=== PATIENT | male | born 1945 | race Caucasian/White ===

== ENCOUNTER → 2016-08-26 | Outpatient (REF) | payer MEDICARE ==
[~2016-08-26] MED LIST: /QUIN20TA OR; ACCU5TAB7; ACTO45TA; ACTO45TA OR; COLC0.6T OR; GABA600T3; GABA600T3 OR; GLUC1000 OR; GLYBURIDE/METFORMIN; LASI40TA; LASI40TA OR; PAME50CA; PAME50CA OR; PROBENECID/COLCHICIN; SENN8.6T5; SENN8.6T5 OR; ZOCO20TA; ZOCO20TA OR
[2016-08-26 13:44] LABS: ALBUMIN 4.3 GM/DL (3.2-5.2); ALBUMIN/GLOBULIN RATIO 1.34 (1.00-1.93); BILIRUBIN,TOTAL 0.5 MG/DL (0.2-1.0); CALCIUM LEVEL 9.5 MG/DL (8.8-10.2); CREATININE FOR GFR 1.76 MG/DL (0.70-1.30); GLOMERULAR FILTRATION RATE 41.1 (>49); TOTAL PROTEIN 7.5 GM/DL (6.4-8.2)
[2016-08-26 13:46] LABS: POTASSIUM SERUM 5.4 MEQ/L (3.5-5.1)
== END ==
LOC: M SFHCPLAZ 07:51
PROVIDERS: ATTEND Internal Medicine
DX: E11.9 Type 2 diabetes mellitus without complications (principal)

== ENCOUNTER → 2016-09-08 | Outpatient (REF) | payer MEDICARE ==
[2016-09-08 17:50] LABS: INR 0.92
[2016-09-08 18:06] LABS: CREATININE FOR GFR 1.81 MG/DL (0.70-1.30); GLOMERULAR FILTRATION RATE 39.8 (>49); POTASSIUM SERUM 5.1 MEQ/L (3.5-5.1)
[2016-09-08 18:33] LABS: MEAN CORPUSCULAR HEMOGLOBIN 30.6 pg (27.0-33.0); RED CELL DISTRIBUTION WIDTH 11.9 % (11.5-14.5); WHITE BLOOD COUNT 7.3 K/mm3 (4.0-10.0)
== END ==
LOC: M SFHCPLAZ 15:32
PROVIDERS: ATTEND Internal Medicine
DX: I73.9 Peripheral vascular disease, unspecified (principal); I12.9 Hypertensive chronic kidney disease with stage 1 through stage 4 chronic kidney disease, or unspecified chronic kidney disease; N18.3 Chronic kidney disease, stage 3 (moderate); E11.9 Type 2 diabetes mellitus without complications; Z79.4 Long term (current) use of insulin
CPT/HCPCS: 36415; 80048; 85027; 85610; 85730; G0463

== ENCOUNTER → 2016-10-15 | Outpatient (REF) | payer MEDICARE ==
[2016-10-15 14:06] LABS: ALBUMIN 3.6 GM/DL (3.2-5.2); ALBUMIN/GLOBULIN RATIO 0.95 (1.00-1.93); BILIRUBIN,TOTAL 0.4 MG/DL (0.2-1.0); CALCIUM LEVEL 8.9 MG/DL (8.8-10.2); CREATININE FOR GFR 1.94 MG/DL (0.70-1.30); GLOMERULAR FILTRATION RATE 36.7 (>49); POTASSIUM SERUM 4.4 MEQ/L (3.5-5.1); TOTAL PROTEIN 7.4 GM/DL (6.4-8.2)
== END ==
LOC: M SFHCPLAZ 11:26
PROVIDERS: ATTEND Nurse Practitioner Adult Health
DX: N18.3 Chronic kidney disease, stage 3 (moderate) (principal)
CPT/HCPCS: 36415; 80053; G0463

== ENCOUNTER 2016-12-13 18:03 | Emergency (ER) | payer MEDICARE ==
[~2016-12-13] VITALS: Ht 170.2 cm; Wt 92.1 kg
[2016-12-13 18:29] VITALS: BP 201/95
[2016-12-13] MEDS ORDERED: NORCO 5/325MG TABLET (BULK FOR ED) PO ONE (18:30)
[2016-12-13] MEDS ORDERED: HYDR-3713 PO (18:30)
== END 2016-12-13 18:37 | disposition home or self-care (01) ==
LOC: M ED 18:33
DX: S91.301A Unspecified open wound, right foot, initial encounter (principal); X58.XXXA Exposure to other specified factors, initial encounter; Y92.89 Other specified places as the place of occurrence of the external cause; Y93.89 Activity, other specified; Y99.8 Other external cause status; T87.89 Other complications of amputation stump; I10 Essential (primary) hypertension; F17.200 Nicotine dependence, unspecified, uncomplicated; E11.9 Type 2 diabetes mellitus without complications; Z88.5 Allergy status to narcotic agent; Z89.421 Acquired absence of other right toe(s)

== ENCOUNTER → 2016-12-18 | Outpatient (REF) | payer MEDICARE ==
[~2016-12-18] MED LIST changes: +HYDR-3713 PO
== END ==
LOC: M LAB REF 16:16
PROVIDERS: ATTEND Surgery
DX: L97.414 Non-pressure chronic ulcer of right heel and midfoot with necrosis of bone (principal); M86.9 Osteomyelitis, unspecified
CPT/HCPCS: 11044; 87070; 87077; 87186; 88304; 88311; 97597; G0463

== ENCOUNTER → 2017-03-11 | Outpatient (REF) | payer MEDICARE ==
[2017-03-11 12:59] LABS: MEAN CORPUSCULAR HEMOGLOBIN 31.1 pg (27.0-33.0); MEAN CORPUSCULAR HGB CONC 34.9 g/dl (32.0-36.5); RED CELL DISTRIBUTION WIDTH 14.5 % (11.5-14.5); WHITE BLOOD COUNT 7.3 K/mm3 (4.0-10.0)
[2017-03-11 13:05] LABS: ALBUMIN 3.5 GM/DL (3.2-5.2); ALBUMIN/GLOBULIN RATIO 0.88 (1.00-1.93); BILIRUBIN,TOTAL 0.4 MG/DL (0.2-1.0); CALCIUM LEVEL 9.5 MG/DL (8.8-10.2); CREATININE FOR GFR 1.48 MG/DL (0.70-1.30); GLOMERULAR FILTRATION RATE 50.2 (>49); MAGNESIUM LEVEL 2.1 MG/DL (1.8-2.4); POTASSIUM SERUM 4.6 MEQ/L (3.5-5.1); TOTAL PROTEIN 7.5 GM/DL (6.4-8.2)
== END ==
LOC: M SFHCADAM 08:45
PROVIDERS: ATTEND Internal Medicine
DX: I73.9 Peripheral vascular disease, unspecified (principal); N18.3 Chronic kidney disease, stage 3 (moderate); E11.22 Type 2 diabetes mellitus with diabetic chronic kidney disease; E78.00 Pure hypercholesterolemia, unspecified; I12.9 Hypertensive chronic kidney disease with stage 1 through stage 4 chronic kidney disease, or unspecified chronic kidney disease

== ENCOUNTER → 2017-07-10 | Outpatient (REF) | payer MEDICARE ==
[2017-07-10 14:01] LABS: MEAN CORPUSCULAR HEMOGLOBIN 29.8 pg (27.0-33.0); MEAN CORPUSCULAR HGB CONC 32.9 g/dl (32.0-36.5); MEAN CORPUSCULAR VOLUME 90.5 fl (80.0-96.0); PLATELET COUNT, AUTOMATED 200 10^3/uL (150-450); RED CELL DISTRIBUTION WIDTH 13.8 % (11.5-14.5); WHITE BLOOD COUNT 6.1 10^3/uL (4.0-10.0)
[2017-07-10 14:10] LABS: ALBUMIN 4.1 GM/DL (3.2-5.2); ALBUMIN/GLOBULIN RATIO 1.14 (1.00-1.93); BILIRUBIN,TOTAL 0.4 MG/DL (0.2-1.0); CALCIUM LEVEL 9.5 MG/DL (8.8-10.2); CREATININE FOR GFR 1.67 MG/DL (0.70-1.30); GLOMERULAR FILTRATION RATE 43.5 (>42); TOTAL PROTEIN 7.7 GM/DL (6.4-8.2)
[2017-07-10 14:21] LABS: POTASSIUM SERUM 5.3 MEQ/L (3.5-5.1)
== END ==
LOC: M SFHCPLAZ 08:16
PROVIDERS: ATTEND Internal Medicine
DX: N18.3 Chronic kidney disease, stage 3 (moderate) (principal); E11.22 Type 2 diabetes mellitus with diabetic chronic kidney disease

== ENCOUNTER → 2017-11-04 | Outpatient (REF) | payer MEDICARE ==
[2017-11-04 12:19] LABS: HEMOGLOBIN 13.4 g/dl (14.0-18.0); MEAN CORPUSCULAR HEMOGLOBIN 30.7 pg (27.0-33.0); MEAN CORPUSCULAR HGB CONC 33.5 g/dl (32.0-36.5); MEAN CORPUSCULAR VOLUME 91.5 fl (80.0-96.0); PLATELET COUNT, AUTOMATED 199 10^3/uL (150-450); RED BLOOD COUNT 4.37 10^6/uL (4.30-6.10); RED CELL DISTRIBUTION WIDTH 12.8 % (11.5-14.5)
[2017-11-04 12:49] LABS: PTH INTACT 54.7 PG/ML (18.5-88.0)
[2017-11-04 13:11] LABS: ALBUMIN/GLOBULIN RATIO 1.11 (1.00-1.93); ALKALINE PHOSPHATASE 87 U/L (45-117); ALT/SGPT 48 U/L (12-78); ANION GAP 7 MEQ/L (8-16); AST/SGOT 18 U/L (7-37); BILIRUBIN,TOTAL 0.4 MG/DL (0.2-1.0); BLOOD UREA NITROGEN 34 MG/DL (7-18); CALCIUM LEVEL 8.8 MG/DL (8.8-10.2); CARBON DIOXIDE LEVEL 23 MEQ/L (21-32); CHLORIDE LEVEL 112 MEQ/L (98-107); CHOLESTEROL LEVEL 127 MG/DL (<200); CHOLESTEROL RISK RATIO 4.379 (<5); CREATININE FOR GFR 1.82 MG/DL (0.70-1.30); GLOMERULAR FILTRATION RATE 39.4 (>42); GLUCOSE, FASTING 161 MG/DL (70-100); HDL CHOLESTEROL 29 MG/DL (>40); LDL CHOLESTEROL 60.4 MG/DL (<100); MAGNESIUM LEVEL 2.5 MG/DL (1.8-2.4); NON-HDL-C 98 MG/DL; SODIUM LEVEL 142 MEQ/L (136-145); TOTAL PROTEIN 7.6 GM/DL (6.4-8.2); TRIGLYCERIDES LEVEL 188 MG/DL (<150)
[2017-11-04 13:15] LABS: POTASSIUM SERUM 5.6 MEQ/L (3.5-5.1)
[2017-11-04 13:26] LABS: ESTIMATED AVERAGE GLUCOSE 203 MG/DL (60-110); HEMOGLOBIN A1c 8.7 %
== END ==
LOC: M SFHCADAM 08:39
DX: Z51.81 Encounter for therapeutic drug level monitoring (principal); Z79.4 Long term (current) use of insulin; E11.22 Type 2 diabetes mellitus with diabetic chronic kidney disease; E78.00 Pure hypercholesterolemia, unspecified; I12.9 Hypertensive chronic kidney disease with stage 1 through stage 4 chronic kidney disease, or unspecified chronic kidney disease; N18.3 Chronic kidney disease, stage 3 (moderate)
CPT/HCPCS: 83735

== ENCOUNTER 2018-01-07 19:19 | Emergency (ER) | payer MEDICARE | END 2018-01-08 00:24 | disposition home or self-care (01) | LOC: M ED 01-08 00:24 | DX: S90.412A Abrasion, left great toe, initial encounter (principal); X58.XXXA Exposure to other specified factors, initial encounter; Y92.9 Unspecified place or not applicable; Y93.9 Activity, unspecified; Y99.9 Unspecified external cause status; E11.9 Type 2 diabetes mellitus without complications; I10 Essential (primary) hypertension; M10.9 Gout, unspecified; N40.0 Benign prostatic hyperplasia without lower urinary tract symptoms; Z87.442 Personal history of urinary calculi; Z79.4 Long term (current) use of insulin; Z79.899 Other long term (current) drug therapy; Z88.5 Allergy status to narcotic agent | CPT/HCPCS: 99283 ==

== ENCOUNTER → 2018-02-22 | Outpatient (REF) | payer MEDICARE ==
[2018-02-22 13:16] LABS: ALBUMIN 3.2 GM/DL (3.2-5.2); ALBUMIN/GLOBULIN RATIO 0.76 (1.00-1.93); ALKALINE PHOSPHATASE 121 U/L (45-117); ALT/SGPT 29 U/L (12-78); ANION GAP 8 MEQ/L (8-16); AST/SGOT 14 U/L (7-37); BILIRUBIN,TOTAL 0.3 MG/DL (0.2-1.0); BLOOD UREA NITROGEN 29 MG/DL (7-18); CALCIUM LEVEL 8.3 MG/DL (8.8-10.2); CARBON DIOXIDE LEVEL 22 MEQ/L (21-32); CHLORIDE LEVEL 112 MEQ/L (98-107); CREATININE FOR GFR 1.58 MG/DL (0.70-1.30); GLOMERULAR FILTRATION RATE 46.4 (>42); GLUCOSE, FASTING 94 MG/DL (70-100); POTASSIUM SERUM 4.5 MEQ/L (3.5-5.1); SODIUM LEVEL 142 MEQ/L (136-145); TOTAL PROTEIN 7.4 GM/DL (6.4-8.2); URIC ACID 5.3 MG/DL (3.5-7.2)
[2018-02-22 13:17] LABS: PTH INTACT 57.6 PG/ML (18.5-88.0)
[2018-02-22 13:36] LABS: ESTIMATED AVERAGE GLUCOSE 186 MG/DL (60-110); HEMOGLOBIN A1c 8.1 %
== END ==
LOC: M SFHCADAM 08:04
DX: E11.22 Type 2 diabetes mellitus with diabetic chronic kidney disease (principal); N18.3 Chronic kidney disease, stage 3 (moderate); M10.9 Gout, unspecified
CPT/HCPCS: 83735

== ENCOUNTER 2018-06-10 12:47 | Inpatient (IN) | payer MEDICARE ==
[2018-06-10 14:47] LABS: BASO % 0.6 % (0.0-1.0); EOS # 0.1 10^3/uL (0.0-0.50); EOS % 2.1 % (0.0-3.0); HEMATOCRIT 33.9 % (42.0-52.0); HEMOGLOBIN 11.1 g/dl (13.5-17.5); IMMATURE GRANULOCYTE % 0.3 % (0-3.0); LYMPH # 0.8 10^3/uL (1.5-4.5); LYMPH % 22.6 % (24.0-44.0); MEAN CORPUSCULAR HEMOGLOBIN 30.3 pg (27.0-33.0); MEAN CORPUSCULAR HGB CONC 32.7 g/dl (32.0-36.5); MEAN CORPUSCULAR VOLUME 92.6 fl (80.0-96.0); MONO # 0.4 10^3/uL (0.0-0.8); MONO % 11.4 % (0.0-5.0); NEUTROPHILS # 2.2 10^3/uL (1.8-7.7); PLATELET COUNT, AUTOMATED 161 10^3/uL (150-450); RED BLOOD COUNT 3.66 10^6/uL (4.30-6.10); RED CELL DISTRIBUTION WIDTH 14.1 % (11.5-14.5); WHITE BLOOD COUNT 3.4 10^3/uL (4.0-10.0)
[2018-06-10 14:54] LABS: ANION GAP 9 MEQ/L (8-16); BLOOD UREA NITROGEN 54 MG/DL (7-18); CALCIUM LEVEL 8.1 MG/DL (8.8-10.2); CARBON DIOXIDE LEVEL 21 MEQ/L (21-32); CHLORIDE LEVEL 113 MEQ/L (98-107); CREATININE FOR GFR 2.26 MG/DL (0.70-1.30); GLOMERULAR FILTRATION RATE 30.6 (>42); GLUCOSE, FASTING 153 MG/DL (70-100); POTASSIUM SERUM 5.1 MEQ/L (3.5-5.1); SODIUM LEVEL 143 MEQ/L (136-145)
[2018-06-10] MEDS: ALBUTEROL SULFATE 2.5 MG/0.5 ML INH NEB SOLN INH ×3 (15:11→15:40)
[2018-06-10 15:15] LABS: CPK CREATINE PHOSPHOKINASE 386 U/L (39-308); MB/CK RELATIVE INDEX 1.14 (< OR =4); NT-PRO BNP 486 PG/ML (<125); TROPONIN I < 0.02 NG/ML (< 0.10)
[2018-06-10 15:48] LABS: LACTIC ACID SEPSIS PROTOCOL 1.2 MMOL/L (0.4-2.0)
[2018-06-10] MEDS: PIPERACILLIN/TAZOBACTAM SOD 3.375 GM in D5W MINI-BAG PLUS 50 ML IV (16:00)
[2018-06-10] MEDS ORDERED: GLUCOSE 4 GM CHEW TABLET PO (16:45)
[2018-06-10] MEDS ORDERED: DEXTROSE 50% 50 ML SYRINGE IV (16:45)
[2018-06-10] MEDS ORDERED: GLUCAGON FOR INJ 1 MG VIAL (J1610) SC (16:45)
[2018-06-10] MEDS: methylPREDNISolone INJ 125 MG/2 ML VIAL (J2930) IV (17:17)
[2018-06-10] MEDS: VANCOMYCIN HCL 500 MG in D5W MINI-BAG PLUS 100 ML IV (17:17)
[2018-06-10] MEDS: FUROSEMIDE 40 MG/4 ML VIAL (J1940) IV (20:02)
[2018-06-10] MEDS: LevoFLOXacin IV 500 MG in APPROPRIATE DILUENT 1 EA IV (20:07)
[2018-06-10 21:19] LABS: CPK CREATINE PHOSPHOKINASE 382 U/L (39-308); MB/CK RELATIVE INDEX 1.23 (< OR =4); TROPONIN I 0.04 NG/ML (< 0.10)
[2018-06-10 21:48] LABS: APPEARANCE, URINE HAZY (CLEAR); BACTERIA, URINE AUTO 1+ (NEGATIVE); BILIRUBIN, URINE AUTO NEGATIVE (NEGATIVE); BLOOD, URINE BLOOD 1+ (NEGATIVE); COLOR, URINE YELLOW (YELLOW); GLUCOSE, URINE (UA) AUTO 1+ mg/dL (NEGATIVE); KETONE, URINE AUTO NEGATIVE (NEGATIVE); LEUKOCYTE ESTERASE, URINE AUTO NEGATIVE (NEGATIVE); MUCUS, URINE SMALL (NEGATIVE); NITRITE, URINE AUTO NEGATIVE (NEGATIVE); PROTEIN, URINE AUTO 2+ mg/dL (NEGATIVE); RBC, URINE AUTO 3 /HPF (0-3); SPECIFIC GRAVITY URINE AUTO 1.013 (1.002-1.035); SQUAMOUS EPITHELIAL CELL UR AU 1 /HPF (0-6); UROBILINOGEN, URINE AUTO 0.2 mg/dL (0.0-2.0); WBC, URINE AUTO 2 /HPF (0-3)
[2018-06-10] MEDS: METOPROLOL TART 50 MG TAB PO (21:53)
[2018-06-10] MEDS: SIMVASTATIN 40 MG TAB PO (21:53)
[2018-06-10] MEDS: GABAPENTIN 300 MG CAP PO (21:53)
[2018-06-10] MEDS: HEPARIN SOD (PORCINE) 5000 UNITS/ML VIAL SC (21:54)
[2018-06-10] MEDS: NYSTATIN 100,000 UNITS/GM TOPICAL PWD 15 GM TOP (21:54)
[2018-06-10] MEDS: PROBENECID 500 MG TAB PO (21:54)
[2018-06-10] MEDS: VANCOMYCIN HCL 1,000 MG, VIAL MATE ADAPTER 1 EACH in D5W 250 ML IV (21:56)
[2018-06-10 22:16] LABS: BEDSIDE GLUCOSE 368 MG/DL (83-110)
[2018-06-10] MEDS: HumaLOG INSULIN (NovoLOG) PER UNIT SC (22:20)
[2018-06-10] MEDS: IPRATROPIUM 0.5MG/ALBUTEROL 2.5MG INH SOL UD 3ML (DUONEB)(J7620) NEB (22:32)
[2018-06-11] MEDS: methylPREDNISolone INJ 40 MG/1 ML VIAL (J2920) IV ×3 (00:40→16:57)
[2018-06-11] MEDS: IPRATROPIUM 0.5MG/ALBUTEROL 2.5MG INH SOL UD 3ML (DUONEB)(J7620) NEB ×4 (01:49→19:37)
[2018-06-11] MEDS: HEPARIN SOD (PORCINE) 5000 UNITS/ML VIAL SC ×3 (05:38→20:54)
[2018-06-11 06:58] LABS: HEMATOCRIT 33.7 % (42.0-52.0); HEMOGLOBIN 10.9 g/dl (13.5-17.5); LYMPH # 0.3 10^3/uL (1.5-4.5); LYMPH % 12.5 % (24.0-44.0); MEAN CORPUSCULAR HEMOGLOBIN 29.9 pg (27.0-33.0); MEAN CORPUSCULAR HGB CONC 32.3 g/dl (32.0-36.5); MEAN CORPUSCULAR VOLUME 92.3 fl (80.0-96.0); MONO # 0.1 10^3/uL (0.0-0.8); MONO % 4.2 % (0.0-5.0); NEUTROPHILS # 1.8 10^3/uL (1.8-7.7); NEUTROPHILS % 83.3 % (36.0-66.0); PLATELET COUNT, AUTOMATED 145 10^3/uL (150-450); RED BLOOD COUNT 3.65 10^6/uL (4.30-6.10); RED CELL DISTRIBUTION WIDTH 13.8 % (11.5-14.5); WHITE BLOOD COUNT 2.2 10^3/uL (4.0-10.0)
[2018-06-11 07:19] LABS: POSITIVE DIFF POS FLAG
[2018-06-11 07:45] LABS: ALBUMIN 2.8 GM/DL (3.2-5.2); ALBUMIN/GLOBULIN RATIO 0.61 (1.00-1.93); ALKALINE PHOSPHATASE 93 U/L (45-117); ALT/SGPT 42 U/L (12-78); ANION GAP 10 MEQ/L (8-16); AST/SGOT 29 U/L (7-37); BILIRUBIN,TOTAL 0.2 MG/DL (0.2-1.0); BLOOD UREA NITROGEN 53 MG/DL (7-18); CALCIUM LEVEL 8.1 MG/DL (8.8-10.2); CARBON DIOXIDE LEVEL 19 MEQ/L (21-32); CHLORIDE LEVEL 111 MEQ/L (98-107); CPK CREATINE PHOSPHOKINASE 366 U/L (39-308); CREATININE FOR GFR 2.45 MG/DL (0.70-1.30); GLOMERULAR FILTRATION RATE 27.9 (>42); GLUCOSE, FASTING 296 MG/DL (70-100); MAGNESIUM LEVEL 2.6 MG/DL (1.8-2.4); MB/CK RELATIVE INDEX 1.48 (< OR =4); POTASSIUM SERUM 4.8 MEQ/L (3.5-5.1); SODIUM LEVEL 140 MEQ/L (136-145); TOTAL PROTEIN 7.4 GM/DL (6.4-8.2); TROPONIN I 0.21 NG/ML (< 0.10)
[2018-06-11] MEDS: QUINAPRIL 20 MG TAB PO (08:36)
[2018-06-11] MEDS: PROBENECID 500 MG TAB PO ×2 (08:36→20:54)
[2018-06-11] MEDS: ASPIRIN 81 MG ENTERIC TAB PO (08:36)
[2018-06-11] MEDS: ACETAMINOPHEN TAB 650MG DOSE (2X325MG) PO (08:37)
[2018-06-11] MEDS: GABAPENTIN 300 MG CAP PO ×2 (08:37→20:54)
[2018-06-11] MEDS: METOPROLOL TART 50 MG TAB PO ×2 (08:37→20:54)
[2018-06-11] MEDS: HumaLOG INSULIN (NovoLOG) PER UNIT SC ×4 (08:38→20:53)
[2018-06-11] MEDS: NYSTATIN 100,000 UNITS/GM TOPICAL PWD 15 GM TOP ×2 (08:38→20:53)
[2018-06-11] MEDS: VANCOMYCIN HCL 1,000 MG, VIAL MATE ADAPTER 1 EACH in D5W 250 ML IV (10:22)
[2018-06-11 11:15] LABS: BEDSIDE GLUCOSE 318 MG/DL (83-110)
[2018-06-11] MEDS: SLF 3 ML SYR IV ×2 (13:40→20:55)
[2018-06-11 15:00] LABS: TROPONIN I 0.17 NG/ML (< 0.10)
[2018-06-11 16:37] LABS: BEDSIDE GLUCOSE 268 MG/DL (83-110)
[2018-06-11 20:03] LABS: TROPONIN I 0.11 NG/ML (< 0.10)
[2018-06-11 20:06] LABS: BEDSIDE GLUCOSE 380 MG/DL (83-110)
[2018-06-11] MEDS: SIMVASTATIN 40 MG TAB PO (20:54)
[2018-06-12] MEDS: SLF 3 ML SYR IV ×4 (00:18→22:00)
[2018-06-12] MEDS: methylPREDNISolone INJ 40 MG/1 ML VIAL (J2920) IV ×3 (00:18→17:32)
[2018-06-12] MEDS: IPRATROPIUM 0.5MG/ALBUTEROL 2.5MG INH SOL UD 3ML (DUONEB)(J7620) NEB ×5 (01:10→19:27)
[2018-06-12 02:16] LABS: TROPONIN I 0.12 NG/ML (< 0.10)
[2018-06-12 06:01] LABS: HEMATOCRIT 31.9 % (42.0-52.0); HEMOGLOBIN 10.5 g/dl (13.5-17.5); IMMATURE GRANULOCYTE % 0.4 % (0-3.0); LYMPH # 0.4 10^3/uL (1.5-4.5); LYMPH % 7.2 % (24.0-44.0); MEAN CORPUSCULAR HEMOGLOBIN 30.5 pg (27.0-33.0); MEAN CORPUSCULAR HGB CONC 32.9 g/dl (32.0-36.5); MEAN CORPUSCULAR VOLUME 92.7 fl (80.0-96.0); MONO # 0.2 10^3/uL (0.0-0.8); MONO % 3.5 % (0.0-5.0); NEUTROPHILS # 4.6 10^3/uL (1.8-7.7); NEUTROPHILS % 88.9 % (36.0-66.0); PLATELET COUNT, AUTOMATED 147 10^3/uL (150-450); RED BLOOD COUNT 3.44 10^6/uL (4.30-6.10); RED CELL DISTRIBUTION WIDTH 13.8 % (11.5-14.5); WHITE BLOOD COUNT 5.2 10^3/uL (4.0-10.0)
[2018-06-12 06:31] LABS: ALBUMIN 2.9 GM/DL (3.2-5.2); ALBUMIN/GLOBULIN RATIO 0.63 (1.00-1.93); ALKALINE PHOSPHATASE 94 U/L (45-117); ALT/SGPT 42 U/L (12-78); ANION GAP 11 MEQ/L (8-16); AST/SGOT 25 U/L (7-37); BILIRUBIN,TOTAL 0.2 MG/DL (0.2-1.0); BLOOD UREA NITROGEN 62 MG/DL (7-18); CALCIUM LEVEL 8.1 MG/DL (8.8-10.2); CARBON DIOXIDE LEVEL 18 MEQ/L (21-32); CHLORIDE LEVEL 111 MEQ/L (98-107); CREATININE FOR GFR 2.46 MG/DL (0.70-1.30); GLOMERULAR FILTRATION RATE 27.8 (>42); GLUCOSE, FASTING 354 MG/DL (70-100); MAGNESIUM LEVEL 2.9 MG/DL (1.8-2.4); POTASSIUM SERUM 4.7 MEQ/L (3.5-5.1); SODIUM LEVEL 140 MEQ/L (136-145); TOTAL PROTEIN 7.5 GM/DL (6.4-8.2)
[2018-06-12] MEDS: HEPARIN SOD (PORCINE) 5000 UNITS/ML VIAL SC ×3 (06:37→20:44)
[2018-06-12] MEDS: PROBENECID 500 MG TAB PO (08:59)
[2018-06-12] MEDS: HumaLOG INSULIN (NovoLOG) PER UNIT SC ×3 (08:59→17:33)
[2018-06-12] MEDS: METOPROLOL TART 50 MG TAB PO ×2 (08:59→20:45)
[2018-06-12] MEDS: GABAPENTIN 300 MG CAP PO ×2 (08:59→20:45)
[2018-06-12] MEDS: ASPIRIN 81 MG ENTERIC TAB PO (08:59)
[2018-06-12] MEDS: QUINAPRIL 20 MG TAB PO (09:00)
[2018-06-12] MEDS: NYSTATIN 100,000 UNITS/GM TOPICAL PWD 15 GM TOP ×2 (09:00→20:45)
[2018-06-12] MEDS: FLUBLOK(EGG FREE)(QUAD)INFLUENZA VACC 0.5ML SYRINGE (90682)18YRS&OLDER IM (09:06)
[2018-06-12] MEDS: PREVNAR 13 VACCINE SYRINGE (CPT CODE:90670) IM (09:07)
[2018-06-12 09:29] LABS: VANCOMYCIN LEVEL TROUGH 11.4 UG/ML (10.0-20.0)
[2018-06-12 11:12] LABS: BEDSIDE GLUCOSE 419 MG/DL (83-110)
[2018-06-12] MEDS: VANCOMYCIN HCL 1,000 MG, VIAL MATE ADAPTER 1 EACH in D5W 250 ML IV (11:23)
[2018-06-12 16:31] LABS: BEDSIDE GLUCOSE 375 MG/DL (83-110)
[2018-06-12] MEDS: LevoFLOXacin IV 500 MG in APPROPRIATE DILUENT 1 EA IV (17:33)
[2018-06-12] MEDS: LEVEMIR (INSULIN DETEMIR) 1 UNITS/0.01ML SC (20:43)
[2018-06-12] MEDS: SIMVASTATIN 40 MG TAB PO (20:44)
[2018-06-12 23:08] LABS: CREATININE,RANDOM URINE 46.6 MG/DL
[2018-06-12 23:08] LABS: TOTAL PROTEIN,RANDOM URINE 92.4 MG/DL (0.0-12.0)
[2018-06-13] MEDS: methylPREDNISolone INJ 40 MG/1 ML VIAL (J2920) IV ×2 (00:56→09:17)
[2018-06-13] MEDS: ACETAMINOPHEN TAB 650MG DOSE (2X325MG) PO (00:59)
[2018-06-13] MEDS: IPRATROPIUM 0.5MG/ALBUTEROL 2.5MG INH SOL UD 3ML (DUONEB)(J7620) NEB ×4 (01:52→19:21)
[2018-06-13 05:42] LABS: HEMATOCRIT 32.8 % (42.0-52.0); HEMOGLOBIN 10.6 g/dl (13.5-17.5); IMMATURE GRANULOCYTE % 1.4 % (0-3.0); LYMPH # 0.3 10^3/uL (1.5-4.5); LYMPH % 5.1 % (24.0-44.0); MEAN CORPUSCULAR HEMOGLOBIN 29.8 pg (27.0-33.0); MEAN CORPUSCULAR HGB CONC 32.3 g/dl (32.0-36.5); MEAN CORPUSCULAR VOLUME 92.1 fl (80.0-96.0); MONO # 0.2 10^3/uL (0.0-0.8); MONO % 3.4 % (0.0-5.0); NEUTROPHILS # 5.9 10^3/uL (1.8-7.7); NEUTROPHILS % 90.1 % (36.0-66.0); PLATELET COUNT, AUTOMATED 165 10^3/uL (150-450); RED BLOOD COUNT 3.56 10^6/uL (4.30-6.10); RED CELL DISTRIBUTION WIDTH 13.5 % (11.5-14.5); WHITE BLOOD COUNT 6.5 10^3/uL (4.0-10.0)
[2018-06-13] MEDS: SLF 3 ML SYR IV ×3 (06:00→21:36)
[2018-06-13] MEDS: HEPARIN SOD (PORCINE) 5000 UNITS/ML VIAL SC ×3 (06:06→21:36)
[2018-06-13 06:07] LABS: ALBUMIN 2.9 GM/DL (3.2-5.2); ALBUMIN/GLOBULIN RATIO 0.64 (1.00-1.93); ALKALINE PHOSPHATASE 96 U/L (45-117); ALT/SGPT 50 U/L (12-78); ANION GAP 11 MEQ/L (8-16); AST/SGOT 27 U/L (7-37); BILIRUBIN,TOTAL 0.3 MG/DL (0.2-1.0); BLOOD UREA NITROGEN 65 MG/DL (7-18); CALCIUM LEVEL 8.1 MG/DL (8.8-10.2); CARBON DIOXIDE LEVEL 17 MEQ/L (21-32); CHLORIDE LEVEL 112 MEQ/L (98-107); CREATININE FOR GFR 2.23 MG/DL (0.70-1.30); GLOMERULAR FILTRATION RATE 31.1 (>42); GLUCOSE, FASTING 382 MG/DL (70-100); MAGNESIUM LEVEL 2.8 MG/DL (1.8-2.4); POTASSIUM SERUM 4.6 MEQ/L (3.5-5.1); SODIUM LEVEL 140 MEQ/L (136-145); TOTAL PROTEIN 7.4 GM/DL (6.4-8.2)
[2018-06-13] MEDS: HumaLOG INSULIN (NovoLOG) PER UNIT SC ×4 (09:15→21:36)
[2018-06-13] MEDS: LEVEMIR (INSULIN DETEMIR) 1 UNITS/0.01ML SC (09:17)
[2018-06-13] MEDS: GABAPENTIN 300 MG CAP PO ×2 (09:18→21:11)
[2018-06-13] MEDS: ASPIRIN 81 MG ENTERIC TAB PO (09:18)
[2018-06-13] MEDS: METOPROLOL TART 50 MG TAB PO ×2 (09:18→21:09)
[2018-06-13] MEDS: NYSTATIN 100,000 UNITS/GM TOPICAL PWD 15 GM TOP (09:19)
[2018-06-13] MEDS: VANCOMYCIN HCL 1,000 MG, VIAL MATE ADAPTER 1 EACH in D5W 250 ML IV (11:02)
[2018-06-13 11:31] LABS: BEDSIDE GLUCOSE 520 MG/DL (83-110)
[2018-06-13 11:32] LABS: BEDSIDE GLUCOSE 506 MG/DL (83-110)
[2018-06-13 12:12] LABS: BEDSIDE GLUCOSE CONFIRMATION 532 MG/DL (LESS THAN 200)
[2018-06-13] MEDS: amLODIPine 5 MG TAB PO (13:53)
[2018-06-13 16:55] LABS: BEDSIDE GLUCOSE 374 MG/DL (83-110)
[2018-06-13 20:40] LABS: BEDSIDE GLUCOSE 283 MG/DL (83-110)
[2018-06-13] MEDS ORDERED: ONDANSETRON 4MG/2ML VIAL (J2405) IV (20:45)
[2018-06-13] MEDS: SODIUM BICARBONATE 325 MG TAB PO (21:12)
[2018-06-13] MEDS: ONDANSETRON 4MG/2ML VIAL (J2405) IV (21:35)
[2018-06-14] MEDS: NYSTATIN 100,000 UNITS/GM TOPICAL PWD 15 GM TOP ×3 (00:59→21:18)
[2018-06-14] MEDS: IPRATROPIUM 0.5MG/ALBUTEROL 2.5MG INH SOL UD 3ML (DUONEB)(J7620) NEB ×5 (02:00→20:00)
[2018-06-14] MEDS: HEPARIN SOD (PORCINE) 5000 UNITS/ML VIAL SC ×3 (06:03→21:19)
[2018-06-14] MEDS: SLF 3 ML SYR IV ×3 (06:03→22:00)
[2018-06-14 07:02] LABS: BASO % 0.2 % (0.0-1.0); HEMATOCRIT 33.5 % (42.0-52.0); HEMOGLOBIN 11.2 g/dl (13.5-17.5); IMMATURE GRANULOCYTE % 1.1 % (0-3.0); LYMPH # 1.4 10^3/uL (1.5-4.5); LYMPH % 15.5 % (24.0-44.0); MEAN CORPUSCULAR HEMOGLOBIN 30.3 pg (27.0-33.0); MEAN CORPUSCULAR HGB CONC 33.4 g/dl (32.0-36.5); MEAN CORPUSCULAR VOLUME 90.5 fl (80.0-96.0); MONO # 0.7 10^3/uL (0.0-0.8); MONO % 7.2 % (0.0-5.0); NEUTROPHILS # 6.9 10^3/uL (1.8-7.7); PLATELET COUNT, AUTOMATED 179 10^3/uL (150-450); RED CELL DISTRIBUTION WIDTH 13.6 % (11.5-14.5)
[2018-06-14 07:26] LABS: ALBUMIN 2.9 GM/DL (3.2-5.2); ALBUMIN/GLOBULIN RATIO 0.69 (1.00-1.93); ALKALINE PHOSPHATASE 80 U/L (45-117); ALT/SGPT 77 U/L (12-78); ANION GAP 9 MEQ/L (8-16); AST/SGOT 55 U/L (7-37); BILIRUBIN,TOTAL 0.3 MG/DL (0.2-1.0); BLOOD UREA NITROGEN 57 MG/DL (7-18); CALCIUM LEVEL 8.1 MG/DL (8.8-10.2); CARBON DIOXIDE LEVEL 20 MEQ/L (21-32); CHLORIDE LEVEL 116 MEQ/L (98-107); CREATININE FOR GFR 1.92 MG/DL (0.70-1.30); GLOMERULAR FILTRATION RATE 36.9 (>42); GLUCOSE, FASTING 158 MG/DL (70-100); MAGNESIUM LEVEL 2.8 MG/DL (1.8-2.4); POTASSIUM SERUM 4.2 MEQ/L (3.5-5.1); SODIUM LEVEL 145 MEQ/L (136-145); TOTAL PROTEIN 7.1 GM/DL (6.4-8.2)
[2018-06-14] MEDS: SODIUM BICARBONATE 325 MG TAB PO (08:40)
[2018-06-14] MEDS: LEVEMIR (INSULIN DETEMIR) 1 UNITS/0.01ML SC (08:41)
[2018-06-14] MEDS: predniSONE 10 MG TAB PO (08:41)
[2018-06-14] MEDS: METOPROLOL TART 50 MG TAB PO ×2 (08:42→21:16)
[2018-06-14] MEDS: GABAPENTIN 300 MG CAP PO ×2 (08:42→21:15)
[2018-06-14] MEDS: ATORVASTATIN 20 MG TAB PO (08:42)
[2018-06-14] MEDS: ASPIRIN 81 MG ENTERIC TAB PO (08:42)
[2018-06-14] MEDS: amLODIPine 5 MG TAB PO (08:42)
[2018-06-14] MEDS: HumaLOG INSULIN (NovoLOG) PER UNIT SC ×4 (08:43→21:00)
[2018-06-14 12:03] LABS: BEDSIDE GLUCOSE 185 MG/DL (83-110)
[2018-06-14 16:32] LABS: BEDSIDE GLUCOSE 227 MG/DL (83-110)
[2018-06-14] MEDS: LevoFLOXacin 500 MG TABLET PO (17:28)
[2018-06-14 20:47] LABS: BEDSIDE GLUCOSE 190 MG/DL (83-110)
[2018-06-14] MEDS: ACETAMINOPHEN TAB 650MG DOSE (2X325MG) PO (21:15)
[2018-06-15] MEDS: IPRATROPIUM 0.5MG/ALBUTEROL 2.5MG INH SOL UD 3ML (DUONEB)(J7620) NEB ×5 (02:00→23:21)
[2018-06-15] MEDS: SLF 3 ML SYR IV ×3 (06:00→22:00)
[2018-06-15] MEDS: HEPARIN SOD (PORCINE) 5000 UNITS/ML VIAL SC ×3 (06:41→21:40)
[2018-06-15 07:10] LABS: BASO % 0.1 % (0.0-1.0); EOS % 0.1 % (0.0-3.0); HEMATOCRIT 32.6 % (42.0-52.0); LYMPH # 1.5 10^3/uL (1.5-4.5); LYMPH % 19.2 % (24.0-44.0); MEAN CORPUSCULAR HGB CONC 33.7 g/dl (32.0-36.5); MEAN CORPUSCULAR VOLUME 88.8 fl (80.0-96.0); MONO # 0.5 10^3/uL (0.0-0.8); MONO % 6.1 % (0.0-5.0); NEUTROPHILS # 5.7 10^3/uL (1.8-7.7); NEUTROPHILS % 72.5 % (36.0-66.0); PLATELET COUNT, AUTOMATED 183 10^3/uL (150-450); RED BLOOD COUNT 3.67 10^6/uL (4.30-6.10); RED CELL DISTRIBUTION WIDTH 13.4 % (11.5-14.5); WHITE BLOOD COUNT 7.8 10^3/uL (4.0-10.0)
[2018-06-15 07:33] LABS: ALBUMIN 2.6 GM/DL (3.2-5.2); ALBUMIN/GLOBULIN RATIO 0.65 (1.00-1.93); ALKALINE PHOSPHATASE 76 U/L (45-117); ALT/SGPT 77 U/L (12-78); ANION GAP 8 MEQ/L (8-16); AST/SGOT 34 U/L (7-37); BILIRUBIN,TOTAL 0.3 MG/DL (0.2-1.0); BLOOD UREA NITROGEN 53 MG/DL (7-18); CALCIUM LEVEL 8.2 MG/DL (8.8-10.2); CARBON DIOXIDE LEVEL 22 MEQ/L (21-32); CHLORIDE LEVEL 115 MEQ/L (98-107); CREATININE FOR GFR 1.61 MG/DL (0.70-1.30); GLOMERULAR FILTRATION RATE 45.3 (>42); GLUCOSE, FASTING 116 MG/DL (70-100); MAGNESIUM LEVEL 2.6 MG/DL (1.8-2.4); POTASSIUM SERUM 4.6 MEQ/L (3.5-5.1); SODIUM LEVEL 145 MEQ/L (136-145); TOTAL PROTEIN 6.6 GM/DL (6.4-8.2)
[2018-06-15] MEDS: ATORVASTATIN 20 MG TAB PO (08:45)
[2018-06-15] MEDS: GABAPENTIN 300 MG CAP PO ×2 (08:45→21:40)
[2018-06-15] MEDS: LEVEMIR (INSULIN DETEMIR) 1 UNITS/0.01ML SC (08:45)
[2018-06-15] MEDS: HumaLOG INSULIN (NovoLOG) PER UNIT SC ×4 (08:45→21:00)
[2018-06-15] MEDS: ASPIRIN 81 MG ENTERIC TAB PO (08:45)
[2018-06-15] MEDS: predniSONE 10 MG TAB PO (08:46)
[2018-06-15] MEDS: amLODIPine 5 MG TAB PO (08:48)
[2018-06-15] MEDS: NYSTATIN 100,000 UNITS/GM TOPICAL PWD 15 GM TOP ×2 (08:48→21:41)
[2018-06-15] MEDS: METOPROLOL TART 50 MG TAB PO ×2 (08:48→21:40)
[2018-06-15 11:56] LABS: BEDSIDE GLUCOSE 199 MG/DL (83-110)
[2018-06-15 12:33] LABS: C REACTIVE PROTEIN QUANTITATIV 0.61 MG/DL (0.00-0.30)
[2018-06-15 14:15] LABS: ERYTHROCYTE SEDIMENTATION RATE 63 mm/hr (0-20)
[2018-06-15] MEDS: ACETAMINOPHEN TAB 650MG DOSE (2X325MG) PO ×2 (15:14→21:41)
[2018-06-15 17:13] LABS: BEDSIDE GLUCOSE 233 MG/DL (83-110)
[2018-06-15 20:05] LABS: BEDSIDE GLUCOSE 244 MG/DL (83-110)
[2018-06-16] MEDS: SLF 3 ML SYR IV ×3 (06:00→22:37)
[2018-06-16] MEDS: HEPARIN SOD (PORCINE) 5000 UNITS/ML VIAL SC ×3 (06:47→22:37)
[2018-06-16] MEDS: HumaLOG INSULIN (NovoLOG) PER UNIT SC ×4 (07:30→22:39)
[2018-06-16] MEDS: IPRATROPIUM 0.5MG/ALBUTEROL 2.5MG INH SOL UD 3ML (DUONEB)(J7620) NEB ×3 (08:13→20:06)
[2018-06-16 08:27] LABS: BASO % 0.4 % (0.0-1.0); EOS % 0.3 % (0.0-3.0); HEMATOCRIT 36.3 % (42.0-52.0); IMMATURE GRANULOCYTE % 2.8 % (0-3.0); LYMPH # 1.6 10^3/uL (1.5-4.5); LYMPH % 18.2 % (24.0-44.0); MEAN CORPUSCULAR HEMOGLOBIN 30.2 pg (27.0-33.0); MEAN CORPUSCULAR HGB CONC 33.1 g/dl (32.0-36.5); MEAN CORPUSCULAR VOLUME 91.4 fl (80.0-96.0); MONO # 0.5 10^3/uL (0.0-0.8); MONO % 5.7 % (0.0-5.0); NEUTROPHILS # 6.5 10^3/uL (1.8-7.7); NEUTROPHILS % 72.6 % (36.0-66.0); PLATELET COUNT, AUTOMATED 229 10^3/uL (150-450); RED BLOOD COUNT 3.97 10^6/uL (4.30-6.10); RED CELL DISTRIBUTION WIDTH 13.4 % (11.5-14.5); WHITE BLOOD COUNT 8.9 10^3/uL (4.0-10.0)
[2018-06-16 08:53] LABS: ALBUMIN 2.9 GM/DL (3.2-5.2); ALBUMIN/GLOBULIN RATIO 0.66 (1.00-1.93); ALKALINE PHOSPHATASE 79 U/L (45-117); ALT/SGPT 91 U/L (12-78); ANION GAP 6 MEQ/L (8-16); AST/SGOT 37 U/L (7-37); BILIRUBIN,TOTAL 0.3 MG/DL (0.2-1.0); BLOOD UREA NITROGEN 45 MG/DL (7-18); CALCIUM LEVEL 8.9 MG/DL (8.8-10.2); CARBON DIOXIDE LEVEL 23 MEQ/L (21-32); CHLORIDE LEVEL 113 MEQ/L (98-107); CREATININE FOR GFR 1.65 MG/DL (0.70-1.30); GLUCOSE, FASTING 101 MG/DL (70-100); POTASSIUM SERUM 4.7 MEQ/L (3.5-5.1); SODIUM LEVEL 142 MEQ/L (136-145); TOTAL PROTEIN 7.3 GM/DL (6.4-8.2)
[2018-06-16 08:54] LABS: MAGNESIUM LEVEL 2.8 MG/DL (1.8-2.4)
[2018-06-16] MEDS: predniSONE 10 MG TAB PO (09:16)
[2018-06-16] MEDS: amLODIPine 5 MG TAB PO (09:17)
[2018-06-16] MEDS: LEVEMIR (INSULIN DETEMIR) 1 UNITS/0.01ML SC (09:17)
[2018-06-16] MEDS: METOPROLOL TART 50 MG TAB PO ×2 (09:17→20:19)
[2018-06-16] MEDS: ATORVASTATIN 20 MG TAB PO (09:17)
[2018-06-16] MEDS: GABAPENTIN 300 MG CAP PO ×2 (09:17→20:17)
[2018-06-16] MEDS: ASPIRIN 81 MG ENTERIC TAB PO (09:17)
[2018-06-16] MEDS: NYSTATIN 100,000 UNITS/GM TOPICAL PWD 15 GM TOP ×2 (09:17→22:38)
[2018-06-16] MEDS ORDERED: SCOPOLAMINE 1MG TRANSDERMAL PATCH As Ordered (12:49)
[2018-06-16] MEDS ORDERED: PROPOFOL 200 MG/20 ML VIAL As Ordered ×2 (13:07→13:38)
[2018-06-16] MEDS ORDERED: MIDAZOLAM INJ 2 MG/2 ML VIAL (J2250) As Ordered (13:07)
[2018-06-16] MEDS ORDERED: fentaNYL 100 MCG/2 ML INJECTION (J3010) As Ordered (13:07)
[2018-06-16] MEDS: ROPIvacaine 0.5% 30 ML INJECTION (J2795 PER 1MG) As Ordered (13:16)
[2018-06-16] MEDS: TOBRAMYCIN SULF 1.2 GM VIAL As Ordered (13:16)
[2018-06-16] MEDS ORDERED: ePHEDrine SULFATE 25 MG/5 ML(5MG/ML) SYRINGE As Ordered (13:20)
[2018-06-16] MEDS: BUPIVACAINE HCL 0.5% 10 ML VIAL As Ordered (13:48)
[2018-06-16] MEDS: LIDOCAINE 2% MDV 20 ML VIAL As Ordered (13:48)
[2018-06-16] MEDS: VANCOMYCIN HCL 500 MG/10 ML VIAL (J3370) As Ordered (13:49)
[2018-06-16] MEDS: BACITRACIN PWD 50,000 UNITS VIAL As Ordered (13:51)
[2018-06-16] MEDS: NEOSPORIN GU IRRIG 20 ML VIAL As Ordered (13:51)
[2018-06-16] MEDS ORDERED: ONDANSETRON 4MG/2ML VIAL (J2405) IV (15:00)
[2018-06-16] MEDS: LR 1,000 ML IV (15:00)
[2018-06-16] MEDS ORDERED: NORCO, ANEXSIA 5/325MG TABLET (HYDROcodone/ACETAMINOPHEN) PO (15:00)
[2018-06-16 17:04] LABS: BEDSIDE GLUCOSE 163 MG/DL (83-110)
[2018-06-16] MEDS: LevoFLOXacin 500 MG TABLET PO (17:43)
[2018-06-16] MEDS: ACETAMINOPHEN TAB 650MG DOSE (2X325MG) PO (20:17)
[2018-06-16 20:33] LABS: BEDSIDE GLUCOSE 319 MG/DL (83-110)
[2018-06-17] MEDS: IPRATROPIUM 0.5MG/ALBUTEROL 2.5MG INH SOL UD 3ML (DUONEB)(J7620) NEB ×4 (01:49→19:46)
[2018-06-17] MEDS: HEPARIN SOD (PORCINE) 5000 UNITS/ML VIAL SC ×3 (05:36→21:08)
[2018-06-17 06:55] LABS: BASO % 0.1 % (0.0-1.0); EOS % 0.2 % (0.0-3.0); HEMATOCRIT 33.6 % (42.0-52.0); HEMOGLOBIN 11.2 g/dl (13.5-17.5); IMMATURE GRANULOCYTE % 1.9 % (0-3.0); LYMPH # 1.2 10^3/uL (1.5-4.5); LYMPH % 11.3 % (24.0-44.0); MEAN CORPUSCULAR HEMOGLOBIN 30.3 pg (27.0-33.0); MEAN CORPUSCULAR HGB CONC 33.3 g/dl (32.0-36.5); MEAN CORPUSCULAR VOLUME 90.8 fl (80.0-96.0); MONO # 0.6 10^3/uL (0.0-0.8); MONO % 5.5 % (0.0-5.0); NEUTROPHILS # 8.6 10^3/uL (1.8-7.7); PLATELET COUNT, AUTOMATED 226 10^3/uL (150-450); RED CELL DISTRIBUTION WIDTH 13.4 % (11.5-14.5); WHITE BLOOD COUNT 10.7 10^3/uL (4.0-10.0)
[2018-06-17 07:23] LABS: ALBUMIN 2.8 GM/DL (3.2-5.2); ALBUMIN/GLOBULIN RATIO 0.72 (1.00-1.93); ALKALINE PHOSPHATASE 71 U/L (45-117); ALT/SGPT 72 U/L (12-78); ANION GAP 6 MEQ/L (8-16); AST/SGOT 21 U/L (7-37); BILIRUBIN,TOTAL 0.3 MG/DL (0.2-1.0); BLOOD UREA NITROGEN 47 MG/DL (7-18); CALCIUM LEVEL 8.5 MG/DL (8.8-10.2); CARBON DIOXIDE LEVEL 23 MEQ/L (21-32); CHLORIDE LEVEL 112 MEQ/L (98-107); CREATININE FOR GFR 1.67 MG/DL (0.70-1.30); GLOMERULAR FILTRATION RATE 43.4 (>42); GLUCOSE, FASTING 160 MG/DL (70-100); MAGNESIUM LEVEL 2.6 MG/DL (1.8-2.4); POTASSIUM SERUM 4.7 MEQ/L (3.5-5.1); SODIUM LEVEL 141 MEQ/L (136-145); TOTAL PROTEIN 6.7 GM/DL (6.4-8.2)
[2018-06-17] MEDS: SLF 3 ML SYR IV ×3 (08:17→21:13)
[2018-06-17] MEDS: LEVEMIR (INSULIN DETEMIR) 1 UNITS/0.01ML SC (08:18)
[2018-06-17] MEDS: HumaLOG INSULIN (NovoLOG) PER UNIT SC ×4 (08:18→21:13)
[2018-06-17] MEDS: predniSONE 10 MG TAB PO (08:18)
[2018-06-17] MEDS: GABAPENTIN 300 MG CAP PO ×2 (08:19→21:12)
[2018-06-17] MEDS: METOPROLOL TART 50 MG TAB PO ×2 (08:19→21:12)
[2018-06-17] MEDS: ATORVASTATIN 20 MG TAB PO (08:19)
[2018-06-17] MEDS: ASPIRIN 81 MG ENTERIC TAB PO (08:20)
[2018-06-17] MEDS: amLODIPine 5 MG TAB PO (08:20)
[2018-06-17] MEDS: NYSTATIN 100,000 UNITS/GM TOPICAL PWD 15 GM TOP ×2 (08:21→21:13)
[2018-06-17] MEDS: SENOKOT S TAB PO (10:03)
[2018-06-17] MEDS: ACETAMINOPHEN TAB 650MG DOSE (2X325MG) PO ×3 (10:04→21:09)
[2018-06-17 11:56] LABS: BEDSIDE GLUCOSE 240 MG/DL (83-110)
[2018-06-17] MEDS: HYDROcodone/APAP LIQUID 7.5-325MG 15ML UDC (LORTAB ELIXIR) PO (13:23)
[2018-06-17 16:37] LABS: BEDSIDE GLUCOSE 376 MG/DL (83-110)
[2018-06-17 20:15] LABS: BEDSIDE GLUCOSE 379 MG/DL (83-110)
[2018-06-18] MEDS: IPRATROPIUM 0.5MG/ALBUTEROL 2.5MG INH SOL UD 3ML (DUONEB)(J7620) NEB ×4 (02:00→20:36)
[2018-06-18] MEDS: HEPARIN SOD (PORCINE) 5000 UNITS/ML VIAL SC ×3 (05:10→21:29)
[2018-06-18] MEDS: SLF 3 ML SYR IV ×3 (05:11→21:30)
[2018-06-18 05:37] LABS: BEDSIDE GLUCOSE 149 MG/DL (83-110)
[2018-06-18] MEDS: ACETAMINOPHEN TAB 650MG DOSE (2X325MG) PO ×3 (06:50→18:55)
[2018-06-18 07:35] LABS: HEMATOCRIT 35.7 % (42.0-52.0); HEMOGLOBIN 11.5 g/dl (13.5-17.5); MEAN CORPUSCULAR HEMOGLOBIN 29.6 pg (27.0-33.0); MEAN CORPUSCULAR HGB CONC 32.2 g/dl (32.0-36.5); MEAN CORPUSCULAR VOLUME 91.8 fl (80.0-96.0); PLATELET COUNT, AUTOMATED 258 10^3/uL (150-450); RED BLOOD COUNT 3.89 10^6/uL (4.30-6.10); RED CELL DISTRIBUTION WIDTH 13.7 % (11.5-14.5); WHITE BLOOD COUNT 10.8 10^3/uL (4.0-10.0)
[2018-06-18 07:47] LABS: ANION GAP 9 MEQ/L (8-16); BLOOD UREA NITROGEN 51 MG/DL (7-18); C REACTIVE PROTEIN QUANTITATIV 0.73 MG/DL (0.00-0.30); CALCIUM LEVEL 8.7 MG/DL (8.8-10.2); CARBON DIOXIDE LEVEL 21 MEQ/L (21-32); CHLORIDE LEVEL 112 MEQ/L (98-107); CREATININE FOR GFR 2.03 MG/DL (0.70-1.30); GLOMERULAR FILTRATION RATE 34.6 (>42); GLUCOSE, FASTING 147 MG/DL (70-100); POTASSIUM SERUM 4.8 MEQ/L (3.5-5.1); SODIUM LEVEL 142 MEQ/L (136-145)
[2018-06-18] MEDS: LEVEMIR (INSULIN DETEMIR) 1 UNITS/0.01ML SC (08:16)
[2018-06-18] MEDS: HumaLOG INSULIN (NovoLOG) PER UNIT SC ×4 (08:17→21:29)
[2018-06-18] MEDS: predniSONE 10 MG TAB PO (08:17)
[2018-06-18] MEDS: METOPROLOL TART 50 MG TAB PO ×2 (08:18→21:30)
[2018-06-18] MEDS: ASPIRIN 81 MG ENTERIC TAB PO (08:18)
[2018-06-18] MEDS: amLODIPine 5 MG TAB PO (08:19)
[2018-06-18] MEDS: GABAPENTIN 300 MG CAP PO ×2 (08:19→21:30)
[2018-06-18] MEDS: ATORVASTATIN 20 MG TAB PO (08:19)
[2018-06-18] MEDS: NYSTATIN 100,000 UNITS/GM TOPICAL PWD 15 GM TOP ×2 (08:20→21:30)
[2018-06-18 12:12] LABS: BEDSIDE GLUCOSE 210 MG/DL (83-110)
[2018-06-18 16:25] LABS: BEDSIDE GLUCOSE 321 MG/DL (83-110)
[2018-06-18] MEDS: LevoFLOXacin 500 MG TABLET PO (17:06)
[2018-06-18 20:39] LABS: BEDSIDE GLUCOSE 285 MG/DL (83-110)
[2018-06-18] MEDS: HYDROcodone/APAP LIQUID 7.5-325MG 15ML UDC (LORTAB ELIXIR) PO (22:36)
[2018-06-19] MEDS: IPRATROPIUM 0.5MG/ALBUTEROL 2.5MG INH SOL UD 3ML (DUONEB)(J7620) NEB ×4 (01:15→20:00)
[2018-06-19] MEDS: SLF 3 ML SYR IV ×3 (05:18→21:42)
[2018-06-19] MEDS: HEPARIN SOD (PORCINE) 5000 UNITS/ML VIAL SC ×3 (05:18→21:41)
[2018-06-19] MEDS: HYDROcodone/APAP LIQUID 7.5-325MG 15ML UDC (LORTAB ELIXIR) PO ×3 (05:20→21:43)
[2018-06-19 06:23] LABS: HEMATOCRIT 32.9 % (42.0-52.0); HEMOGLOBIN 10.7 g/dl (13.5-17.5); MEAN CORPUSCULAR HGB CONC 32.5 g/dl (32.0-36.5); MEAN CORPUSCULAR VOLUME 92.2 fl (80.0-96.0); PLATELET COUNT, AUTOMATED 222 10^3/uL (150-450); RED BLOOD COUNT 3.57 10^6/uL (4.30-6.10); RED CELL DISTRIBUTION WIDTH 13.6 % (11.5-14.5); WHITE BLOOD COUNT 9.1 10^3/uL (4.0-10.0)
[2018-06-19 06:49] LABS: ANION GAP 7 MEQ/L (8-16); BLOOD UREA NITROGEN 56 MG/DL (7-18); C REACTIVE PROTEIN QUANTITATIV 0.56 MG/DL (0.00-0.30); CALCIUM LEVEL 8.7 MG/DL (8.8-10.2); CARBON DIOXIDE LEVEL 22 MEQ/L (21-32); CHLORIDE LEVEL 111 MEQ/L (98-107); CREATININE FOR GFR 1.99 MG/DL (0.70-1.30); GLOMERULAR FILTRATION RATE 35.4 (>42); GLUCOSE, FASTING 196 MG/DL (70-100); POTASSIUM SERUM 4.9 MEQ/L (3.5-5.1); SODIUM LEVEL 140 MEQ/L (136-145)
[2018-06-19] MEDS: ATORVASTATIN 20 MG TAB PO (08:47)
[2018-06-19] MEDS: ASPIRIN 81 MG ENTERIC TAB PO (08:47)
[2018-06-19] MEDS: GABAPENTIN 300 MG CAP PO ×2 (08:47→21:41)
[2018-06-19] MEDS: predniSONE 10 MG TAB PO (08:47)
[2018-06-19] MEDS: METOPROLOL TART 50 MG TAB PO ×2 (08:47→21:41)
[2018-06-19] MEDS: HumaLOG INSULIN (NovoLOG) PER UNIT SC ×4 (08:48→21:43)
[2018-06-19] MEDS: amLODIPine 5 MG TAB PO (08:48)
[2018-06-19] MEDS: NYSTATIN 100,000 UNITS/GM TOPICAL PWD 15 GM TOP ×2 (08:49→21:42)
[2018-06-19] MEDS: LEVEMIR (INSULIN DETEMIR) 1 UNITS/0.01ML SC (08:49)
[2018-06-19 11:44] LABS: BEDSIDE GLUCOSE 221 MG/DL (83-110)
[2018-06-19] MEDS: ACETAMINOPHEN TAB 650MG DOSE (2X325MG) PO (14:58)
[2018-06-19] MEDS: DOXYCYCLINE HYCLATE 100 MG TAB PO (14:58)
[2018-06-19 16:26] LABS: BEDSIDE GLUCOSE 291 MG/DL (83-110)
[2018-06-19 20:40] LABS: BEDSIDE GLUCOSE 405 MG/DL (83-110)
[2018-06-20] MEDS: IPRATROPIUM 0.5MG/ALBUTEROL 2.5MG INH SOL UD 3ML (DUONEB)(J7620) NEB ×4 (01:12→20:36)
[2018-06-20] MEDS: HEPARIN SOD (PORCINE) 5000 UNITS/ML VIAL SC ×3 (05:12→21:57)
[2018-06-20] MEDS: SLF 3 ML SYR IV ×3 (05:12→21:58)
[2018-06-20] MEDS: HYDROcodone/APAP LIQUID 7.5-325MG 15ML UDC (LORTAB ELIXIR) PO ×2 (05:12→12:58)
[2018-06-20 06:10] LABS: HEMATOCRIT 32.8 % (42.0-52.0); HEMOGLOBIN 10.7 g/dl (13.5-17.5); MEAN CORPUSCULAR HGB CONC 32.6 g/dl (32.0-36.5); MEAN CORPUSCULAR VOLUME 91.9 fl (80.0-96.0); PLATELET COUNT, AUTOMATED 217 10^3/uL (150-450); RED BLOOD COUNT 3.57 10^6/uL (4.30-6.10); RED CELL DISTRIBUTION WIDTH 13.5 % (11.5-14.5); WHITE BLOOD COUNT 10.3 10^3/uL (4.0-10.0)
[2018-06-20 06:33] LABS: ANION GAP 9 MEQ/L (8-16); BLOOD UREA NITROGEN 52 MG/DL (7-18); C REACTIVE PROTEIN QUANTITATIV 0.35 MG/DL (0.00-0.30); CALCIUM LEVEL 8.8 MG/DL (8.8-10.2); CARBON DIOXIDE LEVEL 20 MEQ/L (21-32); CHLORIDE LEVEL 111 MEQ/L (98-107); CREATININE FOR GFR 1.92 MG/DL (0.70-1.30); GLOMERULAR FILTRATION RATE 36.9 (>42); GLUCOSE, FASTING 218 MG/DL (70-100); POTASSIUM SERUM 4.9 MEQ/L (3.5-5.1); SODIUM LEVEL 140 MEQ/L (136-145)
[2018-06-20] MEDS: LEVEMIR (INSULIN DETEMIR) 1 UNITS/0.01ML SC (08:34)
[2018-06-20] MEDS: HumaLOG INSULIN (NovoLOG) PER UNIT SC ×4 (08:34→21:57)
[2018-06-20] MEDS: ASPIRIN 81 MG ENTERIC TAB PO (08:34)
[2018-06-20] MEDS: predniSONE 10 MG TAB PO (08:35)
[2018-06-20] MEDS: ATORVASTATIN 20 MG TAB PO (08:35)
[2018-06-20] MEDS: DOXYCYCLINE HYCLATE 100 MG TAB PO (08:35)
[2018-06-20] MEDS: GABAPENTIN 300 MG CAP PO ×2 (08:35→21:56)
[2018-06-20] MEDS: NYSTATIN 100,000 UNITS/GM TOPICAL PWD 15 GM TOP ×2 (08:36→21:57)
[2018-06-20] MEDS: METOPROLOL TART 50 MG TAB PO ×2 (08:36→21:56)
[2018-06-20] MEDS: amLODIPine 5 MG TAB PO (08:36)
[2018-06-20] MEDS: ACETAMINOPHEN TAB 650MG DOSE (2X325MG) PO ×2 (08:40→14:56)
[2018-06-20 11:29] LABS: BEDSIDE GLUCOSE 268 MG/DL (83-110)
[2018-06-20 16:41] LABS: BEDSIDE GLUCOSE 367 MG/DL (83-110)
[2018-06-20] MEDS: SENOKOT S TAB PO (17:30)
[2018-06-20 21:21] LABS: BEDSIDE GLUCOSE 336 MG/DL (83-110)
[2018-06-21] MEDS: IPRATROPIUM 0.5MG/ALBUTEROL 2.5MG INH SOL UD 3ML (DUONEB)(J7620) NEB ×4 (02:00→20:00)
[2018-06-21] MEDS: HEPARIN SOD (PORCINE) 5000 UNITS/ML VIAL SC ×3 (05:20→22:28)
[2018-06-21] MEDS: SLF 3 ML SYR IV ×3 (05:20→22:29)
[2018-06-21 06:13] LABS: HEMATOCRIT 33.7 % (42.0-52.0); MEAN CORPUSCULAR HEMOGLOBIN 30.2 pg (27.0-33.0); MEAN CORPUSCULAR HGB CONC 32.6 g/dl (32.0-36.5); MEAN CORPUSCULAR VOLUME 92.6 fl (80.0-96.0); PLATELET COUNT, AUTOMATED 223 10^3/uL (150-450); RED BLOOD COUNT 3.64 10^6/uL (4.30-6.10); RED CELL DISTRIBUTION WIDTH 13.3 % (11.5-14.5); WHITE BLOOD COUNT 10.1 10^3/uL (4.0-10.0)
[2018-06-21 07:27] LABS: ANION GAP 6 MEQ/L (8-16); BLOOD UREA NITROGEN 51 MG/DL (7-18); C REACTIVE PROTEIN QUANTITATIV < 0.30 MG/DL (0.00-0.30); CALCIUM LEVEL 8.9 MG/DL (8.8-10.2); CARBON DIOXIDE LEVEL 23 MEQ/L (21-32); CHLORIDE LEVEL 109 MEQ/L (98-107); GLOMERULAR FILTRATION RATE 37.4 (>42); GLUCOSE, FASTING 234 MG/DL (70-100); POTASSIUM SERUM 5.1 MEQ/L (3.5-5.1); SODIUM LEVEL 138 MEQ/L (136-145)
[2018-06-21] MEDS: GABAPENTIN 300 MG CAP PO ×2 (09:08→22:27)
[2018-06-21] MEDS: ASPIRIN 81 MG ENTERIC TAB PO (09:08)
[2018-06-21] MEDS: METOPROLOL TART 50 MG TAB PO ×2 (09:09→22:28)
[2018-06-21] MEDS: amLODIPine 5 MG TAB PO (09:09)
[2018-06-21] MEDS: ATORVASTATIN 20 MG TAB PO (09:09)
[2018-06-21] MEDS: predniSONE 10 MG TAB PO (09:10)
[2018-06-21] MEDS: HumaLOG INSULIN (NovoLOG) PER UNIT SC ×4 (09:11→22:34)
[2018-06-21] MEDS: LEVEMIR (INSULIN DETEMIR) 1 UNITS/0.01ML SC (09:11)
[2018-06-21] MEDS: NYSTATIN 100,000 UNITS/GM TOPICAL PWD 15 GM TOP ×2 (09:12→22:29)
[2018-06-21] MEDS: CEPHALEXIN 500 MG CAP PO ×3 (09:13→22:28)
[2018-06-21] MEDS: HYDROcodone/APAP LIQUID 7.5-325MG 15ML UDC (LORTAB ELIXIR) PO (10:22)
[2018-06-21] MEDS: dexameTHASONE 4 MG/ML 1ML VIAL (J1100) As Ordered (14:48)
[2018-06-21] MEDS: NEOSPORIN GU IRRIG 20 ML VIAL As Ordered (14:48)
[2018-06-21] MEDS: BACITRACIN PWD 50,000 UNITS VIAL As Ordered (14:48)
[2018-06-21] MEDS ORDERED: ONDANSETRON 4MG/2ML VIAL (J2405) As Ordered (15:21)
[2018-06-21] MEDS ORDERED: LIDOCAINE 2% INJ 100 MG/5 ML SDV (FOR ANES.) As Ordered (15:21)
[2018-06-21] MEDS ORDERED: dexameTHASONE 4 MG/ML 1ML VIAL (J1100) As Ordered (15:21)
[2018-06-21] MEDS ORDERED: fentaNYL 100 MCG/2 ML INJECTION (J3010) As Ordered (15:22)
[2018-06-21] MEDS ORDERED: MIDAZOLAM INJ 2 MG/2 ML VIAL (J2250) As Ordered (15:22)
[2018-06-21 16:42] LABS: BEDSIDE GLUCOSE 211 MG/DL (83-110)
[2018-06-21] MEDS: LIDOCAINE 2% MDV 20 ML VIAL As Ordered (17:58)
[2018-06-21] MEDS: BUPIVACAINE HCL 0.5% 30 ML VIAL As Ordered (17:58)
[2018-06-21] MEDS: VANCOMYCIN 1000 MG/20 ML VIAL (J3370) As Ordered (18:15)
[2018-06-21] MEDS: VANCOMYCIN HCL 500 MG/10 ML VIAL (J3370) As Ordered (18:19)
[2018-06-21] MEDS ORDERED: ONDANSETRON 4MG/2ML VIAL (J2405) IV (18:45)
[2018-06-21] MEDS: LR 1,000 ML IV (18:45)
[2018-06-21] MEDS ORDERED: NORCO, ANEXSIA 5/325MG TABLET (HYDROcodone/ACETAMINOPHEN) PO (18:45)
[2018-06-21 18:46] LABS: BEDSIDE GLUCOSE 204 MG/DL (83-110)
[2018-06-21 21:03] LABS: BEDSIDE GLUCOSE 295 MG/DL (83-110)
[2018-06-21] MEDS: ACETAMINOPHEN TAB 650MG DOSE (2X325MG) PO (22:27)
[2018-06-22] MEDS: HYDROcodone/APAP LIQUID 7.5-325MG 15ML UDC (LORTAB ELIXIR) PO ×2 (01:26→15:29)
[2018-06-22] MEDS: IPRATROPIUM 0.5MG/ALBUTEROL 2.5MG INH SOL UD 3ML (DUONEB)(J7620) NEB ×2 (01:33→07:24)
[2018-06-22 03:46] LABS: BEDSIDE GLUCOSE 288 MG/DL (83-110)
[2018-06-22] MEDS: HEPARIN SOD (PORCINE) 5000 UNITS/ML VIAL SC ×2 (06:44→13:03)
[2018-06-22] MEDS: SLF 3 ML SYR IV ×2 (06:45→13:03)
[2018-06-22] MEDS: CEPHALEXIN 500 MG CAP PO ×2 (06:45→13:02)
[2018-06-22 06:46] LABS: HEMATOCRIT 34.6 % (42.0-52.0); HEMOGLOBIN 11.3 g/dl (13.5-17.5); MEAN CORPUSCULAR HEMOGLOBIN 30.1 pg (27.0-33.0); MEAN CORPUSCULAR HGB CONC 32.7 g/dl (32.0-36.5); PLATELET COUNT, AUTOMATED 254 10^3/uL (150-450); RED BLOOD COUNT 3.76 10^6/uL (4.30-6.10); RED CELL DISTRIBUTION WIDTH 13.5 % (11.5-14.5); WHITE BLOOD COUNT 11.2 10^3/uL (4.0-10.0)
[2018-06-22] MEDS: ACETAMINOPHEN TAB 650MG DOSE (2X325MG) PO (06:47)
[2018-06-22 07:16] LABS: ANION GAP 8 MEQ/L (8-16); BLOOD UREA NITROGEN 50 MG/DL (7-18); CALCIUM LEVEL 8.9 MG/DL (8.8-10.2); CARBON DIOXIDE LEVEL 21 MEQ/L (21-32); CHLORIDE LEVEL 110 MEQ/L (98-107); CREATININE FOR GFR 1.84 MG/DL (0.70-1.30); GLOMERULAR FILTRATION RATE 38.8 (>42); GLUCOSE, FASTING 264 MG/DL (70-100); POTASSIUM SERUM 4.9 MEQ/L (3.5-5.1); SODIUM LEVEL 139 MEQ/L (136-145)
[2018-06-22] MEDS: GABAPENTIN 300 MG CAP PO (08:14)
[2018-06-22] MEDS: METOPROLOL TART 50 MG TAB PO (08:14)
[2018-06-22] MEDS: ATORVASTATIN 20 MG TAB PO (08:14)
[2018-06-22] MEDS: predniSONE 10 MG TAB PO (08:15)
[2018-06-22] MEDS: SENOKOT S TAB PO (08:15)
[2018-06-22] MEDS: amLODIPine 5 MG TAB PO (08:15)
[2018-06-22] MEDS: ASPIRIN 81 MG ENTERIC TAB PO (08:15)
[2018-06-22] MEDS: NYSTATIN 100,000 UNITS/GM TOPICAL PWD 15 GM TOP (08:16)
[2018-06-22] MEDS: LEVEMIR (INSULIN DETEMIR) 1 UNITS/0.01ML SC (08:17)
[2018-06-22] MEDS: HumaLOG INSULIN (NovoLOG) PER UNIT SC ×2 (08:17→13:02)
[2018-06-22 11:44] LABS: BEDSIDE GLUCOSE 171 MG/DL (83-110)
== END 2018-06-22 16:15 | disposition home health service (06) | DRG 853 ==
LOC: M MS4PR 06-13 11:07 → M MS5PR 06-14 14:56 → M ED 12:47 → M ED INP 16:36 → M PCU 20:44
PROVIDERS: Internal Medicine
PROC: 0QBM0ZZ Excision of Left Tarsal, Open Approach (ICD-10-PCS; 2018-06-16 07:33)
PROC: 3E0U029 Introduction of Other Anti-infective into Joints, Open Approach (ICD-10-PCS; 2018-06-16 07:33)
PROC: 0KDW0ZZ Extraction of Left Foot Muscle, Open Approach (ICD-10-PCS; principal; 2018-06-16 12:54)
PROC: 3E0U029 Introduction of Other Anti-infective into Joints, Open Approach (ICD-10-PCS; 2018-06-16 12:54)
DX: A41.9 Sepsis, unspecified organism (principal); J18.9 Pneumonia, unspecified organism; E87.2 Acidosis; N17.9 Acute kidney failure, unspecified; J44.1 Chronic obstructive pulmonary disease with (acute) exacerbation; J44.0 Chronic obstructive pulmonary disease with (acute) lower respiratory infection; L97.429 Non-pressure chronic ulcer of left heel and midfoot with unspecified severity; M86.472 Chronic osteomyelitis with draining sinus, left ankle and foot; E11.69 Type 2 diabetes mellitus with other specified complication; E66.01 Morbid (severe) obesity due to excess calories; B95.61 Methicillin susceptible Staphylococcus aureus infection as the cause of diseases classified elsewhere; R19.7 Diarrhea, unspecified; E87.5 Hyperkalemia; I12.9 Hypertensive chronic kidney disease with stage 1 through stage 4 chronic kidney disease, or unspecified chronic kidney disease; E11.621 Type 2 diabetes mellitus with foot ulcer; R79.89 Other specified abnormal findings of blood chemistry; D64.9 Anemia, unspecified; N18.3 Chronic kidney disease, stage 3 (moderate); E78.5 Hyperlipidemia, unspecified; E11.22 Type 2 diabetes mellitus with diabetic chronic kidney disease; Z89.511 Acquired absence of right leg below knee; Z88.5 Allergy status to narcotic agent; Z87.891 Personal history of nicotine dependence; Z79.4 Long term (current) use of insulin; Z79.82 Long term (current) use of aspirin; Z68.31 Body mass index [BMI] 31.0-31.9, adult

== ENCOUNTER → 2018-11-15 | Outpatient (CLI) | payer MEDICARE ==
[~2018-11-15] MED LIST changes: +AMLO5TAB6 PO; +ASPI1TAB PO; +ATOR1TAB21 PO; +CEFD1CAP8; +CEFD1CAP8 PO; +CEPH500C PO; +GABA-843 PO; +GLIP10TA18; +GLIP10TA18 PO; +HYDR-4514 PO; +LANTINJ4 SC; +METF750T PO; +METO50TA7; +METO50TA7 PO; +ONGL1TAB9; +ONGL1TAB9 PO; +PRED10PA PO; +PROB500T29; +PROB500T8 PO; +QUIN1TAB3 PO; +SIMV40TA2; +ZOCO40TA PO
--- NOTE | 2018-11-15 11:37 | REP ---
CT CHEST WITHOUT CONTRAST: HISTORY: Lung nodule. Comparison CT study June 10, 2018. Comparison is also made with selected images from CT studies of the abdomen dated 2012, 2011, and 2008. FINDINGS: The patient took a relatively small breath-hold volume for today's examination. There is discoid atelectasis in the left base. Vascular calcification is noted. No pleural or pericardial effusion is seen. No adrenal lesion is observed on either side. There are granulomatous calcifications in the liver. The previously noted patchy infiltrates are resolved. There is a 6 mm stable noncalcified pulmonary nodule in the right lung upper lobe on page 41 of 90 in series 3 of one of today's study. This is unchanged from the comparison study. It is beyond the field of view of the prior abdominal CT. There is also a madeline-fissural nodule on the right 5 mm in diameter. This is also unchanged from the prior study of June 10, 2018. In the left lower lobe posteriorly amidst some plate-like atelectasis, there is a stable subcentimeter pulmonary nodule visible on today's study page 52 of 90. This is visible in retrospect on the prior CT images from July 2012 and is felt to be benign. Similarly there is a tiny stable 4-5 mm nodule in the lateral pleural angle lower down in the left lower lobe on page 65. No other significant pulmonary nodule is appreciated. The previously noted 2 cm cyst in the pancreatic tail is again seen unchanged. IMPRESSION: Stable 6 mm right upper lobe pulmonary nodule unchanged from June 10, 2018. Follow-up CT study in 1 year is suggested. There are several other stable noncalcified nodules which are unchanged from remote prior CT abdomen studies. Stable 2 cm cystic area in the pancreatic tail. Electronically Signed by Thompson Henry MD 11/15/2018 11:42 A
== END ==
LOC: M RAD 10:14
PROVIDERS: ATTEND Internal Medicine
DX: R91.8 Other nonspecific abnormal finding of lung field (principal); N18.3 Chronic kidney disease, stage 3 (moderate); E11.22 Type 2 diabetes mellitus with diabetic chronic kidney disease; E78.00 Pure hypercholesterolemia, unspecified; M10.9 Gout, unspecified

== ENCOUNTER → 2018-11-15 | Outpatient (REF) | payer MEDICARE ==
[2018-11-15 13:34] LABS: HEMATOCRIT 38.3 % (42.0-52.0); HEMOGLOBIN 12.2 g/dl (13.5-17.5); MEAN CORPUSCULAR HEMOGLOBIN 29.5 pg (27.0-33.0); MEAN CORPUSCULAR HGB CONC 31.9 g/dl (32.0-36.5); MEAN CORPUSCULAR VOLUME 92.5 fl (80.0-96.0); PLATELET COUNT, AUTOMATED 205 10^3/uL (150-450); RED BLOOD COUNT 4.14 10^6/uL (4.30-6.10)
[2018-11-15 13:59] LABS: ALBUMIN 4.2 GM/DL (3.2-5.2); BILIRUBIN,TOTAL 0.4 MG/DL (0.2-1.0); CALCIUM LEVEL 8.6 MG/DL (8.8-10.2); CHOLESTEROL RISK RATIO 7.5 (<5); CREATININE FOR GFR 2.62 MG/DL (0.70-1.30); GLOMERULAR FILTRATION RATE 25.8 (>42); POTASSIUM SERUM 5.8 MEQ/L (3.5-5.1); PTH INTACT 67.1 PG/ML (18.5-88.0); TOTAL PROTEIN 7.9 GM/DL (6.4-8.2); URIC ACID 9.3 MG/DL (3.5-7.2)
== END ==
LOC: M SFHCADAM 08:28
PROVIDERS: ATTEND Internal Medicine
DX: R91.8 Other nonspecific abnormal finding of lung field (principal); N18.3 Chronic kidney disease, stage 3 (moderate); E11.22 Type 2 diabetes mellitus with diabetic chronic kidney disease; E78.00 Pure hypercholesterolemia, unspecified; M10.9 Gout, unspecified

== ENCOUNTER → 2018-11-23 | Outpatient (REF) | payer MEDICARE ==
[~2018-11-23] MED LIST changes: -/QUIN20TA OR; +ACCU1TAB2 OR; -ASPI1TAB PO; +ASPI81TA26 PO
[2018-11-23 13:20] LABS: CALCIUM LEVEL 8.7 MG/DL (8.8-10.2); CREATININE FOR GFR 2.39 MG/DL (0.70-1.30); GLOMERULAR FILTRATION RATE 28.7 (>42); MAGNESIUM LEVEL 2.7 MG/DL (1.8-2.4)
== END ==
LOC: M SFHCADAM 08:04
PROVIDERS: ATTEND Internal Medicine
DX: I12.9 Hypertensive chronic kidney disease with stage 1 through stage 4 chronic kidney disease, or unspecified chronic kidney disease (principal); N18.3 Chronic kidney disease, stage 3 (moderate)

== ENCOUNTER → 2018-12-03 | Outpatient (REF) | payer MEDICARE ==
[2018-12-03 14:00] LABS: CALCIUM LEVEL 8.8 MG/DL (8.8-10.2); CREATININE FOR GFR 2.5 MG/DL (0.70-1.30); GLOMERULAR FILTRATION RATE 27.2 (>42); MAGNESIUM LEVEL 2.6 MG/DL (1.8-2.4); POTASSIUM SERUM 5.7 MEQ/L (3.5-5.1)
== END ==
LOC: M SFHCADAM 08:00
PROVIDERS: ATTEND Internal Medicine
DX: I12.9 Hypertensive chronic kidney disease with stage 1 through stage 4 chronic kidney disease, or unspecified chronic kidney disease (principal); N18.3 Chronic kidney disease, stage 3 (moderate)

== ENCOUNTER 2019-01-16 14:13 | Inpatient (IN) | payer MEDICARE ==
[~2019-01-16] VITALS: Ht 170.2 cm; Wt 98.1 kg
[2019-01-16] MEDS ORDERED: FURO40TA2 PO ×2 (14:24→17:37)
[2019-01-16] MEDS ORDERED: NS 1,000 ML IV ONE (15:30)
[2019-01-16 16:04] LABS: BASO % 0.3 % (0.0-1.0); EOS # 0.2 10^3/uL (0.0-0.50); EOS % 1.9 % (0.0-3.0); HEMATOCRIT 33.5 % (42.0-52.0); HEMOGLOBIN 11.1 g/dl (13.5-17.5); LYMPH # 0.9 10^3/uL (1.5-4.5); LYMPH % 9.4 % (24.0-44.0); MEAN CORPUSCULAR HEMOGLOBIN 30.7 pg (27.0-33.0); MEAN CORPUSCULAR HGB CONC 33.1 g/dl (32.0-36.5); MEAN CORPUSCULAR VOLUME 92.8 fl (80.0-96.0); MONO # 0.8 10^3/uL (0.0-0.8); MONO % 7.9 % (0.0-5.0); NEUTROPHILS # 7.7 10^3/uL (1.8-7.7); NEUTROPHILS % 80.3 % (36.0-66.0); PLATELET COUNT, AUTOMATED 246 10^3/uL (150-450); RED BLOOD COUNT 3.61 10^6/uL (4.30-6.10); WHITE BLOOD COUNT 9.6 10^3/uL (4.0-10.0)
[2019-01-16 16:20] LABS: ERYTHROCYTE SEDIMENTATION RATE 126 mm/hr (0-20)
[2019-01-16 16:33] LABS: ALBUMIN 3.7 GM/DL (3.2-5.2); ALT/SGPT 28 U/L (12-78); BILIRUBIN,DIRECT 0.1 MG/DL (0.0-0.2); BILIRUBIN,TOTAL 0.3 MG/DL (0.2-1.0); BLOOD UREA NITROGEN 50 MG/DL (7-18); C REACTIVE PROTEIN QUANTITATIV 7.83 MG/DL (0.00-0.30); CARBON DIOXIDE LEVEL 21 MEQ/L (21-32); CHLORIDE LEVEL 110 MEQ/L (98-107); CPK CREATINE PHOSPHOKINASE 185 U/L (39-308); GLOMERULAR FILTRATION RATE 28.6 (>42); GLUCOSE, FASTING 156 MG/DL (70-100); LIPASE 251 U/L (73-393); MB/CK RELATIVE INDEX 1.46 (< OR =4); POTASSIUM SERUM 6.1 MEQ/L (3.5-5.1); SODIUM LEVEL 139 MEQ/L (136-145); TOTAL PROTEIN 8.1 GM/DL (6.4-8.2); TROPONIN I < 0.02 NG/ML (< 0.10)
[2019-01-16] MEDS ORDERED: DEXTROSE 50% 50 ML SYRINGE IV STA (16:44)
[2019-01-16] MEDS ORDERED: HumuLIN R (REGULAR) INSULIN (NovoLIN R) **100U/ML** PER UNIT IV STA (16:44)
[2019-01-16] MEDS ORDERED: PATIROMER SORBITEX CALCIUM 8.4 GM POWDER PACKET (VELTASSA) PO ONE (17:00)
[2019-01-16] MEDS ORDERED: CALCIUM GLUCONATE 1,000 MG in D5W MINI-BAG PLUS 100 ML IV ONE (17:00)
--- NOTE | 2019-01-16 17:09 | REP ---
Clinical: Swelling. Technique: AP, lateral, bilateral oblique views of the left foot. Findings: Diffuse swelling is appreciated along with extensive atherosclerotic small vessel disease. The osseous structures appear intact and without acute fracture or dislocation and no obvious significant periosteal reaction. No subcutaneous emphysema or obvious ulceration. Impression: Diffuse swelling and extensive atherosclerotic small vessel disease. Electronically Signed by Troy Fajardo MD 01/16/2019 05:01 P
[2019-01-16] MEDS ORDERED: ATOR1TAB21 PO (17:37)
[2019-01-16] MEDS ORDERED: DEXTROSE 50% 50 ML SYRINGE IV PRN (19:30)
[2019-01-16] MEDS ORDERED: GLUCOSE 4 GM CHEW TABLET PO PRN (19:30)
[2019-01-16] MEDS ORDERED: GLUCAGON FOR INJ 1 MG VIAL (J1610) SC PRN (19:30)
[2019-01-16] MEDS ORDERED: VANCOMYCIN HCL 1,000 MG, VIAL MATE ADAPTER 1 EACH in D5W 250 ML IV ONE (19:30)
--- NOTE | 2019-01-16 19:48 | ECGEPIP ---
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
--- NOTE | 2019-01-16 19:49 | HPEPDOC ---
General Date of Admission Date of Service: Jan 16, 2019 Attending Physician: YONAS GEORGE MD Chief Complaint The patient is a 73-year-old male admitted with a reason for visit of Toe Is Black. Source: Patient History of Present Illness Patient is a morbidly obese 73-year-old male, presenting to the emergency room on account of left total swelling, onset for 5 days ago. Patient has a past medical history significant for peripheral arterial disease, hypertension, chronic kidney disease stage IV, type 2 diabetes mellitus, obesity. He denies any trauma to the foot and thinks the wound may have been caused by his shoe rubbing against his left toe. He did not try to treat when he first noticed the ulcer 4/ 5 days ago. He only decided to come to the hospital today because his daughter insisted. He reports he has had some chills. Otherwise, denies nausea, vomiting, diarrhea, chest pain, shortness of breath. On initial evaluation in the emergency room, potassium was 6.1, glomerular filtration rate was 28 Home Medications Scheduled Aspirin (Aspirin EC) 81 Mg Tab, 81 MG PO DAILY, (Reported) Atorvastatin Calcium (Atorvastatin Calcium) 20 Mg Tablet, 20 MG PO DAILY, (Reported) Furosemide (Furosemide) 40 Mg Tablet, 80 MG PO 3XW, (Reported) MON, THU, FRI Furosemide (Furosemide) 40 Mg Tablet, 40 MG PO 4XWK, (Reported) SUN, , , SAT Gabapentin (Gabapentin) 300 Mg Cap, 300 MG PO BID, (Reported) Glipizide (Glipizide ER) 10 Mg Tab, 10 MG PO DAILY, (Reported) Insulin Glargine,Hum.rec.anlog (Lantus Solostar) 100 Unit/Ml Inj, 75 UNITS SC DAILY, (Reported) Metformin HCl (Metformin HCl ER) 750 Mg Tab, 750 MG PO QPM, (Reported) Metoprolol Tartrate (Metoprolol Tartrate) 50 Mg Tab, 50 MG PO BID, (Reported) Probenecid (Probenecid) 500 Mg Tab, 500 MG PO BID, (Reported) Quinapril Hcl (Quinapril HCl) 20 Mg Tab, 20 MG PO DAILY, (Reported) Saxagliptin HCl (Onglyza) 5 Mg Tab, 5 MG PO DAILY, (Reported) Scheduled PRN Hydrocodone/Acetaminophen (Hydrocodone-Acetamin 7.5-325) 1 Tab Tab, 1 TAB PO Q6H PRN for PAIN, (Reported) Allergies Coded Allergies: codeine (Verified Adverse Reaction, Mild, GI upset, 01/16/19) Past Medical History Medical History Hypertension Peripheral arterial disease status post right BKA Chronic kidney disease stage IV Type 2 diabetes mellitus Obesity Surgical History Right BKA Appendectomy Hernia repair Family History Significant Family History: No pertinent family hx Social History Quit tobacco 2 years ago, and denies alcohol polysubstance abuse A-FIB/CHADSVASC A-FIB History Current/History of A-Fib/PAF?: No Current PO Anticoag Therapy: No Review of Systems Other systems A pertinent 10 point review of systems was completed, negative except as stated in history of presenting illness Physical Examination General Exam: Positive: Alert, Cooperative, Mild Distress (pain to left big toe) Eye Exam: Positive: PERRLA, EOMI, Sclera icteric ENT Exam: Positive: Atraumatic, Mucous membr. moist/pink Neck Exam: Positive: Supple; Negative: JVD, thyromegaly Chest Exam: Positive: Clear to auscultation, Normal air movement; Negative: Rales, Rhonchi Heart Exam: Positive: Tachycardic, Murmurs (systolic) Telemetry: Positive: Tachycardia Abdomen Exam: Positive: Normal bowel sounds, Soft; Negative: Tenderness Extremity Exam: Positive: Other (right BKA, left big toe swelling with gangrenous ulcer, without drainage, cold extremities) Skin Exam: Positive: Lesion; Negative: Nl turgor and temperature Neuro Exam: Positive: Normal Speech, Cranial Nerves 3-12 NL Psych Exam: Positive: Anxiety, Oriented x 3 Vital Signs Vital Signs Date Time Temp Pulse Resp B/P (MAP) Pulse Ox O2 Delivery O2 Flow Rate FiO2 01/16/19 18:46 75 18 131/63 (85) 96 Room Air 01/16/19 14:14 97.4 Laboratory Data Labs 24H Laboratory Tests 2 01/16/19 15:54: Immature Granulocyte % (Auto) 0.2, White Blood Count 9.6, Red Blood Count 3.61L, Hemoglobin 11.1L, Hematocrit 33.5L, Mean Corpuscular Volume 92.8, Mean Corpuscular Hemoglobin 30.7, Mean Corpuscular Hemoglobin Concent 33.1, Red Cell Distribution Width 13.0, Platelet Count 246, Neutrophils (%) (Auto) 80.3H, Lymphocytes (%) (Auto) 9.4L, Monocytes (%) (Auto) 7.9H, Eosinophils (%) (Auto) 1.9, Basophils (%) (Auto) 0.3, Neutrophils # (Auto) 7.7, Lymphocytes # (Auto) 0.9L, Monocytes # (Auto) 0.8, Eosinophils # (Auto) 0.2, Basophils # (Auto) 0.0, Nucleated Red Blood Cells % (auto) 0.0, Erythrocyte Sedimentation Rate 126H, Anion Gap 8, Glomerular Filtration Rate 28.6L, Lactic Acid Level 0.8, Calcium Level 9.0, Aspartate Amino Transf (AST/SGOT) 23, Alanine Aminotransferase (ALT/SGPT) 28, Alkaline Phosphatase 127H, Total Bilirubin 0.3, Direct Bilirubin 0.1, Total Creatine Kinase 185, Creatine Kinase MB 3.0, Creatine Kinase MB Relative Index 1.46, Troponin I < 0.02, C-Reactive Protein, Quantitative 7.83H, Total Protein 8.1, Albumin 3.7, Albumin/Globulin Ratio 0.84L, Lipase 251 CBC/BMP Laboratory Tests 01/16/19 15:54 Red Blood Count 3.61 L, Mean Corpuscular Volume 92.8, Mean Corpuscular Hemoglobin 30.7, Mean Corpuscular Hemoglobin Concent 33.1, Red Cell Distribution Width 13.0, Neutrophils (%) (Auto) 80.3 H, Lymphocytes (%) (Auto) 9.4 L, Monocytes (%) (Auto) 7.9 H, Eosinophils (%) (Auto) 1.9, Basophils (%) (Auto) 0.3, Neutrophils # (Auto) 7.7, Lymphocytes # (Auto) 0.9 L, Monocytes # (Auto) 0.8, Eosinophils # (Auto) 0.2, Basophils # (Auto) 0.0 Microbiology Microbiology 01/16/19 Blood Culture, Received Pending 01/16/19 Blood Culture, Received Pending Assessment/Plan Left big toe gangrenous ulcer -Likely due to peripheral vascular disease -Vascular surgery has been consulted and will see patient in consultation -Arterial duplex has been ordered for evaluation of vascular competence -Start patient on vancomycin and Zosyn empiric coverage -Follow recommendations by vascular surgery Type 2 diabetes mellitus -Continue patient's home insulin dosage -Finger stick checks prior to meals and at bedtime -Coverage with insulin per sliding scale protocol -Diabetic diet Hyperkalemia -Treated with Valtressa the emergency room -Repeat metabolic panel for effects of therapy -Keep less than 4 -Hold ARMEN inhibitor Hypertension -Continue home medications with the exception of ARMEN inhibitor -Blood pressure monitoring per unit protocol Chronic kidney disease stage IV -Avoid nephrotoxic medications -Gentle hydration -Monitoring of renal indices with management -Consider nephrology input if worsening renal function DVT prophylaxis -Heparin subcutaneous every 8 hours Plan / VTE VTE Prophylaxis Ordered?: Yes [facility] Jan 16, 2019 19:49
[2019-01-16 19:52] LABS: INR 1.11; PROTHROMBIN TIME 14.4 SECONDS (12.1-14.4)
[2019-01-16 19:53] LABS: PARTIAL THROMBOPLASTIN TIME 29.7 SECONDS (25.4-37.6)
[2019-01-16 20:09] LABS: ALBUMIN 3.6 GM/DL (3.2-5.2); BILIRUBIN,TOTAL 0.4 MG/DL (0.2-1.0); CALCIUM LEVEL 9.8 MG/DL (8.8-10.2); CREATININE FOR GFR 2.43 MG/DL (0.70-1.30); GLOMERULAR FILTRATION RATE 28.1 (>42); POTASSIUM SERUM 5.7 MEQ/L (3.5-5.1); TOTAL PROTEIN 7.7 GM/DL (6.4-8.2)
[2019-01-16] MEDS: HumaLOG INSULIN (NovoLOG) PER UNIT SC SCH (21:00)
[2019-01-16] MEDS ORDERED: PIPERACILLIN/TAZOBACTAM SOD 3.375 GM in D5W MINI-BAG PLUS 50 ML IV SCH (21:00)
[2019-01-16 22:00] VITALS: BP 129/63
[2019-01-16] MEDS: HEPARIN SOD (PORCINE) 5000 UNITS/ML VIAL SC SCH (22:54)
[2019-01-16] MEDS: GABAPENTIN 300 MG CAP PO SCH (22:55)
[2019-01-16] MEDS: DOCUSATE SODIUM 100 MG CAP PO SCH (22:55)
[2019-01-16] MEDS: METOPROLOL TART 50 MG TAB PO SCH (22:55)
[2019-01-17] MEDS: PIPERACILLIN/TAZOBACTAM SOD 2.25 GM in D5W MINI-BAG PLUS 50 ML IV SCH ×4 (00:48→23:32)
[2019-01-17 02:00] VITALS: BP 144/65
--- NOTE | 2019-01-17 03:45 | PHACANCOPD ---
PHARMACY VANCOMYCIN DOSING Pt Demographics Demographics Patient Age:73 , Weight:98.100 , Gender: male Adjusted Body Weight Date: 01/17/19, Adjusted Body Weight: [80.6] Kg Vancomycin Vancomycin indication: L.FOT GANGRENOUS ULCER Vancomycin Target Ranges: 15-20 mcg/ml Vancomycin Load Y/N: No Load Dose Date Time Vancomycin Load Dose: Date: Time: Vancomycin Dose Date: 01/17/19. Current Vancomycin Dose: [1 GM Q24] Intermittent Dosing?: No Labs Labs Laboratory Tests 01/16/19 15:54 Red Blood Count 3.61 L, Mean Corpuscular Volume 92.8, Mean Corpuscular Hemoglobin 30.7, Mean Corpuscular Hemoglobin Concent 33.1, Red Cell Distribution Width 13.0, Neutrophils (%) (Auto) 80.3 H, Lymphocytes (%) (Auto) 9.4 L, Monocytes (%) (Auto) 7.9 H, Eosinophils (%) (Auto) 1.9, Basophils (%) (Auto) 0.3, Neutrophils # (Auto) 7.7, Lymphocytes # (Auto) 0.9 L, Monocytes # (Auto) 0.8, Eosinophils # (Auto) 0.2, Basophils # (Auto) 0.0 01/16/19 19:35 Calcium Level 9.8, Aspartate Amino Transf (AST/SGOT) 20, Alanine Aminotransferase (ALT/SGPT) 27, Alkaline Phosphatase 121 H, Total Bilirubin 0.4, Total Protein 7.7, Albumin 3.6 Micro Microbiology 01/16/19 Blood Culture, Received Pending 01/16/19 Blood Culture, Received Pending Creatinine Clearance Date:01/17/19. Creatinine Clearance: [32.2].CALCULATED Assessment and Plan Maintaining Current Dose?: Yes Reason for dose change: No Dose Change Pharmacist Note Pharmacist Note Date: 01/17/19. Pharmacist note:73 YOM admitted w/left foot gangrenous ulcer. Patient= 5'7", RS=121.3 kg(abw=80.6kg.).Calculated CRCL=32.2)Patient has Rt.BKA.Ordered Pip/Tazo 2.25 [id number] and Vancomycin per pharmacy dosing.Vancomycin 1 gram ordered 01/16@1930 in ED which was begun on med.floor @2345. 1 gram [id number] regimen will begin 01/17@1400. First Vancomycin trough is scheduled for 01/18@1300-will continue to follow. LIZA MARIEE PHARMACY Jan 17, 2019 03:45
[2019-01-17] MEDS: HEPARIN SOD (PORCINE) 5000 UNITS/ML VIAL SC SCH ×3 (04:56→21:14)
[2019-01-17 06:00] VITALS: BP 135/63
[2019-01-17 06:29] LABS: HEMATOCRIT 32.7 % (42.0-52.0); HEMOGLOBIN 10.5 g/dl (13.5-17.5); MEAN CORPUSCULAR HEMOGLOBIN 30.3 pg (27.0-33.0); MEAN CORPUSCULAR HGB CONC 32.1 g/dl (32.0-36.5); MEAN CORPUSCULAR VOLUME 94.2 fl (80.0-96.0); PLATELET COUNT, AUTOMATED 263 10^3/uL (150-450); RED BLOOD COUNT 3.47 10^6/uL (4.30-6.10)
[2019-01-17 06:47] LABS: ALBUMIN 3.2 GM/DL (3.2-5.2); BILIRUBIN,TOTAL 0.4 MG/DL (0.2-1.0); CALCIUM LEVEL 9.5 MG/DL (8.8-10.2); CREATININE FOR GFR 2.62 MG/DL (0.70-1.30); GLOMERULAR FILTRATION RATE 25.8 (>42); MAGNESIUM LEVEL 2.7 MG/DL (1.8-2.4); POTASSIUM SERUM 6.1 MEQ/L (3.5-5.1)
[2019-01-17] MEDS ORDERED: DEXTROSE 50% 50 ML SYRINGE IV STA (06:50)
[2019-01-17] MEDS ORDERED: HumaLOG INSULIN (NovoLOG) PER UNIT SC STA (06:50)
[2019-01-17] MEDS ORDERED: PATIROMER SORBITEX CALCIUM 8.4 GM POWDER PACKET (VELTASSA) PO ONE (07:00)
[2019-01-17] MEDS ORDERED: ALBUTEROL SULFATE 2.5 MG/0.5 ML INH NEB SOLN NEB ONE (07:00)
[2019-01-17] MEDS: HumaLOG INSULIN (NovoLOG) PER UNIT SC SCH ×4 (07:30→21:15)
[2019-01-17] MEDS: LEVEMIR (INSULIN DETEMIR) 1 UNITS/0.01ML SC SCH (09:00)
[2019-01-17] MEDS: DOCUSATE SODIUM 100 MG CAP PO SCH ×2 (09:00→21:00)
[2019-01-17 10:00] VITALS: BP 137/69
[2019-01-17] MEDS: ASPIRIN 81 MG ENTERIC TAB PO SCH (10:09)
[2019-01-17] MEDS: METOPROLOL TART 50 MG TAB PO SCH ×2 (10:10→21:14)
[2019-01-17] MEDS: ATORVASTATIN 20 MG TAB PO SCH (10:10)
[2019-01-17] MEDS: GABAPENTIN 300 MG CAP PO SCH ×2 (10:10→21:14)
[2019-01-17 10:45] LABS: CALCIUM LEVEL 9.6 MG/DL (8.8-10.2); CREATININE FOR GFR 2.67 MG/DL (0.70-1.30); GLOMERULAR FILTRATION RATE 25.2 (>42); POTASSIUM SERUM 6.1 MEQ/L (3.5-5.1)
[2019-01-17] MEDS: SODIUM BICARBONATE 150 MEQ in STERILE WATER LITER BAG 1,000 ML IV SCH ×2 (11:07→23:31)
--- NOTE | 2019-01-17 11:16 | IPNPDOC ---
Text Note Date of Service The patient was seen on 01/17/19. NOTE Subjective: Patient seen and examined at bedside. Objective: General Exam: Positive: Alert, Cooperative, Mild Distress (pain to left big toe) Eye Exam: Positive: PERRLA, EOMI, Sclera icteric ENT Exam: Positive: Atraumatic, Mucous membr. moist/pink Neck Exam: Positive: Supple; Negative: JVD, thyromegaly Chest Exam: Positive: Clear to auscultation, Normal air movement; Negative: Rales, Rhonchi Heart Exam: Positive: Tachycardic, Murmurs (systolic) Telemetry: Positive: Tachycardia Abdomen Exam: Positive: Normal bowel sounds, Soft; Negative: Tenderness Extremity Exam: Positive: Other (right BKA, left big toe swelling with gangrenous ulcer, without drainage, cold extremities) Skin Exam: Positive: Lesion; Negative: Nl turgor and temperature Neuro Exam: Positive: Normal Speech, Cranial Nerves 3-12 NL Psych Exam: Positive: Anxiety, Oriented x 3 A/P: Patient is a morbidly obese 73-year-old male, presenting to the emergency room for 5 day history worsening left foot swelling, with PMHx PAD s/p right BKA, HTN, CKD IV, DM and morbid obesity. #Left hallux gangrenous ulcer - Hx of PVD - vascular c/s pending - arterial studies pending - continue vancomycin and Zosyn empiric coverage #Type 2 diabetes mellitus -Continue patient's home insulin dosage -FS qac/qhs -carb consistent diet #Hyperkalemia - persistent - treated again with insulin/D50 - holding ACEI - nephrology c/s pending -Treated with Valtressa the emergency room #HTN -Continue home medications with the exception of ARMEN inhibitor -Blood pressure monitoring per unit protocol #CKDIV -Avoid nephrotoxic medications -Gentle hydration -nephrology c/s pending #DVT prophylaxis -Heparin sc VS,Fishbone, I+O VS, Fishbone, I+O Laboratory Tests 01/16/19 15:54 Red Blood Count 3.61 L, Mean Corpuscular Volume 92.8, Mean Corpuscular Hemoglobin 30.7, Mean Corpuscular Hemoglobin Concent 33.1, Red Cell Distribution Width 13.0, Neutrophils (%) (Auto) 80.3 H, Lymphocytes (%) (Auto) 9.4 L, Monocytes (%) (Auto) 7.9 H, Eosinophils (%) (Auto) 1.9, Basophils (%) (Auto) 0.3, Neutrophils # (Auto) 7.7, Lymphocytes # (Auto) 0.9 L, Monocytes # (Auto) 0.8, Eosinophils # (Auto) 0.2, Basophils # (Auto) 0.0 01/16/19 19:35 Calcium Level 9.8, Aspartate Amino Transf (AST/SGOT) 20, Alanine Aminotransferase (ALT/SGPT) 27, Alkaline Phosphatase 121 H, Total Bilirubin 0.4, Total Protein 7.7, Albumin 3.6 01/17/19 05:51 Red Blood Count 3.47 L, Mean Corpuscular Volume 94.2, Mean Corpuscular Hemoglobin 30.3, Mean Corpuscular Hemoglobin Concent 32.1, Red Cell Distribution Width 13.2, Calcium Level 9.5, Aspartate Amino Transf (AST/SGOT) 27, Alanine Aminotransferase (ALT/SGPT) 30, Alkaline Phosphatase 108, Total Bilirubin 0.4, Total Protein 8.0, Albumin 3.2 01/17/19 09:57 Calcium Level 9.6 Vital Signs Date Time Temp Pulse Resp B/P (MAP) Pulse Ox O2 Delivery O2 Flow Rate FiO2 01/17/19 10:10 73 135/63 01/17/19 10:00 97.1 20 98 01/16/19 21:31 Room Air I&O- Last 24 Hours up to 6 AM 01/17/19 06:00 Intake Total 1820 ml Output Total 175 ml Balance 1645 ml NORMA RATLIFF MD Jan 17, 2019 11:13
[2019-01-17] MEDS: VANCOMYCIN HCL 1,000 MG, VIAL MATE ADAPTER 1 EACH in D5W 250 ML IV SCH (13:33)
[2019-01-17] MEDS: ANEXSIA, NORCO 7.5MG/325MG TABLET(HYDROCODONE/APAP) PO PRN ×2 (14:46→16:22)
--- NOTE | 2019-01-17 15:01 | CR.PDOC ---
General Date of Consultation: Jan 17, [address] Evangelista REASON FOR CONSULTATION: foot ulcer HPI: Patient is a 73-year-old male, presenting to the ED related to left foot swelling for 5 days. He denies any trauma to the foot and thinks the wound may have been caused by his shoe rubbing against his left toe. He did not try to treat when he first noticed the ulcer 4-5 days ago. He decided to come to the hospital because his daughter insisted. He reports he has had some chills. On initial evaluation in the emergency room, potassium was 6.1, glomerular filtration rate was 28. Denies any fevers, weakness, fatigue, Headache, Chest Pain, Shortness of breath, cough, palpitations, abdominal pain, N/V/D or changes in bowel or bladder habits PMH peripheral arterial disease, hypertension, chronic kidney disease stage IV, type 2 diabetes mellitus, obesity. BMI 33.9 Surgical History Right BKA Appendectomy Hernia repair Significant Family History: No pertinent family hx Social History Quit tobacco 2 years ago, and denies alcohol use ROS: As noted in HPI, otherwise 11pt ROS of systems reviewed and unremarkable. PE: GEN: 73yoM, No acute distress. Rt BKA. lt foot with erythema and discoloration of great toe. Limited exam as pt is having imaging completed. A&P: 1. Left foot ulcer. Afebrile. WBC 8.0. BC x 2 pending. Vancomycin and Zosyn empiric coverage as per primary team. BLE arterial US pending. MRI foot pending. Unable to proceed with Angiogram LLE at this time related to renal function. Await testing results. 2. CKD SCr 2.67. Baseline appears to be 1.8-2.0. Nephrology Clt pending. DVT prophylaxis. SQ Heparin. Thank you for your consultation. We will continue to follow along with you. Vital Signs/I&O Vital Signs Date Time Temp Pulse Resp B/P (MAP) Pulse Ox O2 Delivery O2 Flow Rate FiO2 01/17/19 10:10 73 135/63 01/17/19 10:00 97.1 20 98 01/16/19 21:31 Room Air I&O- Last 24 Hours up to 6 AM 01/17/19 06:00 Intake Total 1820 ml Output Total 175 ml Balance 1645 ml Laboratory Data Labs 24H Laboratory Tests 2 01/16/19 15:54: Immature Granulocyte % (Auto) 0.2, White Blood Count 9.6, Red Blood Count 3.61L, Hemoglobin 11.1L, Hematocrit 33.5L, Mean Corpuscular Volume 92.8, Mean Corpus cular Hemoglobin 30.7, Mean Corpuscular Hemoglobin Concent 33.1, Red Cell Distribution Width 13.0, Platelet Count 246, Neutrophils (%) (Auto) 80.3H, Lymphocytes (%) (Auto) 9.4L, Monocytes (%) (Auto) 7.9H, Eosinophils (%) (Auto) 1.9, Basophils (%) (Auto) 0.3, Neutrophils # (Auto) 7.7, Lymphocytes # (Auto) 0.9L, Monocytes # (Auto) 0.8, Eosinophils # (Auto) 0.2, Basophils # (Auto) 0.0, Nucleated Red Blood Cells % (auto) 0.0, Erythrocyte Sedimentation Rate 126H, Anion Gap 8, Glomerular Filtration Rate 28.6L, Lactic Acid Level 0.8, Calcium Level 9.0, Aspartate Amino Transf (AST/SGOT) 23, Alanine Aminotransferase (ALT/SGPT) 28, Alkaline Phosphatase 127H, Total Bilirubin 0.3, Direct Bilirubin 0.1, Total Creatine Kinase 185, Creatine Kinase MB 3.0, Creatine Kinase MB Relative Index 1.46, Troponin I < 0.02, C-Reactive Protein, Quantitative 7.83H, Total Protein 8.1, Albumin 3.7, Albumin/Globulin Ratio 0.84L, Lipase 251 01/16/19 19:35: Anion Gap 9, Glomerular Filtration Rate 28.1L, Calcium Level 9.8, Aspartate Amino Transf (AST/SGOT) 20, Alanine Aminotransferase (ALT/SGPT) 27, Alkaline Phosphatase 121H, Total Bilirubin 0.4, Total Protein 7.7, Albumin 3.6, Albumin/Globulin Ratio 0.88L, Prothrombin Time 14.4, Prothromb Time International Ratio 1.11, Activated Partial Thromboplast Time 29.7, Blood Urea Nitrogen 49H, Creatinine 2.43H, Sodium Level 141, Potassium Level 5.7H, Chloride Level 112H, Carbon Dioxide Level 20L 01/16/19 22:12: Bedside Glucose (Misc Panel) 58L 01/16/19 22:37: Bedside Glucose (Misc Panel) 68L 01/16/19 23:01: Bedside Glucose (Misc Panel) 111H 01/17/19 05:51: Nucleated Red Blood Cells % (auto) 0.0, Anion Gap 7L, Glomerular Filtration Rate 25.8L, Blood Urea Nitrogen 51H, Creatinine 2.62H, Sodium Level 140, Potassium Level 6.1*H, Chloride Level 115H, Carbon Dioxide Level 18L, Calcium Level 9.5, Aspartate Amino Transf (AST/SGOT) 27, Alanine Aminotransferase (ALT/SGPT) 30, Alkaline Phosphatase 108, Total Bilirubin 0.4, Total Protein 8.0, Albumin 3.2, Magnesium Level 2.7H, Albumin/Globulin Ratio 0.67L 01/17/19 07:42: Bedside Glucose (Misc Panel) 175H 01/17/19 09:57: Anion Gap 9, Glomerular Filtration Rate 25.2L, Blood Urea Nitrogen 52H, Creatinine 2.67H, Sodium Level 140, Potassium Level 6.1*H, Chloride Level 113H, Carbon Dioxide Level 18L, Calcium Level 9.6, RC-Vib-J-Type Natriuretic Peptide 1180H 01/17/19 11:32: Bedside Glucose (Misc Panel) 206H 01/17/19 12:59: Urine Color YELLOW, Urine Appearance CLEAR, Urine pH 5.0, Urine Specific [place] 1.013, Urine Protein 2+H, Urine Glucose (UA) 1+H, Urine Ketones NEGATIVE, Urine Blood 1+H, Urine Nitrite NEGATIVE, Urine Bilirubin NEGATIVE, Urine Urobilinogen 0.2, Urine Leukocyte Esterase NEGATIVE, Urine WBC (Auto) 2, Urine RBC (Auto) 4H, Urine Hyaline Casts (Auto) 0, Urine Bacteria (Auto) NEGATIVE, Urine Squamous Epithelial Cells 0, Urine Mucus (Auto) SMALL, Urine Sperm (Auto) CBC/BMP Laboratory Tests 01/16/19 15:54 Red Blood Count 3.61 L, Mean Corpuscular Volume 92.8, Mean Corpuscular Hemoglobin 30.7, Mean Corpuscular Hemoglobin Concent 33.1, Red Cell Distribution Width 13.0, Neutrophils (%) (Auto) 80.3 H, Lymphocytes (%) (Auto) 9.4 L, Monocytes (%) (Auto) 7.9 H, Eosinophils (%) (Auto) 1.9, Basophils (%) (Auto) 0.3, Neutrophils # (Auto) 7.7, Lymphocytes # (Auto) 0.9 L, Monocytes # (Auto) 0.8, Eosinophils # (Auto) 0.2, Basophils # (Auto) 0.0 01/16/19 19:35 Calcium Level 9.8, Aspartate Amino Transf (AST/SGOT) 20, Alanine Aminotransferase (ALT/SGPT) 27, Alkaline Phosphatase 121 H, Total Bilirubin 0.4, Total Protein 7.7, Albumin 3.6 01/17/19 05:51 Red Blood Count 3.47 L, Mean Corpuscular Volume 94.2, Mean Corpuscular Hemoglobin 30.3, Mean Corpuscular Hemoglobin Concent 32.1, Red Cell Distribution Width 13.2, Calcium Level 9.5, Aspartate Amino Transf (AST/SGOT) 27, Alanine Aminotransferase (ALT/SGPT) 30, Alkaline Phosphatase 108, Total Bilirubin 0.4, Total Protein 8.0, Albumin 3.2 01/17/19 09:57 Calcium Level 9.6 Microbiology Microbiology 01/16/19 Blood Culture, Received Pending 01/16/19 Blood Culture, Received Pending Allergies Coded Allergies: codeine (Verified Adverse Reaction, Mild, GI upset, 01/16/19) Home Medications Scheduled Aspirin (Aspirin EC) 81 Mg Tab, 81 MG PO DAILY, (Reported) Atorvastatin Calcium (Atorvastatin Calcium) 20 Mg Tablet, 20 MG PO DAILY, (Reported) Furosemide (Furosemide) 40 Mg Tablet, 80 MG PO 3XW, (Reported) MON, WED, FRI Furosemide (Furosemide) 40 Mg Tablet, 40 MG PO 4XWK, (Reported) SUN, , , SAT Gabapentin (Gabapentin) 300 Mg Cap, 300 MG PO BID, (Reported) Glipizide (Glipizide ER) 10 Mg Tab, 10 MG PO DAILY, (Reported) Insulin Glargine,Hum.rec.anlog (Lantus Solostar) 100 Unit/Ml Inj, 75 UNITS SC DAILY, (Reported) Metformin HCl (Metformin HCl ER) 750 Mg Tab, 750 MG PO QPM, (Reported) Metoprolol Tartrate (Metoprolol Tartrate) 50 Mg Tab, 50 MG PO BID, (Reported) Probenecid (Probenecid) 500 Mg Tab, 500 MG PO BID, (Reported) Quinapril Hcl (Quinapril HCl) 20 Mg Tab, 20 MG PO DAILY, (Reported) Saxagliptin HCl (Onglyza) 5 Mg Tab, 5 MG PO DAILY, (Reported) Scheduled PRN Hydrocodone/Acetaminophen (Hydrocodone-Acetamin 7.5-325) 1 Tab Tab, 1 TAB PO Q6H PRN for PAIN, (Reported) Milly Goss Jan 17, 2019 14:49
--- NOTE | 2019-01-17 15:49 | REP ---
BILATERAL LOWER EXTREMITY DUPLEX DOPPLER ARTERIAL ULTRASOUND: Real-time ultrasound evaluation and duplex Doppler interrogation of bilateral lower extremity arterial systems performed. Patient has had below the knee amputation. Biphasic waveforms are seen diffusely bilaterally with monophasic waveforms in the left profunda and distal anterior and posterior tibial arteries. Significant scattered atherosclerotic plaquing is seen bilaterally. No occlusion is seen. PEAK SYSTOLIC VELOCITY RIGHT LEFT Common femoral artery 82.4 cm/s 144.4 cm/s Profunda 109.9 59.8 Proximal SFA 90.9 73.3 Superficial femoral artery mid 104.9 107.3 Superficial femoral artery distal 73.5 98.9 Popliteal 69.7 122.2 Proximal anterior tibial artery 117.6 119.3 Tibial peroneal trunk 53.3 94.5 Proximal posterior tibial artery 60.1 Distal posterior tibial artery 27.7 Distal anterior tibial artery 45.0 IMPRESSION: Significant scattered atherosclerotic plaquing bilateral without evidence of occlusion. Electronically Signed by Clay Hunt MD 01/18/2019 12:04 P
--- NOTE | 2019-01-17 17:42 | REP ---
MRI LEFT FOOT: TECHNIQUE: Multiple sequences were obtained the axial, coronal and sagittal planes. No IV contrast was administered. The study is therefore limited in the evaluation for osteomyelitis. There is mild diffuse increased signal in the first distal phalanx on STIR images. I can not exclude osteomyelitis of that structure. No other significant abnormal bone marrow signal is seen. There is diffuse ill-defined soft-tissue edema throughout the soft-tissues of the left foot. I can not exclude cellulitis. I do not see a significant fluid collection or abscess in the soft-tissues. IMPRESSION: Diffuse soft tissue edema of the foot. Can not exclude superimposed cellulitis. Mild marrow edema involving the first distal phalanx. I can not exclude underlying osteomyelitis. Electronically Signed by Clay Hunt MD 01/18/2019 12:08 P
[2019-01-17 18:00] VITALS: BP 144/88
[2019-01-17 20:36] LABS: CALCIUM LEVEL 9.4 MG/DL (8.8-10.2); CREATININE FOR GFR 2.49 MG/DL (0.70-1.30); GLOMERULAR FILTRATION RATE 27.4 (>42); POTASSIUM SERUM 5.5 MEQ/L (3.5-5.1)
[2019-01-17 22:00] VITALS: BP 137/69
[2019-01-18 04:00] VITALS: BP 125/58
[2019-01-18] MEDS: HEPARIN SOD (PORCINE) 5000 UNITS/ML VIAL SC SCH ×3 (05:03→21:04)
[2019-01-18 06:00] VITALS: BP 132/64
--- NOTE | 2019-01-18 07:30 | CR ---
DATE OF CONSULTATION: 01/17/2019 REQUESTING PHYSICIAN: Dr. Grupo Castellanos REASON FOR CONSULTATION: Hyperkalemia and acute kidney injury. HISTORY OF PRESENT ILLNESS Gonzalo Randall is a 73-year-old male with a past medical history of longstanding insulin dependent diabetes mellitus, diastolic congestive heart failure, hypertension, CKD stage IV, peripheral arterial disease and other comorbid conditions mentioned below. The patient presented to the ER on January 16, 2019 with complaint of several day history of worsening left foot tenderness, pain, erythema and swelling and difficulty with ambulation because of the same. In the emergency room, initial labs demonstrated hyperkalemia with potassium of 6.1 and the patient was admitted for diabetic foot ulcer and started on broad-spectrum antibiotics and pending vascular workup for his hyperkalemia. He will receive the usual cocktail of insulin and fluids. His ARMEN inhibitor was held. His he also received gentle IV fluids. His hyperkalemia was recurrent and nephrology evaluation was requested because of the same. PAST MEDICAL HISTORY: 1. CKD stage IV baseline creatinine around 1.8-2.0, diastolic congestive heart failure, longstanding insulin dependent diabetes mellitus, dyslipidemia, diabetic neuropathy, peripheral arterial disease, hypertension. PAST SURGICAL HISTORY: Right [id number]-[id number] amputation, appendectomy and hernia repair. FAMILY HISTORY: Denies a family history of renal failure or end-stage renal disease requiring dialysis. ALLERGIES: To codeine. SOCIAL HISTORY: He is an ex-smoker. He denies alcohol or drug use. 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 He lives with his daughter at baseline he reports he is able to walk with a prosthetic leg and a walker. REVIEW OF SYSTEMS: Constitutional he reports generalized weakness and fatigue and chills. He denies fevers. Eyes: He denies visual changes appearing. ENT: He denies rhinorrhea or tinnitus. Cardiac: He has a history of diastolic congestive heart failure and is chronically on diuretics. He denies shortness of breath or generalized edema. Respiratory: He denies shortness of breath or cough. Gastrointestinal: He denies nausea, vomiting, diarrhea. Genitourinary: He denies dysuria or hematuria. He denies any issues emptying out his bladder. Endocrine he reports a history of insulin dependent diabetes and obesity. Musculoskeletal: He reports right lknvd-ssc-[id number] amputation and he reports the left foot wound. Hematologic he denies easy bleeding or bruising. Neurologic: He denies seizure or syncope. Skin he reports open wound on the left foot. He denies for pruritus. Psychiatric he denies anxiety or depression. HOME MEDICATIONS: Reviewed and include aspirin, atorvastatin Lasix, gabapentin, glipizide, Percocet, insulin, metformin, metoprolol, probenecid, quinapril and saxagliptin. PHYSICAL EXAMINATION: Vital signs: Temperature 97.1, pulse 83, respiratory rate 20, blood pressure 137/69, saturating 98% on room air. Intake yesterday was 1.8 meters urine output thus far today is 1.7 liters. Weight in the bed scale today is not recorded. General: The patient is seen lying in bed elderly male, appears stated age in mild distress secondary to pain in his left lower extremity oriented times three, cooperative and interactive. Extraocular muscles are intact. Sclera are anicteric. Tongue is moist. Neck is supple. Jugular veins were not distended. Cardiac: S1-S2 regular rate and rhythm. There is no edema in the periphery. Respiratory breath sounds are diminished at the base otherwise clear to air entry bilaterally. No crackle rale or rhonchus. Abdomen is soft and distended. There is no tenderness to palpation. There is no suprapubic bladder fullness lower extremities show right mrrqk-apr-[id number] amputation. There is no edema of the right lower extremity the left lower extremity shows a foot wound which is only briefly examined. There are dressings in place. Neurologic: He is oriented times three and no focal deficit. Psychiatric appropriate mood and effect. LABORATORY DATA: White count 8.0, hemoglobin 10.5, sodium 145, potassium 6.1, bicarbonate 18, BUN 52, creatinine 2.6. Microbiology blood cultures with no growth for 24 hours times 2 sets. IMPATIENT MEDICATIONS: Reviewed by myself: The patient is receiving Zosyn 2.25 grams IV every 8 hourly. I have started him on sodium bicarbonate drip to run at 100 a mild per hour. He is receiving vancomycin 1 gram IV daily, albuterol neb times 1, aspirin 81 mg by mouth daily, atorvastatin 20 mg by mouth, gabapentin 300 mg by mouth twice a day, heparin 5000 units subcu every 8 hours, Insulin metoprolol 50 mg by mouth twice a day and he received Veltassa times two doses. PROBLEMS: 1. AKA I on CKD stage IV baseline creatinine is around 1.8-2.0. The patient reports a recent use of NSAIDs at home relating to pain in his left foot wound. His acute kidney injury is felt to be secondary to foot wound, NSAID, and concomitant diuretic use. His Lasix is presently held as is his quinapril and furosemide. His renal imaging is pending. His urine output seems to be improved today with gentle IV hydration. He does have a history of diastolic congestive heart failure and so we will monitor his volume and respiratory status very closely with fluid administration. 2. Hyperkalemia. It is secondary to the renal failure and concomitant ARMEN inhibitor and NSAID use. He received a two doses of Botox and the usual cocktail of insulin and albuterol and calcium. His hyperkalemia has been recurrent and persistent I have added a 2 grams potassium restriction to the diet and in view of his accompanying non anion gap metabolic acidosis. We are starting him on bicarbonate containing fluids to address both acidemia and the hyperkalemia. Repeat BMP this evening. 3. Non anion gap metabolic acidosis. Serum bicarbonate is down to 18. There is accompanying hyperkalemia acidosis is likely related to the acute on chronic renal failure. He is receiving sodium bicarbonate 150 mEq and sterile water to run at 100 mL per hour. 4. History of diastolic congestive heart failure, presently volume status is acceptable. The patient is comfortable on room air. There are no signs of hypervolemia his diuretic is presently on hold. Will continue gentle bicarbonate containing IV fluids and we will monitor his volume and respiratory status closely with the IV fluids and diuretics will be resumed when necessary. 5. Hypertension. Blood pressures are acceptable and he continues on metoprolol his quinapril was appropriately held.
[2019-01-18] MEDS: METOPROLOL TART 50 MG TAB PO SCH ×2 (07:54→21:04)
[2019-01-18] MEDS: HumaLOG INSULIN (NovoLOG) PER UNIT SC SCH ×4 (07:54→21:00)
[2019-01-18] MEDS: GABAPENTIN 300 MG CAP PO SCH ×2 (07:54→21:04)
[2019-01-18] MEDS: PIPERACILLIN/TAZOBACTAM SOD 2.25 GM in D5W MINI-BAG PLUS 50 ML IV SCH ×2 (07:54→15:26)
[2019-01-18] MEDS: LEVEMIR (INSULIN DETEMIR) 1 UNITS/0.01ML SC SCH (07:55)
[2019-01-18] MEDS: ASPIRIN 81 MG ENTERIC TAB PO SCH (07:55)
[2019-01-18] MEDS: ATORVASTATIN 20 MG TAB PO SCH (07:55)
[2019-01-18] MEDS: DOCUSATE SODIUM 100 MG CAP PO SCH ×2 (07:55→21:03)
[2019-01-18 10:00] VITALS: BP 148/64
[2019-01-18 10:24] LABS: CALCIUM LEVEL 8.7 MG/DL (8.8-10.2); CREATININE FOR GFR 2.45 MG/DL (0.70-1.30); GLOMERULAR FILTRATION RATE 27.9 (>42); POTASSIUM SERUM 5.6 MEQ/L (3.5-5.1)
--- NOTE | 2019-01-18 11:46 | IPNPDOC ---
Date Seen The patient was seen on 01/18/19. Progress Note Vascular Surgery Dr Evangelista REASON FOR CONSULTATION: foot ulcer HPI: Patient is a 73-year-old male, presenting to the ED related to left foot swelling for 5 days. He denies any trauma to the foot and thinks the wound may have been caused by his shoe rubbing against his left toe. He did not try to treat when he first noticed the ulcer 4-5 days ago. He decided to come to the hospital because his daughter insisted. He reports he has had some chills. On initial evaluation in the emergency room, potassium was 6.1, glomerular filtration rate was 28. Denies any fevers, weakness, fatigue, Headache, Chest Pain, Shortness of breath, cough, palpitations, abdominal pain, N/V/D or changes in bowel or bladder habits PMH peripheral arterial disease, hypertension, chronic kidney disease stage IV, type 2 diabetes mellitus, obesity. BMI 33.9 Surgical History Right BKA Appendectomy Hernia repair Significant Family History: No pertinent family hx Social History Quit tobacco 2 years ago, and denies alcohol use ROS: As noted in HPI, otherwise 11pt ROS of systems reviewed and unremarkable. PE: GEN: 73yoM, No acute distress. No acute distress. Alert and oriented x 3. Pleasant, interactive. HEENT: Normocephalic, atraumatic. Sclera are nonicteric. Conjunctiva without injection. Moist mucous membranes. CHEST: Regular rate and rhythm, +S1, +S2 LUNGS: Clear to auscultation bilaterally. No wheezes, rales, or rhonchi. Breathing appears symmetric and easy. ABD: Round, soft, non-tender, non-distended. +Bowel sounds throughout. EXT: Rt BKA, no skin lesions. LLE with erythema to the mid foot area, left great toe appears swollen with gangrenous ulceration noted. SKIN: [place], dry, warm. No rashes. NEURO: Alert and oriented x 3. Cranial nerves III-XII are intact. No focal deficits appreciated. Art US LE Real-time ultrasound evaluation and duplex Doppler interrogation of bilateral lower extremity arterial systems performed. Patient has had below the knee amputation. Biphasic waveforms are seen diffusely bilaterally with monophasic waveforms in the left profunda and distal anterior and posterior tibial arteries. Significant scattered atherosclerotic plaquing is seen bilaterally. No occlusion is seen. PEAK SYSTOLIC VELOCITY RIGHT LEFT Common femoral artery 82.4 cm/s 144.4 cm/s Profunda 109.9 59.8 Proximal SFA 90.9 73.3 Superficial femoral artery mid 104.9 107.3 Superficial femoral artery distal 73.5 98.9 Popliteal 69.7 122.2 Proximal anterior tibial artery 117.6 119.3 Tibial peroneal trunk 53.3 94.5 Proximal posterior tibial artery 60.1 Distal posterior tibial artery 27.7 Distal anterior tibial artery 45.0 IMPRESSION: Significant scattered atherosclerotic plaquing bilateral without evidence of occlusion. DD: Clay Hunt MD, MD 01/17/19 1502 MRI Left foot. Diffuse soft tissue edema of the foot. Can not exclude superimposed cellulitis. Mild marrow edema involving the first distal phalanx. I can not exclude underlying osteomyelitis. DD: Clay Hunt MD, MD 01/17/19 1639 A&P: 1. Left foot ulcer/PAD. Cannot exclude OM per MRI report. Afebrile. WBC 8.0. BC x 2 neg. Vancomycin and Zosyn empiric coverage as per primary team. BLE arterial US reviewed. Unable to proceed with Angiogram LLE at this time related to renal function. SCr 2.45. Monitor. 2. CKD SCr 2.45. Baseline appears to be 1.8-2.0. Nephrology following. Pt had recently used NSAID for pain. Diuretic on hold. Monitor. DVT prophylaxis. SQ Heparin. VS, I&O, 24H, Fishbone Vital Signs/I&O Vital Signs Date Time Temp Pulse Resp B/P (MAP) Pulse Ox O2 Delivery O2 Flow Rate FiO2 01/18/19 10:00 97.3 66 18 148/64 (92) 99 01/16/19 21:31 Room Air I&O- Last 24 Hours up to 6 AM 01/18/19 06:00 Intake Total 4565 ml Output Total 2400 ml Balance 2165 ml Laboratory Data 24H LABS Laboratory Tests 2 01/17/19 12:59: Urine Color YELLOW, Urine Appearance CLEAR, Urine pH 5.0, Urine Specific Issue 1.013, Urine Protein 2+H, Urine Glucose (UA) 1+H, Urine Ketones NEGATIVE, Urine Blood 1+H, Urine Nitrite NEGATIVE, Urine Bilirubin NEGATIVE, Urine Urobilinogen 0.2, Urine Leukocyte Esterase NEGATIVE, Urine WBC (Auto) 2, Urine RBC (Auto) 4H, Urine Hyaline Casts (Auto) 0, Urine Bacteria (Auto) NEGATIVE, Urine Squamous E pithelial Cells 0, Urine Mucus (Auto) SMALL, Urine Sperm (Auto) 01/17/19 16:46: Bedside Glucose (Misc Panel) 219H 01/17/19 19:51: Bedside Glucose (Misc Panel) 263H 01/17/19 19:54: Anion Gap 5L, Glomerular Filtration Rate 27.4L, Blood Urea Nitrogen 50H, Creatinine 2.49H, Sodium Level 137, Potassium Level 5.5H, Chloride Level 110H, Carbon Dioxide Level 22, Calcium Level 9.4 01/17/19 23:54: Bedside Glucose (Misc Panel) 260H 01/18/19 04:57: Bedside Glucose (Misc Panel) 211H 01/18/19 08:34: Anion Gap 9, Glomerular Filtration Rate 27.9L, Blood Urea Nitrogen 47H, Creatinine 2.45H, Sodium Level 135L, Potassium Level 5.6H, Chloride Level 107, Carbon Dioxide Level 19L, Calcium Level 8.7L 01/18/19 11:34: Bedside Glucose (Misc Panel) 228H CBC/BMP Laboratory Tests 01/17/19 19:54 Calcium Level 9.4 01/18/19 08:34 Calcium Level 8.7 L Microbiology Microbiology 01/16/19 Blood Culture - Preliminary, Resulted No growth after 24 hours . All specim... 01/16/19 Blood Culture - Preliminary, Resulted No growth after 24 hours . All specim... Milly Goss Jan 18, 2019 11:46
[2019-01-18] MEDS: VANCOMYCIN HCL 1,000 MG, VIAL MATE ADAPTER 1 EACH in D5W 250 ML IV SCH (13:09)
[2019-01-18 14:00] VITALS: BP 114/77
[2019-01-18] MEDS: ANEXSIA, NORCO 7.5MG/325MG TABLET(HYDROCODONE/APAP) PO PRN (14:31)
[2019-01-18] MEDS: PATIROMER SORBITEX CALCIUM 8.4 GM POWDER PACKET (VELTASSA) PO SCH (17:06)
[2019-01-18] MEDS: SODIUM BICARBONATE 150 MEQ in STERILE WATER LITER BAG 1,000 ML IV SCH (17:06)
--- NOTE | 2019-01-18 17:38 | REP ---
RENAL ULTRASOUND: HISTORY: Chronic kidney disease. COMPARISON: 06/12/2018 The kidneys are normal in echogenicity. The right kidney measures 4.9 cm in transverse x 5.4 cm in AP x 12.2 cm in cephalocaudal dimensions. The left kidney measures 3.9 cm in transverse x 4.9 cm in AP x 9.9 cm in cephalocaudal dimensions. A 2.1 cm cyst is present in the mid left kidney. There is no hydronephrosis or mass. There is possible trabeculation of the urinary bladder wall. IMPRESSION: 2.1 cm left renal cyst. Electronically Signed by Grupo Walden MD 01/18/2019 05:50 P
[2019-01-18 18:00] VITALS: BP 130/66
[2019-01-18] MEDS ORDERED: FUROSEMIDE 20 MG/2 ML VIAL (J1940) IV ONE (21:15)
--- NOTE | 2019-01-18 21:58 | IPN ---
DATE: 01/18/2019 SUBJECTIVE The patient is seen and examined sitting out of bed to the chair. Denies any overnight events or issues. He remains persistently hyperkalemic and he continues on bicarbonate containing fluids. Vital signs: Temperature 96.8, pulse 76, respiratory rate 18, blood pressure 130/66, saturating 99% on room air. Intake yesterday was 4 liters. Urine output yesterday was 2.3 liters. Weight in the bed scale today is not recorded. General: The patient is seen sitting out of bed to the chair, elderly male, appears stated age. No distress. Extraocular muscles are intact. Sclerae are anicteric. Tongue is moist. Neck is supple. Jugular veins are not elevated while he is sitting upright. Cardiac: S1, S2, regular rate and rhythm. There is no edema in the lower extremities. Respiratory sounds show some faint crackles at the bases, otherwise clear air entry. Abdomen is soft and distended. There is no tenderness to palpation. There is no edema in the peripheries. He has a right wyrrz-rvf-[id number] amputation. He is wearing his prosthesis. The left foot wound is not examined today. Neurologic: He is oriented times three. No focal deficits. LABORATORY DATA White count 8.0, hemoglobin 10.5, sodium 135, potassium 5.6, bicarbonate 19, BUN 47, creatinine 2.4, glucose 326. Blood cultures: No growth for 48 hours times two sets. IMAGING STUDIES Renal ultrasound January 18 showed normal size kidneys bilaterally with no hydronephrosis or mass and a 2 cm left renal cyst. INPATIENT MEDICATIONS: He continues on sodium bicarbonate at 70 mL per hour. I started him on Veltassa 16.8 grams by mouth (p.o.) daily. Remainder of medications are unchanged from prior. PROBLEMS: 1. Acute kidney injury (CAROL) on chronic kidney disease (CKD), stage IV. Baseline creatinine of around 1.8 to 2.0. Patient is nonoliguric. His acute kidney injury is felt to be secondary to foot wound, syndrome of nonsteroidal anti-inflammatory drug (NSAID) use at home and concomitant use of diuretic and ARMEN inhibitor as well in that time frame. His renal imaging was negative for any obstruction. His renal function has plateaued with gentle IV hydration. He does have a history of diastolic congestive heart failure and there were very faint crackles audible on exam today at the lung bases. 2. Hyperkalemia. It is secondary to renal failure with concomitant use of ARMEN inhibitor and NSAID. He continues on a potassium restricted diet and I am starting him on daily Veltassa. He is also persistently acidotic and is receiving bicarbonate containing fluids to address both the acidemia and the hyperkalemia. We will use IV fluids plus a small dose of loop diuretics to promote further potassium losses. 3. Non anion gap metabolic acidosis. Serum bicarbonate has been less than 20 despite bicarbonate drip. His bicarbonate containing fluids will be continued. If he develops signs of significant fluid overload we will switch the bicarbonate supplements to oral formulation instead of IV fluids. 4. History of diastolic congestive heart failure. Volume status is presently acceptable, although he does have very faint crackles at the lung bases. In view of his history of CHF and in view of his persistent hyperkalemia we will use IV fluid plus loop diuretics for promotion of potassium losses. 5. Hypertension. Blood pressures are acceptable and no changes are being made to his regimen at present. 6. Insulin dependent diabetes. Glucose today is greater than 300 and insulin is adjusted as per the primary team.
[2019-01-18 22:00] VITALS: BP 146/76
[2019-01-19] MEDS: PIPERACILLIN/TAZOBACTAM SOD 2.25 GM in D5W MINI-BAG PLUS 50 ML IV SCH ×2 (00:45→08:05)
[2019-01-19 02:00] VITALS: BP 146/68
[2019-01-19] MEDS ORDERED: METAL LOCK LOOP XX ONE (02:28)
[2019-01-19] MEDS: HEPARIN SOD (PORCINE) 5000 UNITS/ML VIAL SC SCH ×3 (05:36→21:09)
[2019-01-19 06:00] VITALS: BP 142/72
--- NOTE | 2019-01-19 07:50 | IPNPDOC ---
Subjective Date Seen The patient was seen on 01/18/19. Subjective Chief Complaint/HPI 73 yo male admitted with PAD, left foot ulcer and Left hallux gangrene, Diabetes, CKD stage IV and recurrent hyperkalemia Patient states worried that he may need amputation and states he was told in past that he had bad vascular disease. He states mild constipation with last stool 2 days ago. no CP, no SOB, no abdomen pain, no fever. Objective Physical Examination General Exam: Positive: Alert, Cooperative, No Acute Distress Eye Exam: Positive: PERRLA, EOMI ENT Exam: Positive: Atraumatic, Mucous membr. moist/pink Neck Exam: Negative: JVD, thyromegaly Chest Exam: Positive: Clear to auscultation, Normal air movement; Negative: Rales, Rhonchi Heart Exam: Positive: Rate Normal, Murmurs (systolic) Telemetry: Positive: No significant arrhythmia Abdomen Exam: Positive: Normal bowel sounds, Soft (mildly distended); Negative: Tenderness Extremity Exam: Positive: Other (right BKA, left big toe swelling with gangreno us ulcer, without drainage, cold extremities) Skin Exam: Positive: Other skin issue (right BKA; left foot bandaged - see vascular note for description); Negative: Nl turgor and temperature Neuro Exam: Positive: Normal Speech, Cranial Nerves 3-12 NL Psych Exam: Positive: Mental status NL, Anxiety, Oriented x 3 Assessment /Plan Assessment 1) Left hallux gangrenous ulcer with history of severe PVD - - continue vancomycin and Zosyn empiric coverage; vasc consulted - high decision making with monitoring of vanc levels to avoid ATN; consider changing zosyn to cefepime. 2) Diabetes on mcfp insulin with hyperglycemia; -Continue patient's home insulin dosage; goal blood sugars under 180 to promote healing; DM diet 3)Hyperkalemia - persistent - renal consulted. treated with D50/insulin and Veltassa in ED; - holding ACEI - will continue with kayexalate or veltassa (which ever is available) 4) HTN monitor. hold ACEI 5) CKDIV -Avoid nephrotoxic medications -Gentle hydration -nephrology consult pending Plan/VTE VTE Prophylaxis Ordered?: Yes VS, I&O, 24H, Fishbone Vital Signs/I&O Vital Signs Date Time Temp Pulse Resp B/P (MAP) Pulse Ox O2 Delivery O2 Flow Rate FiO2 01/18/19 14:00 98.3 79 18 114/77 (89) 99 01/16/19 21:31 Room Air I&O- Last 24 Hours up to 6 AM 01/18/19 06:00 Intake Total 4565 ml Output Total 2400 ml Balance 2165 ml Laboratory Data 24H LABS Laboratory Tests 2 01/17/19 16:46: Bedside Glucose (Misc Panel) 219H 01/17/19 19:51: Bedside Glucose (Misc Panel) 263H 01/17/19 19:54: Anion Gap 5L, Glomerular Filtration Rate 27.4L, Blood Urea Nitrogen 50H, Creatinine 2.49H, Sodium Level 137, Potassium Level 5.5H, Chloride Level 110H, Carbon Dioxide Level 22, Calcium Level 9.4 01/17/19 23:54: Bedside Glucose (Misc Panel) 260H 01/18/19 04:57: Bedside Glucose (Misc Panel) 211H 01/18/19 08:34: Anion Gap 9, Glomerular Filtration Rate 27.9L, Blood Urea Nitrogen 47H, Creatin ine 2.45H, Sodium Level 135L, Potassium Level 5.6H, Chloride Level 107, Carbon Dioxide Level 19L, Calcium Level 8.7L 01/18/19 11:34: Bedside Glucose (Misc Panel) 228H 01/18/19 12:45: Vancomycin Level Trough 15.5 CBC/BMP Laboratory Tests 01/17/19 19:54 Calcium Level 9.4 01/18/19 08:34 Calcium Level 8.7 L Microbiology Microbiology 01/16/19 Blood Culture - Preliminary, Resulted No growth after 24 hours . All specim... 01/16/19 Blood Culture - Preliminary, Resulted No growth after 24 hours . All specim... XIAO GREEN DO Jan 18, 2019 14:18
[2019-01-19] MEDS: METOPROLOL TART 50 MG TAB PO SCH ×2 (08:05→21:09)
[2019-01-19] MEDS: DOCUSATE SODIUM 100 MG CAP PO SCH ×2 (08:05→21:00)
[2019-01-19] MEDS: GABAPENTIN 300 MG CAP PO SCH ×2 (08:05→21:09)
[2019-01-19] MEDS: ATORVASTATIN 20 MG TAB PO SCH (08:05)
[2019-01-19] MEDS: ASPIRIN 81 MG ENTERIC TAB PO SCH (08:05)
[2019-01-19] MEDS: LEVEMIR (INSULIN DETEMIR) 1 UNITS/0.01ML SC SCH (08:06)
[2019-01-19] MEDS: HumaLOG INSULIN (NovoLOG) PER UNIT SC SCH ×6 (08:06→21:00)
[2019-01-19 08:57] LABS: CALCIUM LEVEL 9.2 MG/DL (8.8-10.2); CREATININE FOR GFR 2.35 MG/DL (0.70-1.30); GLOMERULAR FILTRATION RATE 29.3 (>42); POTASSIUM SERUM 4.6 MEQ/L (3.5-5.1)
[2019-01-19] MEDS: SODIUM BICARBONATE 150 MEQ in STERILE WATER LITER BAG 1,000 ML IV SCH (08:57)
[2019-01-19 10:00] VITALS: BP 127/62
--- NOTE | 2019-01-19 10:05 | IPNPDOC ---
Date Seen The patient was seen on 01/19/19. Progress Note Vascular Surgery: Dr Evangelista HPI: Patient is a 73-year-old male, presenting to the ED related to left foot swelling for 5 days. He denies any trauma to the foot and thinks the wound may have been caused by his shoe rubbing against his left toe. He did not try to treat when he first noticed the ulcer 4-5 days ago. He decided to come to the hospital because his daughter insisted. He reports he has had some chills. On initial evaluation in the emergency room, potassium was 6.1, glomerular ernie tration rate was 28. Denies any fevers, weakness, fatigue, Headache, Chest Pain, Shortness of breath, cough, palpitations, abdominal pain, N/V/D or changes in bowel or bladder habits PMH peripheral arterial disease, hypertension, chronic kidney disease stage IV, type 2 diabetes mellitus, obesity. BMI 33.9 Surgical History Right BKA Appendectomy Hernia repair PE: GEN: 73yoM, No acute distress. No acute distress. Alert and oriented x 3. Pleasant, interactive. HEENT: Normocephalic, atraumatic. Sclera are nonicteric. Conjunctiva without injection. Moist mucous membranes. CHEST: Regular rate and rhythm, +S1, +S2 LUNGS: Clear to auscultation bilaterally. No wheezes, rales, or rhonchi. Breathing appears symmetric and easy. ABD: Round, soft, non-tender, non-distended. +Bowel sounds throughout. EXT: Rt BKA, no skin lesions. LLE with erythema to the mid foot area appears decreased, left great toe appears swollen with gangrenous ulceration noted. SKIN: [place], dry, warm. No rashes. NEURO: Alert and oriented x 3. Cranial nerves III-XII are intact. No focal de ficits appreciated. Art US LE Real-time ultrasound evaluation and duplex Doppler interrogation of bilateral lower extremity arterial systems performed. Patient has had below the knee amputation. Biphasic waveforms are seen diffusely bilaterally with monophasic waveforms in the left profunda and distal anterior and posterior tibial arteries. Significant scattered atherosclerotic plaquing is seen bilaterally. No occlusion is seen. PEAK SYSTOLIC VELOCITY RIGHT LEFT Common femoral artery 82.4 cm/s 144.4 cm/s Profunda 109.9 59.8 Proximal SFA 90.9 73.3 Superficial femoral artery mid 104.9 107.3 Superficial femoral artery distal 73.5 98.9 Popliteal 69.7 122.2 Proximal anterior tibial artery 117.6 119.3 Tibial peroneal trunk 53.3 94.5 Proximal posterior tibial artery 60.1 Distal posterior tibial artery 27.7 Distal anterior tibial artery 45.0 IMPRESSION: Significant scattered atherosclerotic plaquing bilateral without evidence of occlusion. DD: Clay Hunt MD, MD 01/17/19 1502 MRI Left foot. Diffuse soft tissue edema of the foot. Can not exclude superimposed cellulitis. Mild marrow edema involving the first distal phalanx. I can not exclude underlying osteomyelitis. DD: Clay Hunt MD, MD 01/17/19 1639 A&P: 1. Left foot ulcer/PAD. The pt is reviewed and examined as per Dr Evangelista. Cannot exclude OM per MRI report. Afebrile. WBC 8.0 01/17/19. BC x 2 neg. Vancomycin and Zosyn empiric coverage as per primary team. BLE arterial US reviewed. Unable to proceed with Angiogram LLE at this time related to renal function. SCr 2.35. Monitor. 2. CKD SCr 2.35. Baseline appears to be 1.8-2.0. Nephrology following. Pt had recently used NSAID for pain. Diuretic/ACEI on hold. Monitor. DVT prophylaxis. SQ Heparin. VS, I&O, 24H, [facility] Vital Signs/I&O Vital Signs Date Time Temp Pulse Resp B/P (MAP) Pulse Ox O2 Delivery O2 Flow Rate FiO2 01/19/19 08:05 89 138/77 01/19/19 06:00 96.9 17 99 01/16/19 21:31 Room Air I&O- Last 24 Hours up to 6 AM 01/19/19 05:59 Intake Total 1975 ml Output Total 1525 ml Balance 450 ml Laboratory Data 24H LABS Laboratory Tests 2 01/18/19 11:34: Bedside Glucose (Misc Panel) 228H 01/18/19 12:45: Vancomycin Level Trough 15.5 01/18/19 16:47: Bedside Glucose (Misc Panel) 254H 01/18/19 20:07: Bedside Glucose (Misc Panel) 224H 01/19/19 05:47: Bedside Glucose (Misc Panel) 160H 01/19/19 08:11: Anion Gap 6L, Glomerular Filtration Rate 29.3L, Blood Urea Nitrogen 38H, Creatinine 2.35H, Sodium Level 139, Potassium Level 4.6, Chloride Level 106, Carbon Dioxide Level 27, Calcium Level 9.2 CBC/BMP Laboratory Tests 01/19/19 08:11 Calcium Level 9.2 Microbiology Microbiology 01/16/19 Blood Culture - Preliminary, Resulted No Growth after 48 hours. All Specime... 01/16/19 Blood Culture - Preliminary, Resulted No Growth after 48 hours. All Specime... Milly Goss Jan 19, 2019 10:05
[2019-01-19] MEDS: PATIROMER SORBITEX CALCIUM 8.4 GM POWDER PACKET (VELTASSA) PO SCH ×2 (12:25→12:33)
--- NOTE | 2019-01-19 12:27 | IPN ---
DATE OF SERVICE: 01/19/2019 SUBJECTIVE: The patient is seen and examined this morning sitting out of bed to the chair. He reports some occasional dyspnea on exertion otherwise denies any complaints. Laboratory studies show resolution of hyperkalemia and acidosis and his renal function is improving towards baseline. His IV fluids are being discontinued today. Vital signs: Temperature 97.2, pulse 80, respiratory rate 17, blood pressure 127/62, saturating 97-99% on room air. Intake yesterday was 2.1 liters. Urine output yesterday was 1.4 liters positive 600 mL. Weight in the bed scale today is not recorded. General: The patient is seen sitting out of bed to the chair, elderly male, appears stated age. No acute distress. Extraocular muscles are intact. Sclera are anicteric. Tongue is moist. Neck is supple. Jugular veins were not elevated while he is sitting upright. Cardiac: S1, S2 regular rate and rhythm. There is trace edema in the left lower extremity. Respiratory sounds show some very faint crackle at the bases, otherwise clear air entry. Abdomen is soft and distended. There is no tenderness to palpation. There is a right [id number] amputation and he is wearing his the prosthesis. His left foot wound is dressed and not examined. Neurologic: He is oriented times three. No focal deficits. LABORATORY DATA: White count 8.0, hemoglobin 10.5, sodium 139, potassium 4.6, bicarbonate 27, BUN 38, creatinine 2.3. INPATIENT MEDICATIONS: Reviewed by myself. I have discontinued his bicarbonate drip. PROBLEMS: 1. Acute kidney injury (CAROL) on chronic kidney disease (CKD) stage 4. Renal function is recovering. His baseline creatinine is around 1.8-2.0. Today's creatinine is 2.3 which is an improvement over the past few days. He is nonoliguric his CAROL is secondary to foot wound, non-steroidal anti-inflammatory drug (NSAID) use with concomitant diuretics and ARMEN inhibitor at home as well. We are discontinuing IV fluids and I am resuming him on low dose oral diuretic at this time. 2. Hyperkalemia. It was secondary to renal failure with concomitant use of ARMEN inhibitor and NSAID. His potassium is now within normal range. He continues on potassium restricted diet and we will let him get another dose of Veltassa today and stop it tomorrow if his potassium stays within normal limits. His acidosis has improved and his bicarbonate containing fluids are discontinued and he is being resumed on low dose oral Lasix. 3. Non-anion gap metabolic acidosis. It was secondary to acute on chronic renal failure, it has improved. Bicarbonate containing fluids are being discontinued. 4. History of diastolic congestive heart failure. I am stopping his IV fluids today as his renal function, potassium and acidosis, all three are improved and in view of his history of congestive heart failure I am resuming his diuretic now. 5. Hypertension. Blood pressures are acceptable and no changes are being made.
[2019-01-19] MEDS: FUROSEMIDE 40 MG TAB PO SCH (12:28)
--- NOTE | 2019-01-19 12:29 | IPNPDOC ---
Subjective Date Seen The patient was seen on 01/19/19. Subjective Chief Complaint/HPI S: 73 yo diabetic male admitted with PAD, left foot ulcer and Left hallux gangrene, CKD stage IV and recurrent hyperkalemia. patient states feels better today. constipaton resolved. states has been ambulating few steps on foot. minimal pain to foot but has neuropathy to foot also. no CP, no SOB, no N, no V, no fever. Current Medications Acetaminophen/ Hydrocodone Bitart (Anexsia, [place] 7.5mg/325mg) 1 tab Q4HP PRN P O PAIN Last administered on 01/18/19 14:31; Start 01/16/19 at 19:30 Aspirin (Ecotrin) 81 mg DAILY PO Last administered on 01/19/19 08:05; Start 01/17/19 at 09:00 Atorvastatin Calcium (Lipitor) 20 mg DAILY PO Last administered on 01/19/19 08:05; Start 01/17/19 at 09:00 Docusate Sodium (Colace) 100 mg BID PO Last administered on 01/19/19 08:05; Start 01/16/19 at 21:00 Gabapentin (Neurontin) 300 mg BID PO Last administered on 01/19/19 08:05; Start 01/16/19 at 21:00 Heparin Sodium (Porcine) (Heparin) 5,000 units Q8H SC Last administered on 01/19/19at 05:36; Start 01/16/19 at 21:00 Insulin Detemir (Levemir Insulin) 75 units DAILY SC Last administered on 01/19/19at 08:06; Start 01/17/19 at 09:00 Insulin Human Lispro (HumaLOG INSULIN) 10 units STAT STAT SC Last administered on 01/17/19at 08:23; Start 01/17/19 at 06:50; Stop 01/17/19 at 06:55; Status DC Insulin Human Lispro (HumaLOG INSULIN) SEE PROTOCOL TABLE AC SC Last administered on 01/19/19at 08:06; Start 01/17/19 at 07:30 Insulin Human Lispro (HumaLOG INSULIN) SEE PROTOCOL TABLE QHS SC Last administered on 01/17/19at 21:15; Start 01/16/19 at 21:00 Insulin Human Regular (HumuLIN R INSULIN) 8 units STAT STAT IV Last administered on 01/16/19at 16:44; Start 01/16/19 at 16:44; Stop 01/16/19 at 16:47; Status DC Metoprolol Tartrate (Lopressor) 50 mg BID PO Last administered on 01/19/19at 08:05; Start 01/16/19 at 21:00 Patiromer (Veltassa) 16.8 gm DAILY@1200 PO Last administered on 01/18/19at 17:06; Start 01/18/19 at 15:45 Piperacillin Sod/ Tazobactam Sod 2.25 gm/Dextrose 50 ml @ 100 mls/hr Q8H IV Last administered on 01/19/19at 08:05; Start 01/17/19 at 00:00 Piperacillin Sod/ Tazobactam Sod 3.375 gm/Dextrose 50 ml @ 50 mls/hr QID IV ; Start 01/16/19 at 21:00; Stop 01/16/19 at 22:37; Status DC Sodium Bicarbonate 150 meq/Sterile Water 1,150 ml @ 70 mls/hr [id number] IV Last administered on 01/19/19at 08:57; Start 01/17/19 at 10:00; Stop 01/19/19 at 09:23; Status DC Vancomycin HCl 750 mg/IV Miscellaneous Supplies 1 each/ Dextrose 275 ml @ 275 mls/hr Q24H IV ; Start 01/19/19 at 14:00 Vancomycin HCl 1000 mg/IV Miscellaneous Supplies 1 each/ Dextrose 270 ml @ 270 mls/hr Q24H IV Last administered on 01/18/19at 13:09; Start 01/17/19 at 14:00; Stop 01/18/19 at 13:57; Status DC Objective Physical Examination General Exam: Positive: Alert, Cooperative, No Acute Distress Eye Exam: Positive: PERRLA, EOMI ENT Exam: Positive: Atraumatic, Mucous membr. moist/pink Neck Exam: Negative: JVD, thyromegaly Chest Exam: Positive: Clear to auscultation, Normal air movement; Negative: Rales, Rhonchi Heart Exam: Positive: Rate Normal, Murmurs (systolic) Telemetry: Positive: No significant arrhythmia Abdomen Exam: Positive: Normal bowel sounds, Soft (NT ND, obese); Negative: Tenderness Extremity Exam: Positive: Other (right BKA, left big toe black w gangrenous ulcer, no drainage; cool extremities; left heel with hard diabetic callous and rounded arch appearance.) Skin Exam: Negative: Nl turgor and temperature Neuro Exam: Positive: Normal Speech, Cranial Nerves 3-12 NL Psych Exam: Positive: Mental status NL, Mood NL, Oriented x 3 Other physical findings Item Value Date Time Bedside Glucose (Misc Panel) 245 MG/DL H 01/19/19 1128 Bedside Glucose (Misc Panel) 160 MG/DL H 01/19/19 0547 Bedside Glucose (Misc Panel) 224 MG/DL H 01/18/192006 Fasting Glucose 211 MG/DL H 01/19/19 0811 Fasting Glucose 326 MG/DL H 01/18/19 0834 Fasting Glucose 46 MG/DL L 01/17/19 0551 Fasting Glucose 149 MG/DL H 01/17/19 0957 Fasting Glucose 260 MG/DL H 01/17/191953 Assessment /Plan Assessment 1) Left hallux gangrenous ulcer with history of severe PVD - - continue vancomycin and Zosyn empiric coverage; vasc consulted - high decision making with monitoring of vanc levels to avoid ATN; will change zosyn to renal dose cefepime to avoid ATN 2) Diabetes on mcc insulin with hyperglycemia; POOR CONTROL; goal blood sugars under 180 to promote healing; DM diet - increase detemir to 80 units daily, add 5units lispro ac plus the sliding scale to get tighter control of blood sugars. 3)Hyperkalemia - due to CKD, ACEI and NSAID - improved - renal consulted. treated with D50/insulin and Veltassa in ED; - holding ACEI - will continue with veltassa (which ever is available) 4) HTN monitor. hold ACEI 5) CKDIV -Avoid nephrotoxic medications -Gentle hydration -nephrology consult greatly appreciated Plan/VTE VTE Prophylaxis Ordered?: Yes VS, I&O, 24H, Fishbone Vital Signs/I&O Vital Signs Date Time Temp Pulse Resp B/P (MAP) Pulse Ox O2 Delivery O2 Flow Rate FiO2 01/19/19 10:00 97.2 80 17 127/62 (83) 97 01/16/19 21:31 Room Air I&O- Last 24 Hours up to 6 AM 01/19/19 06:00 Intake Total 2125 ml Output Total 1825 ml Balance 300 ml Laboratory Data 24H LABS Laboratory Tests 2 01/18/19 12:45: Vancomycin Level Trough 15.5 01/18/19 16:47: Bedside Glucose (Misc Panel) 254H 01/18/19 20:07: Bedside Glucose (Misc Panel) 224H 01/19/19 05:47: Bedside Glucose (Misc Panel) 160H 01/19/19 08:11: Anion Gap 6L, Glomerular Filtration Rate 29.3L, Blood Urea Nitrogen 38H, Creatinine 2.35H, Sodium Level 139, Potassium Level 4.6, Chloride Level 106, Carbon Dioxide Level 27, Calcium Level 9.2 01/19/19 11:28: Bedside Glucose (Misc Panel) 245H CBC/BMP Laboratory Tests 01/19/19 08:11 Calcium Level 9.2 Microbiology Microbiology 01/16/19 Blood Culture - Preliminary, Resulted No Growth after 48 hours. All Specime... 01/16/19 Blood Culture - Preliminary, Resulted No Growth after 48 hours. All Specime... XIAO GREEN DO Jan 19, 2019 11:54
[2019-01-19] MEDS ORDERED: CEFEPIME HCL 1 GM in D5W MINI-BAG PLUS 50 ML IV SCH (12:30)
[2019-01-19] MEDS: VANCOMYCIN HCL 750 MG, VIAL MATE ADAPTER 1 EACH in D5W 250 ML IV SCH (13:37)
[2019-01-19 14:00] VITALS: BP 139/62
[2019-01-19] MEDS: CEFEPIME HCL 2 GM in D5W MINI-BAG PLUS 50 ML IV SCH (15:25)
[2019-01-19 22:00] VITALS: BP 146/67
[2019-01-20 02:00] VITALS: BP 147/76
[2019-01-20] MEDS: HEPARIN SOD (PORCINE) 5000 UNITS/ML VIAL SC SCH ×3 (05:24→20:58)
[2019-01-20 06:00] VITALS: BP 140/73
[2019-01-20] MEDS: ASPIRIN 81 MG ENTERIC TAB PO SCH (07:45)
[2019-01-20] MEDS: METOPROLOL TART 50 MG TAB PO SCH ×2 (07:45→20:59)
[2019-01-20] MEDS: FUROSEMIDE 40 MG TAB PO SCH (07:45)
[2019-01-20] MEDS: GABAPENTIN 300 MG CAP PO SCH ×2 (07:45→20:58)
[2019-01-20] MEDS: ATORVASTATIN 20 MG TAB PO SCH (07:46)
[2019-01-20] MEDS: LEVEMIR (INSULIN DETEMIR) 1 UNITS/0.01ML SC SCH (07:46)
[2019-01-20] MEDS: HumaLOG INSULIN (NovoLOG) PER UNIT SC SCH ×7 (07:46→20:59)
[2019-01-20] MEDS: DOCUSATE SODIUM 100 MG CAP PO SCH ×2 (07:47→20:58)
--- NOTE | 2019-01-20 09:31 | IPNPDOC ---
Date Seen The patient was seen on 01/20/19. Progress Note Vascular Surgery: Dr Evangelista HPI: Patient is a 73-year-old male, presenting to the ED related to left foot swelling for 5 days. He denies any trauma to the foot and thinks the wound may have been caused by his shoe rubbing against his left toe. He did not try to treat when he first noticed the ulcer 4-5 days ago. He decided to come to the hospital because his daughter insisted. He reports he has had some chills. On initial evaluation in the emergency room, potassium was 6.1, glomerular filtration rate was 28. Denies any fevers, weakness, fatigue, Headache, Chest Pain, Shortness of breath, cough, palpitations, abdominal pain, N/V/D or changes in bowel or bladder habits PMH peripheral arterial disease, hypertension, chronic kidney disease stage IV, type 2 diabetes mellitus, obesity. BMI 33.9 Surgical History Right BKA Appendectomy Hernia repair PE: GEN: 73yoM, No acute distress. No acute distress. Alert and oriented x 3. Pleasant, interactive. HEENT: Normocephalic, atraumatic. Sclera are nonicteric. Conjunctiva without injection. Moist mucous membranes. CHEST: Regular rate and rhythm, +S1, +S2 LUNGS: Clear to auscultation bilaterally. No wheezes, rales, or rhonchi. Breathing appears symmetric and easy. ABD: Round, soft, non-tender, non-distended. +Bowel sounds throughout. EXT: Rt BKA, no skin lesions. LLE with erythema to the mid foot area appears decreased, left great toe appears less swollen with gangrenous ulceration noted. SKIN: [place], dry, warm. No rashes. NEURO: Alert and oriented x 3. Cranial nerves III-XII are intact. No focal deficits appreciated. Art US LE Real-time ultrasound evaluation and duplex Doppler interrogation of bilateral lower extremity arterial systems performed. Patient has had below the knee amputation. Biphasic waveforms are seen diffusely bilaterally with monophasic waveforms in the left profunda and distal anterior and posterior tibial arter ies. Significant scattered atherosclerotic plaquing is seen bilaterally. No occlusion is seen. PEAK SYSTOLIC VELOCITY RIGHT LEFT Common femoral artery 82.4 cm/s 144.4 cm/s Profunda 109.9 59.8 Proximal SFA 90.9 73.3 Superficial femoral artery mid 104.9 107.3 Superficial femoral artery distal 73.5 98.9 Popliteal 69.7 122.2 Proximal anterior tibial artery 117.6 119.3 Tibial peroneal trunk 53.3 94.5 Proximal posterior tibial artery 60.1 Distal posterior tibial artery 27.7 Distal anterior tibial artery 45.0 IMPRESSION: Significant scattered atherosclerotic plaquing bilateral without evidence of occlusion. DD: Clay Hunt MD, MD 01/17/19 1502 MRI Left foot. Diffuse soft tissue edema of the foot. Can not exclude superimposed cellulitis. Mild marrow edema involving the first distal phalanx. I can not exclude underlying osteomyelitis. DD: Clay Hunt MD, MD 01/17/19 1639 A&P: 1. Left foot ulcer/PAD. Cannot exclude OM per MRI report. Afebrile. WBC 8.0 01/17/19. BC x 2 neg. Vancomycin and Cefipime as per primary team. BLE arterial US reviewed by Dr Evangelista. Unable to proceed with Angiogram LLE at this time related to renal function. SCr 2.35 01/19, labs this AM pending. Monitor. 2. CKD Baseline appears to be 1.8-2.0. Nephrology following. Pt had recently used NSAID for pain. Diuretic/ACEI on hold. AM labs pending. Monitor. DVT prophylaxis. SQ Heparin. VS, I&O, 24H, Fishbone Vital Signs/I&O Vital Signs Date Time Temp Pulse Resp B/P (MAP) Pulse Ox O2 Delivery O2 Flow Rate FiO2 01/20/19 07:45 87 146/78 01/20/19 06:00 97.1 18 97 01/16/19 21:31 Room Air I&O- Last 24 Hours up to 6 AM 01/20/19 06:00 Intake Total 1905 ml Output Total 2700 ml Balance -795 ml Laboratory Data 24H LABS Laboratory Tests 2 01/19/19 11:28: Bedside Glucose (Misc Panel) 245H 01/19/19 16:36: Bedside Glucose (Misc Panel) 191H 01/19/19 20:21: Bedside Glucose (Misc Panel) 205H 01/20/19 05:50: Bedside Glucose (Misc Panel) 118H 01/20/19 08:37: CBC/BMP Microbiology Microbiology 01/16/19 Blood Culture - Preliminary, Resulted No Growth after 72 hours. All specime... 01/16/19 Blood Culture - Preliminary, Resulted No Growth after 72 hours. All specime... Milly Goss Jan 20, 2019 09:31
[2019-01-20 09:34] LABS: CALCIUM LEVEL 9.4 MG/DL (8.8-10.2); CREATININE FOR GFR 2.11 MG/DL (0.70-1.30); GLOMERULAR FILTRATION RATE 33.1 (>42); POTASSIUM SERUM 4.5 MEQ/L (3.5-5.1)
[2019-01-20 10:00] VITALS: BP 162/70
[2019-01-20] MEDS: PATIROMER SORBITEX CALCIUM 8.4 GM POWDER PACKET (VELTASSA) PO SCH (12:16)
--- NOTE | 2019-01-20 13:00 | IPNPDOC ---
Text Note Date of Service The patient was seen on 01/20/19. NOTE S: patient being seen for DM with PVD and gangrene of left great toe. He states no pain. Possible vascular intervention tomorrow. persistant dry cough this AM, no fever, no chills. O: Vitals as below General pleasant NAD AAOx3 HRRR with murmur LCTA no W/R/R A/P: 1) Left hallux gangrenous ulcer with history of severe PVD - - continue vancomycin and Cefepime empiric coverage; vasc consulted - high decision making with monitoring of vanc levels to avoid ATN; Vanc level, CBC, CMP tomorrow; PT/OT consulted. 2) Diabetes on group home insulin with hyperglycemia; Improving control. goal blood sugars under 180 to promote healing; DM diet - increase detemir to 80 units daily, add 5units lispro ac plus the sliding scale to get tighter control of blood sugars. 3)Hyperkalemia - due to CKD, ACEI and NSAID - improved - renal consulted. treated with D50/insulin and Veltassa in ED; - holding ACEI - will continue with veltassa (which ever is available) 4) HTN monitor. hold ACEI 5) CKDIV -Avoid nephrotoxic medications -Gentle hydration -nephrology consult greatly appreciated Possible angiogram tomorrow vs debridement and then gentle IVF for 1 liter. VS,Fishbone, I+O VS, Fishbone, I+O Laboratory Tests 01/20/19 08:37 Calcium Level 9.4 Vital Signs Date Time Temp Pulse Resp B/P (MAP) Pulse Ox O2 Delivery O2 Flow Rate FiO2 01/20/19 10:00 98.0 63 19 162/70 (100) 96 01/16/19 21:31 Room Air I&O- Last 24 Hours up to 6 AM 01/20/19 06:00 Intake Total 1905 ml Output Total 2700 ml Balance -795 ml XIAO GREEN DO Jan 20, 2019 12:59
[2019-01-20] MEDS ORDERED: guaiFENesin DM LIQ 10ML UD PO PRN (13:15)
[2019-01-20] MEDS: VANCOMYCIN HCL 750 MG, VIAL MATE ADAPTER 1 EACH in D5W 250 ML IV SCH (13:35)
[2019-01-20 14:00] VITALS: BP 148/63
--- NOTE | 2019-01-20 14:58 | PHACANCOPD ---
PHARMACY VANCOMYCIN DOSING Pt Demographics Demographics Patient Age:73 , Weight:98.100 , Gender: male Adjusted Body Weight Date: 01/17/19, Adjusted Body Weight: [80.6] Kg Vancomycin Vancomycin indication: L.FOT GANGRENOUS ULCER Vancomycin Target Ranges: 15-20 mcg/ml Vancomycin Load Y/N: No Load Dose Date Time Vancomycin Load Dose: Date: Time: Vancomycin Dose Date: 01/20/19. Current Vancomycin Dose: [750 mg Q24] Intermittent Dosing?: No Labs Micro Microbiology 01/16/19 Blood Culture - Preliminary, Resulted No Growth after 72 hours. All specime... 01/16/19 Blood Culture - Preliminary, Resulted No Growth after 72 hours. All specime... Creatinine Clearance Date:01/17/19. Creatinine Clearance: [32.2].CALCULATED Assessment and Plan Maintaining Current Dose?: No Reason for dose change: Trough too high Pharmacist Note Pharmacist Note Date: 01/17/19. Pharmacist note:73 YOM admitted w/left foot gangrenous ulcer. Patient= 5'7", IR=059.3 kg(abw=80.6kg.).Calculated CRCL=32.2)Patient has Rt.BKA.Ordered Pip/Tazo 2.25 [id number] and Vancomycin per pharmacy dosing.Vancomycin 1 gram ordered 01/16@1930 in ED which was begun on med.floor @2345. 1 gram [id number] regimen will begin 01/17@1400. First Vancomycin trough is scheduled for 01/18@1300-will continue to follow. Date: 01/20/19. Pharmacist note: Dose was decreased to 750 mg q24h on 01/19/19, resulting trough after one dose of 750 mg is 19.0. patient did receive an additional 750 mg today before trough could be addressed. We'll therefore place Vancomycin on hold and reassess tomorrow after another level is drawn J[facility]AN [facility] Jan 20, 2019 14:58
[2019-01-20] MEDS: CEFEPIME HCL 2 GM in D5W MINI-BAG PLUS 50 ML IV SCH (16:02)
[2019-01-20 18:00] VITALS: BP 140/80
[2019-01-20 22:00] VITALS: BP 142/76
[2019-01-20] MEDS: ANEXSIA, NORCO 7.5MG/325MG TABLET(HYDROCODONE/APAP) PO PRN (22:31)
--- NOTE | 2019-01-20 23:32 | IPN ---
DATE: 01/20/2019 SUBJECTIVE: Patient seen and examined this morning sitting out of bed to the chair. He denies any overnight events or complaints. His chronic diuretic was resumed yesterday, and he had excellent urine output. His renal function has recovered to his the usual baseline. Vital signs: Temperature 98.0, pulse 83, respiratory rate 17, blood pressure 140/80, saturating 95% on room air. Intake yesterday was 2490, urine output yesterday was 2700, net negative 210. Weight on the bed scale today is not recorded. General: The patient is seen sitting out of bed to the chair, elderly male, appears stated age. No acute distress. Extraocular muscles are intact. Sclerae are anicteric. Tongue is moist. Neck is supple. Jugular veins are not elevated. Cardiac: S1, S2, regular rate and rhythm. There is trace edema in the left lower extremity. Respiratory sounds show clear to auscultation bilaterally. No crackle, rale or wheeze. Abdomen is soft and distended and obese. There is no tenderness to palpation. There is a right [id number] amputation. The left foot wound is covered and not examined. Neurologic: He is oriented times three. No focal deficits. LABORATORY DATA: Sodium 141, potassium 4.5, bicarbonate 28, BUN 36, creatinine 2.1, hemoglobin 10.5, vancomycin trough 19. INPATIENT MEDICATIONS: His vancomycin is noted to be held. His insulin was adjusted per the primary team. Remainder of medications are unchanged from prior. PROBLEMS: 1. Acute kidney injury (CAROL) on chronic kidney disease (CKD) stage IV. Renal function has recovered to baseline. His baseline creatinine is 1.8 to 2.0. Today, creatinine is 2.1. He is off of IV fluids. We resumed his usual Lasix yesterday. He has had excellent urine output. His volume status is acceptable. 2. Hyperkalemia. It was secondary to acute on chronic renal failure with concomitant use of angiotensin-converting enzyme (ARMEN) inhibitor and nonsteroidal anti-inflammatory drug (NSAID). His potassium has now normalized. I am going to let him continue with Veltassa for now as he is going to be receiving contrast procedures, and there is, of course, the risk of another CAROL and possible recurrent hyperkalemia. 3. Non-anion gap metabolic acidosis. It was secondary to acute on chronic renal failure. It has resolved. He has been off of IV fluids. His bicarbonate is up to 28, which is optimal. 4. History of diastolic congestive heart failure. Volume status is acceptable. I resumed his usual Lasix dose yesterday. He has diuresed nicely, and no changes are being made on the current diuretic regimen. 5. Hypertension. Blood pressures are acceptable, systolic is 140s. Keep him off of ARMEN and ARB. Continue present medications.
[2019-01-21 02:00] VITALS: BP 153/78
[2019-01-21] MEDS: HEPARIN SOD (PORCINE) 5000 UNITS/ML VIAL SC SCH ×3 (05:01→21:08)
[2019-01-21 06:00] VITALS: BP 146/62
[2019-01-21 06:29] LABS: BASO % 0.7 % (0.0-1.0); EOS # 0.2 10^3/uL (0.0-0.50); EOS % 4.5 % (0.0-3.0); HEMATOCRIT 28.7 % (42.0-52.0); HEMOGLOBIN 9.5 g/dl (13.5-17.5); LYMPH % 18.7 % (24.0-44.0); MEAN CORPUSCULAR HEMOGLOBIN 30.2 pg (27.0-33.0); MEAN CORPUSCULAR HGB CONC 33.1 g/dl (32.0-36.5); MEAN CORPUSCULAR VOLUME 91.1 fl (80.0-96.0); MONO # 0.5 10^3/uL (0.0-0.8); MONO % 9.5 % (0.0-5.0); NEUTROPHILS # 3.5 10^3/uL (1.8-7.7); NEUTROPHILS % 66.2 % (36.0-66.0); PLATELET COUNT, AUTOMATED 195 10^3/uL (150-450); RED BLOOD COUNT 3.15 10^6/uL (4.30-6.10); WHITE BLOOD COUNT 5.4 10^3/uL (4.0-10.0)
[2019-01-21 06:55] LABS: ALBUMIN 2.6 GM/DL (3.2-5.2); BILIRUBIN,TOTAL 0.2 MG/DL (0.2-1.0); CALCIUM LEVEL 8.7 MG/DL (8.8-10.2); CREATININE FOR GFR 2.03 MG/DL (0.70-1.30); GLOMERULAR FILTRATION RATE 34.6 (>42); POTASSIUM SERUM 4.2 MEQ/L (3.5-5.1); TOTAL PROTEIN 7.4 GM/DL (6.4-8.2)
[2019-01-21] MEDS: LEVEMIR (INSULIN DETEMIR) 1 UNITS/0.01ML SC SCH (08:33)
[2019-01-21] MEDS: HumaLOG INSULIN (NovoLOG) PER UNIT SC SCH ×7 (08:33→21:00)
[2019-01-21] MEDS: FUROSEMIDE 40 MG TAB PO SCH (08:35)
[2019-01-21] MEDS: GABAPENTIN 300 MG CAP PO SCH ×2 (08:35→21:08)
[2019-01-21] MEDS: ATORVASTATIN 20 MG TAB PO SCH (08:35)
[2019-01-21] MEDS: ASPIRIN 81 MG ENTERIC TAB PO SCH (08:35)
[2019-01-21] MEDS: DOCUSATE SODIUM 100 MG CAP PO SCH ×2 (08:35→21:00)
[2019-01-21] MEDS: METOPROLOL TART 50 MG TAB PO SCH ×2 (08:36→21:08)
--- NOTE | 2019-01-21 08:44 | IPNPDOC ---
Date Seen The patient was seen on 01/21/19. Progress Note Vascular Surgery: Dr Evangelista HPI: Patient is a 73-year-old male, presenting to the ED related to left foot swelling for 5 days. He denies any trauma to the foot and thinks the wound may have been caused by his shoe rubbing against his left toe. He did not try to treat when he first noticed the ulcer 4-5 days ago. He decided to come to the hospital because his daughter insisted. He reports he has had some chills. On initial evaluation in the emergency room, potassium was 6.1, glomerular ernie tration rate was 28. Pt is OOB to chair, no verbalized concerns. Denies any fevers, weakness, fatigue, Headache, Chest Pain, Shortness of breath, cough, palpitations, abdominal pain, N/V/D or changes in bowel or bladder habits PMH peripheral arterial disease, hypertension, chronic kidney disease stage IV, type 2 diabetes mellitus, obesity. BMI 33.9 Surgical History Right BKA Appendectomy Hernia repair PE: GEN: 73yoM, No acute distress. No acute distress. Alert and oriented x 3. Pleasant, interactive. HEENT: Normocephalic, atraumatic. Sclera are nonicteric. Conjunctiva without injection. Moist mucous membranes. CHEST: Regular rate and rhythm, +S1, +S2 LUNGS: Clear to auscultation bilaterally. No wheezes, rales, or rhonchi. Breathing appears symmetric and easy. ABD: Round, soft, non-tender, non-distended. +Bowel sounds throughout. EXT: Rt BKA, no skin lesions. LLE with erythema to the mid foot area appears decreased, left great toe appears less swollen with gangrenous ulceration noted. SKIN: [place], dry, warm. No rashes. NEURO: Alert and oriented x 3. Cranial nerves III-XII are intact. No focal deficits appreciated. Art US LE Real-time ultrasound evaluation and duplex Doppler interrogation of bilateral lower extremity arterial systems performed. Patient has had below the knee amputation. Biphasic waveforms are seen diffusely bilaterally with monophasic waveforms in the left profunda and distal anterior and posterior tibial arteries. Significant scattered atherosclerotic plaquing is seen bilaterally. No occlusion is seen. PEAK SYSTOLIC VELOCITY RIGHT LEFT Common femoral artery 82.4 cm/s 144.4 cm/s Profunda 109.9 59.8 Proximal SFA 90.9 73.3 Superficial femoral artery mid 104.9 107.3 Superficial femoral artery distal 73.5 98.9 Popliteal 69.7 122.2 Proximal anterior tibial artery 117.6 119.3 Tibial peroneal trunk 53.3 94.5 Proximal posterior tibial artery 60.1 Distal posterior tibial artery 27.7 Distal anterior tibial artery 45.0 IMPRESSION: Significant scattered atherosclerotic plaquing bilateral without evidence of occlusion. DD: Clay Hunt MD, MD 01/17/19 1502 MRI Left foot. Diffuse soft tissue edema of the foot. Can not exclude superimposed cellulitis. Mild marrow edema involving the first distal phalanx. I can not exclude underlying osteomyelitis. DD: Clay Hunt MD, MD 01/17/19 1639 A&P: 1. Left foot ulcer/PAD. Cannot exclude OM per MRI report. Afebrile. WBC 5.4 BC x 2 neg. Vancomycin d/cd 01/20/19 Cefipime as per primary team. BLE arterial US reviewed by Dr Evangelista. Tentative plan for Angiogram LLE Thursday01/24/19 if pt is still [facility] inpt, if not can arrange for Pt to come back for Angiogram as outpt. SCr 2.03. 2. CKD Baseline appears to be 1.8-2.0. Nephrology following. Lasix restarted Monitor. DVT prophylaxis. SQ Heparin. VS, I&O, 24H, Fishbone Vital Signs/I&O Vital Signs Date Time Temp Pulse Resp B/P (MAP) Pulse Ox O2 Delivery O2 Flow Rate FiO2 01/21/19 08:36 86 157/89 01/21/19 06:00 98.1 18 99 01/16/19 21:31 Room Air I&O- Last 24 Hours up to 6 AM 01/21/19 06:00 Intake Total 2096 ml Output Total 3455 ml Balance -1359 ml Laboratory Data 24H LABS Laboratory Tests 2 01/20/19 11:26: Bedside Glucose (Misc Panel) 192H 01/20/19 13:01: Vancomycin Level Trough 19.0 01/20/19 16:37: Bedside Glucose (Misc Panel) 224H 01/20/19 19:52: Bedside Glucose (Misc Panel) 255H 01/21/19 04:58: Bedside Glucose (Misc Panel) 156H 01/21/19 06:09: Immature Granulocyte % (Auto) 0.4, White Blood Count 5.4, Red Blood Count 3.15L, Hemoglobin 9.5L, Hematocrit 28.7L, Mean Corpuscular Volume 91.1, Mean Corpuscular Hemoglobin 30.2, Mean Corpuscular Hemoglobin Concent 33.1, Red Cell Distribution Width 12.1, Platelet Count 195, Neutrophils (%) (Auto) 66.2H, Lymphocytes (%) (Auto) 18.7L, Monocytes (%) (Auto) 9.5H, Eosinophils (%) (Auto) 4.5H, Basophils (%) (Auto) 0.7, Neutrophils # (Auto) 3.5, Lymphocytes # (Auto) 1.0L, Monocytes # (Auto) 0.5, Eosinophils # (Auto) 0.2, Basophils # (Auto) 0.0, Nucleated Red Blood Cells % (auto) 0.0, Anion Gap 7L, Glomerular Filtration Rate 34.6L, Blood Urea Nitrogen 37H, Creatinine 2.03H, Sodium Level 142, Potassium Level 4.2, Chloride Level 108H, Carbon Dioxide Level 27, Calcium Level 8.7L, Aspartate Amino Transf (AST/SGOT) 27, Alanine Aminotransferase (ALT/SGPT) 42, Alkaline Phosphatase 103, Total Bilirubin 0.2, Total Protein 7.4, Albumin 2.6L, Albumin/Globulin Ratio 0.54L CBC/BMP Laboratory Tests 01/21/19 06:09 Red Blood Count 3.15 L, Mean Corpuscular Volume 91.1, Mean Corpuscular Hemoglobin 30.2, Mean Corpuscular Hemoglobin Concent 33.1, Red Cell Distribution Width 12.1, Neutrophils (%) (Auto) 66.2 H, Lymphocytes (%) (Auto) 18.7 L, Monocytes (%) (Auto) 9.5 H, Eosinophils (%) (Auto) 4.5 H, Basophils (%) (Auto) 0.7, Neutrophils # (Auto) 3.5, Lymphocytes # (Auto) 1.0 L, Monocytes # (Auto) 0.5, Eosinophils # (Auto) 0.2, Basophils # (Auto) 0.0, Calcium Level 8.7 L, Aspartate Amino Transf (AST/SGOT) 27, Alanine Aminotransferase (ALT/SGPT) 42, Alkaline Phosphatase 103, Total Bilirubin 0.2, Total Protein 7.4, Albumin 2.6 L Microbiology Microbiology 01/16/19 Blood Culture - Preliminary, Resulted No Growth after 72 hours. All specime... 01/16/19 Blood Culture - Preliminary, Resulted No Growth after 72 hours. All specime... Milly Goss Jan 21, 2019 08:44
[2019-01-21 10:00] VITALS: BP 167/76
--- NOTE | 2019-01-21 13:25 | IPNPDOC ---
Text Note Date of Service The patient was seen on 01/21/19. NOTE S: patient being seen for DM with PVD and gangrene of left great toe. He states no pain . He states is frustrated because no vascular interventions performed and is worried about possibel amputation. Cough from yesterday has resolved. He states no SOB, no CP, no N, noV , no fever, no chills. O: Vitals as below General pleasant NAD AAOx3 HRRR with murmur LCTA no W/R/R Ext: left foot gangrene toe A/P: 1) Left hallux gangrenous ulcer with history of severe PVD - - continue vancomycin and Cefepime empiric coverage; vasc consulted - high decision making with monitoring of vanc levels to avoid ATN; Vanc held this AM due to level PT/OT consulted. 2) Diabetes on group home insulin with hyperglycemia; Improving control. goal blood sugars under 180 to promote healing; DM diet - continue detemir to 80 units daily, add 5units lispro ac plus the sliding scale to get tighter control of blood sugars. 3)Hyperkalemia - due to CKD, ACEI and NSAID - improved - renal consulted. treated with D50/insulin and Veltassa in ED; - holding ACEI - will continue with veltassa (which ever is available) 4) HTN monitor. hold ACEI 5) CKDIV -Avoid nephrotoxic medications -Gentle hydration -nephrology consult greatly appreciated When patient has angiogram tomorrow vs debridement will need post op gentle IVF for 1 liter 6) anemia due to CKD - lower H/H this AM most likely due to hemodilution as creatinine improved after fluids yesterday. VS,Fishbone, I+O VS, Fishbone, I+O Laboratory Tests 01/21/19 06:09 Red Blood Count 3.15 L, Mean Corpuscular Volume 91.1, Mean Corpuscular Hemoglobin 30.2, Mean Corpuscular Hemoglobin Concent 33.1, Red Cell Distribution Width 12.1, Neutrophils (%) (Auto) 66.2 H, Lymphocytes (%) (Auto) 18.7 L, Monocytes (%) (Auto) 9.5 H, Eosinophils (%) (Auto) 4.5 H, Basophils (%) (Auto) 0.7, Neutrophils # (Auto) 3.5, Lymphocytes # (Auto) 1.0 L, Monocytes # (Auto) 0.5, Eosinophils # (Auto) 0.2, Basophils # (Auto) 0.0, Calcium Level 8.7 L, Aspartate Amino Transf (AST/SGOT) 27, Alanine Aminotransferase (ALT/SGPT) 42, Alkaline Phosphatase 103, Total Bilirubin 0.2, Total Protein 7.4, Albumin 2.6 L Vital Signs Date Time Temp Pulse Resp B/P (MAP) Pulse Ox O2 Delivery O2 Flow Rate FiO2 01/21/19 10:00 97.6 61 20 167/76 (106) 100 01/16/19 21:31 Room Air I&O- Last 24 Hours up to 6 AM 01/21/19 06:00 Intake Total 2096 ml Output Total 3455 ml Balance -1359 ml XIAO GREEN DO Jan 21, 2019 13:25
[2019-01-21 14:00] VITALS: BP 164/72
[2019-01-21] MEDS: VANCOMYCIN HCL 750 MG, VIAL MATE ADAPTER 1 EACH in D5W 250 ML IV SCH (14:44)
[2019-01-21] MEDS: CEFEPIME HCL 2 GM in D5W MINI-BAG PLUS 50 ML IV SCH (14:44)
[2019-01-21 18:00] VITALS: BP 156/96
[2019-01-21 22:00] VITALS: BP 151/75
[2019-01-22 02:00] VITALS: BP 157/76
[2019-01-22] MEDS: HEPARIN SOD (PORCINE) 5000 UNITS/ML VIAL SC SCH ×3 (05:38→21:10)
[2019-01-22 06:00] VITALS: BP 149/78
[2019-01-22] MEDS: HumaLOG INSULIN (NovoLOG) PER UNIT SC SCH ×7 (07:56→21:10)
[2019-01-22] MEDS: GABAPENTIN 300 MG CAP PO SCH ×2 (07:58→21:09)
[2019-01-22] MEDS: ATORVASTATIN 20 MG TAB PO SCH (07:58)
[2019-01-22] MEDS: FUROSEMIDE 40 MG TAB PO SCH (07:58)
[2019-01-22] MEDS: ASPIRIN 81 MG ENTERIC TAB PO SCH (07:58)
[2019-01-22] MEDS: METOPROLOL TART 50 MG TAB PO SCH ×2 (07:59→21:09)
[2019-01-22] MEDS: LEVEMIR (INSULIN DETEMIR) 1 UNITS/0.01ML SC SCH (07:59)
[2019-01-22] MEDS: DOCUSATE SODIUM 100 MG CAP PO SCH ×2 (08:00→21:00)
[2019-01-22 08:56] LABS: CALCIUM LEVEL 9.4 MG/DL (8.8-10.2); CREATININE FOR GFR 1.88 MG/DL (0.70-1.30); GLOMERULAR FILTRATION RATE 37.8 (>42); PHOSPHORUS LEVEL 3.2 MG/DL (2.5-4.9); POTASSIUM SERUM 4.2 MEQ/L (3.5-5.1)
[2019-01-22 10:00] VITALS: BP 162/76
--- NOTE | 2019-01-22 11:05 | IPN ---
DATE OF SERVICE: 01/21/2019 SUBJECTIVE: The patient is seen and examined this morning at the bedside. Denies any acute overnight events or issues. Vascular intervention is likely going to be on Thursday. Renal function has recovered to baseline. He is tolerating his chronic diuretic well. Vital signs: Temperature 97.8, pulse 73, respiratory rate 18, blood pressure 154/96, saturating 96% on room air. Intake yesterday was 1970, urine output yesterday was 3.9 liters, net negative 1900. Weight in the bed scale today is not recorded. General: The patient is seen sitting out of bed to the chair. Elderly male. Appears stated age. No acute distress. Extraocular muscles are intact. Sclerae are anicteric. Tongue is moist. Neck is supple. Jugular veins are not elevated while he is sitting upright. Cardiac S1, S2, regular rate and rhythm. There is trace to 1+ edema in the left lower extremity. Lungs show some faint crackles at the very bases of the lungs. Otherwise clear. Abdomen is soft and distended and obese. There are bowel sounds. There is no tenderness to palpation. There is a right [id number] amputation. He is wearing his prosthesis. The left foot wound is covered and not examined. Neurologic: Oriented times three. No focal deficits. LABORATORIES: White count 5.4, hemoglobin 9.5. Sodium 142, potassium 4.2, BUN 37, creatinine 2.0. Vancomycin trough 15. INPATIENT MEDICATIONS: Reviewed by me. I discontinued his Veltassa. His insulin was adjusted by the primary team. Remainder of medications are unchanged from prior. 1. Chronic kidney disease (CKD) stage IV. He recently had an acute kidney injury superimposed, but this has resolved. Renal function has recovered to his baseline (baseline creatinine 1.8-2.0). He remains off of intravenous (IV) fluids. He continues on chronic diuretic. He has had very satisfactory urine output. His electrolytes and volume status are acceptable. He is optimized for a further contrast procedure when vascular surgery is ready to schedule him. 2. Hyperkalemia. It is resolved. It was secondary to acute on chronic renal failure with concomitant use of angiotensin-converting enzyme (ARMEN) inhibitor and nonsteroidal antiinflammatory drug (NSAID). Potassium has normalized, and Veltassa is being discontinued. 3. Nonanion-gap metabolic acidosis. It was also secondary to chronic renal failure, and it has resolved. 4. Diastolic congestive heart failure. Volume status is acceptable. Continue Lasix 40 mg by mouth daily. He is diuresing nicely. 5. Hypertension. Blood pressures are slightly uncontrolled but should improve with ongoing diuresis. Please keep him off of ARMEN or angiotensin receptor shobha (ARB).
[2019-01-22 14:00] VITALS: BP 168/80
[2019-01-22] MEDS: VANCOMYCIN HCL 750 MG, VIAL MATE ADAPTER 1 EACH in D5W 250 ML IV SCH (14:00)
--- NOTE | 2019-01-22 15:10 | IPNPDOC ---
Text Note Date of Service The patient was seen on 01/22/19. NOTE S: patient and family upset and feel "nothing is being done". He wants to leave AMA. They are requesting to speak with Dr Evangelista to determine when he can have angiogram or debridement done. Discussed with patient and family (35 minutes [phone]) that during the hospitalization, his BS had to be under better control, his renal function had to be in therapeutic range for angiogram, he was being diuresed for fluid overload state and monitoring antibiotic for toxicity, monitoring wound for healing. Told family Dr Evangelista not available but spoke with partner Dr Dominique and sign out suggested possible thursday procedure (not on OR schedule). Discussed with patient options of 1) staying until thursday for possible angiogram or talking with dr Evangelista, 2) leaving AMA, 3) transferring to a facility with wound healing and interventional doctors. At this time, patient has chosen to stay. Offered patient advocate number. Currently patient states no pain no SOB, no CP. Last BM this AM. Ambulating with hard walking shoe to bathroom O: Vitals as below General pleasant NAD AAOx3 HRRR with murmur LCTA no W/R/R Ext: left foot gangrene toe A/P: 1) Left hallux gangrenous ulcer with history of severe PVD - - continue vancomycin and Cefepime empiric coverage; vasc consulted - high decision making with monitoring of vanc levels to avoid ATN; Vanc th erapeutic range yesterday. 2) Diabetes on custodial insulin with hyperglycemia; Improving control. goal blood sugars under 180 to promote healing; DM diet - continue detemir to 80 units daily, add 5units lispro ac plus the sliding scale to get tighter control of blood sugars. 3)Hyperkalemia - due to CKD, ACEI and NSAID - improved - renal consulted. treated with D50/insulin and Veltassa in ED; - holding ACEI - will continue with veltassa (which ever is available) 4) HTN monitor. hold ACEI. add hydralaine to metoprolol 5) CKDIV -Avoid nephrotoxic medications -Gentle hydration -nephrology consult greatly appreciated When patient has angiogram tomorrow vs debridement will need post op gentle IVF for 1 liter 6) anemia due to CKD - lower H/H this AM most likely due to hemodilution as creatinine improved after fluids yesterday. VS,Fishbone, I+O VS, Fishbone, I+O Laboratory Tests 01/22/19 08:14 Anion Gap 7 L Vital Signs Date Time Temp Pulse Resp B/P (MAP) Pulse Ox O2 Delivery O2 Flow Rate FiO2 01/22/19 14:00 96.5 80 18 168/80 (109) 100 01/16/19 21:31 Room Air I&O- Last 24 Hours up to 6 AM 01/22/19 06:00 Intake Total 1545 ml Output Total 2825 ml Balance -1280 ml XIAO GREEN DO Jan 22, 2019 15:10
--- NOTE | 2019-01-22 16:36 | IPN ---
DATE: 01/22/2019 Mr. Randall is seen this morning on his bedside. He was admitted with infected ulcer on his left foot and had acute renal failure. With IV fluid hydration, his kidney function has improved. He does have history of diastolic congestive heart failure and is back on his diuretic. There is a consideration for a possible angiogram for his peripheral arterial disease on Thursday. The patient denies any new problems. He denies any dyspnea, chest pain, nausea or vomiting. PHYSICAL EXAMINATION: Temperature is 96.6 degrees Fahrenheit, heart rate 70 per minute and respiratory rate 18 per minute. Blood pressure 162/76 mmHg and oxygen saturation 100% on room air. Head is atraumatic. There is no oral thrush or ulcers. Ears, nose and throat are unremarkable. Neck is supple and jugular venous distention (JVD) is about 8 cm above sternal angle. Heart sounds are regular. Lungs with slightly diminished breath sounds at the bases. Abdomen is protuberant and nontender. Bowel sounds are present. Extremities have no cyanosis or clubbing. He has a right leg amputation and left foot is wrapped in dressing. Neurologically, he is awake, alert and oriented times three. LABORATORY DATA: Sodium is 141, potassium 4.2, CO2 27, BUN 35 and creatinine 1.88. Glucose 120 and calcium 9.4. PROBLEMS: 1. Acute renal failure superimposed on chronic kidney disease. Kidney function has improved to prior baseline and is currently stable. He is not receiving any IV fluids. 2. Congestive heart failure. He does have history of chronic diastolic congestive heart failure. He seems slightly decompensated with elevated neck veins. He has been diuresing nicely and I will continue with current diuretic. 3. Left foot diabetic ulcer and possible peripheral arterial disease. The patient is likely to have angiogram done on Thursday. At this point, we will continue to monitor his kidney function closely and make sure he is optimized for the dye study. He is just recovering from acute renal failure.
[2019-01-22] MEDS: CEFEPIME HCL 2 GM in D5W MINI-BAG PLUS 50 ML IV SCH (16:47)
[2019-01-22] MEDS: **hydrALAZINE** 10 MG TAB PO SCH (21:09)
[2019-01-22 22:00] VITALS: BP 152/76
[2019-01-23] MEDS: HEPARIN SOD (PORCINE) 5000 UNITS/ML VIAL SC SCH ×3 (05:39→20:56)
[2019-01-23 06:00] VITALS: BP 144/81
[2019-01-23] MEDS: **hydrALAZINE** 10 MG TAB PO SCH ×2 (08:24→20:56)
[2019-01-23] MEDS: METOPROLOL TART 50 MG TAB PO SCH ×2 (08:25→20:56)
[2019-01-23] MEDS: ATORVASTATIN 20 MG TAB PO SCH (08:25)
[2019-01-23] MEDS: DOCUSATE SODIUM 100 MG CAP PO SCH ×2 (08:25→20:56)
[2019-01-23] MEDS: FUROSEMIDE 40 MG TAB PO SCH (08:26)
[2019-01-23] MEDS: HumaLOG INSULIN (NovoLOG) PER UNIT SC SCH ×7 (08:26→20:57)
[2019-01-23] MEDS: GABAPENTIN 300 MG CAP PO SCH ×2 (08:26→20:56)
[2019-01-23] MEDS: ASPIRIN 81 MG ENTERIC TAB PO SCH (08:26)
[2019-01-23] MEDS: LEVEMIR (INSULIN DETEMIR) 1 UNITS/0.01ML SC SCH (08:27)
[2019-01-23 13:38] LABS: HEMOGLOBIN 10.8 g/dl (13.5-17.5); MEAN CORPUSCULAR HEMOGLOBIN 29.3 pg (27.0-33.0); MEAN CORPUSCULAR HGB CONC 32.7 g/dl (32.0-36.5); MEAN CORPUSCULAR VOLUME 89.4 fl (80.0-96.0); PLATELET COUNT, AUTOMATED 287 10^3/uL (150-450); RED BLOOD COUNT 3.69 10^6/uL (4.30-6.10); WHITE BLOOD COUNT 8.4 10^3/uL (4.0-10.0)
[2019-01-23 13:49] LABS: INR 0.95; PROTHROMBIN TIME 12.8 SECONDS (12.1-14.4)
[2019-01-23] MEDS: CEFEPIME HCL 2 GM in D5W MINI-BAG PLUS 50 ML IV SCH (13:57)
[2019-01-23 14:00] VITALS: BP 150/69
[2019-01-23 14:07] LABS: BILIRUBIN,TOTAL 0.2 MG/DL (0.2-1.0); CALCIUM LEVEL 8.7 MG/DL (8.8-10.2); CREATININE FOR GFR 2.18 MG/DL (0.70-1.30); GLOMERULAR FILTRATION RATE 31.9 (>42); POTASSIUM SERUM 4.5 MEQ/L (3.5-5.1); TOTAL PROTEIN 8.2 GM/DL (6.4-8.2); VANCOMYCIN LEVEL TROUGH 18.3 UG/ML (10.0-20.0)
--- NOTE | 2019-01-23 14:21 | PHACANCOPD ---
PHARMACY VANCOMYCIN DOSING Pt Demographics Demographics Patient Age:73 , Weight:98.100 , Gender: male Adjusted Body Weight Date: 01/17/19, Adjusted Body Weight: [80.6] Kg Events Past 24 Hours Events Past 24 Hours: YES: Change in CrCl; NO: Dialysis, Diuretic Therapy, Fever, Elevation in WBC, Pending Diagnostics, Pending Procedures, Other Vancomycin Vancomycin indication: L.FOT GANGRENOUS ULCER Vancomycin Target Ranges: 15-20 mcg/ml Vancomycin Load Y/N: No Load Dose Date Time Vancomycin Load Dose: Date: Time: Vancomycin Dose Date: 01/20/19. Current Vancomycin Dose: [750 mg Q24] Intermittent Dosing?: No Labs Labs Item Value Date Time White Blood Count 5.4 10^3/uL 01/21/19 0609 White Blood Count 8.4 10^3/uL 01/23/19 1329 C-Reactive Protein, Quantitative 7.83 MG/DL H 01/16/19 1554 Procalcitonin 0.41 NG/ML 01/16/19 1935 Erythrocyte Sedimentation Rate 126 mm/hr H 01/16/19 1554 Vital Signs Label Value Date Time Patient Temperature 97.1 degrees F 01/23/19 0600 Temperature Source Temporal 01/23/19 0600 Micro Microbiology 01/16/19 Blood Culture - Final, Complete NO GROWTH AFTER 5 DAYS 01/16/19 Blood Culture - Final, Complete NO GROWTH AFTER 5 DAYS Creatinine Clearance Date:01/17/19. Creatinine Clearance: [32.2].CALCULATED Assessment and Plan Maintaining Current Dose?: Yes Reason for dose change: No Dose Change Pharmacist Note Pharmacist Note 01/23: Patient's trough came back at 18.3 today. His WBC is within normal limits and he is afebrile. He is due to possibly get an angiogram done tomorrow by Dr. Evangelista. His SCR increased from 1.88 to 2.18 today. We will continue him on Vancomycin 750mg IV q24h for now and continue to monitor him closely due to his renal function. Date: 01/17/19. Pharmacist note:73 YOM admitted w/left foot gangrenous ulcer. Patient= 5'7", PC=273.3 kg(abw=80.6kg.).Calculated CRCL=32.2)Patient has Rt.BKA.Ordered Pip/Tazo 2.25 [id number] and Vancomycin per pharmacy dosing.Vancomycin 1 gram ordered 01/16@1930 in ED which was begun on med.floor @2345. 1 gram [id number] regimen will begin 01/17@1400. First Vancomycin trough is sc heduled for 01/18@1300-will continue to follow. Date: 01/20/19. Pharmacist note: Dose was decreased to 750 mg q24h on 01/19/19, resu lting trough after one dose of 750 mg is 19.0. patient did receive an additional 750 mg today before trough could be addressed. We'll therefore place Vancomycin on hold and reassess tomorrow after another level is drawn SRIDHAR LEWIS [facility]ARMAC[facility] Jan 23, 2019 14:21
[2019-01-23] MEDS: VANCOMYCIN HCL 750 MG, VIAL MATE ADAPTER 1 EACH in D5W 250 ML IV SCH (14:46)
--- NOTE | 2019-01-23 17:02 | IPNPDOC ---
Text Note Date of Service The patient was seen on 01/23/19. NOTE S: patient seen in [place], wheeling with wheelchair for fresh air. He is happy th at angiogram will be tomorrow and is tired of being in hospital. no CP, no SOB, no N, no V. O: Vitals as below General pleasant NAD AAOx3 HRRR with murmur LCTA no W/R/R Ext: left foot gangrene toe currently bandaged and dressed - not examined. Item Value Date Time Bedside Glucose (Misc Panel) 329 MG/DL H 01/23/19 1638 Bedside Glucose (Misc Panel) 212 MG/DL H 01/23/19 1144 Bedside Glucose (Misc Panel) 156 MG/DL H 01/23/19 0634 A/P: 1) Left hallux gangrenous ulcer with history of severe PVD - - continue vancomycin and Cefepime empiric coverage; vasc consulted - high decision making with monitoring of vanc levels to avoid ATN; Vanc therapeutic range yesterday. 2) Diabetes on prison insulin with hyperglycemia; labile. ranging between 150-330. encouraged adherance to DM Diet goal blood sugars under 180 to promote healing; - continue detemir to 80 units daily, add 5units lispro ac plus the sliding scale to get tighter control of blood sugars. 3)Hyperkalemia - due to CKD, ACEI and NSAID - improved - renal consulted. treated with D50/insulin and Veltassa in ED; - holding ACEI - will continue with veltassa (which ever is available) 4) HTN monitor. hold ACEI. continue hydralazine and metoprolol 5) CKDIV -Avoid nephrotoxic medications -Gentle hydration with NS 500cc today; decrease lasix to 20mg daily until after angiogram. -nephrology consult greatly appreciated When patient has angiogram tomorrow vs debridement will need post op gentle IVF for 1 liter for renal protection post dye VS,Fishbone, I+O VS, Fishbone, I+O Laboratory Tests 01/23/19 13:29 Red Blood Count 3.69 L, Mean Corpuscular Volume 89.4, Mean Corpuscular Hemoglobin 29.3, Mean Corpuscular Hemoglobin Concent 32.7, Red Cell Distribution Width 12.1, Calcium Level 8.7 L, Aspartate Amino Transf (AST/SGOT) 31, Alanine Aminotransferase (ALT/SGPT) 53, Alkaline Phosphatase 119 H, Total Bilirubin 0.2, Total Protein 8.2, Albumin 3.0 L Vital Signs Date Time Temp Pulse Resp B/P (MAP) Pulse Ox O2 Delivery O2 Flow Rate FiO2 01/23/19 08:25 72 01/23/19 08:24 153/63 01/23/19 06:00 97.1 17 95 I&O- Last 24 Hours up to 6 AM 01/23/19 06:00 Intake Total 1570 ml Output Total 745 ml Balance 825 ml XIAO GREEN DO Jan 23, 2019 17:02
[2019-01-23] MEDS ORDERED: NS 500 ML IV ONE (17:15)
[2019-01-23 22:00] VITALS: BP 171/72
[2019-01-24] VITALS (8 sets, daily range): BP systolic 103–165; BP diastolic 54–85
[2019-01-24 06:18] LABS: CALCIUM LEVEL 8.5 MG/DL (8.8-10.2); CREATININE FOR GFR 2.05 MG/DL (0.70-1.30); GLOMERULAR FILTRATION RATE 34.2 (>42); POTASSIUM SERUM 4.3 MEQ/L (3.5-5.1)
[2019-01-24] MEDS: HumaLOG INSULIN (NovoLOG) PER UNIT SC SCH ×7 (07:30→20:31)
[2019-01-24] MEDS: HEPARIN SOD (PORCINE) 5000 UNITS/ML VIAL SC SCH ×3 (07:43→20:37)
[2019-01-24] MEDS: DOCUSATE SODIUM 100 MG CAP PO SCH ×3 (08:08→20:36)
[2019-01-24] MEDS: ATORVASTATIN 20 MG TAB PO SCH (08:19)
[2019-01-24] MEDS: **hydrALAZINE** 10 MG TAB PO SCH ×2 (08:20→20:36)
[2019-01-24] MEDS: GABAPENTIN 300 MG CAP PO SCH ×2 (08:20→20:36)
[2019-01-24] MEDS: METOPROLOL TART 50 MG TAB PO SCH ×2 (08:20→20:36)
[2019-01-24] MEDS: ASPIRIN 81 MG ENTERIC TAB PO SCH (08:20)
[2019-01-24] MEDS: FUROSEMIDE 20 MG TAB PO SCH (08:20)
[2019-01-24] MEDS: LEVEMIR (INSULIN DETEMIR) 1 UNITS/0.01ML SC SCH (08:21)
--- NOTE | 2019-01-24 09:43 | IPN ---
DATE OF VISIT: 01/23/2019 Mr. Randall is seen this morning on this bedside. He is sitting in his wheelchair at the time of my visit. He is feeling better and denies any nausea, vomiting, dyspnea or chest pain. PHYSICAL EXAMINATION: Temperature 97.1 degrees Fahrenheit, heart rate is 72 per minute and respiratory rate 18 per minute. Blood pressure 153/62 mmHg and oxygen saturation 95% on room air. His head is traumatic. Neck is supple and without jugular venous distention (JVD) sitting upright. His heart sounds are regular and lung sounds clear to auscultation. Abdomen is protuberant and nontender. Bowel sounds are present. Extremities have no cyanosis or clubbing. He has left foot dressing. He has a right leg amputation previously. Neurologically he is awake, alert, and oriented times three. LABS: Today's labs show a WBC count 8.4, hemoglobin 10.8, and hematocrit 33.0. Platelets 287, sodium 141, potassium 5.4, CO2 26, BUN 40 and creatinine 2.18. PROBLEMS: 1. Acute kidney injury superimposed on chronic kidney disease. No significant change in kidney function. He did have slight increase in BUN and creatinine compared to yesterday. His intake and output records show positive fluid balance. It is possible that his output was not recorded accurately. He has already received his Lasix dose this morning. I will check his renal profile tomorrow and consider to hold his Lasix if needed. 2. Infected wound and cellulitis. Patient remains on antibiotics including vancomycin and his vancomycin level is therapeutic at 18.3. 3. Hypertension. Blood pressure is reasonably well controlled on current antihypertensive medication.
--- NOTE | 2019-01-24 11:04 | IPN ---
DATE: 01/24/2019 Mr. Randall is seen this morning on his bedside. He is sitting in his wheelchair waiting to go down for his left lower extremity angiogram. He has been n.p.o. this morning. The patient denies any dyspnea, chest pain, fever or chills. PHYSICAL EXAMINATION: Temperature 97.5 degrees Fahrenheit, heart rate 82 per minute and respiratory rate 16 per minute. Blood pressure 141/85 mmHg and oxygen saturation 98% on room air. His head is atraumatic. Neck is supple and JVD is not visible sitting upright. He has no oral thrush or ulcers. Lungs sound clear to auscultation with moderate air entry. Abdomen is protuberant and nontender. Heart sounds are regular. Extremities have no cyanosis or clubbing. He has a right uuevi-cji-xjrh amputation and left foot is wrapped in dressing. Neurologically he is awake, alert and at his baseline mentation. Today's lab show sodium 141, potassium 4.3, CO2 25, BUN 41 and creatinine 2.05. Glucose 198 and calcium 8.5. PROBLEMS: 1. Acute renal failure superimposed on chronic kidney disease. Kidney function is stable at baseline. His electrolytes are all within normal range and volume status is well-compensated. He is scheduled for left lower extremity angiogram and we will need to monitor kidney function following the procedure. I would suggest to use the minimal dye possible. 2. Left foot diabetic ulcer. The patient remains afebrile on antibiotic. Angiogram is pending today to rule out any possibility of vascular disease. 3. Anemia. His anemia is stable at this point and no intervention is indicated. 4. History of diastolic congestive heart failure. Volume status is clinically well-compensated and he remains on low-dose diuretic with furosemide 20 mg daily. No changes are being made today.
[2019-01-24] MEDS ORDERED: PROTAMINE SULF INJ 50 MG/5 ML VIAL (J2720) As Ordered ONE (11:22)
[2019-01-24] MEDS ORDERED: diphenhydrAMINE INJ 50MG/ML VIAL (J1200) As Ordered ONE (11:22)
[2019-01-24] MEDS ORDERED: HEPARIN 1,000 UNITS/ML 10ML VIAL (FOR RADIOLOGY& DIALYSIS ONLY) As Ordered ONE (11:23)
[2019-01-24] MEDS ORDERED: MIDAZOLAM INJ 2 MG/2 ML VIAL (J2250) As Ordered ONE (11:23)
[2019-01-24] MEDS ORDERED: BUPIVACAINE HCL 0.5% 10 ML VIAL As Ordered ONE (11:23)
[2019-01-24] MEDS ORDERED: fentaNYL 100 MCG/2 ML INJECTION (J3010) As Ordered ONE (11:23)
[2019-01-24] MEDS ORDERED: LIDOCAINE 2% MDV 20 ML VIAL As Ordered ONE (11:23)
[2019-01-24] MEDS ORDERED: ISOVUE-300 61% 50ML VIAL (Q9967) As Ordered ONE (11:24)
--- NOTE | 2019-01-24 12:39 | IPNPDOC ---
Text Note Date of Service The patient was seen on 01/24/19. NOTE S: patient received IVF yesterday and lasix was to be on hold this AM in antici pation of angiogram and/or possible debridement of left gangrene toe. Patient received lasix this AM. He states no foot pain, no fever, no nausea, no vomiting. Has wheelchair at home for mobility and PT assisting with partial weight bearing. O: Vitals as below General pleasant NAD AAOx3 HRRR with murmur LCTA no W/R/R Ext: left foot gangrene toe , no erythema to forefoot or leg; venous stasis change to left pretib; left heel with hard diabetic callous and rounded arch appearance; cool foot on left; right BKA. US leg on admission: IMPRESSION: Significant scattered atherosclerotic plaquing bilateral without evidence of occlusion. MRI Left foot on admission: Diffuse soft tissue edema of the foot. Can not exclude superimposed cellulitis. Mild marrow edema involving the first distal phalanx. I can not exclude underlying osteomyelitis. A/P: 73yo male with severe PAD/PVD, right BKA , diabetes and CKD stage IV hospitalized for CAROL with CKD, left gangrene hallux , possible osteomyelitis, and severe PVD. 1) Left hallux gangrenous ulcer with history of severe PVD - - continue vancomycin and Cefepime empiric coverage; vasc consulted - high decision making with monitoring of vanc levels to avoid ATN; Vanc therapeutic range yesterday. 2) Diabetes on intermediate insulin with hyperglycemia; labile. encouraged adherance to DM Diet goal blood sugars under 180 to promote healing; - continue detemir to 80 units daily, add 5units lispro ac plus the sliding scale to get tighter control of blood sugars. 3)Hyperkalemia - due to CKD, ACEI and NSAID - improved - renal consulted. treated with D50/insulin and Veltassa in ED; - holding ACEI - will continue with veltassa (which ever is available) 4) HTN monitor. hold ACEI. continue hydralazine and metoprolol 5) CKDIV -Avoid nephrotoxic medications -hold lasix in AM for possible angiogram and restart 01/26. -nephrology consult greatly appreciated angiogram vs debridement will need post op gentle IVF for 1 liter for renal protection post dye VS,Fishbone, I+O VS, Fishbone, I+O Laboratory Tests 01/23/19 13:29 Red Blood Count 3.69 L, Mean Corpuscular Volume 89.4, Mean Corpuscular Hemoglobin 29.3, Mean Corpuscular Hemoglobin Concent 32.7, Red Cell Distribution Width 12.1, Calcium Level 8.7 L, Aspartate Amino Transf (AST/SGOT) 31, Alanine Aminotransferase (ALT/SGPT) 53, Alkaline Phosphatase 119 H, Total Bilirubin 0.2, Total Protein 8.2, Albumin 3.0 L 01/24/19 05:26 Calcium Level 8.5 L Vital Signs Date Time Temp Pulse Resp B/P (MAP) Pulse Ox O2 Delivery O2 Flow Rate FiO2 01/24/19 10:00 97.5 59 17 103/54 (70) 98 I&O- Last 24 Hours up to 6 AM 01/24/19 05:59 Intake Total 2430 ml Output Total 1225 ml Balance 1205 ml XIAO GREEN DO Jan 24, 2019 12:32
[2019-01-24] MEDS: CEFEPIME HCL 2 GM in D5W MINI-BAG PLUS 50 ML IV SCH (13:29)
[2019-01-24] MEDS: VANCOMYCIN HCL 750 MG, VIAL MATE ADAPTER 1 EACH in D5W 250 ML IV SCH (14:25)
[2019-01-24] MEDS: ANEXSIA, NORCO 7.5MG/325MG TABLET(HYDROCODONE/APAP) PO PRN (20:44)
[2019-01-25 02:00] VITALS: BP 138/67
[2019-01-25] MEDS: HEPARIN SOD (PORCINE) 5000 UNITS/ML VIAL SC SCH ×3 (04:53→21:24)
[2019-01-25 06:00] VITALS: BP 145/72
[2019-01-25 07:12] LABS: CALCIUM LEVEL 8.2 MG/DL (8.8-10.2); CREATININE FOR GFR 1.88 MG/DL (0.70-1.30); GLOMERULAR FILTRATION RATE 37.8 (>42); POTASSIUM SERUM 4.4 MEQ/L (3.5-5.1)
[2019-01-25] MEDS: METOPROLOL TART 50 MG TAB PO SCH ×2 (07:28→21:00)
[2019-01-25] MEDS: HumaLOG INSULIN (NovoLOG) PER UNIT SC SCH ×7 (07:28→20:26)
[2019-01-25] MEDS: DOCUSATE SODIUM 100 MG CAP PO SCH ×2 (07:28→21:23)
[2019-01-25] MEDS: ASPIRIN 81 MG ENTERIC TAB PO SCH (07:28)
[2019-01-25] MEDS: GABAPENTIN 300 MG CAP PO SCH ×2 (07:28→21:23)
[2019-01-25] MEDS: LEVEMIR (INSULIN DETEMIR) 1 UNITS/0.01ML SC SCH (07:29)
[2019-01-25] MEDS: ATORVASTATIN 20 MG TAB PO SCH (07:29)
[2019-01-25] MEDS: **hydrALAZINE** 10 MG TAB PO SCH ×2 (07:29→21:24)
--- NOTE | 2019-01-25 09:00 | IPNPDOC ---
Date Seen The patient was seen on 01/25/19. Progress Note Vascular Surgery: Dr Evangelista HPI: Patient is a 73-year-old male with h/o PVD and left foot wound. Denies any fevers, weakness, fatigue, Headache, Chest Pain, Shortness of breath, cough, palpitations, abdominal pain, N/V/D or changes in bowel or bladder habits PMH peripheral arterial disease, hypertension, chronic kidney disease stage IV, type 2 diabetes mellitus, obesity. BMI 33.9 Surgical History Right BKA Appendectomy Hernia repair PE: GEN: 73yoM, No acute distress. Alert and oriented x 3. Pleasant, interactive. HEENT: Normocephalic, atraumatic. . Moist mucous membranes. CHEST: Regular rate and rhythm, +S1, +S2 LUNGS: Clear to auscultation bilaterally. No wheezes, rales, or rhonchi. EXT: Rt BKA, no skin lesions. left great toe appears with gangrenous ulceration noted. SKIN: [place], dry, warm. No rashes. NEURO: Alert and oriented x 3. Cranial nerves III-XII are intact. No focal deficits appreciated. Art US LE Real-time ultrasound evaluation and duplex Doppler interrogation of bilateral lower extremity arterial systems performed. Patient has had below the knee amputation. Biphasic waveforms are seen diffusely bilaterally with monophasic waveforms in the left profunda and distal anterior and posterior tibial arteries. Significant scattered atherosclerotic plaquing is seen bilaterally. No occlusion is seen. PEAK SYSTOLIC VELOCITY RIGHT LEFT Common femoral artery 82.4 cm/s 144.4 cm/s Profunda 109.9 59.8 Proximal SFA 90.9 73.3 Superficial femoral artery mid 104.9 107.3 Superficial femoral artery distal 73.5 98.9 Popliteal 69.7 122.2 Proximal anterior tibial artery 117.6 119.3 Tibial peroneal trunk 53.3 94.5 Proximal posterior tibial artery 60.1 Distal posterior tibial artery 27.7 Distal anterior tibial artery 45.0 IMPRESSION: Significant scattered atherosclerotic plaquing bilateral without evidence of occlusion. DD: Clay Hunt MD, MD 01/17/19 1502 MRI Left foot. Diffuse soft tissue edema of the foot. Can not exclude superimposed cellulitis. Mild marrow edema involving the first distal phalanx. I can not exclude underlying osteomyelitis. DD: Clay Hunt MD, MD 01/17/19 1639 A&P: 1. Left foot ulcer/PAD. Cannot exclude OM per MRI report. Antibiotics as per primary team. S/P angiogram as per Dr Evangelista 01/24/19. No intervention, distal small vessel disease Lt foot. Recommendation as per Dr Evangelista, add Pletal 100mg BID. Outpt FU with Dr Evangelista's office. Arrange wound care with Dr Hernandez. 2. CKD Baseline appears to be 1.8-2.0. SCr 1.88 this AM. Nephrology following. Lasix po Monitor. DVT prophylaxis. SQ Heparin. VS, I&O, 24H, Fishbone Vital Signs/I&O Vital Signs Date Time Temp Pulse Resp B/P (MAP) Pulse Ox O2 Delivery O2 Flow Rate FiO2 01/25/19 07:29 145/72 01/25/19 07:28 74 01/25/19 06:00 98.0 18 96 I&O- Last 24 Hours up to 6 AM 01/25/19 06:00 Intake Total 1315 ml Output Total 1800 ml Balance -485 ml Laboratory Data 24H LABS Laboratory Tests 2 01/24/19 13:26: Bedside Glucose (Misc Panel) 89 01/24/19 16:47: Bedside Glucose (Misc Panel) 170H 01/24/19 20:06: Bedside Glucose (Misc Panel) 231H 01/25/19 06:20: Anion Gap 7L, Glomerular Filtration Rate 37.8L, Blood Urea Nitrogen 39H, Creatinine 1.88H, Sodium Level 143, Potassium Level 4.4, Chloride Level 112H, Carbon Dioxide Level 24, Calcium Level 8.2L CBC/BMP Laboratory Tests 01/25/19 06:20 Calcium Level 8.2 L Microbiology Microbiology 01/16/19 Blood Culture - Final, Complete NO GROWTH AFTER 5 DAYS 01/16/19 Blood Culture - Final, Complete NO GROWTH AFTER 5 DAYS Milly Goss Jan 25, 2019 09:00
[2019-01-25 09:15] LABS: HEMATOCRIT 30.8 % (42.0-52.0); HEMOGLOBIN 9.8 g/dl (13.5-17.5); MEAN CORPUSCULAR HEMOGLOBIN 29.9 pg (27.0-33.0); MEAN CORPUSCULAR HGB CONC 31.8 g/dl (32.0-36.5); MEAN CORPUSCULAR VOLUME 93.9 fl (80.0-96.0); PLATELET COUNT, AUTOMATED 232 10^3/uL (150-450); RED BLOOD COUNT 3.28 10^6/uL (4.30-6.10); WHITE BLOOD COUNT 5.9 10^3/uL (4.0-10.0)
[2019-01-25 10:00] VITALS: BP 136/63
[2019-01-25] MEDS: CILOSTAZOL 100 MG TAB (PLETAL) PO SCH ×2 (11:35→16:53)
--- NOTE | 2019-01-25 12:10 | IPN ---
DATE: 01/25/2019 Mr. Randall is seen this morning on his bedside. He is sitting in his chair this morning. He underwent angiogram yesterday without any problem. The patient reports that no significant blockage was found and he did not require any angioplasty. I do not have any official report on his angiogram available. According to the vascular surgery note, there was only small vessel distal disease and he did not require any angioplasty. In the meantime, the patient denies any dyspnea, chest pain, nausea or vomiting. He remains afebrile and continues with antibiotic for his left foot infection. He is still on vancomycin and cefepime. On physical examination, temperature 97.6 degrees Fahrenheit, heart rate 70 per minute and respiratory rate 18 per minute. Blood pressure 136/63 mmHg and oxygen saturation 97% on room air. Intake and output records from yesterday show a negative fluid balance of 685 mL. His head is atraumatic. Neck is supple and without any obvious jugular venous distention (JVD) sitting upright. There is no oral thrush or ulcers. Heart sounds are regular and lungs clear to auscultation. Abdomen protuberant, soft and nontender. Bowel sounds are present. Extremities without any cyanosis or clubbing. Left foot is wrapped in a dressing. He has a right wiiox-cij-youc amputation and is currently wearing his prosthesis. Today's labs show WBC count 5.9, hemoglobin 9.8 and hematocrit 30.8. Sodium 143, potassium 4.4, CO2 24, BUN 39 and creatinine 1.88, glucose 163 and calcium 8.2. PROBLEMS: 1. Acute kidney injury superimposed on chronic kidney disease. Kidney function has improved and remains stable. He had an angiogram done yesterday which did not have any impact on his kidney function. Electrolytes are within normal range. 2. Congestive heart failure. Volume status is very well compensated and the patient should continue with current diuretic. 3. Left foot infected wound. The patient remains on vancomycin and cefepime. His vancomycin level was 18.3 on January 23, which is appropriate. 4. Disposition. From a renal standpoint, the patient can be discharged to home tomorrow if his kidney function remains stable.
--- NOTE | 2019-01-25 13:02 | IPNPDOC ---
Subjective Date Seen The patient was seen on 01/25/19. Subjective Chief Complaint/HPI As per patient, he had an angiogram done yesterday, but no debridement. Patient wishes to go home General: Denies: ROS Unobtainable, Chills, Night Sweats, Fatigue, Malaise, Normal Appetite, Other Symptoms Constitutional: Denies: Chills, Fever, Malaise, Night Sweats, Weakness, Fatigue, Weight Loss, Lethargy, Other Eyes: Denies: Pain, Vision change, Conjunctivae inflammation, Eyelid inflammation, Redness, Other ENT: Denies: Head Aches, Ear Pain, Dysphagia, Sinus Congestion, Post Nasal Drip, Sore Throat, Epistaxis, Other Symptoms Skin: Denies: Rash, Lesions, Jaundice, Bruising, Itching, Dry, Breakdown, Nail Changes, Other Pulmonary: Denies: Dyspnea, Cough, Pleuritic Chest Pain, Other Symptoms Cardiovascular: Denies: Chest Pain, Palpitations, Orthopnea, Paroxysmal Noc. Dyspnea, Edema, Lt Headedness, Other Symptoms Gastrointestinal: Denies: Nausea, Vomiting, Abdominal Pain, Diarrhea, Constipation, Melena, Hematochezia, Other Symptoms Neurological: Denies: Weakness, Numbness, Incoordination, Change in speech, Confusion, Seizures, Other Symptoms Objective Physical Examination General Exam: Positive: Alert, Cooperative, No Acute Distress Eye Exam: Positive: PERRLA, EOMI ENT Exam: Positive: Atraumatic, Mucous membr. moist/pink Neck Exam: Negative: JVD, thyromegaly Chest Exam: Positive: Clear to auscultation, Normal air movement; Negative: Rales, Rhonchi Heart Exam: Positive: Rate Normal, Murmurs (systolic) Telemetry: Positive: No significant arrhythmia Abdomen Exam: Positive: Normal bowel sounds, Soft (NT ND, obese); Negative: Tenderness Extremity Exam: Positive: Other (right BKA, left big toe black w gangrenous ulcer, no drainage; cool extremities; left heel with hard diabetic callous and rounded arch appearance.) Skin Exam: Negative: Nl turgor and temperature Neuro Exam: Positive: Normal Speech, Cranial Nerves 3-12 NL Psych Exam: Positive: Mental status NL, Mood NL, Oriented x 3 Assessment /Plan Problems (1) Type 2 diabetes mellitus with foot ulcer and gangrene Plan/VTE VTE Prophylaxis Ordered?: Yes Plan 73yo male with severe PAD/PVD, right BKA , diabetes and CKD stage IV hospitalized for CAROL with CKD, left gangrene hallux , possible osteomyelitis, and severe PVD. 1) Left hallux gangrenous ulcer with history of severe PVD - - continue vancomycin and Cefepime empiric coverage; vasc consulted - high decision making with monitoring of vanc levels to avoid ATN; Vanc therapeutic range - Infectious disease consult called for further recommendation regarding use of antibiotics -Risk of surgery has recommended outpatient follow-up once cleared by ID, she can be discharged home 2) Diabetes on fpc insulin with hyperglycemia; labile. encouraged adherance to DM Diet goal blood sugars under 180 to promote healing; - continue detemir to 80 units daily, add 5units lispro ac plus the sliding s rich to get tighter control of blood sugars. 3)Hyperkalemia - due to CKD, ACEI and NSAID - improved - renal consulted. treated with D50/insulin and Veltassa in ED; - holding ACEI - will continue with veltassa (which ever is available) 4) HTN monitor. hold ACEI. continue hydralazine and metoprolol 5) CKDIV -Avoid nephrotoxic medications -nephrology consult greatly appreciated VS, I&O, 24H, Fishbone Vital Signs/I&O Vital Signs Date Time Temp Pulse Resp B/P (MAP) Pulse Ox O2 Delivery O2 Flow Rate FiO2 01/25/19 10:00 97.6 69 17 136/63 (87) 97 I&O- Last 24 Hours up to 6 AM 01/25/19 06:00 Intake Total 1315 ml Output Total 1800 ml Balance -485 ml Laboratory Data 24H LABS Laboratory Tests 2 01/24/19 13:26: Bedside Glucose (Misc Panel) 89 01/24/19 16:47: Bedside Glucose (Misc Panel) 170H 01/24/19 20:06: Bedside Glucose (Misc Panel) 231H 01/25/19 06:20: Nucleated Red Blood Cells % (auto) 0.0, Anion Gap 7L, Glomerular Filtration Rate 37.8L, Blood Urea Nitrogen 39H, Creatinine 1.88H, Sodium Level 143, Potassium Level 4.4, Chloride Level 112H, Carbon Dioxide Level 24, Calcium Level 8.2L 01/25/19 11:27: Bedside Glucose (Misc Panel) 175H 01/25/19 12:49: CBC/BMP Laboratory Tests 01/25/19 06:20 Red Blood Count 3.28 L, Mean Corpuscular Volume 93.9, Mean Corpuscular Hemoglobin 29.9, Mean Corpuscular Hemoglobin Concent 31.8 L, Red Cell Distribution Width 12.3, Calcium Level 8.2 L Microbiology Microbiology 01/16/19 Blood Culture - Final, Complete NO GROWTH AFTER 5 DAYS 01/16/19 Blood Culture - Final, Complete NO GROWTH AFTER 5 DAYS KACY LUND MD Jan 25, 2019 13:02
[2019-01-25] MEDS: CEFEPIME HCL 2 GM in D5W MINI-BAG PLUS 50 ML IV SCH (13:29)
[2019-01-25 14:00] VITALS: BP 120/72
--- NOTE | 2019-01-25 14:26 | PHACANCOPD ---
PHARMACY VANCOMYCIN DOSING Pt Demographics Demographics Patient Age:73 , Weight:98.100 , Gender: male Adjusted Body Weight Date: 01/17/19, Adjusted Body Weight: [80.6] Kg Events Past 24 Hours Events Past 24 Hours: YES: Change in CrCl Vancomycin Vancomycin indication: L.FOT GANGRENOUS ULCER Vancomycin Target Ranges: 15-20 mcg/ml Vancomycin Load Y/N: No Load Dose Date Time Vancomycin Load Dose: Date: Time: Vancomycin Dose Date: 01/25/19- HOLDING 1400 DOSE AND RESTARTING 750MG Q24H @ 2100 Intermittent Dosing?: No Labs Labs Laboratory Tests 01/25/19 06:20 Red Blood Count 3.28 L, Mean Corpuscular Volume 93.9, Mean Corpuscular Hemoglobin 29.9, Mean Corpuscular Hemoglobin Concent 31.8 L, Red Cell Dist ribution Width 12.3, Calcium Level 8.2 L Micro Microbiology 01/16/19 Blood Culture - Final, Complete NO GROWTH AFTER 5 DAYS 01/16/19 Blood Culture - Final, Complete NO GROWTH AFTER 5 DAYS Creatinine Clearance Date:01/25/19 33.6 Assessment and Plan Maintaining Current Dose?: Yes Reason for dose change: Other Pharmacist Note Pharmacist Note 01/23: Patient's trough came back at 18.3 today. His WBC is within normal limits and he is afebrile. He is due to possibly get an angiogram done tomorrow by Dr. Evangelista. His SCR increased from 1.88 to 2.18 today. We will continue him on Vancomycin 750mg IV q24h for now and continue to monitor him closely due to his renal function. Date: 01/17/19. Pharmacist note:73 YOM admitted w/left foot gangrenous ulcer. Patient= 5'7", BI=034.3 kg(abw=80.6kg.).Calculated CRCL=32.2)Patient has Rt.B KA.Ordered Pip/Tazo 2.25 O2Tfapw and Vancomycin per pharmacy dosing.Vancomycin 1 gram ordered 01/16@1930 in ED which was begun on med.floor @6625. 1 gram [id number] regimen will begin 01/17@1400. First Vancomycin trough is scheduled for 01/18@1300- will continue to follow. Date: 01/20/19. Pharmacist note: Dose was decreased to 750 mg q24h on 01/19/19, resulting trough after one dose of 750 mg is 19.0. patient did receive an additional 750 mg today before trough could be addressed. We'll therefore place Vancomycin on hold and reassess tomorrow after another level is drawn Date: 01/25/19. Pharmacist note: Trough came back at 1249 at 20.7. Pt seems to be accumulating over the last few days. However, renal function improved today since yesterday. I am concerned that dropping pt to 500mg q24h will not be sufficient, therefore, I am holding the 1400 dose and restarting the 750mg IV vancomycin q24h @ 2100 to give about 8 hours for patient to clear some of the drug. I scheduled a trough for tomorrow at 2000. Will continue to monitor patient and adjust dosage as needed. ALINA ENG PHARMACY Jan 25, 2019 14:26
[2019-01-25 16:02] LABS: C REACTIVE PROTEIN QUANTITATIV 1.9 MG/DL (0.00-0.30)
[2019-01-25 18:00] VITALS: BP 139/70
[2019-01-25] MEDS ORDERED: VANCOMYCIN HCL 750 MG, VIAL MATE ADAPTER 1 EACH in D5W 250 ML IV SCH (21:00)
[2019-01-25] MEDS: AUGMENTIN 875 MG TAB PO SCH (21:23)
[2019-01-25 22:00] VITALS: BP 150/84
--- NOTE | 2019-01-26 00:23 | CR ---
DATE OF CONSULTATION: 01/25/2019 INFECTIOUS DISEASE CONSULTATION Asked to consult by hospitalist for evaluation of antibiotic in a patient with gangrene of the first big toe, left foot. HISTORY OF PRESENT ILLNESS: Mr. Randall is a 73-year-old gentleman who was admitted on 01/16/2019 with complaint of swelling and redness of the left foot, especially involving the big toe with gangrene of the big toe. The patient thought that it was caused by rubbing of his foot in his shoe. He did not have any fever, chills, nausea, vomiting, diarrhea, abdominal pain, chest pain or shortness of breath. The patient is anticipating being discharged in the next 24 hours. He was treated with intravenous (IV) vancomycin and Zosyn 01/16/2019 to 01/19/2019 and then Zosyn was discontinued, he was switched to cefepime. He never had a fever during this whole hospitalization or a white count. He was seen in consultation by Dr. Evangelista who did an angiogram, and there is no circulation to the foot on the left side and therefore, Dr. Evangelista did not recommend amputation for nonhealing ulcer he has dry gangrene and due to poor circulation wound will not heal. PAST MEDICAL HISTORY: Significant for peripheral vascular disease, hypertension, chronic kidney disease stage IV, type 2 diabetes, obesity with a body mass index (BMI) of 33. He quit smoking about 3 years ago. PAST SURGICAL HISTORY: Right below-knee amputation, appendectomy, hernia repair. FAMILY HISTORY: Nonrevealing. SOCIAL HISTORY: He lives with his son. His daughter just moved down [place]. He quit smoking and denies alcohol use. REVIEW OF SYSTEMS: He has no fever or chills. No nausea, vomiting or diarrhea. No abdominal pain or chest pain. He has mild shortness of breath with exertion. He has no pain in his left foot. He has a right below-knee amputation. PHYSICAL EXAMINATION: Heart: Normal S1, S2. No murmurs, rubs or gallops. Lungs: Diminished breath sounds but clear. Abdomen: Obese, soft, nontender. Extremities: Right below-knee amputation, has a prosthesis in place. Left lower extremity +1 ankle edema. There is gangrene of the big toe involving the toe to the MTP joint. There is no tenderness. No drainage. Gangrene is dry. There is some cellulitis extending into the foot but that has drastically improved compared to admission. IMAGING: Renal ultrasound: 2.1 left renal cyst. No hydronephrosis, masses. Possible trabeculation of the urinary bladder. Bilateral lower extremity duplex arterial ultrasound: Significant scattered atherosclerotic plaquing bilaterally. Angiogram results are pending, but per Dr. Evangelista, there is no circulation to the foot on the left side. IMPRESSION: 73-year-old gentleman who is admitted with gangrene of the left foot involving the big toe. MRI finding of the left foot shows soft tissue edema, cellulitis but osteomyelitis cannot be excluded involving the distal phalanx. The patient has been on broad-spectrum antibiotics with IV vancomycin, cefepime and Zosyn. He is doing well. His white count is normal. He has not had a fever. The patient is not a surgical candidate. There has not been any cultures from the toe and blood cultures were negative. PLAN: Switch to oral Augmentin 875 mg by mouth twice a day, which should also cover for anaerobes in the gangrenous toe for 1 week. From an infectious disease standpoint, he could be discharged home tomorrow. Discontinue IV vancomycin and cefepime. LABORATORY: White count 5.9, hemoglobin 9.8, hematocrit 30.8, platelets 232. Sodium 143, potassium 4.4, chloride 112, bicarbonate 24, BUN 39, creatinine 1.88, glucose 163, calcium 8.2, CRP 1.9 down from 7.83. MTDD
[2019-01-26] MEDS: HEPARIN SOD (PORCINE) 5000 UNITS/ML VIAL SC SCH (05:35)
[2019-01-26 06:00] VITALS: BP 140/65
[2019-01-26 06:00] LABS: BASO # 0.1 10^3/uL (0.0-0.2); EOS # 0.2 10^3/uL (0.0-0.50); EOS % 3.2 % (0.0-3.0); HEMATOCRIT 29.1 % (42.0-52.0); HEMOGLOBIN 9.5 g/dl (13.5-17.5); LYMPH # 1.2 10^3/uL (1.5-4.5); MEAN CORPUSCULAR HEMOGLOBIN 29.4 pg (27.0-33.0); MEAN CORPUSCULAR HGB CONC 32.6 g/dl (32.0-36.5); MEAN CORPUSCULAR VOLUME 90.1 fl (80.0-96.0); MONO # 0.6 10^3/uL (0.0-0.8); MONO % 8.2 % (0.0-5.0); NEUTROPHILS # 4.7 10^3/uL (1.8-7.7); NEUTROPHILS % 69.2 % (36.0-66.0); PLATELET COUNT, AUTOMATED 218 10^3/uL (150-450); RED BLOOD COUNT 3.23 10^6/uL (4.30-6.10); WHITE BLOOD COUNT 6.8 10^3/uL (4.0-10.0)
[2019-01-26 06:27] LABS: ALBUMIN 2.7 GM/DL (3.2-5.2); BILIRUBIN,TOTAL 0.2 MG/DL (0.2-1.0); CALCIUM LEVEL 8.2 MG/DL (8.8-10.2); CREATININE FOR GFR 1.9 MG/DL (0.70-1.30); GLOMERULAR FILTRATION RATE 37.4 (>42); POTASSIUM SERUM 4.5 MEQ/L (3.5-5.1); TOTAL PROTEIN 7.1 GM/DL (6.4-8.2)
[2019-01-26] MEDS: CILOSTAZOL 100 MG TAB (PLETAL) PO SCH (08:50)
[2019-01-26] MEDS: GABAPENTIN 300 MG CAP PO SCH (08:50)
[2019-01-26] MEDS: DOCUSATE SODIUM 100 MG CAP PO SCH (08:50)
[2019-01-26] MEDS: ATORVASTATIN 20 MG TAB PO SCH (08:50)
[2019-01-26] MEDS: HumaLOG INSULIN (NovoLOG) PER UNIT SC SCH ×2 (08:51→08:52)
[2019-01-26] MEDS: AUGMENTIN 875 MG TAB PO SCH (08:51)
[2019-01-26] MEDS: ASPIRIN 81 MG ENTERIC TAB PO SCH (08:51)
[2019-01-26] MEDS: FUROSEMIDE 20 MG TAB PO SCH (08:51)
[2019-01-26] MEDS: LEVEMIR (INSULIN DETEMIR) 1 UNITS/0.01ML SC SCH (08:52)
[2019-01-26 08:54] VITALS: BP 150/72
[2019-01-26] MEDS: METOPROLOL TART 50 MG TAB PO SCH (08:54)
[2019-01-26] MEDS: **hydrALAZINE** 10 MG TAB PO SCH (08:54)
[2019-01-26 10:00] VITALS: BP 127/60
[2019-01-26] MEDS ORDERED: AMOX875T2 PO (10:09)
[2019-01-26] MEDS ORDERED: CILO100T PO (11:33)
--- NOTE | 2019-01-26 12:29 | IPN ---
DATE OF VISIT: 01/26/2019 Mr. Randall is seen this morning on his bedside. He is sitting in his wheelchair and anticipating going home today. He denies any nausea, vomiting, dyspnea or chest pain. He reports that he was seen by Dr. Barker and it was felt that his foot is healing. He remains on antibiotics. His angiogram showed some small vessel distal disease for which she did not require angioplasty. Kidney function has remained stable after angioplasty. PHYSICAL EXAMINATION: Temperature 97.5 degrees Fahrenheit, heart rate 83 per minute and respiratory rate 18 per minute. Blood pressure 127/60 mmHg and oxygen saturation 97% on room air. His head is atraumatic. Neck is supple and jugular venous distention (JVD) is not abnormally elevated sitting upright in the chair. His lungs sound clear to auscultation and heart sounds are irregular in rhythm. Abdomen is protuberant, soft and nontender and bowel sounds are normal. Extremities have no cyanosis or clubbing. Neurologically he is at his baseline mentation without focal deficit. Today's labs show a WBC count 6.8, hemoglobin 9.5 and hematocrit 29.1. Sodium 140, potassium 4.5, CO2 25, BUN 35 and creatinine 1.90. PROBLEMS: 1. Acute renal failure superimposed on chronic kidney disease. His acute renal failure has resolved and kidney function has been stable at about prior baseline. At this point no intervention is indicated. 2. Congestive heart failure. Volume status is very well compensated on current dose of diuretic. No changes are being made today. 3. Left foot diabetic ulcer and peripheral vascular disease. The patient did have an angiogram and was felt to have distal small vessel disease for which no intervention was indicated. He has been placed on Pletal. He remains on antibiotics. Vancomycin level has been therapeutic. If he goes home then he should continue with only Augmentin and vancomycin will need to be stopped. DISPOSITION: The patient is cleared for discharge from a renal standpoint. He will followup in our office in a couple of weeks.
--- NOTE | 2019-01-26 13:38 | DS.PDOC ---
Discharge Summary General Date of Admission Jan 16, 2019 at 19:16 Date of Discharge 01/26/2019 Attending Physician: KACY LUND MD Discharge Summary PROCEDURES PERFORMED DURING STAY: [None]. ADMITTING DIAGNOSES: 1. [Diabetes mellitus with foot ulcer and gangrene]. DISCHARGE DIAGNOSES: 1. [Pedis mellitus with foot ulcer and gangrene]. COMPLICATIONS/CHIEF COMPLAINT: Type 2 Diabetes Mellitus W/Foot Ulcer And Gangrene. HISTORY OF PRESENT ILLNESS: [Patient is a morbidly obese 73-year-old male, presenting to the emergency room on account of left total swelling, onset for 5 days ago. Patient has a past medical history significant for peripheral arterial disease, hypertension, chronic kidney disease stage IV, type 2 diabetes mellitus, obesity. He denies any trauma to the foot and thinks the wound may have been caused by his shoe rubbing against his left toe. He did not try to treat when he first noticed the ulcer 4/ 5 days ago. He only decided to come to the hospital today because his daughter insisted. He reports he has had some chills. Otherwise, denies nausea, vomiting, diarrhea, chest pain, shortness of breath. On initial evaluation in the emergency room, potassium was 6.1, glomerular filtration rate was 28]. HOSPITAL COURSE: 73yo male with severe PAD/PVD, right BKA , diabetes and CKD stage IV hospitalized for CAROL with CKD, left gangrene hallux , possible osteomyelitis, and severe PVD. 1) Left hallux gangrenous ulcer with history of severe PVD - - continue vancomycin and Cefepime empiric coverage; vasc consulted - high decision making with monitoring of vanc levels to avoid ATN; Vanc therapeutic range - Infectious disease consult called for further recommendation regarding use of antibiotics -Risk of surgery has recommended outpatient follow-up -Cleared by infectious disease to be discharged home on by mouth Augmentin -Also a vascular surgery recommended, pletal 100 mg by mouth twice a day to be added 2) Diabetes on [facility] insulin with hyperglycemia; labile. encouraged adherance to DM Diet goal blood sugars under 180 to promote healing; - continue detemir to 80 units daily, add 5units lispro ac plus the sliding scale to get tighter control of blood sugars. 3)Hyperkalemia - due to CKD, ACEI and NSAID - improved - renal consulted. treated with D50/insulin and Veltassa in ED; - holding ACEI - will continue with veltassa (which ever is available) 4) HTN monitor. hold ACEI. continue hydralazine and metoprolol 5) CKDIV -Avoid nephrotoxic medications -nephrology consult greatly appreciated]. DISCHARGE MEDICATIONS: Please see below. ALLERGIES: Please see below. PHYSICAL EXAMINATION ON DISCHARGE: VITAL SIGNS: Please see below. GENERAL: HEENT: NECK: CARDIOVASCULAR EXAMINATION: RESPIRATORY EXAMINATION: ABDOMINAL EXAMINATION: EXTREMITIES: SKIN: NEUROLOGICAL EXAMINATION: PSYCHIATRIC EXAMINATION: LABORATORY DATA: Please see below. IMAGING: PROGNOSIS: ACTIVITY: [As tolerated]. DIET: DISCHARGE PLAN: DISPOSITION: Home, Self-Care. DISCHARGE INSTRUCTIONS: 1. . ITEMS TO FOLLOWUP ON ON OUTPATIENT: 1. . DISCHARGE CONDITION: [Stable]. TIME SPENT ON DISCHARGE: Greater than minutes. Vital Signs/I&Os Vital Signs Date Time Temp Pulse Resp B/P (MAP) Pulse Ox O2 Delivery O2 Flow Rate FiO2 01/26/19 10:00 97.5 83 18 127/60 (82) 97 I&O- Last 24 Hours up to 6 AM 01/26/19 06:00 Intake Total 2026 ml Output Total 1575 ml Balance 451 ml Laboratory Data Labs 24H Laboratory Tests 2 01/25/19 16:32: Bedside Glucose (Misc Panel) 221H 01/25/19 20:20: Bedside Glucose (Misc Panel) 176H 01/26/19 05:46: Immature Granulocyte % (Auto) 0.4, White Blood Count 6.8, Red Blood Count 3.23L, Hemoglobin 9.5L, Hematocrit 29.1L, Mean Corpuscular Volume 90.1, Mean Corpuscular Hemoglobin 29.4, Mean Corpuscular Hemoglobin Concent 32.6, Red Cell Distribution Width 12.2, Platelet Count 218, Neutrophils (%) (Auto) 69.2H, Lymphocytes (%) (Auto) 18.0L, Monocytes (%) (Auto) 8.2H, Eosinophils (%) (Auto) 3.2H, Basophils (%) (Auto) 1.0, Neutrophils # (Auto) 4.7, Lymphocytes # (Auto) 1.2L, Monocytes # (Auto) 0.6, Eosinophils # (Auto) 0.2, Basophils # (Auto) 0.1, Nucleated Red Blood Cells % (auto) 0.0, Anion Gap 5L, Glomerular Filtration Rate 37.4L, Blood Urea Nitrogen 35H, Creatinine 1.90H, Sodium Level 140, Potassium Level 4.5, Chloride Level 110H, Carbon Dioxide Level 25, Calcium Level 8.2L, Aspartate Amino Transf (AST/SGOT) 21, Alanine Aminotransferase (ALT/SGPT) 46, Alkaline Phosphatase 107, Total Bilirubin 0.2, Total Protein 7.1, Albumin 2.7L, Albumin/Globulin Ratio 0.61L CBC/BMP Laboratory Tests 01/26/19 05:46 Red Blood Count 3.23 L, Mean Corpuscular Volume 90.1, Mean Corpuscular Hemoglobin 29.4, Mean Corpuscular Hemoglobin Concent 32.6, Red Cell Distribution Width 12.2, Neutrophils (%) (Auto) 69.2 H, Lymphocytes (%) (Auto) 18.0 L, Monocytes (%) (Auto) 8.2 H, Eosinophils (%) (Auto) 3.2 H, Basophils (%) (Auto) 1.0, Neutrophils # (Auto) 4.7, Lymphocytes # (Auto) 1.2 L, Monocytes # (Auto) 0.6, Eosinophils # (Auto) 0.2, Basophils # (Auto) 0.1, Calcium Level 8.2 L, Aspartate Amino Transf (AST/SGOT) 21, Alanine Aminotransferase (ALT/SGPT) 46, Alkaline Phosphatase 107, Total Bilirubin 0.2, Total Protein 7.1, Albumin 2.7 L FSBS Laboratory Tests Test 01/25/19 16:32 01/25/19 20:20 Range/Units Bedside Glucose (Misc Panel) 221 176 83-110 MG/DL Microbiology Microbiology 01/16/19 Blood Culture - Final, Complete NO GROWTH AFTER 5 DAYS 01/16/19 Blood Culture - Final, Complete NO GROWTH AFTER 5 DAYS Discharge Medications Scheduled Amoxicillin/Potassium Clav (Amox-Clav 875-125 mg Tablet) 1 Each Tablet, 875 MG PO BID Aspirin (Aspirin EC) 81 Mg Tab, 81 MG PO DAILY, (Reported) Atorvastatin Calcium (Atorvastatin Calcium) 20 Mg Tablet, 20 MG PO DAILY, (Reported) Cilostazol (Cilostazol) 100 Mg Tablet, 1 TAB PO BID Furosemide (Furosemide) 40 Mg Tablet, 80 MG PO 3XW, (Reported) MON, WED, FRI Furosemide (Furosemide) 40 Mg Tablet, 40 MG PO 4XWK, (Reported) SUN, [place], THJOSIAS, SAT Gabapentin (Gabapentin) 300 Mg Cap, 300 MG PO BID, (Reported) Glipizide (Glipizide ER) 10 Mg Tab, 10 MG PO DAILY, (Reported) Insulin Glargine,Hum.rec.anlog (Lantus Solostar) 100 Unit/Ml Inj, 75 UNITS SC DAILY, (Reported) Metformin HCl (Metformin HCl ER) 750 Mg Tab, 750 MG PO QPM, (Reported) Metoprolol Tartrate (Metoprolol Tartrate) 50 Mg Tab, 50 MG PO BID, (Reported) Probenecid (Probenecid) 500 Mg Tab, 500 MG PO BID, (Reported) Quinapril Hcl (Quinapril HCl) 20 Mg Tab, 20 MG PO DAILY, (Reported) Saxagliptin HCl (Onglyza) 5 Mg Tab, 5 MG PO DAILY, (Reported) Scheduled PRN Hydrocodone/Acetaminophen (Hydrocodone-Acetamin 7.5-325) 1 Tab Tab, 1 TAB PO Q6H PRN for PAIN, (Reported) Allergies Coded Allergies: codeine (Verified Adverse Reaction, Mild, GI upset, 01/16/19) KACY LUND MD Jan 26, 2019 13:37
--- NOTE | 2019-02-23 14:25 | REPIR ---
DATE OF PROCEDURE: 01/24/2019 ATTENDING SURGEON: Dr. Landen Evangelista ORGANIC PREPARATION TECHNICIAN: Aixa Baeza and Yuli Martin PREOPERATIVE DIAGNOSES: Left non healing first toe ulcer, left lower extremity cellulitis, chronic renal insufficiency. POSTOPERATIVE DIAGNOSES: Left non healing first toe ulcer, left lower extremity cellulitis, chronic renal insufficiency. PROCEDURE: Right common femoral arterial cannulation, selective left common femoral artery catheter placement, left lower extremity angiogram, Mynx closure of the right common femoral arteriotomy. INDICATION: The patient is a 73-year-old male with nonhealing left first toe ulcer and cellulitis of the left foot with nonpalpable pulses. The patient will undergo an angiogram with possible angioplasty, stent and/or atherectomy. Risks, benefits and alternative options were discussed with the patient. ANESTHESIA: Local with 10 mL of 2% lidocaine mixed with 0.5% Marcaine. FLUORO TIME: 2.4 minutes. CONTRAST: 4 mL. HEPARIN: None. COMPLICATIONS: None. DRAINS: None. SPECIMENS: None. IMPLANTS: None. PROCEDURE: The patient was taken to the angiography suite, placed supine on the angiography room table and prepped and draped in a standard surgical fashion. The right common femoral artery was cannulated with a micropuncture needle. A catheter was placed in the left lower extremity and an angiogram was performed. This showed severe distal tibial peroneal arterial atherosclerotic occlusive disease with no intervention possible. Catheters and wires were removed. A Mynx closure was used to close the arteriotomy in the right common femoral artery with an additional 10 minutes of adjunctive pressure applied for hemostasis. Dressings were then applied. The patient tolerated procedure well. All instrument, sponge and needle counts were correct at the end of the case. There were no complications. Dr. Evangelista was present for and directed the entire case. The patient was transferred to the holding and subsequently to the floor in stable condition.
== END 2019-01-26 12:00 | disposition home or self-care (01) | DRG 299 ==
LOC: M ED 14:13 → M ED INP 19:16 → M MSPAV 21:50
PROVIDERS: ADMIT Internal Medicine; ATTEND Internal Medicine
PROC: B44LZZ3 Ultrasonography of Femoral Artery, Intravascular (ICD-10-PCS; principal; 2019-01-24)
DX: E11.52 Type 2 diabetes mellitus with diabetic peripheral angiopathy with gangrene (principal); I50.33 Acute on chronic diastolic (congestive) heart failure; N18.4 Chronic kidney disease, stage 4 (severe); N17.9 Acute kidney failure, unspecified; I13.0 Hypertensive heart and chronic kidney disease with heart failure and stage 1 through stage 4 chronic kidney disease, or unspecified chronic kidney disease; E87.2 Acidosis; L97.528 Non-pressure chronic ulcer of other part of left foot with other specified severity; L03.116 Cellulitis of left lower limb; E66.9 Obesity, unspecified; E11.621 Type 2 diabetes mellitus with foot ulcer; E87.5 Hyperkalemia; E11.65 Type 2 diabetes mellitus with hyperglycemia; K59.00 Constipation, unspecified; E11.22 Type 2 diabetes mellitus with diabetic chronic kidney disease; E11.42 Type 2 diabetes mellitus with diabetic polyneuropathy; Z79.82 Long term (current) use of aspirin; Z79.4 Long term (current) use of insulin; Z79.899 Other long term (current) drug therapy; Z88.5 Allergy status to narcotic agent; Z89.511 Acquired absence of right leg below knee; Z90.49 Acquired absence of other specified parts of digestive tract; Z68.33 Body mass index [BMI] 33.0-33.9, adult; Z87.891 Personal history of nicotine dependence

== ENCOUNTER → 2019-02-08 | Outpatient (REF) | payer MEDICARE ==
[~2019-02-08] MED LIST changes: +AMOX875T2 PO; +CILO100T PO; +FURO40TA2 PO
[2019-02-08 16:15] LABS: ALBUMIN 3.6 GM/DL (3.2-5.2); BILIRUBIN,TOTAL 0.2 MG/DL (0.2-1.0); CALCIUM LEVEL 8.9 MG/DL (8.8-10.2); CHOLESTEROL RISK RATIO 5.642 (<5); CREATININE FOR GFR 2.47 MG/DL (0.70-1.30); GLOMERULAR FILTRATION RATE 27.6 (>42); POTASSIUM SERUM 5.1 MEQ/L (3.5-5.1); TOTAL PROTEIN 7.8 GM/DL (6.4-8.2); URIC ACID 6.9 MG/DL (3.5-7.2)
[2019-02-08 16:31] LABS: PTH INTACT 100.5 PG/ML (18.5-88.0)
[2019-02-08 19:17] LABS: HEMOGLOBIN A1c 9.2 %
== END ==
LOC: M SFHCPLAZ 13:52
PROVIDERS: ATTEND Internal Medicine
DX: I12.9 Hypertensive chronic kidney disease with stage 1 through stage 4 chronic kidney disease, or unspecified chronic kidney disease (principal); E11.22 Type 2 diabetes mellitus with diabetic chronic kidney disease; E78.00 Pure hypercholesterolemia, unspecified; N18.3 Chronic kidney disease, stage 3 (moderate); M10.9 Gout, unspecified; H61.23 Impacted cerumen, bilateral
CPT/HCPCS: 36415; 69209; 80053; 80061; 83036; 83970; 84550; 99495; G0463

== ENCOUNTER 2019-03-11 11:03 | Emergency (ER) | payer MEDICARE ==
[~2019-03-11] VITALS: Ht 170.2 cm; Wt 102.3 kg
[2019-03-11 12:20] LABS: BASO % 0.4 % (0.0-1.0); EOS # 0.2 10^3/uL (0.0-0.50); EOS % 1.7 % (0.0-3.0); HEMATOCRIT 32.2 % (42.0-52.0); HEMOGLOBIN 10.5 g/dl (13.5-17.5); LYMPH # 0.7 10^3/uL (1.5-4.5); LYMPH % 7.6 % (24.0-44.0); MEAN CORPUSCULAR HGB CONC 32.6 g/dl (32.0-36.5); MONO # 0.6 10^3/uL (0.0-0.8); MONO % 6.2 % (0.0-5.0); NEUTROPHILS # 8.2 10^3/uL (1.8-7.7); NEUTROPHILS % 83.8 % (36.0-66.0); PLATELET COUNT, AUTOMATED 195 10^3/uL (150-450); WHITE BLOOD COUNT 9.8 10^3/uL (4.0-10.0)
--- NOTE | 2019-03-11 12:36 | REP ---
Left foot four views: Comparison is 01/16/2019. There is circumferential soft tissue edema, similar to the prior study. There is no fracture or dislocation. Mineralization and joint spaces are unremarkable. There are no lytic, blastic or destructive changes, particularly of the great toe. There is mild great toe MTP osteoarthritis. This is unchanged. Impression: Circumferential soft tissue edema. Great toe MTP osteoarthritis. No lytic, blastic or destructive skeletal changes. Electronically Signed by Clay Kay MD 03/11/2019 12:27 P
[2019-03-11 12:39] LABS: CREATININE FOR GFR 2.56 MG/DL (0.70-1.30); GLOMERULAR FILTRATION RATE 26.5 (>42); POTASSIUM SERUM 4.8 MEQ/L (3.5-5.1)
--- NOTE | 2019-03-11 12:57 | REP ---
Left lower extremity Duplex Doppler venous ultrasound: Real time compression and duplex Doppler interrogation of the left lower extremity deep venous system is performed. The left common femoral, superficial femoral and popliteal veins are fully compressible with transducer pressure and demonstrate normal spontaneous and phasic flow, without evidence of deep venous thrombosis. Impression: No evidence of deep venous thrombosis of the left lower extremity femoral popliteal venous system. Electronically Signed by Clay Hunt MD 03/11/2019 12:48 P
[2019-03-11] MEDS ORDERED: PERCOCET 5MG/325MG TAB PO ONE (14:15)
[2019-03-11] MEDS ORDERED: PERC5TAB12 PO (14:33)
[2019-03-11 14:40] VITALS: BP 171/79
== END 2019-03-11 14:43 | disposition home or self-care (01) ==
LOC: M ED 11:03
DX: I73.9 Peripheral vascular disease, unspecified (principal); E11.9 Type 2 diabetes mellitus without complications; I10 Essential (primary) hypertension; M19.072 Primary osteoarthritis, left ankle and foot; Z79.82 Long term (current) use of aspirin; Z79.4 Long term (current) use of insulin; Z79.899 Other long term (current) drug therapy; Z88.5 Allergy status to narcotic agent

== ENCOUNTER 2019-03-14 22:40 | Inpatient (IN) | payer MEDICARE ==
[~2019-03-14] VITALS: Ht 170.2 cm; Wt 92.7 kg
[~2019-03-14 22:40] MED LIST changes: +PERC5TAB12 PO
[2019-03-14 23:35] LABS: BASO % 0.2 % (0.0-1.0); EOS % 0.2 % (0.0-3.0); HEMATOCRIT 25.5 % (42.0-52.0); HEMOGLOBIN 8.3 g/dl (13.5-17.5); LYMPH # 0.9 10^3/uL (1.5-4.5); LYMPH % 8.4 % (24.0-44.0); MEAN CORPUSCULAR HEMOGLOBIN 30.4 pg (27.0-33.0); MEAN CORPUSCULAR HGB CONC 32.5 g/dl (32.0-36.5); MEAN CORPUSCULAR VOLUME 93.4 fl (80.0-96.0); MONO # 0.9 10^3/uL (0.0-0.8); MONO % 8.4 % (0.0-5.0); NEUTROPHILS # 8.7 10^3/uL (1.8-7.7); NEUTROPHILS % 82.2 % (36.0-66.0); PLATELET COUNT, AUTOMATED 220 10^3/uL (150-450); RED BLOOD COUNT 2.73 10^6/uL (4.30-6.10); WHITE BLOOD COUNT 10.5 10^3/uL (4.0-10.0)
[2019-03-14 23:54] LABS: CALCIUM LEVEL 8.2 MG/DL (8.8-10.2); CK-MB VALUE MASS 4.1 NG/ML (<3.6); CREATININE FOR GFR 4.65 MG/DL (0.70-1.30); GLOMERULAR FILTRATION RATE 13.3 (>42); MB/CK RELATIVE INDEX 0.59 (< OR =4); POTASSIUM SERUM 4.3 MEQ/L (3.5-5.1); THYROID STIMULATING HORMONE 0.688 uIU/ML (0.358-3.740); TROPONIN I 0.78 NG/ML (< 0.10)
--- NOTE | 2019-03-15 00:46 | REPVR ---
EXAM: CT Head Without Contrast EXAM DATE/TIME: 03/14/2019 11:26 PM CLINICAL HISTORY: 73 years old, male; Dizziness; Additional info: Syncope TECHNIQUE: Imaging protocol: Computed tomography images of the head without contrast. Radiation optimization: All CT scans at this facility use at least one of these dose optimization techniques: automated exposure control; mA and/or kV adjustment per patient size (includes targeted exams where dose is matched to clinical indication); or iterative reconstruction. COMPARISON: No relevant prior studies available. FINDINGS: There is no acute intracranial hemorrhage, extra axial hematoma, or midline shift. There is global parenchymal volume loss. The ventricles are not dilated. There is intracranial atherosclerosis. No CT findings are seen at the current time to suggest changes of acute territorial vascular infarction. Note is made however, that CT changes, may lag clinical findings in acute CVA. If clinically indicated, consideration could be given to MRI with diffusion weighted imaging, due to its greater sensitivity, for detection of acute ischemic change. Intracranial calcifications are incidentally noted. No pericranial scalp hematoma is seen. Ocular postoperative changes are noted. No acute cranial vault fracture is seen. No fluid is seen within the visualized paranasal sinuses or mastoid air cells. IMPRESSION: No evidence of acute territorial major vessel infarct, mass effect, or hemorrhage. Global parenchymal volume loss. Other findings discussed above. Electronically signed by: Matt Painter On 03/15/2019 00:46:24 AM
[2019-03-15] MEDS ORDERED: CILO100T PO (03:17)
[2019-03-15] MEDS ORDERED: PERC5TAB12 PO (03:19)
[2019-03-15] MEDS ORDERED: ACETAMINOPHEN TAB 650MG DOSE (2X325MG) PO PRN (04:15)
[2019-03-15] MEDS ORDERED: MOM 30ML SUSPENSION UDC PO PRN (04:15)
[2019-03-15] MEDS ORDERED: MAALOX 30 ML SUSP *UDC PO PRN (04:15)
[2019-03-15] MEDS ORDERED: PERCOCET 5MG/325MG TAB PO PRN (04:15)
[2019-03-15] MEDS ORDERED: DEXTROSE 50% 50 ML SYRINGE IV PRN (04:30)
[2019-03-15] MEDS ORDERED: GLUCAGON FOR INJ 1 MG VIAL (J1610) SC PRN (04:30)
[2019-03-15] MEDS ORDERED: GLUCOSE 4 GM CHEW TABLET PO PRN (04:30)
--- NOTE | 2019-03-15 04:35 | HPEPDOC ---
General Date of Admission 03/15/19 Date of Service: Mar 15, 2019 Attending Physician: KACY LUND MD Chief Complaint The patient is a 73-year-old male admitted with a reason for visit of Syncope. Source: Patient Exam Limitations: No limitations Timing/Duration: Day(s) Severity: Other Associated Symptoms: Other (May. No associated symptoms) History of Present Illness This is a 73 years old, obese, white male with past medical history of hypertension, peripheral vascular disease and status post right BKA, left big toe gangrene. Chronic kidney disease is stage IV, type 2 diabetes mellitus, obesity, appendectomy, hernia repair, was in her usual state of health at home when his neighbor found him on the ground of the wheelchair. Patient does not recall preceding events. As per patient, he was just sitting in wheelchair next the ED, he was on the ground. No aura, no seizures, he is not sure about loss of consciousness. Does. Patient does not offer any complaints of chest pain, shortness of breath, nausea, vomiting, diarrhea, etc. Home Medications Scheduled Aspirin (Aspirin EC) 81 Mg Tab, 81 MG PO DAILY, (Reported) Cilostazol (Cilostazol) 100 Mg Tablet, 100 MG PO BID, (Reported) Furosemide (Furosemide) 40 Mg Tablet, 80 MG PO 3XW, (Reported) MON, THU, FRI Furosemide (Furosemide) 40 Mg Tablet, 40 MG PO 4XWK, (Reported) SUN, TU, TH, SAT Gabapentin (Gabapentin) 300 Mg Cap, 300 MG PO BID, (Reported) Glipizide (Glipizide ER) 10 Mg Tab, 10 MG PO DAILY, (Reported) Insulin Glargine,Hum.rec.anlog (Lantus Solostar) 100 Unit/Ml Inj, 75 UNITS SC DAILY, (Reported) Metformin HCl (Metformin HCl ER) 750 Mg Tab, 750 MG PO DAILY, (Reported) Metoprolol Tartrate (Metoprolol Tartrate) 50 Mg Tab, 50 MG PO BID, (Reported) Probenecid (Probenecid) 500 Mg Tab, 500 MG PO BID, (Reported) Quinapril Hcl (Quinapril HCl) 20 Mg Tab, 20 MG PO DAILY, (Reported) Scheduled PRN Hydrocodone/Acetaminophen (Hydrocodone-Acetamin 7.5-325) 1 Tab Tab, 1 TAB PO Q6H PRN for PAIN, (Reported) Oxycodone HCl/Acetaminophen (Percocet 5-325 mg Tablet) 1 Each Tablet, 1 TAB PO Q6H PRN for PAIN, (Reported) Allergies Coded Allergies: codeine (Verified Adverse Reaction, Mild, GI upset, 01/16/19) Past Medical History Medical History Hypertension, hyperlipidemia, diabetes mellitus type 2, right BKA, left foot ulcers, chronic kidney disease stage IV, obesity disease Surgical History Right BKA, appendectomy, hernia repair, tonsillectomy Family History Significant Family History: Other (. No significant family history) Social History * Smoker: former Smoker, quit greater than 1 year Alcohol: Denies Drugs: denies A-FIB/CHADSVASC A-FIB History Current/History of A-Fib/PAF?: No Review of Systems Constitutional: Denies: Chills, Fever, Malaise, Night Sweats, Weakness, Fatigue, Weight Loss, Lethargy, Other Eyes: Denies: Pain, Vision change, Conjunctivae inflammation, Eyelid inflammation, Redness, Other ENT: Denies: Head Aches, Ear Pain, Dysphagia, Sinus Congestion, Post Nasal Drip, Sore Throat, Epistaxis, Other Symptoms Skin: Denies: Rash, Lesions, Jaundice, Bruising, Itching, Dry, Breakdown, Nail Changes, Other Pulmonary: Denies: Dyspnea, Cough, Pleuritic Chest Pain, Other Symptoms Cardiovascular: Denies: Chest Pain, Palpitations, Orthopnea, Paroxysmal Noc. Dyspnea, Edema, Lt Headedness, Other Symptoms Gastrointestinal: Denies: Nausea, Vomiting, Abdominal Pain, Diarrhea, Constipation, Melena, Hematochezia, Other Symptoms Genitourinary: Denies: Dysuria, Frequency, Incontinence, Hematuria, Retention, Other Symptoms Hematologic: Denies: Bruising, Bleeding Excessively, Petecchia, Purpura, Enlarged Lymph Nodes, Other Hematologic Endocrine: Denies: Polydipsia, Polyphagia, Polyuria, Heat Intolerance, Cold Intolerance, Other Endocrine Sx Musculoskeletal: Denies: Neck Pain, Back Pain, Shoulder Pain, Arm Pain, Hand Pain, Leg Pain, Foot Pain, Joint Pain, Muscle Pain, Spasms, Other Symptoms Neurological: Reports: Other Symptoms (. Syncope with) Psych: Denies: Mood Normal, Anxiety, Depression, Memory Issues, Thoughts of Self Harm, Anger, Thoughts of Harming Other, Other Psych Physical Examination General Exam: Positive: Alert, Cooperative Eye Exam: Positive: PERRLA, Conjunctiva & lids normal ENT Exam: Positive: Atraumatic Neck Exam: Positive: Supple Chest Exam: Positive: Clear to auscultation, Normal air movement Heart Exam: Positive: Rate Normal, Normal S1, Normal S2 ( fell off the wheelchair on the ground) Abdomen Exam: Positive: Normal bowel sounds, Soft, Tenderness Extremity Exam: Positive: Other (, right BKA, left big toe gangrene noted) Skin Exam: Positive: Other skin issue (as above) Neuro Exam: Positive: Sensation Intact (. Moves all extremities, focal motor deficit), Cranial Nerves 3-12 NL, Other Psych Exam: Positive: Mental status NL, Mood NL, Oriented x 3 Vital Signs Vital Signs Date Time Temp Pulse Resp B/P (MAP) Pulse Ox O2 Delivery O2 Flow Rate FiO2 03/15/19 02:02 101 18 157/65 (95) 99 Nasal Cannula 2.0 03/14/19 23:13 99.7 Laboratory Data Labs 24H Laboratory Tests 2 03/14/19 23:00: Immature Granulocyte % (Auto) 0.6, White Blood Count 10.5H, Red Blood Count 2.73L, Hemoglobin 8.3L, Hematocrit 25.5L, Mean Corpuscular Volume 93.4, Mean Corpuscular Hemoglobin 30.4, Mean Corpuscular Hemoglobin Concent 32.5, Red Cell Distribution Width 13.6, Platelet Count 220, Neutrophils (%) (Auto) 82.2H, Lymphocytes (%) (Auto) 8.4L, Monocytes (%) (Auto) 8.4H, Eosinophils (%) (Auto) 0.2, Basophils (%) (Auto) 0.2, Neutrophils # (Auto) 8.7H, Lymphocytes # (Auto) 0.9L, Monocytes # (Auto) 0.9H, Eosinophils # (Auto) 0.0, Basophils # (Auto) 0.0, Nucleated Red Blood Cells % (auto) 0.0, Anion Gap 9, Glomerular Filtration Rate 13.3L, Lactic Acid Level 0.9, Blood Urea Nitrogen 64H, Creatinine 4.65H, Sodium Level 141, Potassium Level 4.3, Chloride Level 112H, Carbon Dioxide Level 20L, Calcium Level 8.2L, Total Creatine Kinase 696H, Creatine Kinase MB 4.1H, Creatine Kinase MB Relative Index 0.59, Troponin I 0.78H, Thyroid Stimulating Hormone (TSH) 0.688 03/14/19 23:33: Bedside Glucose ([facility] Panel) 110 CBC/BMP Laboratory Tests 03/14/19 23:00 Red Blood Count 2.73 L, Mean Corpuscular Volume 93.4, Mean Corpuscular Hemoglobin 30.4, Mean Corpuscular Hemoglobin Concent 32.5, Red Cell Distribution Width 13.6, Neutrophils (%) (Auto) 82.2 H, Lymphocytes (%) (Auto) 8.4 L, Monocytes (%) (Auto) 8.4 H, Eosinophils (%) (Auto) 0.2, Basophils (%) (Auto) 0.2, Neutrophils # (Auto) 8.7 H, Lymphocytes # (Auto) 0.9 L, Monocytes # (Auto) 0.9 H, Eosinophils # (Auto) 0.0, Basophils # (Auto) 0.0, Calcium Level 8.2 L, Total Creatine Kinase 696 H Problems (1) Syncope Status: Acute Problem Text: 73 years old white male with multiple medical problems including severe vascular vascular disease with a right BKA and left gangrene of big toe. Diabetes mellitus type 2. Normocytic anemia. CK D, stage IV, hypertension, hyperlipidemia, came in with chief complaints of syncope of unknown etiology. When patient fell off his wheelchair was found in the ground for a ground by his neighbor. A member of the event before the fall. He is not sure about loss of consciousness. Syncope, etiology is unknown, most likely vasovagal in nature, but will admit him as per ED his recommendation and is started syncope workup Admit to PCU for further care Cardiac monitoring Echocardiogram Bilateral carotid Dopplers MRI of the brain PT evaluation Fingerstick blood sugar every before meals and at bedtime with coverage Continue all all home meds DVT prophylaxis with Lovenox Moderate consistent diet (2) Type 2 diabetes mellitus with foot ulcer and gangrene Status: Chronic Problem Text: Continue all home meds Fingerstick blood sugar every before meals and at bedtime with coverage Carbohydrate consistent diet (3) CKD (chronic kidney disease), stage IV Status: Chronic Problem Text: Patient does have a history of CK D, stage IV, but his BUN, creatinine, which is now 64 and 4.65 which is a double than his last BUN/creatinine on his previous admission. Patient follows up with Dr. Linda and will recommend to call Dr. Linda for. Nephrology consultation in a.m. for. Any further recommendations (4) Anemia Status: Chronic Problem Text: History of chronic normocytic anemia. H&H is at baseline Monitor H&H regularly (5) Hyperlipidemia Status: Chronic Problem Text: Continue home medication including statins (6) HTN (hypertension) Status: Chronic Problem Text: Continue home medication under well control (7) Gangrene Status: Chronic Problem Text: While reviewing the patient's old records, patient was seen by vascular surgery and was advised to follow-up as an outpatient for his gangrene of his left big toe. No surgical intervention was recommended at that time. Pat ient is asymptomatic, but if he develops symptomatic symptoms, then the vascular surgery can be reconsult Plan / VTE VTE Prophylaxis Ordered?: Yes KACY LUND MD Mar 15, 2019 04:35
[2019-03-15] MEDS: HumaLOG INSULIN (NovoLOG) PER UNIT SC SCH ×4 (07:30→20:45)
--- NOTE | 2019-03-15 08:12 | REPVR ---
EXAM: US Duplex Bilateral Extracranial Arteries EXAM DATE/TIME: 03/15/2019 5:49 AM CLINICAL HISTORY: 73 years old, male; Syncope and collapse TECHNIQUE: Imaging protocol: Real-time Duplex ultrasound scan of the Bilateral carotid and vertebral arteries combining lopez scale, color Doppler and spectral waveform analysis. COMPARISON: CT Head without contrast 03/14/2019 11:39 PM FINDINGS: Limitations: Technologist notes exam was limited due to a short neck and high bifurcations. Right common carotid artery: The peak systolic velocity within the right common carotid artery is 128 cm/s. End-diastolic velocity 24 cm/s. Right internal carotid artery: The peak systolic velocity within the proximal right internal carotid artery measures 74 cm/s. End-diastolic velocity 19 cm/s. The mid and distal right internal carotid artery sought but not demonstrated due to the short neck and high bifurcation. Right ICA/CCA ratio: 0.6 Right external carotid artery: Antegrade flow within the right common carotid artery, right internal carotid artery and right external carotid artery. Mild atherosclerotic plaque at the right carotid bulb. Atherosclerotic plaque within the proximal right external carotid artery. Right vertebral artery: Vertebral arteries: Antegrade flow right vertebral artery. Peak systolic velocity within the right vertebral artery is 36 cm/s. Left common carotid artery: The peak systolic velocity within the left common carotid artery is 87 cm/s. The end diastolic velocity is 26 cm/s. Left internal carotid artery: The peak systolic velocity within the proximal left internal carotid artery is 138 cm/s. The end diastolic velocity is 29 cm/s. The mid and distal left internal carotid artery sought but not demonstrated due to the short neck and high bifurcation. Left ICA/CCA ratio: 1.6 Left external carotid artery: The external carotid artery peak systolic velocity is 283 cm/s. Antegrade flow within the left common carotid artery, left internal carotid artery and left external carotid artery. Moderate plaque in the distal left common carotid artery and proximal left internal carotid artery. Plaque also present in the proximal right external carotid artery. The external carotid artery peak systolic velocity is 296 cm/s. Left vertebral artery: Antegrade flow left vertebral artery. Peak systolic velocity within the left vertebral artery is 53 cm/s. All stenosis measurement based on velocity criteria. IMPRESSION: 1. Correlation with CTA or MRA may be helpful as the current exam is limited. The mid and distal internal carotid arteries were sought but could not be imaged due to the relatively short neck and high bifurcations.. 2. Moderate stenosis, 50-69%, in the proximal left internal carotid artery. 3. No hemodynamically significant narrowing within the proximal right internal carotid artery. 4. Antegrade flow within both vertebral arteries. COMMENT: Carotid Stenosis Reference using SRU criteria: Mild: less than 50% stenosis. ICA PSV is less than 125 cm/second and plaque or intimal thickening is visible. Moderate: 50-69% stenosis. ICA PSV is 125 to 230 cm/second and plaque is visible. Severe: 70-94% stenosis. ICA PSV is more than 230 cm/second and visible plaque and lumen narrowing are seen. Near occlusion: 95-99% stenosis. ICA PSV is variable and significant plaque and luminal narrowing are seen. Occluded: 100% stenosis. No flow identified. Electronically signed by: Troy Carvajal On 03/15/2019 08:11:54 AM
[2019-03-15] MEDS: LEVEMIR (INSULIN DETEMIR) 1 UNITS/0.01ML SC SCH (08:15)
[2019-03-15] MEDS ORDERED: metFORMIN XR 750 MG TAB PO SCH (09:00)
[2019-03-15] MEDS ORDERED: FUROSEMIDE 40 MG TAB PO SCH (09:00)
[2019-03-15] MEDS ORDERED: QUINAPRIL 20 MG TAB PO SCH (09:00)
[2019-03-15] MEDS ORDERED: ENOXAPARIN 30 MG/0.3 ML SYR (J1650) SC SCH (09:00)
[2019-03-15] MEDS ORDERED: glipiZIDE XL 5 MG TABCR PO SCH (09:00)
[2019-03-15] MEDS: DOCUSATE SODIUM 100 MG CAP PO SCH ×2 (09:53→20:37)
[2019-03-15] MEDS: PROBENECID 500 MG TAB PO SCH ×2 (09:53→20:39)
[2019-03-15] MEDS: ASPIRIN 81 MG ENTERIC TAB PO SCH (09:53)
[2019-03-15] MEDS: METOPROLOL TART 50 MG TAB PO SCH ×2 (09:54→20:38)
[2019-03-15] MEDS: CILOSTAZOL 100 MG TAB (PLETAL) PO SCH ×2 (09:54→20:38)
[2019-03-15] MEDS: GABAPENTIN 300 MG CAP PO SCH ×2 (09:54→20:37)
--- NOTE | 2019-03-15 11:48 | IPNPDOC ---
Date Seen The patient was seen on 03/15/19. Progress Note SUBJECTIVE: Patient is a 73-year-old white male with past medical history of hypertension, hyperlipidemia, peripheral vascular disease, chronic kidney disease stage 4, s/p below knee amputation, Left big toe gangrene, Type 2 Diabetes Mellitus, history of [place] palsy, and obesity presented to the ER due to syncope. Mr. Randall states that he was home last night sitting in his wheelchair where he must have lost consciousness because he was woken up by his son who found him on the floor. Mr. Randall cannot give a specific time when this occurred. She states that after he regained consciousness he was shaking and noticed that his left great toe was bleeding. He decided to present to the emergency room. Mr. Randall states that he has night sweats and chills on a regular basis. He denies having similar episodes of syncope in the past. He did not have chest pain, palpitations, shortness of breath, nausea, vomiting, numbness, tingling, or chest pain. Patient was examined in the emergency room. He was laying on a gurney and was moderately alert. He answered questions comfortably in full sentences. Mr. Randall states that he has a dull headache (1/10 pain) that is centered around his forehead. His gangrenous left big toe was causing him pain last night but is now well controlled. He denies chest pain, palpitations, fever, Shortness of breath, or abdominal pain. OBJECTIVE PHYSICAL EXAMINATION: VITAL SIGNS: Please see below. GENERAL: obese white male lying in bed, he was alert and oriented to his surroundings. HEENT: Decreased visual acuity, patient had difficulty focusing on finger while gauging EOMI. Poor dentition noted. Pupils were constricted. Not able to assess for JVD. CARDIOVASCULAR: 2/6 systolic murmur that radiates to carotids best heard in right 2nd ICS, tachycardic, normal S1S2 RESPIRATORY: clear to auscultation bilaterally ABDOMINAL: morbid obesity, nontender to palpation, hyperactive bowel sounds EXTREMITIES: Below knee amputation of right leg, gangrenous left big toe noted, left foot is warm to the touch and red. NEUROLOGICAL: CNII-XII intact, CNII and III sluggish, patient had difficulty focusing on finger while gauging EOMI. PSYCHOLOGICAL: normal affect LABORATORY DATA, IMAGING STUDIES, MICROBIOLOGY: Please see below. 1. Head CT 03/14/19: No evidence of acute territorial major vessel infarct, mass effect, or hemorrhage. Global parenchymal volume loss. 2. Vascular ultrasound 03/15/19: 1. Correlation with CTA or MRA may be helpful as the current exam is limited. The mid and distal internal carotid arteries were sought but could not be imaged due to the relatively short neck and high bifurcations.. 2. Moderate stenosis, 50-69%, in the proximal left internal carotid artery. 3. No hemodynamically significant narrowing within the proximal right internal carotid artery. 4. Antegrade flow within both vertebral arteries. DVT prophylaxis ordered?: Yes, lovenox ASSESSMENT AND PLAN: Patient is a 73-year-old white male with past medical history of hypertension, hyperlipidemia, peripheral vascular disease, chronic kidney disease stage 4, s/p below knee amputation, Left big toe gangrene, Type 2 Diabetes Mellitus, History of Herrera's palsy, and obesity PROBLEMS: 1. Syncope likely 2/2 to cardiac etiology or vasovagal -Monitoring on 48 hour telemetry -Head CT and carotid doppler scheduled for 03/14 and 03/15 -Echocardiogram ordered -Trending troponin, was 0.78 on 03/14/19 2. Chronic type 2 diabetes mellitus -Patient has foot ulcer and gangrene of left big toe -Carbohydrate consistent diet -c/w home medications -finger stick blood sugar check before every meal and at bedtime with coverage. 3. Left toe gangrene 2/2 to chronic T2DM -Consult Dr. Evangelista -Patient was seen previously by vascular surgery, surgical intervention was not recommended at that time. He will be re-evaluated b Dr. Evangelista. -c/w oxycodone and Tylenol as needed for pain 4. Anemia -Patient has history of normocytic anemia -monitor H&H -Hgb 8.3 -Will give 2 units PRBC transfusion -Complete anemia work-up ordered 5. Hypertension -Patient's blood pressure is elevated -c/w home medications 6. Chronic kidney disease stage 4 -Bun 64, Creatinine 4.56, GFR 13.3 -Holding diuretics 7. Hyperlipidemia DISPOSITION: Patient is stable and comfortable. Completing full syncope workup. We appreciate Nephrology and Dr. Evangelista for their input. VS, I&O, 24H, Fishbone Vital Signs/I&O Vital Signs Date Time Temp Pulse Resp B/P (MAP) Pulse Ox O2 Delivery O2 Flow Rate FiO2 03/15/19 10:15 156/81 (106) 03/15/19 10:11 105 99 03/15/19 08:41 20 03/15/19 06:55 Nasal Cannula 2.0 03/14/19 23:13 99.7 Laboratory Data 24H LABS Laboratory Tests 2 03/14/19 23:00: Immature Granulocyte % (Auto) 0.6, White Blood Count 10.5H, Red Blood Count 2.73L, Hemoglobin 8.3L, Hematocrit 25.5L, Mean Corpuscular Volume 93.4, Mean Corpuscular Hemoglobin 30.4, Mean Corpuscular Hemoglobin Concent 32.5, Red Cell Distribution Width 13.6, Platelet Count 220, Neutrophils (%) (Auto) 82.2H, Lymphocytes (%) (Auto) 8.4L, Monocytes (%) (Auto) 8.4H, Eosinophils (%) (Auto) 0.2, Basophils (%) (Auto) 0.2, Neutrophils # (Auto) 8.7H, Lymphocytes # (Auto) 0.9L, Monocytes # (Auto) 0.9H, Eosinophils # (Auto) 0.0, Basophils # (Auto) 0.0, Nucleated Red Blood Cells % (auto) 0.0, Anion Gap 9, Glomerular Filtration Rate 13.3L, Lactic Acid Level 0.9, Blood Urea Nitrogen 64H, Creatinine 4.65H, Sodium Level 141, Potassium Level 4.3, Chloride Level 112H, Carbon Dioxide Level 20L, Calcium Level 8.2L, Total Creatine Kinase 696H, Creatine Kinase MB 4.1H, Creatine Kinase MB Relative Index 0.59, Troponin I 0.78H, Thyroid Stimulating Hormone (TSH) 0.688 03/14/19 23:33: Bedside Glucose (Misc Panel) 110 03/15/19 08:09: Bedside Glucose (Misc Panel) 48L 03/15/19 08:31: Bedside Glucose (Misc Panel) 70L 03/15/19 10:05: Bedside Glucose (Misc Panel) 134H CBC/BMP Laboratory Tests 03/14/19 23:00 Red Blood Count 2.73 L, Mean Corpuscular Volume 93.4, Mean Corpuscular Hemoglobin 30.4, Mean Corpuscular Hemoglobin Concent 32.5, Red Cell Distribution Width 13.6, Neutrophils (%) (Auto) 82.2 H, Lymphocytes (%) (Auto) 8.4 L, Monocytes (%) (Auto) 8.4 H, Eosinophils (%) (Auto) 0.2, Basophils (%) (Auto) 0.2, Neutrophils # (Auto) 8.7 H, Lymphocytes # (Auto) 0.9 L, Monocytes # (Auto) 0.9 H, Eosinophils # (Auto) 0.0, Basophils # (Auto) 0.0, Calcium Level 8.2 L, Total Creatine Kinase 696 H GME ATTESTATION GME ATTESTATION My faculty preceptor for this patient encounter was physically present during the encounter and was fully available. All aspects of the patient interview, examination, medical decision making process, and medical care plan development were reviewed and approved by the faculty preceptor. The faculty preceptor is aware and concurs with the plan as stated in the body of this note and will a ttest to such by his/her cosignature. ATTENDING NOTE I, Javier Hart, have independently examined this patient and performed my own physical exam, as well as reviewed the documentation and edited where necessary. I have discussed in detail with the resident / student the findings and plan of treatment as documented by the resident / student and edited their note. I agree with their findings and treatment plan and have edited their documentation. I will continue to follow the patient during this hospital stay. ANNIE HUFFMAN OMS-3 Mar 15, 2019 11:48 JAVIER HART MD Mar 15, 2019 16:49
[2019-03-15 14:53] LABS: CK-MB VALUE MASS 8.7 NG/ML (<3.6); MB/CK RELATIVE INDEX 0.51 (< OR =4); TROPONIN I 0.61 NG/ML (< 0.10)
[2019-03-15 15:10] VITALS: BP 147/65
--- NOTE | 2019-03-15 16:58 | CR.PDOC ---
General Date of Consultation: Mar 15, 2019 Consultation Consultation Vascular Surgery Dr vEangelista REASON FOR CONSULTATION: Gangrenous wound left foot HPI: Patient is a 73-year-old male, presenting to the ED related to syncopal episode. The patient was seen 02/02 for consultation for left foot ulcer. The patient has been noted to have dry gangrene of the left great toe, the great toe was felt to be auto amputating and was being monitored. He was due to follow back up in vascular surgery office 03/23/19. The patient had also been referred to Dr. Hernandez however apparently he did not keep the appointment. He was also evaluated by Dr. Reece, infectious disease. The patient states that he began to notice increasing fatigue over the weekend. He apparently did not notice his left foot appearing worse. He doesn't know when that happened and states possibly over the weekend. With reviewing the records it is noted the patient was seen in the emergency department 03/11/19 reporting increasing left lower extremity pain. The patient was discharged and was advised to follow-up with Dr. Evangelista's office within 3 days. Vascular surgery was consulted regarding gangrenous left foot wound. Denies any fevers, weakness, fatigue, Headache, Chest Pain, Shortness of breath, cough, palpitations, abdominal pain, N/V/D or changes in bowel or bladder habits PMH peripheral arterial disease, hypertension, chronic kidney disease stage IV, type 2 diabetes mellitus, obesity. BMI 33.9 Surgical History Right BKA Appendectomy Hernia repair Significant Family History: No pertinent family hx Social History Quit tobacco 2 years ago, and denies alcohol use ROS: As noted in HPI, otherwise 11pt ROS of systems reviewed and unremarkable. PE: GEN: 73yoM, No acute distress. Alert and oriented 3. Pleasant. HEENT NC/AT. Moist mucous membranes. Chest. Clear to auscultation Heart S1-S2 regular rate and rhythm. Abdomen round, soft, nontender. Bowel sounds present. Rt BKA. lt foot with gangrenous left great toe and left second toe extending beyond the base of the first toe with erythema extending to the mid foot area. DP/PT Pulses are monophasic. Mild edema. A&P: 1. Gangrenous left foot wound. S/P angiogram as per Dr Evangelista 01/24/19. No intervention, distal small vessel disease Lt foot. Previously the patient was felt not to be a good surgical candidate and the toe appeared to be auto amputating therefore was continued to be monitored. On exam today, left foot is appearing worse with extension of the left great toe gangrene proximal to the base of the toe as well as to the left second toe, with erythema to the mid foot area. Recommendation for IV antibiotics reviewed with hospitalist. Imaging Lt foot pending. Tentative Plan as discussed with Dr. Evangelista for stabilization of infection and consider surgical intervention. 2. CKD SCr 4.65 Previous Baseline appears to be 1.8-2.0. Patient is felt to be mildly fluid overloaded at this time, by mouth Lasix is ordered as per primary team. 3. Anemia. Hemoglobin is noted to be 8.3 FOB pending. Further labs pending. Management as per primary team. 4. Syncopal episode. PCU/TM. MRI brain pending. Echocardiogram pending. Serial cardiac enzymes requested. Continue management as per primary team. DVT prophylaxis. SQ Heparin. Vital Signs/I&O Vital Signs Date Time Temp Pulse Resp B/P (MAP) Pulse Ox O2 Delivery O2 Flow Rate FiO2 03/15/19 15:10 98.7 98 20 147/65 (92) 99 2.0 03/15/19 06:55 Nasal Cannula Laboratory Data Labs 24H Laboratory Tests 2 03/14/19 23:00: Immature Granulocyte % (Auto) 0.6, White Blood Count 10.5H, Red Blood Count 2. 73L, Hemoglobin 8.3L, Hematocrit 25.5L, Mean Corpuscular Volume 93.4, Mean Corpuscular Hemoglobin 30.4, Mean Corpuscular Hemoglobin Concent 32.5, Red Cell Distribution Width 13.6, Platelet Count 220, Neutrophils (%) (Auto) 82.2H, Lymphocytes (%) (Auto) 8.4L, Monocytes (%) (Auto) 8.4H, Eosinophils (%) (Auto) 0.2, Basophils (%) (Auto) 0.2, Neutrophils # (Auto) 8.7H, Lymphocytes # (Auto) 0.9L, Monocytes # (Auto) 0.9H, Eosinophils # (Auto) 0.0, Basophils # (Auto) 0.0, Nucleated Red Blood Cells % (auto) 0.0, Anion Gap 9, Glomerular Filtration Rate 13.3L, Lactic Acid Level 0.9, Blood Urea Nitrogen 64H, Creatinine 4.65H, Sodium Level 141, Potassium Level 4.3, Chloride Level 112H, Carbon Dioxide Level 20L, Calcium Level 8.2L, Total Creatine Kinase 696H, Creatine Kinase MB 4.1H, Creatine Kinase MB Relative Index 0.59, Troponin I 0.78H, Thyroid Stimulating Hormone (TSH) 0.688 03/14/19 23:33: Bedside Glucose (Misc Panel) 110 03/15/19 08:09: Bedside Glucose (Misc Panel) 48L 03/15/19 08:31: Bedside Glucose (Misc Panel) 70L 03/15/19 10:05: Bedside Glucose (Misc Panel) 134H 03/15/19 13:28: Bedside Glucose (Misc Panel) 152H 03/15/19 13:47: Total Creatine Kinase 1708#H, Creatine Kinase MB 8.7H, Creatine Kinase MB Relative Index 0.51, Troponin I 0.61#H 03/15/19 15:23: Bedside Glucose (Misc Panel) 150H CBC/BMP Laboratory Tests 03/14/19 23:00 Red Blood Count 2.73 L, Mean Corpuscular Volume 93.4, Mean Corpuscular Hemoglobin 30.4, Mean Corpuscular Hemoglobin Concent 32.5, Red Cell Distribution Width 13.6, Neutrophils (%) (Auto) 82.2 H, Lymphocytes (%) (Auto) 8.4 L, Monocytes (%) (Auto) 8.4 H, Eosinophils (%) (Auto) 0.2, Basophils (%) (Auto) 0.2, Neutrophils # (Auto) 8.7 H, Lymphocytes # (Auto) 0.9 L, Monocytes # (Auto) 0.9 H, Eosinophils # (Auto) 0.0, Basophils # (Auto) 0.0, Calcium Level 8.2 L, Total Creatine Kinase 696 H Allergies Coded Allergies: codeine (Verified Adverse Reaction, Mild, GI upset, 01/16/19) Home Medications Scheduled Aspirin (Aspirin EC) 81 Mg Tab, 81 MG PO DAILY, (Reported) Cilostazol (Cilostazol) 100 Mg Tablet, 100 MG PO BID, (Reported) Furosemide (Furosemide) 40 Mg Tablet, 80 MG PO 3XW, (Reported) MON, WED, FRI Furosemide (Furosemide) 40 Mg Tablet, 40 MG PO 4XWK, (Reported) SUN, S[place], THJOSIAS, SAT Gabapentin (Gabapentin) 300 Mg Cap, 300 MG PO BID, (Reported) Glipizide (Glipizide ER) 10 Mg Tab, 10 MG PO DAILY, (Reported) Insulin Glargine,Hum.rec.anlog (Lantus Solostar) 100 Unit/Ml Inj, 75 UNITS SC DAILY, (Reported) Metformin HCl (Metformin HCl ER) 750 Mg Tab, 750 MG PO DAILY, (Reported) Metoprolol Tartrate (Metoprolol Tartrate) 50 Mg Tab, 50 MG PO BID, (Reported) Probenecid (Probenecid) 500 Mg Tab, 500 MG PO BID, (Reported) Quinapril Hcl (Quinapril HCl) 20 Mg Tab, 20 MG PO DAILY, (Reported) Scheduled PRN Hydrocodone/Acetaminophen (Hydrocodone-Acetamin 7.5-325) 1 Tab Tab, 1 TAB PO Q6H PRN for PAIN, (Reported) Oxycodone HCl/Acetaminophen (Percocet 5-325 mg Tablet) 1 Each Tablet, 1 TAB PO Q6H PRN for PAIN, (Reported) Milly Goss Mar 15, 2019 16:58
[2019-03-15] MEDS ORDERED: NS 1,000 ML IV SCH (17:15)
[2019-03-15] MEDS ORDERED: VANCOMYCIN HCL 750 MG, VIAL MATE ADAPTER 1 EACH in D5W 250 ML IV SCH (17:15)
[2019-03-15] MEDS: PIPERACILLIN/TAZOBACTAM SOD 2.25 GM in D5W MINI-BAG PLUS 50 ML IV SCH (17:58)
[2019-03-15 20:00] VITALS: BP 115/58
[2019-03-15] MEDS ORDERED: VANCOMYCIN HCL 1,000 MG, VIAL MATE ADAPTER 1 EACH in D5W 250 ML IV ONE (20:00)
[2019-03-15 20:59] LABS: HEMATOCRIT 27.8 % (42.0-52.0); HEMOGLOBIN 8.9 g/dl (13.5-17.5); MEAN CORPUSCULAR HEMOGLOBIN 29.8 pg (27.0-33.0); PLATELET COUNT, AUTOMATED 225 10^3/uL (150-450); RED BLOOD COUNT 2.99 10^6/uL (4.30-6.10); WHITE BLOOD COUNT 7.8 10^3/uL (4.0-10.0)
[2019-03-15 21:14] LABS: CALCIUM LEVEL 8.9 MG/DL (8.8-10.2); CREATININE FOR GFR 4.04 MG/DL (0.70-1.30); GLOMERULAR FILTRATION RATE 15.7 (>42); POTASSIUM SERUM 4.2 MEQ/L (3.5-5.1)
[2019-03-15 21:20] VITALS: BP 132/70
--- NOTE | 2019-03-15 22:20 | PHACANCOPD ---
PHARMACY VANCOMYCIN DOSING Pt Demographics Demographics Patient Age:73 , Weight:94.300 , Gender: male Adjusted Body Weight Events Past 24 Hours Events Past 24 Hours: YES: Dialysis, Diuretic Therapy, Change in CrCl, Fever, Elevation in WBC, Pending Diagnostics, Pending Procedures, Other Vancomycin Vancomycin indication: Diabetic foot Vancomycin Target Ranges: 10-20 mcg/ml Vancomycin Load Y/N: Yes Load Dose Date Time Vancomycin Load Dose: 1gm Date: 03/15/19 Time: 20:30 Vancomycin Dose Date: 03/16/19. Current Vancomycin Dose: [1gm iv q24h (08:00)] Intermittent Dosing?: No Labs Labs Laboratory Tests 03/14/19 23:00 Red Blood Count 2.73 L, Mean Corpuscular Volume 93.4, Mean Corpuscular Hemoglobin 30.4, Mean Corpuscular Hemoglobin Concent 32.5, Red Cell Distribution Width 13.6, Neutrophils (%) (Auto) 82.2 H, Lymphocytes (%) (Auto) 8.4 L, Monocytes (%) (Auto) 8.4 H, Eosinophils (%) (Auto) 0.2, Basophils (%) (Auto) 0.2, Neutrophils # (Auto) 8.7 H, Lymphocytes # (Auto) 0.9 L, Monocytes # (Auto) 0.9 H, Eosinophils # (Auto) 0.0, Basophils # (Auto) 0.0, Calcium Level 8.2 L, Total Creatine Kinase 696 H 03/15/19 20:45 Red Blood Count 2.99 L, Mean Corpuscular Volume 93.0, Mean Corpuscular Hemoglobin 29.8, Mean Corpuscular Hemoglobin Concent 32.0, Red Cell Distribution Width 13.7, Calcium Level 8.9 Micro Microbiology 03/15/19 Blood Culture, Received Pending 03/15/19 Blood Culture, Received Pending Creatinine Clearance Date:03/15/19. Creatinine Clearance: [>10ml/min]. Assessment and Plan Maintaining Current Dose?: Yes Reason for dose change: No Dose Change Pharmacist Note Pharmacist Note Date: 03/15/19. PharmD note:GAVE 1GM IV VANCO AT 20:30 THIS EVENING; WE WILL CONTINUE VANCO 1GM IV Q24H STARTING 03/16 @ 08:00. DEPENDING ON SERUM CREATINE TRENDS WE WILLL OBTAIN A VANCO TROUGH ON THURSDAY [facility] Mar 15, 2019 22:20
[2019-03-15] MEDS ORDERED: FUROSEMIDE 40 MG/4 ML VIAL (J1940) IV ONE (22:30)
--- NOTE | 2019-03-15 23:25 | REPVR ---
EXAM: XR Abdomen, 1 View EXAM DATE/TIME: 03/15/2019 10:54 PM CLINICAL HISTORY: 73 years old, male; Bloating; Additional info: Distention TECHNIQUE: Imaging protocol: Frontal supine view of the abdomen/pelvis. COMPARISON: RENAL US 01/18/2019 4:12 PM FINDINGS: Gastrointestinal tract: Multiple prominent slightly thickened gas-filled small and large bowel. Findings may represent inflammation versus infection/ ileus. No radiographic evidence of obstruction. Vascular calcifications. Intraperitoneal space: No free air. Bones/joints: Unremarkable for age. Other findings: Degenerative changes. IMPRESSION: Multiple prominent slightly thickened gas-filled small and large bowel. Findings may represent inflammation versus infection/ ileus. No radiographic evidence of obstruction Electronically signed by: Opal Amaro On 03/15/2019 23:25:33 PM
--- NOTE | 2019-03-15 23:27 | REPVR ---
EXAM: XR Chest, 1 View EXAM DATE/TIME: 03/15/2019 8:50 PM CLINICAL HISTORY: 73 years old, male; Other: Fine crackles/ fluid overload; Additional info: Fine crackles/fluid overload TECHNIQUE: Imaging protocol: XR of the chest, 1 view. COMPARISON: CR Chest, 2 view PA, Lat 06/10/2018 3:00 PM FINDINGS: Lungs: Low lung volumes. Left retrocardiac density may represent atelectasis versus infection. Mild right base atelectasis. Pleural space: Unremarkable. No pleural effusion. No pneumothorax. Heart/Mediastinum: Cardiomegaly. Bones/joints: Degenerative changes. IMPRESSION: Low lung volumes. Left retrocardiac density may represent atelectasis versus infection. Mild right base atelectasis. Electronically signed by: Opal Amaro On 03/15/2019 23:26:29 PM
[2019-03-15] MEDS ORDERED: SENNA 8.6 MG TAB (SENOKOT) PO ONE (23:45)
[2019-03-15] MEDS ORDERED: BISACODYL 10 MG SUPP PR ONE (23:45)
--- NOTE | 2019-03-15 23:48 | IPNPDOC ---
Text Note Date of Service The patient was seen on 03/15/19. NOTE Patient was ordered for PRBC by day team. However HH 8.9 tonight. Also patent seems to be volume overloaded. Cancelled PRBC transfusion. Stopped IVF, Lasix 80 mg iv once, lemus. His abdomen is also distended but soft and has bowel sounds. Abdominal xray showed distended gas filled loops no obstruction but looks like ileus. Will put on a bowel regimen. Renal function remains bad stopped quinapril and changed lovenox to heparin VS,Fishbone, I+O VS, Fishbone, I+O Laboratory Tests 03/15/19 20:45 Red Blood Count 2.99 L, Mean Corpuscular Volume 93.0, Mean Corpuscular Hemoglobin 29.8, Mean Corpuscular Hemoglobin Concent 32.0, Red Cell Distribution Width 13.7, Calcium Level 8.9 Vital Signs Date Time Temp Pulse Resp B/P (MAP) Pulse Ox O2 Delivery O2 Flow Rate FiO2 03/15/19 20:38 110 132/63 03/15/19 15:10 98.7 20 99 2.0 03/15/19 06:55 Nasal Cannula BHAVANA CHU MD Mar 15, 2019 23:48
[2019-03-15 23:59] VITALS: BP 142/72
[2019-03-16] VITALS (9 sets, daily range): BP systolic 102–130; BP diastolic 52–80
[2019-03-16] MEDS: PIPERACILLIN/TAZOBACTAM SOD 2.25 GM in D5W MINI-BAG PLUS 50 ML IV SCH ×4 (00:22→19:04)
[2019-03-16 05:49] LABS: HEMATOCRIT 25.8 % (42.0-52.0); HEMOGLOBIN 8.4 g/dl (13.5-17.5); MEAN CORPUSCULAR HEMOGLOBIN 29.5 pg (27.0-33.0); MEAN CORPUSCULAR HGB CONC 32.6 g/dl (32.0-36.5); MEAN CORPUSCULAR VOLUME 90.5 fl (80.0-96.0); PLATELET COUNT, AUTOMATED 242 10^3/uL (150-450); RED BLOOD COUNT 2.85 10^6/uL (4.30-6.10); WHITE BLOOD COUNT 8.8 10^3/uL (4.0-10.0)
[2019-03-16 06:12] LABS: ALBUMIN 2.6 GM/DL (3.2-5.2); BILIRUBIN,DIRECT 0.3 MG/DL (0.0-0.2); BILIRUBIN,TOTAL 0.4 MG/DL (0.2-1.0); CALCIUM LEVEL 8.4 MG/DL (8.8-10.2); CREATININE FOR GFR 3.9 MG/DL (0.70-1.30); GLOMERULAR FILTRATION RATE 16.3 (>42); MAGNESIUM LEVEL 3.1 MG/DL (1.8-2.4); PERCENT SATURATION 6.7 % (19.7-50.0); POTASSIUM SERUM 4.3 MEQ/L (3.5-5.1); TOTAL PROTEIN 6.7 GM/DL (6.4-8.2)
[2019-03-16] MEDS: VANCOMYCIN HCL 1,000 MG, VIAL MATE ADAPTER 1 EACH in D5W 250 ML IV SCH (08:14)
[2019-03-16] MEDS ORDERED: IPRATROPIUM 0.5MG/ALBUTEROL 2.5MG INH SOL UD 3ML (DUONEB)(J7620) NEB PRN (08:30)
[2019-03-16] MEDS: amLODIPine 10 MG TAB PO SCH (09:00)
[2019-03-16] MEDS ORDERED: FUROSEMIDE 40 MG TAB PO SCH (09:00)
[2019-03-16] MEDS: MOM 30ML SUSPENSION UDC PO SCH (09:00)
[2019-03-16] MEDS ORDERED: FUROSEMIDE 80 MG TAB PO SCH (09:00)
[2019-03-16] MEDS: BISACODYL 10 MG SUPP PR SCH ×2 (09:00→20:10)
[2019-03-16] MEDS: METOPROLOL TART 50 MG TAB PO SCH ×2 (09:03→20:09)
[2019-03-16] MEDS: HumaLOG INSULIN (NovoLOG) PER UNIT SC SCH ×4 (09:03→19:52)
[2019-03-16] MEDS: PROBENECID 500 MG TAB PO SCH ×2 (09:03→20:06)
[2019-03-16] MEDS: ASPIRIN 81 MG ENTERIC TAB PO SCH (09:04)
[2019-03-16] MEDS: GABAPENTIN 300 MG CAP PO SCH ×2 (09:04→20:06)
[2019-03-16] MEDS: SENOKOT S TAB PO SCH ×2 (09:04→20:07)
[2019-03-16] MEDS: LEVEMIR (INSULIN DETEMIR) 1 UNITS/0.01ML SC SCH (09:05)
[2019-03-16] MEDS: CILOSTAZOL 100 MG TAB (PLETAL) PO SCH ×2 (09:05→20:07)
[2019-03-16] MEDS: NS 1,000 ML IV SCH ×2 (09:06→20:10)
[2019-03-16] MEDS: HEPARIN SOD (PORCINE) 5000 UNITS/ML VIAL SQ SCH ×2 (11:05→20:07)
--- NOTE | 2019-03-16 11:36 | IPNPDOC ---
Date Seen The patient was seen on 03/16/19. Progress Note SUBJECTIVE: Patient is a 73-year-old white male with past medical history of hypertension, hyperlipidemia, peripheral vascular disease, chronic kidney disease stage 4, s/p below knee amputation, Left big toe gangrene, Type 2 Diabetes Mellitus, history of [place] palsy, and obesity presented to the ER due to syncope. Mr. Randall states that he was home last night sitting in his wheelchair where he must have lost consciousness because he was woken up by his son who found him on the floor. Mr. Randall cannot give a specific time when this occurred. She states that after he regained consciousness he was shaking and noticed that his left great toe was bleeding. He decided to present to the emergency room. Mr. Randall states that he has night sweats and chills on a regular basis. He denies having similar episodes of syncope in the past. He did not have chest pain, palpitations, shortness of breath, nausea, vomiting, numbness, tingling, or chest pain. Patient is examined at bedside. Mr. Randall appears flushed and is not as alert as he was yesterday. He states that he feels warm but not feverish and has not had chills. His left leg has 1+ pitting edema and is warm to the touch. Today he is tachycardic and tachypneic using abdominal muscles to breath. On visual inspection, maggots are noted on the interior and exterior of the gangrenous left great toe. The maggots were not noted yesterday and may have hatched overnight. The second left toe is dark purple in coloration. He denies nausea, vomiting, chest pain, shortness of breath, dizziness, or syncope. He continues to be afebrile. OBJECTIVE PHYSICAL EXAMINATION: VITAL SIGNS: Please see below. GENERAL: obese white male lying in bed, he was alert and oriented to his surroundings. HEENT: Decreased visual acuity, patient had difficulty focusing on finger while gauging EOMI. Poor dentition noted. Pupils were constricted. Not able to assess for JVD due to patient body habitus. CARDIOVASCULAR: 2/6 systolic murmur that radiates to carotids best heard in right 2nd ICS, tachycardic, normal S1S2 RESPIRATORY: clear to auscultation bilaterally, tachypneic, breathing using abdominal muscles ABDOMINAL: morbid obesity, nontender to palpation, hyperactive bowel sounds EXTREMITIES: Below knee amputation of right leg, gangrenous left big toe noted, left foot is warm to the touch and red. Pulses 2+ throughout with exception of left dorsalis pedis which was 1+. NEUROLOGICAL: CNII-XII intact, CNII and III sluggish, patient had difficulty focusing on finger while gauging EOMI. PSYCHOLOGICAL: normal affect LABORATORY DATA, IMAGING STUDIES, MICROBIOLOGY: Please see below. 1. Head CT 03/14/19: No evidence of acute territorial major vessel infarct, mass effect, or hemorrhage. Global parenchymal volume loss. 2. Vascular ultrasound 03/15/19: 1. Correlation with CTA or MRA may be helpful as the current exam is limited. The mid and distal internal carotid arteries were sought but could not be imaged due to the relatively short neck and high bifurcations.. 2. Moderate stenosis, 50-69%, in the proximal left internal carotid artery. 3. No hemodynamically significant narrowing within the proximal right inte rnal carotid artery. 4. Antegrade flow within both vertebral arteries. 3. Chest X-ray 03/15/19: Low lung volumes. Left retrocardiac density may represent atelectasis versus infection. Mild right base atelectasis 4. Abdominal X-ray 03/15/19: Multiple prominent slightly thickened gas-filled small and large bowel. Findings may represent inflammation versus infection/ ileus. No radiographic evidence of obstruction. Echocardiogram: ordered DVT prophylaxis ordered?: Yes, heparin ASSESSMENT AND PLAN: Patient is a 73-year-old white male with past medical history of hypertension, hyperlipidemia, peripheral vascular disease, chronic kidney disease stage 4, s/p below knee amputation, Left big toe gangrene, Type 2 Diabetes Mellitus, History of Herrera's palsy, and obesity PROBLEMS: 1. Left toe gangrene 2/2 to chronic T2DM -Maggots noted in Left great toe on inspection. Second toe also necrotic. -MRI of foot ordered; patient scheduled for metatarsal amputation this pm -Venous blood cultures are pending -Started on Vancomycin and Zosyn, monitoring for infection and sepsis -c/w oxycodone and Tylenol as needed for pain -Patient started on IV fluids 80ml/hr -Consulted Dr. Evangelista, stabilizing patient - Patient is scheduled for transmetatarsal amputation with vascular surgery today Syncope likely 2/2 to cardiac etiology or vasovagal -Monitoring on 48 hour telemetry -Head CT and carotid doppler imaging above -Echocardiogram ordered -Trending troponin, was 0.78 on 03/14/19 Chronic type 2 diabetes mellitus -Patient has foot ulcer and gangrene of left big toe and second toe -Carbohydrate consistent diet -c/w home medications -finger stick blood sugar check before every meal and at bedtime with coverage. Anemia -Patient has history of normocytic anemia -monitor H&H -Hgb 8.4 -Will transfuse 1 unit PRBC -Complete anemia work-up ordered Hypertension -Patient's blood pressure is controlled -c/w [facility] Chronic kidney disease stage 4 -Bun 71, Creatinine 3.90, GFR 16.3 -Patient given one dose lasix last night -Holding diuretics Hyperlipidemia DISPOSITION: - Patient is stable and prognosis is guarded. Monitoring patient for infection. Duoneb ordered to aid patient's breathing. - Dr. Evangelista has been consulted and a MRI has been ordered for left foot. Patient is scheduled for metatarsal amputation this pm. VS, I&O, 24H, Fishbone Vital Signs/I&O Vital Signs Date Time Temp Pulse Resp B/P (MAP) Pulse Ox O2 Delivery O2 Flow Rate FiO2 03/16/19 09:03 114 128/65 03/16/19 08:00 98.0 22 94 2.0 03/15/19 06:55 Nasal Cannula I&O- Last 24 Hours up to 6 AM 03/16/19 06:00 Intake Total 570 ml Output Total 1300 ml Balance -730 ml Laboratory Data 24H LABS Laboratory Tests 2 03/15/19 13:28: Bedside Glucose (Misc Panel) 152H 03/15/19 13:47: Total Creatine Kinase 1708#H, Creatine Kinase MB 8.7H, Creatine Kinase MB Relative Index 0.51, Troponin I 0.61#H 03/15/19 15:23: Bedside Glucose (Misc Panel) 150H 03/15/19 20:45: Bedside Glucose (Misc Panel) 198H, Nucleated Red Blood Cells % (auto) 0.0, Anion Gap 9, Glomerular Filtration Rate 15.7L, Blood Urea Nitrogen 70H, Creatinine 4.04H, Sodium Level 142, Potassium Level 4.2, Chloride Level 113H, Carbon Dioxide Level 20L, Calcium Level 8.9 7/31/19 05:16: Reticulocyte # (auto) 20.2, Nucleated Red Blood Cells % (auto) 0.0, Percent Reticulocyte Count 0.7, Reticulocyte Hemoglobin Equivalent 23.6L, Anion Gap 8, Glomerular Filtration Rate 16.3L, Blood Urea Nitrogen 71H, Creatinine 3.90H, Sodium Level 141, Potassium Level 4.3, Chloride Level 112H, Carbon Dioxide Level 21, Calcium Level 8.4L, Aspartate Amino Transf (AST/SGOT) 64H, Alanine Aminotransferase (ALT/SGPT) 41, Alkaline Phosphatase 97, Total Bilirubin 0.4, Direct Bilirubin 0.3H, Total Protein 6.7, Albumin 2.6L, Magnesium Level 3.1H, Iron Level 11L, Total Iron Binding Capacity 163L, Transferrin % Saturation 6.7L, Ferritin 283, Albumin/Globulin Ratio 0.63L 03/16/19 08:48: Bedside Glucose (Misc Panel) 220H 03/16/19 09:11: Lactic Acid Level 0.5 CBC/BMP Laboratory Tests 03/15/19 20:45 Red Blood Count 2.99 L, Mean Corpuscular Volume 93.0, Mean Corpuscular Hemoglobin 29.8, Mean Corpuscular Hemoglobin Concent 32.0, Red Cell Distribution Width 13.7, Calcium Level 8.9 03/16/19 05:16 Red Blood Count 2.85 L, Mean Corpuscular Volume 90.5, Mean Corpuscular Hemoglobin 29.5, Mean Corpuscular Hemoglobin Concent 32.6, Red Cell Distribution Width 13.5, Calcium Level 8.4 L, Aspartate Amino Transf (AST/SGOT) 64 H, Alanine Aminotransferase (ALT/SGPT) 41, Alkaline Phosphatase 97, Total Bilirubin 0.4, Direct Bilirubin 0.3 H, Total Protein 6.7, Albumin 2.6 L Microbiology Microbiology 03/15/19 Blood Culture, Received Pending 03/15/19 Blood Culture, Received Pending GME ATTESTATION GME ATTESTATION My faculty preceptor for this patient encounter was physically present during the encounter and was fully available. All aspects of the patient interview, examination, medical decision making process, and medical care plan development were reviewed and approved by the faculty preceptor. The faculty preceptor is aware and concurs with the plan as stated in the body of this note and will attest to such by his/her cosignature. ATTENDING NOTE I, Javier Hart, have independently examined this patient and performed my own physical exam, as well as reviewed the documentation and edited where necessary. I have discussed in detail with the resident / student the findings and plan of treatment as documented by the resident / student and edited their note. I agree with their findings and treatment plan and have edited their documentation. I will continue to follow the patient during this hospital stay. ANNIE HUFFMAN OMS-3 Mar 16, 2019 11:36 JAVIER HART MD Mar 16, 2019 15:10
--- NOTE | 2019-03-16 11:49 | IPNPDOC ---
Date Seen The patient was seen on 03/16/19. Progress Note Vascular Surgery Dr Evangelista REASON FOR CONSULTATION: Gangrenous wound left foot HPI: Patient is a 73-year-old male, presenting to the ED related to syncopal episode. The patient was seen 02/02 for consultation for left foot ulcer. The patient has been noted to have dry gangrene of the left great toe, the great toe was felt to be auto amputating and was being monitored. He was due to follow back up in vascular surgery office 03/23/19. The patient had also been referred to Dr. Hernandez however apparently he did not keep the appointment. He was also evaluated by Dr. Reece, infectious disease. The patient states that he began to notice increasing fatigue over the weekend. He apparently did not notice his left foot appearing worse. He doesn't know when that happened and states possibly over the weekend. With reviewing the records it is noted the patient was seen in the emergency department 03/11/19 reporting increasing left lower extremity pain. The patient was discharged and was advised to follow-up with Dr. Evangelista's office within 3 days. Vascular surgery was consulted regarding gangrenous left foot wound. PMH peripheral arterial disease, hypertension, chronic kidney disease stage IV, type 2 diabetes mellitus, obesity. BMI 33.9 Surgical History Right BKA Appendectomy Hernia repair PE: GEN: 73yoM, No acute distress. Alert and oriented 3. HEENT NC/AT. Moist mucous membranes. Chest. Clear to auscultation Heart S1-S2 regular rate and rhythm. Abdomen round, soft, nontender. Bowel sounds present. Rt BKA. lt foot with gangrenous left great toe and left second toe extending beyond the base of the first toe with erythema extending to the mid foot area. Also this AM there is noted to be maggots in wound between first and second toes. DP/PT Pulses are monophasic. Mild edema. A&P: 1. Gangrenous left foot wound. S/P angiogram as per Dr Evangelista 01/24/19. No intervention, distal small vessel disease Lt foot. Previously the patient was felt not to be a good surgical candidate and the toe appeared to be auto amputating therefore was continued to be monitored. The left foot is appearing worse with extension of the left great toe gangrene proximal to the base of the toe as well as to the left second toe, with erythema to the mid foot area. Pt is afebrile. No leukocytosis. LA o.5. BC x 1 03/11 neg. BC x 2 03/15 pending IV antibiotics/IVF as per primary team. Imaging Lt foot pending. The pt is reviewed and discussed with Dr. Evangelista, discussed worsening appearance of wound and maggots, plan for debridement of left foot wound this PM. 2. CKD SCr 3.94 Previous Baseline appears to be 1.8-2.0. Patient is felt to be mildly fluid overloaded at this time, by mouth Lasix is ordered as per primary team. 3. Anemia. Hemoglobin is noted to be 8.4 FOB pending. Management as per primary team. 4. Syncopal episode. PCU/TM. CTH no acute changes. Echocardiogram pending. Serial cardiac enzymes. Continue management as per primary team. DVT prophylaxis. SQ Heparin. VS, I&O, 24H, Fishbone Vital Signs/I&O Vital Signs Date Time Temp Pulse Resp B/P (MAP) Pulse Ox O2 Delivery O2 Flow Rate FiO2 03/16/19 09:03 114 128/65 03/16/19 08:00 98.0 22 94 2.0 03/15/19 06:55 Nasal Cannula I&O- Last 24 Hours up to 6 AM 03/16/19 06:00 Intake Total 570 ml Output Total 1300 ml Balance -730 ml Laboratory Data 24H LABS Laboratory Tests 2 03/15/19 13:28: Bedside Glucose (Misc Panel) 152H 03/15/19 13:47: Total Creatine Kinase 1708#H, Creatine Kinase MB 8.7H, Creatine Kinase MB Relative Index 0.51, Troponin I 0.61#H 03/15/19 15:23: Bedside Glucose (Misc Panel) 150H 03/15/19 20:45: Bedside Glucose (Misc Panel) 198H, Nucleated Red Blood Cells % (auto) 0.0, Anion Gap 9, Glomerular Filtration Rate 15.7L, Blood Urea Nitrogen 70H, Creatinine 4.04H, Sodium Level 142, Potassium Level 4.2, Chloride Level 113H, Carbon Dioxid e Level 20L, Calcium Level 8.9 03/16/19 05:16: Reticulocyte # (auto) 20.2, Nucleated Red Blood Cells % (auto) 0.0, Percent Reticulocyte Count 0.7, Reticulocyte Hemoglobin Equivalent 23.6L, Anion Gap 8, Glomerular Filtration Rate 16.3L, Blood Urea Nitrogen 71H, Creatinine 3.90H, Sodium Level 141, Potassium Level 4.3, Chloride Level 112H, Carbon Dioxide Level 21, Calcium Level 8.4L, Aspartate Amino Transf (AST/SGOT) 64H, Alanine Aminotransferase (ALT/SGPT) 41, Alkaline Phosphatase 97, Total Bilirubin 0.4, Direct Bilirubin 0.3H, Total Protein 6.7, Albumin 2.6L, Magnesium Level 3.1H, Iron Level 11L, Total Iron Binding Capacity 163L, Transferrin % Saturation 6.7L, Ferritin 283, Albumin/Globulin Ratio 0.63L 03/16/19 08:48: Bedside Glucose (Misc Panel) 220H 03/16/19 09:11: Lactic Acid Level 0.5 CBC/BMP Laboratory Tests 03/15/19 20:45 Red Blood Count 2.99 L, Mean Corpuscular Volume 93.0, Mean Corpuscular Hemoglo bin 29.8, Mean Corpuscular Hemoglobin Concent 32.0, Red Cell Distribution Width 13.7, Calcium Level 8.9 03/16/19 05:16 Red Blood Count 2.85 L, Mean Corpuscular Volume 90.5, Mean Corpuscular Hemoglobin 29.5, Mean Corpuscular Hemoglobin Concent 32.6, Red Cell Distribution Width 13.5, Calcium Level 8.4 L, Aspartate Amino Transf (AST/SGOT) 64 H, Alanine Aminotransferase (ALT/SGPT) 41, Alkaline Phosphatase 97, Total Bilirubin 0.4, Direct Bilirubin 0.3 H, Total Protein 6.7, Albumin 2.6 L Microbiology Microbiology 03/15/19 Blood Culture, Received Pending 03/15/19 Blood Culture, Received Pending Milly Goss Mar 16, 2019 11:49
--- NOTE | 2019-03-16 15:46 | REP ---
MRI left foot without contrast: History: Question osteomyelitis versus cellulitis of the left great toe. The patient reports "black" toes with necrotic tissue. Comparison left foot MR study is from January 17, 2019. This showed a marrow edema pattern in the distal phalanx of the great toe. Comparison radiographs are from March 11, 2019. Technique: Axial, coronal and sagittal imaging planes are utilized. T1 and T2-weighted scans were obtained with and without fat saturation. MRI findings: The patient is status post osteotomy and amputation of the posterior aspect of the calcaneus. There is some overlying edematous soft tissue adjacent to this posteriorly and extending medially to the overlying skin consistent with fibrosis. There is contour deformity of the overlying skin and it is difficult to exclude a soft tissue ulcer. There is no fluid collection here suggesting that this represents fibrosis. No abscess is seen. In the mid foot and forefoot there is diffuse dorsal and volar soft tissue edema similar to the appearance on the prior study. Cortical and medullary bone signal intensity is normal in the tarsal bones and in the metatarsal bones of all five digits. There is fairly extensive deficit of soft tissue overlying the distal phalanx of the great toe on today's MR study particularly dorsally. There is soft tissue deficiency volar aspect of the great toe as well. There is decreased T1 signal intensity in the distal tuft of the great toe which is a new finding. This is consistent with osteomyelitis or conceivably osteonecrosis of the distal tuft itself. There is a mild T2 edema pattern in the distal end of the proximal phalanx of the great toe which is also a new finding. There is deficiency of the overlying soft tissue swelling in the distal third of the proximal phalanx of the great toe as well. Soft tissue deficiency is seen along the medial aspect of the great toe. Cortical and medullary bone signal intensity are otherwise normal. There is no other evidence of osteomyelitis. Impression: There appears to be exposed bone with soft tissue deficiency adjacent to the distal end of the proximal phalanx and the dorsal aspect of the entire distal phalanx of the great toe. Low T1 signal intensity in the distal tuft of the great toe suggests osteomyelitis. No abscess seen. Electronically Signed by Thompson Henry MD 03/16/2019 06:14 P
--- NOTE | 2019-03-16 15:53 | ECHO ---
DATE OF PROCEDURE: 03/16/2019 DATE OF : 1945 AGE: 73 GENDER: Male HEIGHT: 67 inches WEIGHT: 207 pounds BODY SURFACE AREA: 2.05 m2 INPATIENT: PCU Room 3216 REFERRING PHYSICIAN: Jerald Hammer MD INDICATION: Syncope. MEASUREMENTS: 2-D Measurements: RV: 3.8 cm LV: 4.2 cm Septum: 1.2 cm Posterior wall: 1.2 cm Aortic root: 3.3 cm LA: 4.1 cm LVEF: 65% Doppler Measurements: AV and LVOT are both off angle and inaccurate. LVOT diameter: 2.1 cm MV: E 116, A 131, EA ratio 0.9 Early mitral deceleration time: 303 ms Mean MV diastolic gradient: 2.3 mmHg E prime: 4.8, A prime: 8, E/E prime ratio: 24.3 PCWP: 21.7 mmHg PV: 0.75 m/s Pulmonary artery acceleration time: 92 ms RVSP: 38 mmHg IVC: 1.9 cm COMMENTS: Normal sinus rhythm without intraventricular conduction disturbance. Technically challenging study in light of the patient's body habitus but diagnostically useful information was still obtained. M-mode and two-dimensional echocardiography was performed with pulsed, continuous wave, color flow and tissue Doppler studies. Mild concentric left ventricle hypertrophy with normal wall motion. Mildly dilated left atrium with impairment of LV diastolic function and elevated mean left atrial pressure. Normal right heart chamber sizes and motion with Doppler evidence of mild pulmonary hypertension. Normal IVC size and collapse against an elevated central venous pressure. Severe thickening with reduced aortic cusp separation could not rule out severe aortic stenosis. Very mild aortic insufficiency. Moderate degenerative changes of the mitral valvular apparatus without inflow tract obstruction and only trace insufficiency. Normal appearing tricuspid valve with mild insufficiency. No apparent intracardiac mass or pericardial effusion. Based on the above test findings and the patient's syncopal spell, we would recommend transfer for cardiac catheterization to further evaluate his aortic valve and possible need for valve replacement. JOHNY
[2019-03-16] MEDS ORDERED: LIDOCAINE 2% INJ 100 MG/5 ML SDV (FOR ANES.) As Ordered ONE (16:59)
[2019-03-16] MEDS ORDERED: PROPOFOL 200 MG/20 ML VIAL As Ordered ONE (16:59)
[2019-03-16] MEDS ORDERED: fentaNYL 100 MCG/2 ML INJECTION (J3010) As Ordered ONE (17:00)
[2019-03-16] MEDS ORDERED: MIDAZOLAM INJ 2 MG/2 ML VIAL (J2250) As Ordered ONE (17:00)
[2019-03-16] MEDS ORDERED: BUPIVACAINE HCL 0.5% 30 ML VIAL As Ordered ONE (17:47)
[2019-03-16] MEDS ORDERED: LIDOCAINE 1% SDV INJ 30 ML VIAL As Ordered ONE (17:47)
[2019-03-16] MEDS ORDERED: ONDANSETRON 4MG/2ML VIAL (J2405) As Ordered ONE (18:02)
[2019-03-16] MEDS ORDERED: METOCLOPRAMIDE INJ 10MG/2ML VIAL (J2765) IV PRN (18:30)
[2019-03-16] MEDS ORDERED: PERCOCET 5MG/325MG TAB PO PRN (18:30)
[2019-03-16] MEDS ORDERED: fentaNYL 100 MCG/2 ML INJECTION (J3010) IV PRN (18:30)
[2019-03-16] MEDS ORDERED: NS 1,000 ML IV SCH (18:30)
[2019-03-16] MEDS ORDERED: ONDANSETRON 4MG/2ML VIAL (J2405) IV PRN (18:30)
--- NOTE | 2019-03-16 19:26 | ECGEPIP ---
[facility] - ED Test Date: 2019-03-14 Pat Name: MELVI COUGHLIN Department: Room: [place] [address] Gender: Male Inspector Raw Quartz: : 1945 Requested By: EVE NEWBERRY Order Number: [id number] Reading MD: Angelica Aguilar Measurements Intervals [place] Rate: 111 P: 24 CA: 137 QRS: 3 QRSD: 84 T: 115 QT: 310 QTc: 422 Interpretive Statements [address]INUS T[address] DEVIATION AND MODERATE T-WAVE ABNORMALITY, CONSIDER ISCHEMIA INCREASED RATE 01/16/19 Electronically Signed on 03-16-2019 19:26:08 EDT by Angelica Aguilar
[2019-03-17] VITALS (7 sets, daily range): BP systolic 115–135; BP diastolic 50–73
[2019-03-17] MEDS: PIPERACILLIN/TAZOBACTAM SOD 2.25 GM in D5W MINI-BAG PLUS 50 ML IV SCH ×5 (00:45→23:31)
[2019-03-17] MEDS: D5W/0.9% SODIUM CHLORIDE 1,000 ML IV SCH ×2 (00:45→15:16)
[2019-03-17] MEDS: HumaLOG INSULIN (NovoLOG) PER UNIT SC SCH ×4 (07:30→23:35)
--- NOTE | 2019-03-17 07:46 | PHACANCOPD ---
PHARMACY VANCOMYCIN DOSING Pt Demographics Demographics Patient Age:73 , Weight:92.500 , Gender: male Adjusted Body Weight Events Past 24 Hours Events Past 24 Hours: NO: Dialysis, Diuretic Therapy, Change in CrCl, Fever, Elevation in WBC, Pending Diagnostics, Pending Procedures, Other Vancomycin Vancomycin indication: Diabetic foot Vancomycin Target Ranges: 10-20 mcg/ml Vancomycin Load Y/N: Yes Load Dose Date Time Vancomycin Load Dose: 1gm Date: 03/15/19 Time: 20:30 Vancomycin Dose Date: 03/16/19. Current Vancomycin Dose: [1gm iv q24h (08:00)] Intermittent Dosing?: No Labs Labs Vital Signs Label Value Date Time Patient Temperature 97.7 degrees F 03/17/19 0400 Temperature Source Temporal 03/17/19 0400 Patient Temperature 97.6 degrees F 03/17/19 0100 Temperature Source Temporal 03/17/19 0100 Patient Temperature 97.2 degrees F 03/17/19 0000 Temperature Source Temporal 03/17/19 0000 Item Value Date Time White Blood Count 8.8 10^3/uL 03/16/19 0516 White Blood Count 7.8 10^3/uL 03/15/192044 White Blood Count 10.5 10^3/uL H 03/14/19 2300 Creatinine 3.90 MG/DL H 03/16/19 0516 Creatinine 4.04 MG/DL H 03/15/19 2045 Vancomycin Level Trough 16.5 UG/ML 03/17/19 0713 Micro Microbiology 03/15/19 Blood Culture - Preliminary, Resulted No growth after 24 hours . All specim... 03/15/19 Blood Culture - Preliminary, Resulted No growth after 24 hours . All specim... Creatinine Clearance Date:03/15/19. Creatinine Clearance: [>10ml/min]. Assessment and Plan Maintaining Current Dose?: Yes Reason for dose change: No Dose Change Pharmacist Note Pharmacist Note 03/17/19: Trough today resulted at 16.5mcg/ml. This is within our target range so at this time we will continue Vanco 1G IV Q24H@0800. We will continue to monitor and adjust dose as needed. Date: 03/15/19. PharmD note:GAVE 1GM IV VANCO AT 20:30 THIS EVENING; WE WILL CONTINUE VANCO 1GM IV Q24H STARTING 03/16 @ 08:00. DEPENDING ON SERUM CREATINE TRENDS WE WILLL OBTAIN A VANCO TROUGH ON THURSDAY [facility] Mar 17, 2019 07:46
[2019-03-17 08:32] LABS: HEMATOCRIT 27.7 % (42.0-52.0); HEMOGLOBIN 8.8 g/dl (13.5-17.5); MEAN CORPUSCULAR HEMOGLOBIN 28.8 pg (27.0-33.0); MEAN CORPUSCULAR HGB CONC 31.8 g/dl (32.0-36.5); MEAN CORPUSCULAR VOLUME 90.5 fl (80.0-96.0); PLATELET COUNT, AUTOMATED 258 10^3/uL (150-450); RED BLOOD COUNT 3.06 10^6/uL (4.30-6.10); WHITE BLOOD COUNT 7.2 10^3/uL (4.0-10.0)
[2019-03-17 08:51] LABS: CALCIUM LEVEL 8.2 MG/DL (8.8-10.2); CREATININE FOR GFR 3.6 MG/DL (0.70-1.30); GLOMERULAR FILTRATION RATE 17.9 (>42); MAGNESIUM LEVEL 3.1 MG/DL (1.8-2.4); POTASSIUM SERUM 4.3 MEQ/L (3.5-5.1)
[2019-03-17] MEDS: VANCOMYCIN HCL 1,000 MG, VIAL MATE ADAPTER 1 EACH in D5W 250 ML IV SCH (08:51)
[2019-03-17] MEDS: MOM 30ML SUSPENSION UDC PO SCH (08:51)
[2019-03-17] MEDS: GABAPENTIN 300 MG CAP PO SCH ×2 (08:52→20:12)
[2019-03-17] MEDS: HEPARIN SOD (PORCINE) 5000 UNITS/ML VIAL SQ SCH ×2 (08:52→20:12)
[2019-03-17] MEDS: amLODIPine 10 MG TAB PO SCH (08:52)
[2019-03-17] MEDS: CILOSTAZOL 100 MG TAB (PLETAL) PO SCH ×2 (08:52→20:12)
[2019-03-17] MEDS: PROBENECID 500 MG TAB PO SCH ×2 (08:52→20:20)
[2019-03-17] MEDS: SENOKOT S TAB PO SCH ×2 (08:53→20:11)
[2019-03-17] MEDS: ASPIRIN 81 MG ENTERIC TAB PO SCH (08:53)
[2019-03-17] MEDS: METOPROLOL TART 50 MG TAB PO SCH ×2 (08:53→20:12)
[2019-03-17] MEDS: LEVEMIR (INSULIN DETEMIR) 1 UNITS/0.01ML SC SCH (08:53)
[2019-03-17] MEDS: BISACODYL 10 MG SUPP PR SCH ×2 (08:54→20:14)
--- NOTE | 2019-03-17 08:56 | IPNPDOC ---
Date Seen The patient was seen on 03/17/19. Progress Note Vascular Surgery Dr Evangelista REASON FOR CONSULTATION: Gangrenous wound left foot HPI: Patient is a 73-year-old male, presenting to the ED related to syncopal episode. The patient was seen 02/02 for consultation for left foot ulcer. The patient has been noted to have dry gangrene of the left great toe, the great toe was felt to be auto amputating and was being monitored. He was due to follow back up in vascular surgery office 03/23/19. The patient had also been referred to Dr. Hernandez however apparently he did not keep the appointment. He was also evaluated by Dr. Reece, infectious disease. The patient states that he began to notice increasing fatigue over the weekend. He apparently did not notice his left foot appearing worse. He doesn't know when that happened and states possibly over the weekend. With reviewing the records it is noted the patient was seen in the emergency department 03/11/19 reporting increasing left lower extremity pain. The patient was discharged and was advised to follow-up with Dr. Evangelista's office within 3 days. Vascular surgery was consulted regarding gangrenous left foot wound. S/P Left foot wound debridement and toe amputation as per Dr Evangelista 03/16/19. The pt denies pain this AM. PMH peripheral arterial disease, hypertension, chronic kidney disease stage IV, type 2 diabetes mellitus, obesity. BMI 33.9 Surgical History Right BKA Appendectomy Hernia repair PE: GEN: 73yoM, No acute distress. Alert and oriented 3. HEENT NC/AT. Moist mucous membranes. Chest. Clear to auscultation Heart S1-S2 regular rate and rhythm. Abdomen round, soft, nontender. Bowel sounds present. Rt BKA. lt foot with dressing intact. DP/PT Pulses are monophasic. Mild edema. MRI Lt Foot Impression: There appears to be exposed bone with soft tissue deficiency adjacent to the distal end of the proximal phalanx and the dorsal aspect of the entire distal phalanx of the great toe. Low T1 signal intensity in the distal tuft of the great toe suggests osteomyelitis. No abscess seen. Electronically Signed by Thompson Henry MD 03/16/2019 06:14 P A&P: 1. Gangrenous left foot wound. S/P angiogram as per Dr Evangelista 01/24/19. No intervention, distal small vessel disease Lt foot. S/P wound debridement and toe amputation as per Dr Evangelista 03/16/19. Pt is afebrile. No leukocytosis. BC x 1 03/11 neg. BC x 2 03/15 neg IV antibiotics/IVF as per primary team. Imaging Lt foot as above. The pt is reviewed and discussed with Dr. Evangelista, plan for wet to dry dressing Q8hrs with Dakins solution. Tentative plan for Left TMA in 1-2 days. Non WB on left foot at this time. Pt will need outpt FU with wound mgmt, Dr Hernandez. 2. CKD SCr 3.94 03/16, AM labs pending. Previous Baseline appears to be 1.8-2.0. 3. Anemia. Hemoglobin is noted to be 8.8 FOB pending. Management as per primary team. DVT prophylaxis. SQ Heparin. VS, I&O, 24H, Fishbone Vital Signs/I&O Vital Signs Date Time Temp Pulse Resp B/P (MAP) Pulse Ox O2 Delivery O2 Flow Rate FiO2 03/17/19 04:00 97.7 94 18 119/68 (85) 94 03/16/19 20:00 2.0 03/15/19 06:55 Nasal Cannula I&O- Last 24 Hours up to 6 AM 03/17/19 05:59 Intake Total 1280 ml Output Total 1267 ml Balance 13 ml Laboratory Data 24H LABS Laboratory Tests 2 03/16/19 09:11: Lactic Acid Level 0.5 03/16/19 12:13: Bedside Glucose (Misc Panel) 191H 03/16/19 19:29: Bedside Glucose (Misc Panel) 56L 03/16/19 22:53: Bedside Glucose (Misc Panel) 78L 03/17/19 00:08: Bedside Glucose (Misc Panel) 64L 03/17/19 03:21: Bedside Glucose (Misc Panel) 88 03/17/19 07:13: Vancomycin Level Trough 16.5 03/17/19 07:27: Bedside Glucose (Misc Panel) 96 03/17/19 08:03: Nucleated Red Blood Cells % (auto) 0.0 CBC/BMP Laboratory Tests 03/17/19 08:03 Red Blood Count 3.06 L, Mean Corpuscular Volume 90.5, Mean Corpuscular Hemoglobin 28.8, Mean Corpuscular Hemoglobin Concent 31.8 L, Red Cell Distribution Width 14.5 Microbiology Microbiology 03/15/19 Blood Culture - Preliminary, Resulted No growth after 24 hours . All specim... 03/15/19 Blood Culture - Preliminary, Resulted No growth after 24 hours . All specim... Milly Goss Mar 17, 2019 08:55
--- NOTE | 2019-03-17 10:40 | IPNPDOC ---
Date Seen The patient was seen on 03/17/19. Progress Note SUBJECTIVE: Patient is a 73-year-old white male with past medical history of hypertension, hyperlipidemia, peripheral vascular disease, chronic kidney disease stage 4, s/p below knee amputation, Left big toe gangrene, Type 2 Diabetes Mellitus, history of [place] palsy, and obesity presented to the ER due to syncope. Mr. Randall states that he was home last night sitting in his wheelchair where he must have lost consciousness because he was woken up by his son who found him on the floor. Mr. Randall cannot give a specific time when this occurred. She states that after he regained consciousness he was shaking and noticed that his left great toe was bleeding. He decided to present to the emergency room. Mr. Randall states that he has night sweats and chills on a regular basis. He denies having similar episodes of syncope in the past. He did not have chest pain, palpitations, shortness of breath, nausea, vomiting, numbness, tingling, or chest pain. Patient is examined at bedside. He appears to be doing well after complete metatarsal amputation. Mr. Randall states that his pain level today is a 0/10 and that overall he feels well. Patient is no longer tachycardic or tachypneic. Patient's left foot was bandaged with some blood noted on the proximal aspect of gauze; his left leg is warm to the touch but not erythematous. He is noted to "zone out" occasionally during the examination but is alert and oriented to his surroundings. He has not left his bed since admission and will be working with PT and OT to assess for dizziness upon sitting. Patient denies fever, chills, chest pain, shortness of breath, dizziness, or syncope. PROBLEMS: PHYSICAL EXAMINATION: VITAL SIGNS: Please see below. GENERAL: obese white male lying in bed, he was appears to stare off into the distance at times but is alert to his surroundings HEENT: Decreased visual acuity, patient had difficulty focusing on finger while gauging EOMI. Poor dentition noted. CARDIOVASCULAR: 2/6 systolic murmur that radiates to carotids best heard in right 2nd ICS, normal S1S2 RESPIRATORY: Bibasilar crackles noted on inspiration, no longer using accessory muscles to breath ABDOMINAL: morbid obesity, nontender to palpation, normal bowel sounds EXTREMITIES: Below knee amputation of right leg, Complete metatarsal amputation on left foot, foot is covered in bandages, tremor noted in left forearm NEUROLOGICAL: CNII-XII intact, CNII and III sluggish, patient had difficulty focusing on finger while gauging EOMI. PSYCHOLOGICAL: flat affect LABORATORY DATA, IMAGING STUDIES, MICROBIOLOGY: Please see below. 1. Head CT 03/14/19: No evidence of acute territorial major vessel infarct, mass effect, or hemorrhage. Global parenchymal volume loss. 2. Vascular ultrasound 03/15/19: 1. Correlation with CTA or MRA may be helpful as the current exam is limited. The mid and distal internal carotid arteries were sought but could not be imaged due to the relatively short neck and high bifurcations.. 2. Moderate stenosis, 50-69%, in the proximal left internal carotid artery. 3. No hemodynamically significant narrowing within the proximal right internal carotid artery. 4. Antegrade flow within both vertebral arteries. 3. Chest X-ray 03/15/19: Low lung volumes. Left retrocardiac density may represent atelectasis versus infection. Mild right base atelectasis 4. Abdominal X-ray 03/15/19: Multiple prominent slightly thickened gas-filled small and large bowel. Findings may represent inflammation versus infection/ ileus. No radiographic evidence of obstruction. 5. Foot MRI 03/16/19: There appears to be exposed bone with soft tissue deficiency adjacent to the distal end of the proximal phalanx and the dorsal aspect of the entire distal phalanx of the great toe. Low T1 signal intensity in the distal tuft of the great toe suggests osteomyelitis. No abscess seen. Echocardiogram: 03/16/19 Based on the above test findings and the patient's syncopal spell, we would recommend transfer for cardiac catheterization to further evaluate his aortic valve and possible need for valve replacement. DVT prophylaxis ordered?: Yes, heparin ASSESSMENT AND PLAN: Patient is a 73-year-old white male with past medical history of hypertension, hyperlipidemia, peripheral vascular disease, chronic kidney disease stage 4, s/p below knee amputation, Left big toe gangrene, Type 2 Diabetes Mellitus, history of [place] palsy. Patient's left foot was covered in sterile gauze; his left leg is warm to the touch and not erythematous. Patient denies fever, chills, chest pain, shortness of breath, dizziness, or syncope. PROBLEMS: 1. Left toe gangrene 2/2 to chronic T2DM -Maggots noted in Left great toe on inspection 03/16/19 Second toe also necrotic. -MRI of foot suggestive of osteomyelitis -Venous blood cultures are negative for growth after 24 hours -MRSA screen pending, c/w Zosyn until culture results are back. De-escalating vancomycin. -c/w oxycodone and Tylenol as needed for pain -Patient on IV fluids 80ml/hr -Dr. Evangelista performed complete metatarsal amputation on left foot 03/16/19, monitoring patient for fever, wbc count within normal limits -Toe amputation results pending Syncope possibly 2/2 dehydration / infection, possibly 2/2 cardiac etiology or vasovagal -Monitoring on 48 hour telemetry -Head CT and carotid doppler imaging above -Echocardiogram results above Chronic type 2 diabetes mellitus -Patient has foot ulcer and gangrene of left big toe and second toe -Carbohydrate consistent diet -c/w home medications -finger stick blood sugar check before every meal and at bedtime with coverage. Anemia -Patient has history of normocytic anemia -monitor H&H -Hgb 8.9 -transfused 1 unit PRBC -Complete anemia work-up ordered Hypertension -Patient's blood pressure is controlled -c[place] [facility] Chronic kidney disease stage 4 -Bun 71, Creatinine 3.90, GFR 16.3 -Patient given one dose lasix last night -Holding diuretics Hyperlipidemia DISPOSITION: Patient is stable and prognosis is guarded. Monitoring patient post surgery; MRSA screen ordered. De-escalating vancomycin and continuing zosyn until culture results are back. Patient will start working with PT and OT. Recommend transfer for cardiac catheterization to further evaluate his aortic valve. Will consult Cardiology. VS, I&O, 24H, Fishbone Vital Signs/I&O Vital Signs Date Time Temp Pulse Resp B/P (MAP) Pulse Ox O2 Delivery O2 Flow Rate FiO2 03/17/19 09:03 98.5 102 19 133/60 (84) 97 03/16/19 20:00 2.0 03/15/19 06:55 Nasal Cannula I&O- Last 24 Hours up to 6 AM 03/17/19 06:00 Intake Total 1280 ml Output Total 1867 ml Balance -587 ml Laboratory Data 24H LABS Laboratory Tests 2 03/16/19 12:13: Bedside Glucose (Misc Panel) 191H 03/16/19 19:29: Bedside Glucose (Misc Panel) 56L 03/16/19 22:53: Bedside Glucose (Misc Panel) 78L 03/17/19 00:08: Bedside Glucose (Misc Panel) 64L 03/17/19 03:21: Bedside Glucose (Misc Panel) 88 03/17/19 07:13: Vancomycin Level Trough 16.5 03/17/19 07:27: Bedside Glucose (Misc Panel) 96 03/17/19 08:03: Nucleated Red Blood Cells % (auto) 0.0, Anion Gap 8, Glomerular Filtration Rate 17.9L, Blood Urea Nitrogen 69H, Creatinine 3.60H, Sodium Level 145, Potassium Level 4.3, Chloride Level 117H, Carbon Dioxide Level 20L, Calcium Level 8.2L, Magnesium Level 3.1H CBC/BMP Laboratory Tests 03/17/19 08:03 Red Blood Count 3.06 L, Mean Corpuscular Volume 90.5, Mean Corpuscular Hemoglobin 28.8, Mean Corpuscular Hemoglobin Concent 31.8 L, Red Cell Distribution Width 14.5, Calcium Level 8.2 L Microbiology Microbiology 03/15/19 Blood Culture - Preliminary, Resulted No growth after 24 hours . All specim... 03/15/19 Blood Culture - Preliminary, Resulted No growth after 24 hours . All specim... GME ATTESTATION GME ATTESTATION My faculty preceptor for this patient encounter was physically present during the encounter and was fully available. All aspects of the patient interview, examination, medical decision making process, and medical care plan development were reviewed and approved by the faculty preceptor. The faculty preceptor is aware and concurs with the plan as stated in the body of this note and will attest to such by his/her cosignature. ATTENDING NOTE I, Javier Hart, have independently examined this patient and performed my own physical exam, as well as reviewed the documentation and edited where necessary. I have discussed in detail with the resident / student the findings and plan of treatment as documented by the resident / student and edited their note. I agree with their findings and treatment plan and have edited their documentation. I will continue to follow the patient during this hospital stay. ANNIE HUFFMAN S-3 Mar 17, 2019 10:40 JAVIER HART MD Mar 17, 2019 15:51
[2019-03-17] MEDS: PERCOCET 5MG/325MG TAB PO PRN ×2 (15:17→20:11)
[2019-03-17] MEDS: DAKIN'S 0.25% HALF-STRENGTH SOLN 480 ML TOP SCH ×2 (15:34→22:00)
[2019-03-18] VITALS (7 sets, daily range): BP systolic 131–163; BP diastolic 57–72
[2019-03-18 04:44] LABS: HEMATOCRIT 26.9 % (42.0-52.0); HEMOGLOBIN 8.7 g/dl (13.5-17.5); MEAN CORPUSCULAR HGB CONC 32.3 g/dl (32.0-36.5); MEAN CORPUSCULAR VOLUME 89.7 fl (80.0-96.0); PLATELET COUNT, AUTOMATED 240 10^3/uL (150-450); WHITE BLOOD COUNT 7.2 10^3/uL (4.0-10.0)
[2019-03-18 05:07] LABS: CALCIUM LEVEL 8.5 MG/DL (8.8-10.2); CREATININE FOR GFR 3.2 MG/DL (0.70-1.30); GLOMERULAR FILTRATION RATE 20.5 (>42); POTASSIUM SERUM 4.3 MEQ/L (3.5-5.1)
[2019-03-18] MEDS: D5W/0.9% SODIUM CHLORIDE 1,000 ML IV SCH (06:00)
[2019-03-18] MEDS: PIPERACILLIN/TAZOBACTAM SOD 2.25 GM in D5W MINI-BAG PLUS 50 ML IV SCH ×4 (06:48→23:55)
[2019-03-18] MEDS: HumaLOG INSULIN (NovoLOG) PER UNIT SC SCH ×4 (08:12→23:55)
[2019-03-18] MEDS: LEVEMIR (INSULIN DETEMIR) 1 UNITS/0.01ML SC SCH (08:13)
[2019-03-18] MEDS: ASPIRIN 81 MG ENTERIC TAB PO SCH (08:15)
[2019-03-18] MEDS: HEPARIN SOD (PORCINE) 5000 UNITS/ML VIAL SQ SCH ×2 (08:15→11:21)
[2019-03-18] MEDS: GABAPENTIN 300 MG CAP PO SCH ×2 (08:21→21:11)
[2019-03-18] MEDS: METOPROLOL TART 50 MG TAB PO SCH ×2 (08:21→21:11)
[2019-03-18] MEDS: PROBENECID 500 MG TAB PO SCH ×2 (08:22→21:10)
[2019-03-18] MEDS: amLODIPine 10 MG TAB PO SCH (08:22)
[2019-03-18] MEDS: SENOKOT S TAB PO SCH ×2 (08:22→21:10)
[2019-03-18] MEDS: MOM 30ML SUSPENSION UDC PO SCH (08:23)
[2019-03-18] MEDS: VANCOMYCIN HCL 1,000 MG, VIAL MATE ADAPTER 1 EACH in D5W 250 ML IV SCH (08:23)
[2019-03-18] MEDS: BISACODYL 10 MG SUPP PR SCH ×2 (08:24→21:00)
[2019-03-18] MEDS: CILOSTAZOL 100 MG TAB (PLETAL) PO SCH ×2 (09:09→21:10)
[2019-03-18] MEDS: DAKIN'S 0.25% HALF-STRENGTH SOLN 480 ML TOP SCH ×3 (09:10→23:55)
--- NOTE | 2019-03-18 10:03 | IPNPDOC ---
Date Seen The patient was seen on 03/18/19. Progress Note Vascular Surgery Dr Evangelista HPI: Patient is a 73-year-old male, presenting to the ED related to syncopal episode. Vascular surgery was consulted regarding gangrenous left foot wound. S/P Left foot wound debridement and toe amputation as per Dr Evangelista 03/16/19. The pt denies pain this AM. Sitting up in bed eating breakfast. PMH peripheral arterial disease, hypertension, chronic kidney disease stage IV, type 2 diabetes mellitus, obesity. BMI 33.9 Surgical History Right BKA Appendectomy Hernia repair PE: GEN: 73yoM, No acute distress. Alert and oriented 3. HEENT NC/AT. Moist mucous membranes. Chest. Clear to auscultation Heart S1-S2 regular rate and rhythm. Abdomen round, soft, nontender. Bowel sounds present. Rt BKA. lt foot with dressing removed.Wound noted with minimal bloody drainage. Surrounding skin with decreased erythema. decreased edema of LLE. Wet to dry dressing with Dakins is reapplied. MRI Lt Foot Impression: There appears to be exposed bone with soft tissue deficiency adjacent to the distal end of the proximal phalanx and the dorsal aspect of the entire distal phalanx of the great toe. Low T1 signal intensity in the distal tuft of the great toe suggests osteomyelitis. No abscess seen. Electronically Signed by Thompson Henry MD 03/16/2019 06:14 P A&P: 1. Gangrenous left foot wound. S/P angiogram as per Dr Evangelista 01/24/19. No intervention, distal small vessel disease Lt foot. S/P wound debridement and toe amputation as per Dr Evangelista 03/16/19. Pt is afebrile. No leukocytosis. BC x 1 03/11 neg. BC x 2 03/15 neg IV antibiotics/IVF as per primary team. Imaging Lt foot as above. The pt is reviewed and discussed with Dr. Evangelista, continue with wet to dry dressing Q8hrs with Dakins solution. Tentative plan for Left TMA 03/19 or 03/20/19. Non WB on left foot at this time. Pt will need outpt FU with wound mgmt, Dr Hernandez. 2. CKD SCr 3.20 Previous Baseline appears to be 1.8-2.0. 3. Anemia. Hemoglobin is noted to be 8.7 FOB pending. Management as per primary team. 4. Severe . primary team possibly arranging transfer early next week to [facility] for further evaluation. DVT prophylaxis. SQ Heparin. VS, I&O, 24H, Fishbone Vital Signs/I&O Vital Signs Date Time Temp Pulse Resp B/P (MAP) Pulse Ox O2 Delivery O2 Flow Rate FiO2 03/18/19 08:44 97.2 98 20 160/72 (101) 97 03/16/19 20:00 2.0 03/15/19 06:55 Nasal Cannula I&O- Last 24 Hours up to 6 AM 03/18/19 06:00 Intake Total 2140 ml Output Total 1950 ml Balance 190 ml Laboratory Data 24H LABS Laboratory Tests 2 03/17/19 11:40: Bedside Glucose (Misc Panel) 166H 03/17/19 16:50: Bedside Glucose (Misc Panel) 148H 03/17/19 23:34: Bedside Glucose (Misc Panel) 224H 03/18/19 04:24: Nucleated Red Blood Cells % (auto) 0.0, Anion Gap 7L, Glomerular Filtration Rate 20.5L, Blood Urea Nitrogen 65H, Creatinine 3.20H, Sodium Level 142, Potassium Level 4.3, Chloride Level 114H, Carbon Dioxide Level 21, Calcium Level 8.5L, Magnesium Level 3.0H CBC/BMP Laboratory Tests 03/18/19 04:24 Red Blood Count 3.00 L, Mean Corpuscular Volume 89.7, Mean Corpuscular Hemoglobin 29.0, Mean Corpuscular Hemoglobin Concent 32.3, Red Cell Distribution Width 14.4, Calcium Level 8.5 L Microbiology Microbiology 03/15/19 Blood Culture - Preliminary, Resulted No Growth after 48 hours. All Specime... 03/15/19 Blood Culture - Preliminary, Resulted No Growth after 48 hours. All Specime... Milly Goss Mar 18, 2019 10:03
--- NOTE | 2019-03-18 10:28 | IPNPDOC ---
Date Seen The patient was seen on 03/18/19. Progress Note SUBJECTIVE: Patient is a 73-year-old white male with past medical history of hypertension, hyperlipidemia, peripheral vascular disease, chronic kidney disease stage 4, s/p below knee amputation, Left big toe gangrene, Type 2 Diabetes Mellitus, history of [place] palsy, and obesity presented to the ER due to syncope. Mr. Randall states that he was home last night sitting in his wheelchair where he must have lost consciousness because he was woken up by his son who found him on the floor. Mr. Randall cannot give a specific time when this occurred. She states that after he regained consciousness he was shaking and noticed that his left great toe was bleeding. He decided to present to the emergency room. Mr. Randall states that he has night sweats and chills on a regular basis. He denies having similar episodes of syncope in the past. He did not have chest pain, palpitations, shortness of breath, nausea, vomiting, numbness, tingling, or chest pain. Patient examined at bedside. He is eating his breakfast and feels about the same today as he did yesterday. It was decided to postpone transfer to [place] until after Transmetatarsal amputation to assess for TAVR. His left foot is warm to the touch but is not erythematous; his bandages were changed while I was in the room. He is tachycardic today but denies fevers or chills. He states that his pain is still a 0/10. We are concerned that the patient may have Parkinson's disease. He appears to have flat affect, fasciculations of the left forearm, and cogwheel rigidity on examination. Holding afternoon dose of heparin due to hematuria this am. OBJECTIVE PHYSICAL EXAMINATION: VITAL SIGNS: Please see below. GENERAL: obese white male lying in bed eating breakfast, he is alert to his surroundings HEENT: Decreased visual acuity, patient had difficulty focusing on finger while gauging EOMI. Poor dentition noted. CARDIOVASCULAR: 2/6 systolic murmur that radiates to carotids best heard in right 2nd ICS, normal S1S2 RESPIRATORY: Bibasilar crackles noted on inspiration, no longer using accessory muscles to breath ABDOMINAL: morbid obesity, nontender to palpation, normal bowel sounds EXTREMITIES: Below knee amputation of right leg. Complete metatarsal amputation on left foot, foot is covered in bandages, fasciculations noted in left forearm. Positive for cogwheel rigidity. Positive pronator drift on right. NEUROLOGICAL: CNII-XII intact, CNII and III sluggish, patient had difficulty focusing on finger while gauging EOMI. PSYCHOLOGICAL: flat affect LABORATORY DATA, IMAGING STUDIES, MICROBIOLOGY: Please see below. Echocardiogram: 03/16/19 Based on the above test findings and the patient's syncopal spell, we would recommend transfer for cardiac catheterization to further evaluate his aortic valve and possible need for valve replacement. DVT prophylaxis ordered?: Yes, Heparin ASSESSMENT AND PLAN: Patient is a 73-year-old white male with past medical history of hypertension, hyperlipidemia, peripheral vascular disease, chronic kidney disease stage 4, s/p below knee amputation, Left big toe gangrene, Type 2 Diabetes Mellitus, history of [place] palsy. PROBLEMS: 1. Left toe gangrene 2/2 to chronic T2DM -Maggots noted in Left great toe on inspection 03/16/19 Second toe also necrotic. -MRI of foot suggestive of osteomyelitis; Toe amputation results pending -Venous blood cultures are negative for growth after 48 hours -MRSA screen pending, c/w Zosyn until culture results are back. De-escalating vancomycin. -c/w oxycodone and Tylenol as needed for pain -Patient on IV fluids 80ml/hr -Dr. Evangelista performed complete metatarsal amputation on left foot 03/16/19, monitoring patient for fever, wbc count within normal limits -Transmetatarsal amputation scheduled for 03/19/[address] Evangelista Syncope possibly 2/2 dehydration / infection, possibly 2/2 cardiac etiology or vasovagal -Monitoring on 48 hour telemetry -Head CT and carotid doppler imaging above -Echocardiogram results above -Will transfer patient to [facility] to assess for TAVR. Chronic type 2 diabetes mellitus -Patient has foot ulcer and gangrene of left big toe and second toe -Carbohydrate consistent diet -c/w home medications -finger stick blood sugar check before every meal and at bedtime with coverage. Anemia -Patient has history of normocytic anemia -monitor H&H -Hgb 8.9 -transfused 1 unit PRBC -Complete anemia work-up ordered Hypertension -Patient's blood pressure is controlled -c/w Norvasc Chronic kidney disease stage 4 -Bun 73, Creatinine 3.90, GFR 16.3 -Patient given one dose lasix last night -Holding diuretics Possible Parkinson's disease -patient has flat affect and positive cogwheel rigidity on examination -Will need follow up Hyperlipidemia DISPOSITION: Patient is stable and prognosis is guarded. He is scheduled for TMA on 03/19/[address] Evangelista; we appreciate his input. Patient continues to work with PT and OT. Toe amputation results pending. Will transfer patient to [place] post TMA to assess for TAVR if possible. Holding afternoon dose of heparin due to hematuria this am. VS, I&O, 24H, Fishbone Vital Signs/I&O Vital Signs Date Time Temp Pulse Resp B/P (MAP) Pulse Ox O2 Delivery O2 Flow Rate FiO2 03/18/19 08:44 97.2 98 20 160/72 (101) 97 03/16/19 20:00 2.0 03/15/19 06:55 Nasal Cannula I&O- Last 24 Hours up to 6 AM 03/18/19 06:00 Intake Total 2140 ml Output Total 1950 ml Balance 190 ml Laboratory Data 24H LABS Laboratory Tests 2 03/17/19 11:40: Bedside Glucose (Misc Panel) 166H 03/17/19 16:50: Bedside Glucose (Misc Panel) 148H 03/17/19 23:34: Bedside Glucose (Misc Panel) 224H 03/18/19 04:24: Nucleated Red Blood Cells % (auto) 0.0, Anion Gap 7L, Glomerular Filtration Rate 20.5L, Blood Urea Nitrogen 65H, Creatinine 3.20H, Sodium Level 142, Potassium Level 4.3, Chloride Level 114H, Carbon Dioxide Level 21, Calcium Level 8.5L, Magnesium Level 3.0H CBC/BMP Laboratory Tests 03/18/19 04:24 Red Blood Count 3.00 L, Mean Corpuscular Volume 89.7, Mean Corpuscular Hemoglobin 29.0, Mean Corpuscular Hemoglobin Concent 32.3, Red Cell Distribution Width 14.4, Calcium Level 8.5 L Microbiology Microbiology 03/15/19 Blood Culture - Preliminary, Resulted No Growth after 48 hours. All Specime... 03/15/19 Blood Culture - Preliminary, Resulted No Growth after 48 hours. All Specime... GME ATTESTATION GME ATTESTATION My faculty preceptor for this patient encounter was physically present during the encounter and was fully available. All aspects of the patient interview, examination, medical decision making process, and medical care plan development were reviewed and approved by the faculty preceptor. The faculty preceptor is aware and concurs with the plan as stated in the body of this note and will attest to such by his/her cosignature. ATTENDING NOTE I, Javier Hart, have independently examined this patient and performed my own physical exam, as well as reviewed the documentation and edited where necessary. I have discussed in detail with the resident / student the findings and plan of treatment as documented by the resident / student and edited their note. I agree with their findings and treatment plan and have edited their documentation. I will continue to follow the patient during this hospital stay. ANNIE HUFFMAN OMS-3 Mar 18, 2019 10:28 JAVIER HART MD Mar 18, 2019 15:08
[2019-03-18] MEDS: PERCOCET 5MG/325MG TAB PO PRN ×2 (15:06→21:11)
[2019-03-18] MEDS ORDERED: NS 1,000 ML IV SCH (16:00)
[2019-03-19 04:00] VITALS: BP 164/69
[2019-03-19] MEDS: PIPERACILLIN/TAZOBACTAM SOD 2.25 GM in D5W MINI-BAG PLUS 50 ML IV SCH ×4 (05:15→23:49)
[2019-03-19] MEDS: PERCOCET 5MG/325MG TAB PO PRN ×3 (05:16→20:41)
[2019-03-19 05:32] LABS: HEMATOCRIT 30.5 % (42.0-52.0); HEMOGLOBIN 9.8 g/dl (13.5-17.5); MEAN CORPUSCULAR HEMOGLOBIN 29.5 pg (27.0-33.0); MEAN CORPUSCULAR HGB CONC 32.1 g/dl (32.0-36.5); MEAN CORPUSCULAR VOLUME 91.9 fl (80.0-96.0); PLATELET COUNT, AUTOMATED 310 10^3/uL (150-450); RED BLOOD COUNT 3.32 10^6/uL (4.30-6.10); WHITE BLOOD COUNT 8.3 10^3/uL (4.0-10.0)
[2019-03-19 05:51] LABS: CALCIUM LEVEL 8.4 MG/DL (8.8-10.2); CREATININE FOR GFR 2.46 MG/DL (0.70-1.30); GLOMERULAR FILTRATION RATE 27.8 (>42); MAGNESIUM LEVEL 2.5 MG/DL (1.8-2.4); POTASSIUM SERUM 4.1 MEQ/L (3.5-5.1)
[2019-03-19] MEDS: DAKIN'S 0.25% HALF-STRENGTH SOLN 480 ML TOP SCH ×3 (06:00→22:25)
[2019-03-19] MEDS: HumaLOG INSULIN (NovoLOG) PER UNIT SC SCH ×4 (07:30→22:24)
[2019-03-19 08:00] VITALS: BP 138/72
[2019-03-19] MEDS: BISACODYL 10 MG SUPP PR SCH (09:00)
[2019-03-19] MEDS: HEPARIN SOD (PORCINE) 5000 UNITS/ML VIAL SQ SCH ×2 (09:27→20:42)
[2019-03-19] MEDS: MOM 30ML SUSPENSION UDC PO SCH (09:27)
[2019-03-19] MEDS: GABAPENTIN 300 MG CAP PO SCH ×2 (09:30→20:41)
[2019-03-19] MEDS: ASPIRIN 81 MG ENTERIC TAB PO SCH (09:30)
[2019-03-19] MEDS: CILOSTAZOL 100 MG TAB (PLETAL) PO SCH ×2 (09:31→20:42)
[2019-03-19] MEDS: SENOKOT S TAB PO SCH ×2 (09:31→20:41)
[2019-03-19] MEDS: PROBENECID 500 MG TAB PO SCH (09:31)
[2019-03-19] MEDS: amLODIPine 10 MG TAB PO SCH (09:32)
[2019-03-19] MEDS: METOPROLOL TART 50 MG TAB PO SCH ×2 (09:32→20:41)
[2019-03-19] MEDS: LEVEMIR (INSULIN DETEMIR) 1 UNITS/0.01ML SC SCH (11:01)
[2019-03-19 11:53] VITALS: BP 140/67
--- NOTE | 2019-03-19 12:40 | IPNPDOC ---
Date Seen The patient was seen on 03/19/19. Progress Note SUBJECTIVE: Patient is a 73-year-old white male with past medical history of hypertension, hyperlipidemia, peripheral vascular disease, chronic kidney disease stage 4, s/p below knee amputation, Left big toe gangrene, Type 2 Diabetes Mellitus, history of [place] palsy, and obesity presented to the ER due to syncope. Patient examined at bedside in a pleasant mood. He is happy that he got his pancakes this morning. His sugars this morning was 77 prior to eating breakfast. He denies having any hypoglycemia lightheadedness or dizziness. He continues to have a flat affect and denies any fevers, chills, night sweats, nausea, vomiting, or diarrhea. He does request to have his Deleon removed this a. m. if possible. He is currently pending for a TMA tomorrow by Dr. Evangelista, prior to being transferred for his severe aortic stenosis. The patient has no other complaints at this time. OBJECTIVE PHYSICAL EXAMINATION: VITAL SIGNS: Please see below. GENERAL: obese white male lying in bed eating breakfast, he is alert to his surroundings HEENT: Decreased visual acuity, patient had difficulty focusing on finger while gauging EOMI. Poor dentition noted. CARDIOVASCULAR: 2/6 systolic murmur that radiates to carotids best heard in right 2nd ICS, normal S1S2 RESPIRATORY: Bibasilar crackles noted on inspiration, no longer using accessory muscles to breath ABDOMINAL: morbid obesity, nontender to palpation, normal bowel sounds EXTREMITIES: Below knee amputation of right leg. Complete metatarsal amputation on left foot, foot is covered in bandages no increased discharge noted. 1+ pitting edema up to mid calf on the left. NEUROLOGICAL: CNII-XII intact, flat affect, continues to have difficulty tr acking finger when assessing EOMI, positive pronator drift on the left, increased tone and cogwheel rigidity, fasciculations noted in left forearm PSYCHOLOGICAL: flat affect LABORATORY DATA, IMAGING STUDIES, MICROBIOLOGY: Please see below. Echocardiogram: 03/16/19 - Normal sinus rhythm without intraventricular conduction disturbance. Technically challenging study in light of the patient's body habitus but diagnostically useful information was still obtained. M-mode and two-dimensional echocardiography was performed with pulsed, continuous wave, color flow and tissue Doppler studies. Mild concentric left ventricle hypertrophy with normal wall motion. Mildly dilated left atrium with impairment of LV diastolic function and elevated mean left atrial pressure. Normal right heart chamber sizes and motion with Doppler evidence of mild pulmonary hypertension. Normal IVC size and collapse against an elevated central venous pressure. Severe thickening with reduced aortic cusp separation could not rule out severe aortic stenosis. Very mild aortic insufficiency. Moderate degenerative changes of the mitral valvular apparatus without inflow tract obstruction and only trace insufficiency. Normal appearing tricuspid valve with mild insufficiency. No apparent intracardiac mass or pericardial effusion. Based on the above test findings and the patient's syncopal spell, we would re commend transfer for cardiac catheterization to further evaluate his aortic valve and possible need for valve replacement. DVT prophylaxis ordered?: Yes, Heparin ASSESSMENT AND PLAN: Patient is a 73-year-old white male with past medical history of hypertension, hyperlipidemia, peripheral vascular disease, chronic kidney disease stage 4, s/p below knee amputation, Left big toe gangrene, Type 2 Diabetes Mellitus, history of [place] palsy. PROBLEMS: Left toe gangrene 2/2 to chronic T2DM -Maggots noted in Left great toe on inspection 03/16/19 Second toe also necrotic. -MRI of foot suggestive of osteomyelitis; Toe amputation path necrotic dermis and subcutaneous tissue with acute inflammation -Blood culture negative for growth after 48 hours -c/w Zosyn until culture results are back. De-escalating vancomycin pending MRSA screen -c/w Percocet and Tylenol PRN for pain control -s/p complete metatarsal amputation (03/16/19 - Dr. Evangelista) -Transmetatarsal amputation scheduled for 03/20/[address] Evangelista Syncope possibly 2/2 dehydration, infection, cardiac etiology vs vasovagal -Monitoring on 48 hour telemetry -Head CT and carotid doppler imaging above -Echocardiogram results above: severe aortic stenosis -Will transfer patient post TMA to assess for possible TAVR. Chronic type 2 diabetes mellitus -Patient has foot ulcer and gangrene of left big toe and second toe -Carbohydrate consistent diet -c/w ISS & Levemir (reduced do to low sugars in the AM) -FSBS ac&qhs Normocytic anemia secondary to anemia of chronic disease -Chronic disease: DM -monitor H&H -s/p 1 unit PRBC -IRON studies all low and ferritin normal consistent with Anemia of chronic disease Hypertension -Patient's blood pressure is controlled -c/w Norvasc, lopressor Acute on Chronic kidney disease stage 4 (Improving) -Baseline 1.80-1.90 -Urine output adequate -Hold nephrotoxin drugs -encouraged Good PO intake. Possible Parkinson's disease -flat affect and positive cogwheel rigidity on examination -need to consider outpatient workup by neurology Peripherial Arterial Disease -c/w cilostazol Hx of Guot -stop probenecid b/c CrCl <50. Hyperlipidemia Bowl Care -Sen[place]ot S+ MOM + Dulcolax DVT ppx: Heparin VS, I&O, 24H, Fishbone Vital Signs/I&O Vital Signs Date Time Temp Pulse Resp B/P (MAP) Pulse Ox O2 Delivery O2 Flow Rate FiO2 03/19/19 11:03 18 03/19/19 09:32 91 148/74 03/19/19 08:00 97.4 97 03/16/19 20:00 2.0 03/15/19 06:55 Nasal Cannula I&O- Last 24 Hours up to 6 AM 03/19/19 06:00 Intake Total 1500 ml Output Total 2250 ml Balance -750 ml Laboratory Data 24H LABS Laboratory Tests 2 03/18/19 11:31: Bedside Glucose (Misc Panel) 162H 03/18/19 16:31: Bedside Glucose (Misc Panel) 149H 03/18/19 23:47: Bedside Glucose (Misc Panel) 116H 03/19/19 04:57: Nucleated Red Blood Cells % (auto) 0.0, Anion Gap 8, Glomerular Filtration Rate 27.8L, Blood Urea Nitrogen 46H, Creatinine 2.46H, Sodium Level 147H, Potassium Level 4.1, Chloride Level 120H, Carbon Dioxide Level 19L, Calcium Level 8.4L, Magnesium Level 2.5H CBC/BMP Laboratory Tests 03/19/19 04:57 Red Blood Count 3.32 L, Mean Corpuscular Volume 91.9, Mean Corpuscular Hemoglobin 29.5, Mean Corpuscular Hemoglobin Concent 32.1, Red Cell Distribution Width 14.3, Calcium Level 8.4 L Microbiology Microbiology 03/15/19 Blood Culture - Preliminary, Resulted No Growth after 72 hours. All specime... 03/15/19 Blood Culture - Preliminary, Resulted No Growth after 72 hours. All specime... GME ATTESTATION GME ATTESTATION My faculty preceptor for this patient encounter was physically present during the encounter and was fully available. All aspects of the patient interview, examination, medical decision making process, and medical care plan development were reviewed and approved by the faculty preceptor. The faculty preceptor is aware and concurs with the plan as stated in the body of this note and will attest to such by his/her cosignature. ATTENDING NOTE I, Javier Hart, have independently examined this patient and performed my own physical exam, as well as reviewed the documentation and edited where necessary. I have discussed in detail with the resident / student the findings and plan of treatment as documented by the resident / student and edited their note. I agree with their findings and treatment plan and have edited their documentation. I will continue to follow the patient during this hospital stay. HELLEN ARAYA DO Mar 19, 2019 12:40 JAVIER HART MD Mar 19, 2019 16:58
[2019-03-19] MEDS ORDERED: BISACODYL 5 MG TAB PO PRN (12:45)
[2019-03-19 15:50] VITALS: BP 129/75
[2019-03-19 20:00] VITALS: BP 155/67
[2019-03-19 23:59] VITALS: BP 176/84
[2019-03-20] VITALS (11 sets, daily range): BP systolic 134–185; BP diastolic 63–95
[2019-03-20] MEDS: PIPERACILLIN/TAZOBACTAM SOD 2.25 GM in D5W MINI-BAG PLUS 50 ML IV SCH ×3 (04:53→18:15)
[2019-03-20] MEDS: DAKIN'S 0.25% HALF-STRENGTH SOLN 480 ML TOP SCH (04:53)
[2019-03-20 05:27] LABS: HEMATOCRIT 30.6 % (42.0-52.0); HEMOGLOBIN 9.8 g/dl (13.5-17.5); MEAN CORPUSCULAR HEMOGLOBIN 28.9 pg (27.0-33.0); MEAN CORPUSCULAR VOLUME 90.3 fl (80.0-96.0); PLATELET COUNT, AUTOMATED 355 10^3/uL (150-450); RED BLOOD COUNT 3.39 10^6/uL (4.30-6.10); WHITE BLOOD COUNT 8.8 10^3/uL (4.0-10.0)
[2019-03-20] MEDS: PERCOCET 5MG/325MG TAB PO PRN ×3 (05:35→21:37)
[2019-03-20 05:42] LABS: CALCIUM LEVEL 9.3 MG/DL (8.8-10.2); CREATININE FOR GFR 2.02 MG/DL (0.70-1.30); GLOMERULAR FILTRATION RATE 34.8 (>42); MAGNESIUM LEVEL 2.4 MG/DL (1.8-2.4); POTASSIUM SERUM 4.3 MEQ/L (3.5-5.1)
[2019-03-20] MEDS ORDERED: DEXTROSE 50% 50 ML SYRINGE IV STA (05:55)
[2019-03-20] MEDS: HumaLOG INSULIN (NovoLOG) PER UNIT SC SCH ×4 (07:01→20:33)
[2019-03-20] MEDS: SENOKOT S TAB PO SCH ×2 (09:00→20:26)
[2019-03-20] MEDS: HEPARIN SOD (PORCINE) 5000 UNITS/ML VIAL SQ SCH ×2 (09:00→20:24)
[2019-03-20] MEDS: MOM 30ML SUSPENSION UDC PO SCH (09:00)
[2019-03-20] MEDS: LEVEMIR (INSULIN DETEMIR) 1 UNITS/0.01ML SC SCH (09:00)
[2019-03-20] MEDS: GABAPENTIN 300 MG CAP PO SCH ×2 (10:17→20:24)
[2019-03-20] MEDS: amLODIPine 10 MG TAB PO SCH (10:17)
[2019-03-20] MEDS: METOPROLOL TART 50 MG TAB PO SCH ×2 (10:17→20:25)
[2019-03-20] MEDS: CILOSTAZOL 100 MG TAB (PLETAL) PO SCH ×2 (10:17→20:24)
[2019-03-20] MEDS: ASPIRIN 81 MG ENTERIC TAB PO SCH (10:18)
--- NOTE | 2019-03-20 10:33 | IPNPDOC ---
Text Note Date of Service The patient was seen on 03/20/19. NOTE Subjective: Patient was seen and examined at the bedside. Currently patient has no new complaints. He denies chest pain, shortness of breath or palpitations. He is scheduled to go to the or today with Dr. Evangelista. He denies any nausea, vomiting, abdominal pain, diarrhea, or urinary discomfort. Objective: Vitals (See below) General: Lying in bed, no acute distress, comfortable, awake and alert HEENT: NC, AT CVS: +S1S2 Lungs: Fair air entry b/l, no appreciable wheezing, rhonchi or rales Abdomen: Soft, ND, NT Extremities: - Edema, - Calf tenderness, left foot with dressing in place Assessment and plan: Left toe gangrene - likely 2/2 chronic PVD - Initially presented with dry gangrene of his right toe / necrosis - MRI noted for osteomyelitis - Blood cultures remain negative - s/p Left foot debridement and toe amputation (03/17/2019) - c/w Zosyn; s/p Vancomycin - Transmetatarsal amputation scheduled for today with Dr. Evangelista Syncope - possibly 2/2 dehydration, possibly 2/2 infection, possibly 2/2 cardiac etiology - Head CT / Carotid US noted - Echocardiogram results above: severe aortic stenosis - After surgery, patient will likely be transferred to [place] for further cardiac evaluation IDDM2 with hypoglycemia - c/w ISS and Levemir Normocytic anemia - likely 2/2 anemia of chronic disease - s/p 1 unit PRBC - Iron studies consistent with AOCD HTN - BP well controlled - c/w Metoprolol and Amlodipine CAROL on CKD3/4 - Baseline 1.80-1.90 - Cr trending toward baseline - s/p IV fluids Possible Parkinson's disease - Clinical symptoms of flat affect - Physical with cogwheel rigidity - Will give outpatient referral to Neurology upon discharge Peripheral Arterial Disease - c/w cilostazol Gout - s/p Probenecid (re: Renal function) DLP Constipation - c/w Bowel regimen as ordered DVT prophylaxis - c/w Heparin VS,Fishbone, I+O VS, Fishbone, I+O Laboratory Tests 03/20/19 05:05 Red Blood Count 3.39 L, Mean Corpuscular Volume 90.3, Mean Corpuscular Hemoglobin 28.9, Mean Corpuscular Hemoglobin Concent 32.0, Red Cell Distribution Width 14.3, Calcium Level 9.3 Vital Signs Date Time Temp Pulse Resp B/P (MAP) Pulse Ox O2 Delivery O2 Flow Rate FiO2 03/20/19 07:47 98.8 93 20 165/77 (106) 95 03/16/19 20:00 2.0 03/15/19 06:55 Nasal Cannula I&O- Last 24 Hours up to 6 AM 03/20/19 05:59 Intake Total 1480 ml Output Total 1575 ml Balance -95 ml ALCON RAO MD Mar 20, 2019 10:33
[2019-03-20] MEDS ORDERED: LEVEMIR (INSULIN DETEMIR) 1 UNITS/0.01ML SC ONE (11:00)
[2019-03-20] MEDS ORDERED: LIDOCAINE 2% INJ 100 MG/5 ML SDV (FOR ANES.) As Ordered ONE (11:12)
[2019-03-20] MEDS ORDERED: fentaNYL 100 MCG/2 ML INJECTION (J3010) As Ordered ONE (11:12)
[2019-03-20] MEDS ORDERED: MIDAZOLAM INJ 2 MG/2 ML VIAL (J2250) As Ordered ONE (11:12)
[2019-03-20] MEDS ORDERED: PROPOFOL 200 MG/20 ML VIAL As Ordered ONE (11:12)
[2019-03-20] MEDS ORDERED: LIDOCAINE 2% MDV 20 ML VIAL As Ordered ONE (12:23)
[2019-03-20] MEDS ORDERED: BUPIVACAINE HCL 0.5% 30 ML VIAL As Ordered ONE (12:23)
[2019-03-20] MEDS ORDERED: PERCOCET 5MG/325MG TAB PO PRN (13:15)
[2019-03-20] MEDS ORDERED: NS 1,000 ML IV SCH (13:15)
[2019-03-20] MEDS ORDERED: fentaNYL 100 MCG/2 ML INJECTION (J3010) IV PRN (13:15)
[2019-03-20] MEDS ORDERED: METOCLOPRAMIDE INJ 10MG/2ML VIAL (J2765) IV PRN (13:15)
[2019-03-20] MEDS ORDERED: ONDANSETRON 4MG/2ML VIAL (J2405) IV PRN (13:15)
[2019-03-21] VITALS: BP 154/78
[2019-03-21] MEDS: PIPERACILLIN/TAZOBACTAM SOD 2.25 GM in D5W MINI-BAG PLUS 50 ML IV SCH ×3 (00:05→12:55)
[2019-03-21 04:00] VITALS: BP 150/76
[2019-03-21 04:20] LABS: HEMATOCRIT 30.6 % (42.0-52.0); HEMOGLOBIN 9.8 g/dl (13.5-17.5); MEAN CORPUSCULAR HEMOGLOBIN 28.7 pg (27.0-33.0); MEAN CORPUSCULAR VOLUME 89.5 fl (80.0-96.0); PLATELET COUNT, AUTOMATED 357 10^3/uL (150-450); RED BLOOD COUNT 3.42 10^6/uL (4.30-6.10); WHITE BLOOD COUNT 9.8 10^3/uL (4.0-10.0)
[2019-03-21 04:39] LABS: CALCIUM LEVEL 9.3 MG/DL (8.8-10.2); CREATININE FOR GFR 1.93 MG/DL (0.70-1.30); GLOMERULAR FILTRATION RATE 36.7 (>42); MAGNESIUM LEVEL 2.4 MG/DL (1.8-2.4); POTASSIUM SERUM 4.6 MEQ/L (3.5-5.1)
[2019-03-21] MEDS: PERCOCET 5MG/325MG TAB PO PRN (05:27)
[2019-03-21 08:00] VITALS: BP 142/69
[2019-03-21] MEDS: GABAPENTIN 300 MG CAP PO SCH (08:32)
[2019-03-21] MEDS: amLODIPine 10 MG TAB PO SCH (08:32)
[2019-03-21] MEDS: HEPARIN SOD (PORCINE) 5000 UNITS/ML VIAL SQ SCH (08:32)
[2019-03-21 08:33] VITALS: BP 142/69
[2019-03-21] MEDS: METOPROLOL TART 50 MG TAB PO SCH (08:33)
[2019-03-21] MEDS: ASPIRIN 81 MG ENTERIC TAB PO SCH (08:33)
[2019-03-21] MEDS: HumaLOG INSULIN (NovoLOG) PER UNIT SC SCH ×2 (08:33→12:55)
[2019-03-21] MEDS: CILOSTAZOL 100 MG TAB (PLETAL) PO SCH (08:33)
[2019-03-21] MEDS: LEVEMIR (INSULIN DETEMIR) 1 UNITS/0.01ML SC SCH (08:34)
[2019-03-21] MEDS: SENOKOT S TAB PO SCH (08:35)
[2019-03-21] MEDS: MOM 30ML SUSPENSION UDC PO SCH (08:36)
[2019-03-21] MEDS ORDERED: PERCOCET 5MG/325MG TAB PO ONE (09:00)
[2019-03-21 11:26] VITALS: BP 144/63
--- NOTE | 2019-03-21 11:48 | DS.PDOC ---
Discharge Summary General Date of Admission Mar 16, 2019 at 15:27 Date of Discharge 03/21/19 Attending Physician: JAVIER HART MD Specialist/Consultants Involve: Dimitry Evangelista MD Discharge Summary PROCEDURES PERFORMED DURING STAY: 1. MTA - 03/16/19 - Dr. Evangelista 2. partial TMA 03/20/19 - Dr. Evangelista 3. Echocardiogram: 03/16/19 : Normal sinus rhythm without intraventricular conduction disturbance. Technically challenging study in light of the patient's body habitus but diagnostically useful information was still obtained. M-mode and two-dimensional echocardiography was performed with pulsed, continuous wave, color flow and tissue Doppler studies. Mild concentric left ventricle hypertrophy with normal wall motion. Mildly dilated left atrium with impairment of LV diastolic function and elevated mean left atrial pressure. Normal right heart chamber sizes and motion with Doppler evidence of mild pulmonary hypertension. Normal IVC size and collapse against an elevated central venous pressure. Severe thickening with reduced aortic cusp separation could not rule out severe aortic stenosis. Very mild aortic insufficiency. Moderate degenerati ve changes of the mitral valvular apparatus without inflow tract obstruction and only trace insufficiency. Normal appearing tricuspid valve with mild insufficiency. No apparent intracardiac mass or pericardial effusion. Based on the above test findings and the patient's syncopal spell, we would recommend transfer for cardiac catheterization to further evaluate his aortic valve and possible need for valve replacement. ADMITTING DIAGNOSES: 1. Syncope of unknown etiology 2. Type 2 diabetes mellitus with foot ulcer and gangrene 3. Chronic kidney disease, stage IV 4. Anemia 5. Hyperlipidemia 6 Hypertension 7. Gangrene DISCHARGE DIAGNOSES: 1. Left toe gangrene 2. Syncope likely multifactorial secondary to severe aortic stenosis and osteomyelitis 3. Insulin dependent type 2 diabetes mellitus 4. Normocytic anemia 5. Hypertension 6. Acute kidney injury on Chronic kidney disease stage 3 7. Peripheral artery disease 8. Hx of Gout 9. Dyslipidemia 10. Possible Parkinson's Disease? COMPLICATIONS/CHIEF COMPLAINT: Syncope HISTORY OF PRESENT ILLNESS: Patient is a 73-year-old white male with past medical history of hypertension, hyperlipidemia, peripheral vascular disease, chronic kidney disease stage 4, s/p below knee amputation, Left big toe gangrene, Type 2 Diabetes Mellitus, history of [place] palsy, and obesity presented to the ER due to syncope. Mr. Randall states that he was home last night sitting in his wheelchair where he must have lost consciousness because he was woken up by his son who found him on the floor. Mr. Randall cannot give a specific time when this occurred. He states that after he regained consciousness he was shaking and noticed that his left great toe was bleeding. He decided to present to the emergency room. Mr. Randall states that he has night sweats and chills on a regular basis. He denies having similar episodes of syncope in the past. He did not have chest pain, palpitations, shortness of breath, nausea, vomiting, numbness, tingling, or chest pain. HOSPITAL COURSE: On the day of admission he was evaluated in the emergency room. On initial physical exam a dry gangrenous necrotic left great toe was noted to Jean Carlos was consulted for further evaluation. MRI of the foot was suggestive of osteomyelitis and he was started on IV antibiotics. He had a MTA on 03/16/2019 and a TMA with partial closure on 03/20/[address] Evangelista. Also his echocardiogram for the syncope workup showed that he had severe thickening with reduced aortic cups separation and very mild aortic insufficiency. Because of how significant aortic stenosis was the patient was transferred to [place], under the care of Dr. Kim and Dr. Jaimes, for cardiac catheterization and possible valve replacement. Subsequently our exams throughout the stay showed that the patient had some lower motor lesions findings such as fasciculations in his right forearm, right and left hyperthenar muscles. He also had increased, cogwheel rigidity/tone as well as a flat affect which made us suspicious for possible underlying early Parkinson's disease. Recommend patient to follow-up with his primary care provider for further evaluation if necessary. DISCHARGE MEDICATIONS: Please see below. ALLERGIES: Please see below. PHYSICAL EXAMINATION ON DISCHARGE: VITAL SIGNS: Please see below. GENERAL: obese white male lying in bed eating breakfast, he is alert, in pain, and frustrated HEENT: NT AC, mucous membranes moist and pink, Very poor dentition CARDIOVASCULAR:2-3/6 harsh systolic murmur radiating bilaterally to the carotids at the second intercostal space, normal S1 and S2 sounds with no audible rubs and gallops. RESPIRATORY: Bibasilar crackles noted on inspiration, not using accessory muscles to breath ABDOMINAL: morbid obesity, nontender to palpation, normal bowel sounds EXTREMITIES: Below knee amputation of right leg. MTA and partial TMA on left foot, foot is covered in bandages, fasciculations noted in left forearm and bilateral hyperthenar. Positive for cogwheel rigidity. Positive pronator drift on right. NEUROLOGICAL: CNII-XII intact, CNII and III sluggish, patient had difficulty focusing on finger while gauging EOMI. PSYCHOLOGICAL: flat affect, anxious, depressed LABORATORY DATA: Please see below. IMAGIN. Head CT 03/14/19: No evidence of acute territorial major vessel infarct, mass effect, or hemorrhage. Global parenchymal volume loss. 2. Vascular ultrasound 03/15/19: 1. Correlation with CTA or MRA may be helpful as the current exam is limited. The mid and distal internal carotid arteries were sought but could not be imaged due to the relatively short neck and high bifurcations.. 2. Moderate stenosis, 50-69%, in the proximal left internal carotid artery. 3. No hemodynamically significant narrowing within the proximal right internal carotid artery. 4. Antegrade flow within both vertebral arteries. 3. Chest X-ray 03/15/19: Low lung volumes. Left retrocardiac density may represent atelectasis versus infection. Mild right base atelectasis 4. Abdominal X-ray 03/15/19: Multiple prominent slightly thickened gas-filled small and large bowel. Findings may represent inflammation versus infection/ ileus. No radiographic evidence of obstruction. 5. Foot MRI 03/16/19: There appears to be exposed bone with soft tissue deficiency adjacent to the distal end of the proximal phalanx and the dorsal aspect of the entire distal phalanx of the great toe. Low T1 signal intensity in the distal tuft of the great toe suggests osteomyelitis. No abscess PROGNOSIS: Guarded ACTIVITY: Per PT recommendations currently will be nonweightbearing DIET: Consistent carbohydrate DISPOSITION: Patient is being transferred to [facility] in [place] DISCHARGE INSTRUCTIONS: 1. Follow recommendations based on [place]'s discharge summary. 2. Will need to follow-up with his primary care provider though upon discharge DISCHARGE CONDITION: Stable TIME SPENT ON DISCHARGE: Greater than 35 minutes. Vital Signs/I&Os Vital Signs Date Time Temp Pulse Resp B/P (MAP) Pulse Ox O2 Delivery O2 Flow Rate FiO2 03/21/19 11:26 97.4 88 20 144/63 (90) 97 03/20/19 12:44 10 03/15/19 06:55 Nasal Cannula I&O- Last 24 Hours up to 6 AM 03/21/19 06:00 Intake Total 1170 ml Output Total 1655 ml Balance -485 ml Laboratory Data Labs 24H Laboratory Tests 2 03/20/19 12:52: Bedside Glucose (Misc Panel) 118H 03/20/19 17:49: Bedside Glucose (Misc Panel) 131H 03/20/19 20:31: Bedside Glucose (Misc Panel) 166H 03/21/19 03:55: Nucleated Red Blood Cells % (auto) 0.0, Anion Gap 6L, Glomerular Filtration Rate 36.7L, Blood Urea Nitrogen 30H, Creatinine 1.93H, Sodium Level 142, Potassium Level 4.6, Chloride Level 115H, Carbon Dioxide Level 21, Calcium Level 9.3, Magnesium Level 2.4 03/21/19 08:00: Bedside Glucose (Misc Panel) 177H CBC/BMP Laboratory Tests 03/21/19 03:55 Red Blood Count 3.42 L, Mean Corpuscular Volume 89.5, Mean Corpuscular Hemoglobin 28.7, Mean Corpuscular Hemoglobin Concent 32.0, Red Cell Distribution Width 14.0, Calcium Level 9.3 FSBS Laboratory Tests Test 03/20/19 12:52 03/20/19 17:49 03/20/19 20:31 03/21/19 08:00 Range/Units Bedside Glucose (Misc Panel) 118 131 166 177 83-110 MG/DL Microbiology Microbiology 03/15/19 Blood Culture - Final, Complete NO GROWTH AFTER 5 DAYS 03/15/19 Blood Culture - Final, Complete NO GROWTH AFTER 5 DAYS Discharge Medications Scheduled Aspirin (Aspirin EC) 81 Mg Tab, 81 MG PO DAILY, (Reported) Cilostazol (Cilostazol) 100 Mg Tablet, 100 MG PO BID, (Reported) Furosemide (Furosemide) 40 Mg Tablet, 80 MG PO 3XW, (Reported) MON, WED, FRI Furosemide (Furosemide) 40 Mg Tablet, 40 MG PO 4XWK, (Reported) SUN, TUES, TH, SAT Gabapentin (Gabapentin) 300 Mg Cap, 300 MG PO BID, (Reported) Glipizide (Glipizide ER) 10 Mg Tab, 10 MG PO DAILY, (Reported) Insulin Glargine,Hum.rec.anlog (Lantus Solostar) 100 Unit/Ml Inj, 75 UNITS SC DAILY, (Reported) Metformin HCl (Metformin HCl ER) 750 Mg Tab, 750 MG PO DAILY, (Reported) Metoprolol Tartrate (Metoprolol Tartrate) 50 Mg Tab, 50 MG PO BID, (Reported) Probenecid (Probenecid) 500 Mg Tab, 500 MG PO BID, (Reported) Quinapril Hcl (Quinapril HCl) 20 Mg Tab, 20 MG PO DAILY, (Reported) Scheduled PRN Hydrocodone/Acetaminophen (Hydrocodone-Acetamin 7.5-325) 1 Tab Tab, 1 TAB PO Q6H PRN for PAIN, (Reported) Oxycodone HCl/Acetaminophen (Percocet 5-325 mg Tablet) 1 Each Tablet, 1 TAB PO Q6H PRN for PAIN, (Reported) Allergies Coded Allergies: codeine (Verified Adverse Reaction, Mild, GI upset, 01/16/19) GME ATTESTATION GME ATTESTATION My faculty preceptor for this patient encounter was physically present during the encounter and was fully available. All aspects of the patient interview, examination, medical decision making process, and medical care plan development were reviewed and approved by the faculty preceptor. The faculty preceptor is aware and concurs with the plan as stated in the body of this note and will attest to such by his/her cosignature. ATTENDING NOTE I, Javier Hart, have independently examined this patient and performed my own physical exam, as well as reviewed the documentation and edited where necessary. I have discussed in detail with the resident / student the findings and plan of treatment as documented by the resident / student and edited their note. I agree with their findings and treatment plan and have edited their documentation. I will continue to follow the patient during this hospital stay. ANNIE HUFFMAN OMS-3 Mar 21, 2019 11:48 HELLEN ARAYA DO Mar 21, 2019 16:54 JAVIER HART MD Apr 12, 2019 10:29
[2019-03-21] MEDS ORDERED: PERCOCET 5MG/325MG TAB PO PRN (12:00)
--- NOTE | 2019-03-21 14:10 | IPNPDOC ---
Date Seen The patient was seen on 03/21/19. Progress Note Vascular Surgery Dr Evangelista HPI: Patient is a 73-year-old male, presenting to the ED related to syncopal episode. Vascular surgery was consulted regarding gangrenous left foot wound. S/P Left foot wound debridement and toe amputation as per Dr Evangelista 03/16/19, partial TMA 03/20/[address] Evangelista. The pt denies pain this AM. Sitting up in bed eating breakfast. PMH peripheral arterial disease, hypertension, chronic kidney disease stage IV, type 2 diabetes mellitus, obesity. BMI 33.9 Surgical History Right BKA Appendectomy Hernia repair PE: GEN: 73yoM, No acute distress. Alert and oriented 3. HEENT NC/AT. Moist mucous membranes. Chest. Clear to auscultation Heart S1-S2 regular rate and rhythm. Abdomen round, soft, nontender. Bowel sounds present. Rt BKA. lt foot with dressing removed.Wound noted with minimal bloody drainage. Surrounding skin with decreased erythema. decreased edema of LLE. Wet to dry dressing with Dakins is reapplied. MRI Lt Foot Impression: There appears to be exposed bone with soft tissue deficiency adjacent to the distal end of the proximal phalanx and the dorsal aspect of the entire distal phalanx of the great toe. Low T1 signal intensity in the distal tuft of the great toe suggests osteomyelitis. No abscess seen. Electronically Signed by Thompson Henry MD 03/16/2019 06:14 P A&P: 1. Gangrenous left foot wound. S/P angiogram as per Dr Evangelista 01/24/19. No intervention, distal small vessel disease Lt foot. S/P wound debridement and toe amputation as per Dr Evangelista 03/16/19, partial TMA 03/20/[address] Evangelista. Pt is afebrile. No leukocytosis. BC x 1 03/11 neg. BC x 2 03/15 neg IV antibiotics/IVF as per primary team. Imaging Lt foot as above. The pt is reviewed and discussed with Dr. Evangelista, continue with wet to dry dressing Q6hrs with Dakins solution. Tentative plan as per Dr Evangelista for Left TMA completion and wound closure, pending at this time. Pt may require Lt BKA pending wound healing. Non WB on left foot at this time. Pt will need outpt FU with wound mgmt, Dr Hernandez. DVT prophylaxis. SQ Heparin. VS, I&O, 24H, Fishbone Vital Signs/I&O Vital Signs Date Time Temp Pulse Resp B/P (MAP) Pulse Ox O2 Delivery O2 Flow Rate FiO2 03/21/19 11:26 97.4 88 20 144/63 (90) 97 03/20/19 12:44 10 03/15/19 06:55 Nasal Cannula l I&O- Last 24 Hours up to 6 AM 03/21/19 05:59 Intake Total 1120 ml Output Total 1655 ml Balance -535 ml Laboratory Data 24H LABS Laboratory Tests 2 03/20/19 17:49: Bedside Glucose (Misc Panel) 131H 03/20/19 20:31: Bedside Glucose (Misc Panel) 166H 03/21/19 03:55: Nucleated Red Blood Cells % (auto) 0.0, Anion Gap 6L, Glomerular Filtration Rate 36.7L, Blood Urea Nitrogen 30H, Creatinine 1.93H, Sodium Level 142, Potassium Level 4.6, Chloride Level 115H, Carbon Dioxide Level 21, Calcium Level 9.3, Magnesium Level 2.4 03/21/19 08:00: Bedside Glucose (Misc Panel) 177H 03/21/19 11:57: Bedside Glucose (Misc Panel) 166H CBC/BMP Laboratory Tests 03/21/19 03:55 Red Blood Count 3.42 L, Mean Corpuscular Volume 89.5, Mean Corpuscular Hemoglobin 28.7, Mean Corpuscular Hemoglobin Concent 32.0, Red Cell Distribution Width 14.0, Calcium Level 9.3 Microbiology Microbiology 03/15/19 Blood Culture - Final, Complete NO GROWTH AFTER 5 DAYS 03/15/19 Blood Culture - Final, Complete NO GROWTH AFTER 5 DAYS Milly Goss Mar 21, 2019 14:10
--- NOTE | 2019-03-31 18:32 | RO ---
DATE OF PROCEDURE: 03/16/2019 PREOPERATIVE DIAGNOSIS: Left foot gangrene, first, second and third toe gangrene, left third, fourth and fifth toe ischemia. POSTOPERATIVE DIAGNOSES: Left foot gangrene, first, second and third toe gangrene, left third, fourth and fifth toe ischemia. PROCEDURE: Left toe amputation in guillotine fashion, toes one through five SURGEON: Dr. Landen Evangelista TAX ANALYST: None. ANESTHESIA: INDICATION: The patient is a 73-year-old male with initial gangrene of the first toe, which was dry and stable, who has now developed worsening gangrene in the foot. The patient has maggots in the wound and will require amputation and debridement. Anesthesia was local monitored anesthesia care (MAC). ESTIMATED BLOOD LOSS: 17 mL. IV FLUIDS: 50 mL. SPECIMENS: Left toes one through five. DESCRIPTION OF PROCEDURE: The patient was taken to the operating room, placed supine on the operating room table, and then prepped and draped in a standard surgical fashion. The toes one through five were transected using a scalpel at the metatarsophalangeal joint space with the metatarsal heads remaining in place. The tissue that was nonviable was debrided and removed down to healthy bleeding tissue. Wet-to-dry dressing was then applied. The patient tolerated the procedure well. All instrument, sponge and needle counts were correct at the end of the case. There were no complications. Dr. Evangelista was present for and directed the entire case. The patient was transferred to the recovery room and subsequently to the floor in stable condition.
--- NOTE | 2019-03-31 21:34 | RO ---
DATE OF PROCEDURE: 03/20/2019 PREOPERATIVE DIAGNOSIS: Left foot gangrene status post amputation of left first through fifth toes in guillotine fashion. POSTOPERATIVE DIAGNOSIS: Left foot gangrene status post amputation of left first through fifth toes in guillotine fashion. PROCEDURE: Left transmetatarsal head amputation with removal of the metatarsal heads one through five, left foot wound debridement. SURGEON: Dr. Landen Evangelista REHABILITATION PHYSICIAN: None. 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 ANESTHESIA: Monitored anesthesia care (MAC) with ankle block. ESTIMATED BLOOD LOSS: 5 mL. IV FLUIDS: 300 mL. SPECIMEN: Metatarsal heads. COMPLICATIONS: None. DRAINS: None. IMPLANTS: None. DESCRIPTION OF PROCEDURE: The patient was taken to the operating room, placed supine on the operating room table, and the left foot was prepped and draped in a standard surgical fashion. The tissue was dissected sharply off of the metatarsal heads. The metatarsal heads were transected using a bone saw, but the tissue flaps had very poor perfusion and are unlikely to heal a transmetatarsal amputation. The wound was then packed with wet-to-dry dressings. The patient tolerated the procedure well. All instrument, sponge and needle counts were correct at the end of the case. There were no complications. Dr. Evangelista was present for and directed the entire case. The patient was transferred to the recovery room awake, alert, extubated and in stable condition.
== END 2019-03-21 15:39 | disposition short-term general hospital (02) | DRG 240 ==
LOC: M ED 22:40 → M ED INP 22:41 → M PCU 03-15 14:49 → OBSVTOIN 03-16 15:27
PROVIDERS: ADMIT Internal Medicine; ATTEND Internal Medicine
PROC: 30233N1 Transfusion of Nonautologous Red Blood Cells into Peripheral Vein, Percutaneous Approach (ICD-10-PCS; 2019-03-15)
PROC: 0Y6Q0Z0 Detachment at Left 1st Toe, Complete, Open Approach (ICD-10-PCS; 2019-03-16)
PROC: 0Y6Y0Z0 Detachment at Left 5th Toe, Complete, Open Approach (ICD-10-PCS; 2019-03-16)
PROC: 0Y6W0Z0 Detachment at Left 4th Toe, Complete, Open Approach (ICD-10-PCS; 2019-03-16)
PROC: 0Y6U0Z0 Detachment at Left 3rd Toe, Complete, Open Approach (ICD-10-PCS; 2019-03-16)
PROC: 0Y6S0Z0 Detachment at Left 2nd Toe, Complete, Open Approach (ICD-10-PCS; 2019-03-16)
PROC: 0Y6N0ZB Detachment at Left Foot, Partial 2nd Ray, Open Approach (ICD-10-PCS; 2019-03-20)
PROC: 0Y6N0ZC Detachment at Left Foot, Partial 3rd Ray, Open Approach (ICD-10-PCS; 2019-03-20)
PROC: 0Y6N0ZD Detachment at Left Foot, Partial 4th Ray, Open Approach (ICD-10-PCS; 2019-03-20)
PROC: 0Y6N0ZF Detachment at Left Foot, Partial 5th Ray, Open Approach (ICD-10-PCS; 2019-03-20)
PROC: 0Y6N0Z9 Detachment at Left Foot, Partial 1st Ray, Open Approach (ICD-10-PCS; principal; 2019-03-20 08:30)
DX: E11.52 Type 2 diabetes mellitus with diabetic peripheral angiopathy with gangrene (principal); N18.4 Chronic kidney disease, stage 4 (severe); I70.262 Atherosclerosis of native arteries of extremities with gangrene, left leg; R55 Syncope and collapse; E11.621 Type 2 diabetes mellitus with foot ulcer; I12.9 Hypertensive chronic kidney disease with stage 1 through stage 4 chronic kidney disease, or unspecified chronic kidney disease; E11.22 Type 2 diabetes mellitus with diabetic chronic kidney disease; E66.9 Obesity, unspecified; L97.524 Non-pressure chronic ulcer of other part of left foot with necrosis of bone; D64.9 Anemia, unspecified; E78.5 Hyperlipidemia, unspecified; Z68.33 Body mass index [BMI] 33.0-33.9, adult; Z79.82 Long term (current) use of aspirin; Z79.4 Long term (current) use of insulin; Z89.511 Acquired absence of right leg below knee; Z79.899 Other long term (current) drug therapy; Z90.49 Acquired absence of other specified parts of digestive tract

== ENCOUNTER → 2019-05-18 | Outpatient (REF) | payer MEDICARE ==
[~2019-05-18] MED LIST changes: -METF750T PO; +METF750T36 PO
[2019-05-18 13:25] LABS: HEMATOCRIT 34.8 % (42.0-52.0); HEMOGLOBIN 11.2 g/dl (13.5-17.5); MEAN CORPUSCULAR HEMOGLOBIN 29.9 pg (27.0-33.0); MEAN CORPUSCULAR HGB CONC 32.2 g/dl (32.0-36.5); MEAN CORPUSCULAR VOLUME 92.8 fl (80.0-96.0); PLATELET COUNT, AUTOMATED 257 10^3/uL (150-450); RED BLOOD COUNT 3.75 10^6/uL (4.30-6.10); WHITE BLOOD COUNT 6.4 10^3/uL (4.0-10.0)
[2019-05-18 13:30] LABS: ALBUMIN 3.5 GM/DL (3.2-5.2); BILIRUBIN,TOTAL 0.3 MG/DL (0.2-1.0); CALCIUM LEVEL 9.4 MG/DL (8.8-10.2); CHOLESTEROL RISK RATIO 5.468 (<5); CREATININE FOR GFR 2.92 MG/DL (0.70-1.30); GLOMERULAR FILTRATION RATE 22.8 (>42); POTASSIUM SERUM 4.5 MEQ/L (3.5-5.1); TOTAL PROTEIN 7.1 GM/DL (6.4-8.2); URIC ACID 7.1 MG/DL (3.5-7.2)
[2019-05-18 13:38] LABS: PTH INTACT 40.2 PG/ML (18.5-88.0)
[2019-05-18 14:06] LABS: HEMOGLOBIN A1c 7.1 %
== END ==
LOC: M SFHCPLAZ 10:19
PROVIDERS: ATTEND Internal Medicine
DX: E11.22 Type 2 diabetes mellitus with diabetic chronic kidney disease (principal); I12.9 Hypertensive chronic kidney disease with stage 1 through stage 4 chronic kidney disease, or unspecified chronic kidney disease; N18.3 Chronic kidney disease, stage 3 (moderate); E78.00 Pure hypercholesterolemia, unspecified; Z87.19 Personal history of other diseases of the digestive system
CPT/HCPCS: 36415; 80053; 80061; 83036; 83970; 84550; 85027; 99496; G0463

== ENCOUNTER → 2019-07-04 | Outpatient (REF) | payer MEDICARE ==
[2019-07-04 12:44] LABS: HEMATOCRIT 37.6 % (42.0-52.0); MEAN CORPUSCULAR HEMOGLOBIN 29.1 pg (27.0-33.0); MEAN CORPUSCULAR HGB CONC 31.9 g/dl (32.0-36.5); PLATELET COUNT, AUTOMATED 170 10^3/uL (150-450); RED BLOOD COUNT 4.13 10^6/uL (4.30-6.10); WHITE BLOOD COUNT 6.6 10^3/uL (4.0-10.0)
[2019-07-04 12:46] LABS: ALBUMIN 3.8 GM/DL (3.2-5.2); BILIRUBIN,TOTAL 0.3 MG/DL (0.2-1.0); CHOLESTEROL RISK RATIO 3.656 (<5); CREATININE FOR GFR 1.85 MG/DL (0.70-1.30); GLOMERULAR FILTRATION RATE 38.4 (>42); POTASSIUM SERUM 5.7 MEQ/L (3.5-5.1); TOTAL PROTEIN 7.7 GM/DL (6.4-8.2)
[2019-07-04 12:53] LABS: PTH INTACT 24.3 PG/ML (18.5-88.0)
[2019-07-04 13:25] LABS: HEMOGLOBIN A1c 7.2 %
== END ==
LOC: M SFHCADAM 08:44
PROVIDERS: ATTEND Internal Medicine
DX: Z87.19 Personal history of other diseases of the digestive system (principal); E11.22 Type 2 diabetes mellitus with diabetic chronic kidney disease; E78.00 Pure hypercholesterolemia, unspecified; N18.3 Chronic kidney disease, stage 3 (moderate)

== ENCOUNTER → 2019-07-07 | Outpatient (REF) | payer MEDICARE ==
[2019-07-07 19:05] LABS: CREATININE, URINE 33.7 MG/DL; MAU/CREAT RATIO 1786.3 MCG/MG (0.0-30.0)
== END ==
LOC: M SFHCPLAZ 11:51
PROVIDERS: ATTEND Internal Medicine
DX: E11.22 Type 2 diabetes mellitus with diabetic chronic kidney disease (principal)

== ENCOUNTER → 2019-10-12 | Outpatient (REF) | payer MEDICARE ==
[~2019-10-12] MED LIST changes: -SIMV40TA2; +SIMV40TA20
[2019-10-12 13:11] LABS: HEMATOCRIT 37.1 % (42.0-52.0); HEMOGLOBIN 12.1 g/dl (13.5-17.5); MEAN CORPUSCULAR HEMOGLOBIN 28.8 pg (27.0-33.0); MEAN CORPUSCULAR HGB CONC 32.6 g/dl (32.0-36.5); MEAN CORPUSCULAR VOLUME 88.3 fl (80.0-96.0); PLATELET COUNT, AUTOMATED 185 10^3/uL (150-450); WHITE BLOOD COUNT 5.8 10^3/uL (4.0-10.0)
[2019-10-12 13:14] LABS: ALBUMIN 3.5 GM/DL (3.2-5.2); BILIRUBIN,TOTAL 0.3 MG/DL (0.2-1.0); CALCIUM LEVEL 8.7 MG/DL (8.8-10.2); CREATININE FOR GFR 2.49 MG/DL (0.70-1.30); GLOMERULAR FILTRATION RATE 27.3 (>42); MAGNESIUM LEVEL 2.4 MG/DL (1.8-2.4); POTASSIUM SERUM 4.1 MEQ/L (3.5-5.1); TOTAL PROTEIN 6.9 GM/DL (6.4-8.2); URIC ACID 7.1 MG/DL (3.5-7.2)
[2019-10-12 13:22] LABS: PTH INTACT 65.6 PG/ML (18.5-88.0)
[2019-10-12 13:51] LABS: HEMOGLOBIN A1c 9.4 %
== END ==
LOC: M SFHCADAM 07:59
PROVIDERS: ATTEND Internal Medicine
DX: Z87.19 Personal history of other diseases of the digestive system (principal); E11.22 Type 2 diabetes mellitus with diabetic chronic kidney disease; I12.9 Hypertensive chronic kidney disease with stage 1 through stage 4 chronic kidney disease, or unspecified chronic kidney disease; N18.3 Chronic kidney disease, stage 3 (moderate)

== ENCOUNTER → 2020-01-20 | Outpatient (REF) | payer MEDICARE ==
[2020-01-20 13:01] LABS: HEMATOCRIT 35.9 % (42.0-52.0); HEMOGLOBIN 11.5 g/dl (13.5-17.5); MEAN CORPUSCULAR HEMOGLOBIN 28.8 pg (27.0-33.0); MEAN CORPUSCULAR VOLUME 89.8 fl (80.0-96.0); PLATELET COUNT, AUTOMATED 222 10^3/uL (150-450); WHITE BLOOD COUNT 5.1 10^3/uL (4.0-10.0)
[2020-01-20 13:42] LABS: ALBUMIN 3.5 GM/DL (3.2-5.2); BILIRUBIN,TOTAL 0.3 MG/DL (0.2-1.0); CALCIUM LEVEL 8.8 MG/DL (8.8-10.2); CHOLESTEROL RISK RATIO 3.906 (<5); CREATININE FOR GFR 2.11 MG/DL (0.70-1.30); MAGNESIUM LEVEL 2.4 MG/DL (1.8-2.4); POTASSIUM SERUM 4.6 MEQ/L (3.5-5.1); PTH INTACT 78.9 PG/ML (18.5-88.0); TOTAL PROTEIN 7.1 GM/DL (6.4-8.2)
[2020-01-20 13:53] LABS: HEMOGLOBIN A1c 8.9 %
== END ==
LOC: M SFHCADAM 08:37
PROVIDERS: ATTEND Internal Medicine
DX: N18.3 Chronic kidney disease, stage 3 (moderate) (principal); I12.9 Hypertensive chronic kidney disease with stage 1 through stage 4 chronic kidney disease, or unspecified chronic kidney disease; E11.22 Type 2 diabetes mellitus with diabetic chronic kidney disease; E78.00 Pure hypercholesterolemia, unspecified

== ENCOUNTER → 2020-02-28 | Outpatient (REF) | payer MEDICARE ==
[2020-02-28 17:02] LABS: HEMATOCRIT 31.9 % (42.0-52.0); HEMOGLOBIN 10.3 g/dl (13.5-17.5); MEAN CORPUSCULAR HEMOGLOBIN 29.5 pg (27.0-33.0); MEAN CORPUSCULAR HGB CONC 32.3 g/dl (32.0-36.5); MEAN CORPUSCULAR VOLUME 91.4 fl (80.0-96.0); PLATELET COUNT, AUTOMATED 170 10^3/uL (150-450); RED BLOOD COUNT 3.49 10^6/uL (4.30-6.10); WHITE BLOOD COUNT 4.8 10^3/uL (4.0-10.0)
[2020-02-28 17:22] LABS: ALBUMIN 3.5 GM/DL (3.2-5.2); BILIRUBIN,TOTAL 0.5 MG/DL (0.2-1.0); CALCIUM LEVEL 8.6 MG/DL (8.8-10.2); CREATININE FOR GFR 2.6 MG/DL (0.70-1.30); POTASSIUM SERUM 5.1 MEQ/L (3.5-5.1); TOTAL PROTEIN 6.9 GM/DL (6.4-8.2)
[2020-02-28 17:27] LABS: PTH INTACT 86.9 PG/ML (18.5-88.0)
== END ==
LOC: M SFHCPLAZ 14:17
PROVIDERS: ATTEND Internal Medicine
DX: I12.9 Hypertensive chronic kidney disease with stage 1 through stage 4 chronic kidney disease, or unspecified chronic kidney disease (principal); N18.3 Chronic kidney disease, stage 3 (moderate)

== ENCOUNTER → 2020-05-18 | Outpatient (REF) | payer MEDICARE ==
[~2020-05-18] MED LIST changes: +AMLO1TAB24 PO; -AMLO5TAB6 PO; +CARA1TAB6 PO; +FLOM0.4C39 PO; +HUMA100I3 SC; +OMEP40CA97 PO; +VITA50005 PO
[2020-05-18 13:35] LABS: ALBUMIN 3.2 GM/DL (3.2-5.2); BILIRUBIN,TOTAL 0.3 MG/DL (0.2-1.0); CREATININE FOR GFR 4.05 MG/DL (0.70-1.30); GLOMERULAR FILTRATION RATE 15.6 (>42); MAGNESIUM LEVEL 2.8 MG/DL (1.8-2.4); POTASSIUM SERUM 5.4 MEQ/L (3.5-5.1); PTH INTACT 164.1 PG/ML (18.5-88.0); TOTAL PROTEIN 6.4 GM/DL (6.4-8.2)
== END ==
LOC: M SFHCADAM 10:03
PROVIDERS: ATTEND Internal Medicine
DX: E11.22 Type 2 diabetes mellitus with diabetic chronic kidney disease (principal); I12.9 Hypertensive chronic kidney disease with stage 1 through stage 4 chronic kidney disease, or unspecified chronic kidney disease; N18.30 Chronic kidney disease, stage 3 unspecified

== ENCOUNTER 2020-05-21 11:51 | Emergency (ER) | payer MEDICARE ==
[~2020-05-21 11:51] MED LIST changes: -CARA1TAB6 PO; -FLOM0.4C39 PO; -HUMA100I3 SC; -OMEP40CA97 PO; -VITA50005 PO
[2020-05-21] MEDS ORDERED: DEXTROSE 50% 50 ML SYRINGE IV STA ×3 (14:00→18:48)
[2020-05-21] MEDS ORDERED: DEXTROSE 50% 50 ML SYRINGE As Ordered ONE (14:01)
--- NOTE | 2020-05-21 14:10 | REPVR ---
PROCEDURE INFORMATION: Exam: CT Head Without Contrast Exam date and time: 05/21/2020 1:39 PM Age: 74 years old Clinical indication: Altered mental status/memory loss TECHNIQUE: Imaging protocol: Computed tomography of the head without contrast. Radiation optimization: All CT scans at this facility use at least one of these dose optimization techniques: automated exposure control; mA and/or kV adjustment per patient size (includes targeted exams where dose is matched to clinical indication); or iterative reconstruction. COMPARISON: CT Head without contrast 03/14/2019 11:39 PM FINDINGS: Brain: There is no acute intracranial hemorrhage, cerebral edema, or midline shift. Chronic microvascular ischemic changes are seen in the periventricular white matter. Age-related cerebral and cerebellar volume loss is present. Cerebral ventricles: No ventriculomegaly. Bones/joints: No acute fracture. Paranasal sinuses: There is no acute sinusitis. Mastoid air cells: The mastoid air cells are clear. Orbits: The included orbital structures are unremarkable. Vasculature: Atherosclerotic calcifications are seen involving the cavernous carotid arteries. Soft tissues: Unremarkable. IMPRESSION: 1. No acute intracranial abnormality. 2. Atrophy and chronic deep white matter ischemic changes. Electronically signed by: Dru Mendez On 05/21/2020 14:10:44 PM
[2020-05-21 14:36] LABS: BASO % 0.5 % (0.0-1.0); EOS # 0.1 10^3/uL (0.0-0.5); EOS % 1.3 % (0.0-3.0); HEMATOCRIT 25.2 % (42.0-52.0); LYMPH # 0.8 10^3/uL (1.5-5.0); LYMPH % 13.5 % (24.0-44.0); MEAN CORPUSCULAR HEMOGLOBIN 30.9 pg (27.0-33.0); MEAN CORPUSCULAR HGB CONC 31.7 g/dl (32.0-36.5); MEAN CORPUSCULAR VOLUME 97.3 fl (80.0-96.0); MONO # 0.5 10^3/uL (0.0-0.8); NEUTROPHILS # 4.7 10^3/uL (1.5-8.5); NEUTROPHILS % 76.5 % (36.0-66.0); PLATELET COUNT, AUTOMATED 196 10^3/uL (150-450); RED BLOOD COUNT 2.59 10^6/uL (4.30-6.10); WHITE BLOOD COUNT 6.1 10^3/uL (4.0-10.0)
--- NOTE | 2020-05-21 15:02 | REPVR ---
PROCEDURE INFORMATION: Exam: XR Chest, 2 Views Exam date and time: 05/21/2020 2:43 PM Age: 74 years old Clinical indication: Shortness of breath; Additional info: Altered mental status TECHNIQUE: Imaging protocol: XR of the chest Views: 2 views. COMPARISON: CR PORTABLE CHEST X-RAY 03/15/2019 8:31 PM FINDINGS: Lungs: Senescent changes are present. No focal consolidation is identified. Pleural space: Unremarkable. No pleural effusion. No pneumothorax. Heart/Mediastinum: Unremarkable. No cardiomegaly. Bones/joints: Unremarkable. IMPRESSION: No acute abnormality. Electronically signed by: Dru Mendez On 05/21/2020 15:01:56 PM
[2020-05-21 15:22] LABS: ALBUMIN 3.3 GM/DL (3.2-5.2); ALT/SGPT 29 U/L (12-78); BILIRUBIN,DIRECT < 0.1 MG/DL (0.0-0.2); BILIRUBIN,TOTAL 0.4 MG/DL (0.2-1.0); BLOOD UREA NITROGEN 103 MG/DL (7-18); CALCIUM LEVEL 8.1 MG/DL (8.8-10.2); CARBON DIOXIDE LEVEL 13 MEQ/L (21-32); CHLORIDE LEVEL 122 MEQ/L (98-107); CK-MB VALUE MASS 26.9 NG/ML (<3.6); CPK CREATINE PHOSPHOKINASE 1716 U/L (39-308); CREATININE FOR GFR 6.19 MG/DL (0.70-1.30); ETHYL ALCOHOL (ETHANOL) < 0.003 % (0.000-0.010); GLOMERULAR FILTRATION RATE 9.5 (>42); GLUCOSE, FASTING 31 MG/DL (70-100); MB/CK RELATIVE INDEX 1.57 (< OR =4); POTASSIUM SERUM 5.3 MEQ/L (3.5-5.1); SODIUM LEVEL 145 MEQ/L (136-145); THYROID STIMULATING HORMONE 0.139 uIU/ML (0.358-3.740); TOTAL PROTEIN 6.5 GM/DL (6.4-8.2); TROPONIN I 2.72 NG/ML (< 0.10)
[2020-05-21 15:45] LABS: BILIRUBIN, URINE MANUAL NEGATIVE (NEGATIVE); GLUCOSE, URINE (UA) MANUAL NEGATIVE (NEGATIVE); KETONE, URINE MANUAL NEGATIVE (NEGATIVE); UROBILINOGEN, URINE MANUAL NORMAL (NORMAL)
[2020-05-21] MEDS ORDERED: D5W/0.45% SODIUM CHLORIDE 1,000 ML IV SCH (15:45)
[2020-05-21 15:55] LABS: RBC, URINE 15-20 /hpf (0-3); SQUAMOUS EPITHELIAL CELL URINE NONE SEEN /hpf (SMALL AMT)
[2020-05-21 15:56] LABS: BACTERIA, URINE LARGE AMOUNT; HYALINE CAST, URINE 0-1 /lpf (0-1)
[2020-05-21] MEDS ORDERED: cefTRIAXone SOD 1 GM in D5W MINI-BAG PLUS 50 ML IV ONE (16:15)
[2020-05-21] MEDS ORDERED: VITA50005 PO (16:37)
[2020-05-21] MEDS ORDERED: FLOM0.4C39 PO (16:37)
[2020-05-21] MEDS ORDERED: ONGL1TAB9 PO (16:37)
[2020-05-21] MEDS ORDERED: ATOR1TAB21 PO (16:37)
[2020-05-21] MEDS ORDERED: OMEP40CA97 PO (16:37)
[2020-05-21] MEDS ORDERED: CARA1TAB6 PO (16:37)
[2020-05-21] MEDS ORDERED: HUMA100I3 SC (16:37)
[2020-05-21] MEDS ORDERED: CLOPIDOGREL 300 MG TAB (PLAVIX) PO STA (17:12)
[2020-05-21] MEDS ORDERED: ASPIRIN 81 MG CHEW TABLET PO ONE (17:15)
[2020-05-21 17:40] LABS: INR 1.14; PROTHROMBIN TIME 14.8 SECONDS (12.5-14.3)
[2020-05-21 17:41] LABS: PARTIAL THROMBOPLASTIN TIME 35.3 SECONDS (24.2-38.5)
[2020-05-21 18:53] VITALS: BP 113/57
--- NOTE | 2020-05-21 19:51 | ECGEPIP ---
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
== END 2020-05-21 19:01 | disposition short-term general hospital (02) ==
LOC: EDBD 11:51 → M ED 11:51
DX: I21.4 Non-ST elevation (NSTEMI) myocardial infarction (principal); D64.9 Anemia, unspecified; N17.9 Acute kidney failure, unspecified; N39.0 Urinary tract infection, site not specified; M62.82 Rhabdomyolysis; E11.9 Type 2 diabetes mellitus without complications; I10 Essential (primary) hypertension; E78.5 Hyperlipidemia, unspecified; N18.9 Chronic kidney disease, unspecified; M10.9 Gout, unspecified; Z79.4 Long term (current) use of insulin; Z79.82 Long term (current) use of aspirin; Z79.899 Other long term (current) drug therapy; Z88.6 Allergy status to analgesic agent
CPT/HCPCS: 70450; 71046; 80048; 80076; 81000; 82550; 82553; 84443; 84484; 85025; 85610; 85730; 87088; 87186; 93005; 93041; 94760; 96365; 96375; 96376; 99285; G0480; J0696; U0002